=== PATIENT | female | born 2000 | race Caucasian/White ===

== ENCOUNTER → 2022-05-22 | Outpatient (CLI) | payer BC, SELFPAY ==
[2022-05-25 08:09] LABS: Chlamydia By Nucleic Acid AMP Negative (Negative)
[2022-05-27 15:56] LABS: Gonococcus By Nucleic Acid AMP Negative (Negative)
[2022-06-18 18:57] LABS: HPV Reflexed? NOT INDICATED
== END | disposition home or self-care (01) ==
LOC: LABSPEC 16:43
PROVIDERS: Referring Provider Obstetrics & Gynecology; Visit Provider Obstetrics & Gynecology
DX: Z34.00 Encounter for supervision of normal first pregnancy, unspecified trimester (principal)
CPT/HCPCS: 87491; 87591; 88175; G0145

== ENCOUNTER → 2022-06-20 | Outpatient (CLI) | payer BC, SELFPAY ==
[2022-06-20 14:40] LABS: Absolute Lymphocyte Count 1.44 X10^3/uL (0.83-4.51); Absolute Neutrophil Count 9.2 X10^3/uL (2.0-7.7); Basophil# 0.04 X10^3/uL; Basophil% 0.3 % (0-1); Eosinophil# 0.16 X10^3/uL; Eosinophils% 1.4 % (0-5); Hemoglobin 13.5 g/dL (12.0-15.0); Lymphocyte # 1.44 X10^3/ul (0.83-4.51); Lymphocyte % 12.6 % (19-41); Mean Corp Hgb Conc 34.6 g/dL (32-36); Mean Corpuscular Hgb 31.3 pg (27.0-32.0); Mean Corpuscular Volume 90.5 fL (81-99); Mean Platelet Vol. 8.7 fl (6.2-12.0); Monocyte# 0.61 X10^3/uL; Monocyte% 5.3 % (0-10); NRBC Flagged by Analyzer 0 % (0-5); Neutrophil # 9.16 X10^3/uL (2.7-7.7); Platelet Count 235 K/mm3 (150-450); RBC Distribution Width CV 12.9 % (11.6-14.6); RBC Distribution Width SD 42.5 fl (35.1-43.9); Red Blood Count 4.31 M/mm3 (4.2-5.4); White Blood Count 11.5 K/mm3 (4.4-11.0)
[2022-06-20 16:11] LABS: HIV - WCH Non-Reactive (Nonreactive); Hepatitis B Surface Antigen Non-Reactive (Nonreactive); Hepatitis C Antibody Non-Reactive (Nonreactive); Rubella IgG Reactive (Nonreactive); Syphilis Antibodies Non-reactive
== END | disposition home or self-care (01) ==
LOC: PAVLAB 14:21
PROVIDERS: Referring Provider Obstetrics & Gynecology; Visit Provider Obstetrics & Gynecology
DX: Z34.00 Encounter for supervision of normal first pregnancy, unspecified trimester (principal)
CPT/HCPCS: 36415; 85025; 86703; 86762; 86780; 86803; 86850; 86900; 86901; 87340

== ENCOUNTER → 2022-07-23 | Outpatient (CLI) | payer BC, SELFPAY | END | disposition home or self-care (01) | LOC: LABSPEC 16:09 | PROVIDERS: Referring Provider Obstetrics & Gynecology; Visit Provider Obstetrics & Gynecology | DX: Z34.00 Encounter for supervision of normal first pregnancy, unspecified trimester (principal) | CPT/HCPCS: 87086; 87088 ==

== ENCOUNTER → 2022-10-08 | Outpatient (CLI) | payer BC, SELFPAY ==
[2022-10-08 15:37] LABS: Absolute Lymphocyte Count 1.54 X10^3/uL (0.83-4.51); Absolute Neutrophil Count 9.1 X10^3/uL (2.0-7.7); Basophil# 0.04 X10^3/uL; Basophil% 0.3 % (0-1); Eosinophil# 0.09 X10^3/uL; Eosinophils% 0.8 % (0-5); Hematocrit 35.6 % (37-47); Hemoglobin 12.5 g/dL (12.0-15.0); Lymphocyte # 1.54 X10^3/ul (0.83-4.51); Lymphocyte % 13.3 % (19-41); Mean Corp Hgb Conc 35.1 g/dL (32-36); Mean Corpuscular Hgb 33.4 pg (27.0-32.0); Mean Corpuscular Volume 95.2 fL (81-99); Mean Platelet Vol. 8.7 fl (6.2-12.0); Monocyte# 0.74 X10^3/uL; Monocyte% 6.4 % (0-10); NRBC Flagged by Analyzer 0 % (0-5); Neutrophil # 9.11 X10^3/uL (2.7-7.7); Neutrophil % 78.4 % (47-70); Platelet Count 198 K/mm3 (150-450); RBC Distribution Width CV 12.7 % (11.6-14.6); RBC Distribution Width SD 43.8 fl (35.1-43.9); Red Blood Count 3.74 M/mm3 (4.2-5.4); White Blood Count 11.6 K/mm3 (4.4-11.0)
[2022-10-08 15:46] LABS: Glucose Challenge Gest 1H 50g 116 mg/dL (70-140)
[2022-10-08 16:31] LABS: HIV - WCH Non-Reactive (Nonreactive); Syphilis Antibodies Non-reactive
== END | disposition home or self-care (01) ==
LOC: PAVLAB 15:07
PROVIDERS: Referring Provider Obstetrics & Gynecology; Visit Provider Obstetrics & Gynecology
DX: Z34.00 Encounter for supervision of normal first pregnancy, unspecified trimester (principal); Z13.1 Encounter for screening for diabetes mellitus
CPT/HCPCS: 36415; 82950; 85025; 86703; 86780; 86850; 86900; 86901

== ENCOUNTER → 2022-12-07 | Outpatient (CLI) | payer BC, SELFPAY | END | disposition home or self-care (01) | LOC: LABSPEC 16:43 | PROVIDERS: Referring Provider Advanced Practice Midwife; Visit Provider Advanced Practice Midwife | DX: Z34.00 Encounter for supervision of normal first pregnancy, unspecified trimester (principal) | CPT/HCPCS: 87081 ==

== ENCOUNTER 2022-12-10 20:35 | Outpatient (CLI) | payer BC, SELFPAY ==
[2022-12-10 20:51] VITALS: BMI 30.1
[2022-12-10 20:55] VITALS: BP 119/66; PULSE 72; TEMP 36.4
[2022-12-10 21:00] VITALS: PULSE 68; O2SAT 98
--- NOTE | 2022-12-10 23:20 | OB.TRI.HP_ITS ---
HPI - General HPI Narrative CLAUS MANUEL, is a 22 F who presents at 37 weeks s/p fall on her driveway after her dog ran in front of her. she fell onto her buttock. positive movement, no ctx, lof or vb. had initial lower abdominal discomfort and soreness. Maternal Data Information CHAPARRO Calculator Estimated Delivery Date Method Current WG Current Estimate 12/27/22 LMP (Certain) 37w 5d PFSH PFSH Home Medications twawkuzh-dzt-Ql-FA 1 mg tablet 1 tab PO DAILY 12/11/22 [History Last Taken Unknown] Allergy/AdvReac Type Severity Reaction Status Date / Time No Known Allergies Allergy Verified 12/10/22 21:25 Family History Brother Cancer older brother- Brain tumor- did chemo and radiation Father S/P triple vessel bypass Surgical History Broken fibula Broken tibia History of dental surgery Social History adopted: No household members: significant other housing: house current occupational status: employed 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 pets and animals: Yes pets and animals: dog(s) sexually active: Yes Smoking Status: Never smoker second hand exposure: No alcohol intake: current details: Not while substance use type: does not use seatbelt use: always do you feel safe at home: Yes additional social history: - Oscar works for [employer] business History 1 Elective abortions Hx Para 0 Spontaneous abortions Hx # Term Pregnancies Ectopic pregnancies Hx # Pregnancies Multiple births # of living children Visit Details Expected Delivery Route/Plan Labor Preferences- CB/BF classes: encouraged labor support person: Oscar labor intervention preferences: [] pain management options preferred: Epidural. cut cord/dad catch: no : probably not, enc class PP control planned: discussed discussed possible routes of delivery and associated risks: [] special requests: [] Plans Covid status:unvaccinated, not interested in vaccinating. Flu vaccine: declines Tdap vaccine: done Rhogam: given LARC form signed: yes Problem list reviewed and updated with the most current plan of care details and appropriate orders placed. Relevant counseling for the gestational age provided. Continue routine care and follow up unless otherwise noted in visit notes/problem list details OB Flowsheet Initial Weight: Not Recorded Date -?-?-?-?-?-?-?-?-?-?-?-?- EGA Weight BP Urine Prot -?-?-?-?-?-?-?-?-?-?-?-?- Glucose FHR FuHt Pres Dilation -?-?-?-?-?-?-?-?-?-?-?-?- Effaced St Visit Note 05/22/22 -?-?-?-?-?-?-?-?-?-?-?-?- 8w 5d 156 lb 123/75 -?-?-?-?-?-?-?-?-?-?-?-?- 185 -?-?-?-?-?-?-?-?-?-?-?-?- JV- CRL consiste nt with LMP. decinding on NIPT and carrier testing. box kits given. will decide and go to lab in 2 weeks if wants them 06/20/22 -?-?-?-?-?-?-?-?-?-?-?-?- 12w 6d 160 lb 123/75 Negative -?-?-?-?-?-?-?-?-?-?-?-?- Negative 170 -?-?-?-?-?-?-?-?-?-?-?-?- JV- no lof, or s potting. some cramping. needs new ob labs today and anatomy scan ordered. 07/23/22 -?-?-?-?-?-?-?-?-?-?-?-?- 17w 4d 165 lb 8 oz 130/77 Nega tive -?-?-?-?-?-?-?-?-?-?-?-?- Negative 155 -?-?-?-?-?-?-?-?-?-?-?-?- MH-No VB, LOF. N o movement yet. Reviewed PN labs. MFM US 08/07/22 08/23/22 -?-?-?-?-?-?-?-?-?-?-?-?- 22w 0d 174 lb 6 oz 110/74 Nega tive -?-?-?-?-?-?-?-?-?-?-?-?- Negative 139 -?-?-?-?-?-?-?-?-?-?-?-?- JV- normal anato my scan. no complaints today. 09/17/22 -?-?-?-?-?-?-?-?-?-?-?-?- 25w 4d 184 lb 114/73 Negative -?-?-?-?-?-?-?-?-?-?-?-?- Negative 145 25 -?-?-?-?-?-?-?-?-?-?-?-?- SM- no vb lof go od fm no regular ctx 10/08/22 -?-?-?--?-?-?-?-?-?-?-?-?- 28w 4d 190 lb 4 oz 120/78 Nega tive -?-?-?-?-?-?-?-?-?-?-?-?- Negative 149 28 -?-?-?-?-?-?-?-?-?-?-?-?- MH-No Vb, LOF. G odrake FM. Larc, rhogam, 28 wk labs 10/22/22 -?-?-?-?-?-?-?-?-?-?-?-?- 30w 4d 30 lb 4 oz 115/71 Negat marge -?-?-?-?-?-?-?-?-?-?-?-?- Negative 142 30 -?-?-?-?-?-?-?-?-?-?-?-?- MH-No VB, LOF. G ood FM. tdap 11/09/22 -?-?-?-?-?-?-?-?-?-?-?-?- 33w 1d 193 lb 8 oz 115/74 Nega tive -?-?-?-?-?-?-?-?-?-?-?-?- Negative 135 33 -?-?-?-?-?-?-?-?-?-?-?-?- SM- no vb lof go od fm no regular ctx 11/21/22 -?-?-?-?-?-?-?-?-?-?-?-?- 34w 6d 197 lb 116/72 Negative -?-?-?-?-?-?-?-?-?-?-?-?- Negative 147 34 -?-?-?-?-?-?-?-?-?-?-?-?- JV- no lof, vagi nal bleeding, or dec fm. gbs next visit. 12/07/22 -?-?-?-?-?-?-?-?-?-?-?-?- 37w 1d 200 lb 2 oz 128/80 Nega tive -?-?-?-?-?-?-?-?-?-?-?-?- Negative 130 37 Cephalic 0 .5 -?-?-?-?-?-?-?-?-?-?-?-?- 50 -2 KW- +fm, n o lof/ctx/vb. GBS done today. labor precautions. Physical Exam Const alert and oriented x3 Resp normal respiratory effort, normal air movement, no retractions and no use of accessory muscles Cardio regular rate and regular rhythm GI soft to palpation and non-tender Inspection: Palpation: soft Rectal Exam: deferred external exam normal Bimanual Exam - Vag & Uterus: uterus non-tender and other gravid uterus, normal for gestational age OB / External & Speculum: Negative for herpetic lesions Manual OB Exam: estimated gestational size appropriate, presentation cephalic, dilated 0.5, effaced 20 and station -4 Amniotic Fluid: no amniotic fluid noted Extremity normal to inspection and full ROM NST FHR Rate Baby A Baseline: 125 Variability:: Moderate Accelerations:: 15 x 15 Decelerations:: None NST Reactive:: Yes FHR Category:: Category I Uterine Activity:: q2-3 minutes, mild to palpation Assessment & Plan (1) Status post fall: COMMENT: 37 weeks fall onto buttock on driveway. stable 4 hour monitoring. RhoGAM. unchanged cervical exam. PLAN: Plan Patient presents for triage evaluation secondary to fall at term FHT: Moderate variability reactive no decelerations category I tracing [place]: irregular Contractions Assessment and plan: Reactive NST, reassuring maternal and status patient discharged to home to follow-up in office. See problem list details for additional plan information. Discussed above with who agrees with above plan. ok for d/c home with labor precautions and bleeding precautions with kick counts. Charges/Coding Visit Charges Office Visits / Consults: 00684 OV L3 Est Procedures Urinary/Genital 52xxx-59xxx: 29318-10 non-stress test Interp Multi Select Codes Urinary/Genital Urinary/Genital CPT Codes: 72389-35 non-stress test Interp
[2022-12-11 01:46] VITALS: BP 112/73; PULSE 62; PULSE 65; TEMP 36.1; O2SAT 98
== END 2022-12-11 02:05 | disposition home or self-care (01) ==
LOC: WPPAT 20:41 → WP 20:41
PROVIDERS: Visit Provider Registered Nurse
DX: O99.891 Other specified diseases and conditions complicating pregnancy (principal); Z3A.37 37 weeks gestation of pregnancy; R10.30 Lower abdominal pain, unspecified; W19.XXXA Unspecified fall, initial encounter
CPT/HCPCS: 36415; 59025; 59050; 85461; 96372; 99221; G0378; J2790

== ENCOUNTER 2023-01-01 08:45 | Inpatient (IN) | payer BC, SELFPAY ==
[2023-01-01] VITALS (36 sets, daily range): BP systolic 100–129; BP diastolic 52–75; PULSE 54–81; TEMP 36.2–37.1; O2SAT 97–99; BMI 30.6
[2023-01-01 08:40] LABS: ROM Internal Control Test YES-OK TO RESULT pt. (Internal QC)
[2023-01-01 08:42] LABS: ROM Patient Test POSITIVE (Negative); Record Kit Lot#, ROM+ K1374
[2023-01-01] MEDS: Lactated Ringers 1,000 ML 50 ML IV (09:25)
[2023-01-01 09:36] LABS: Absolute Lymphocyte Count 1.38 X10^3/uL (0.83-4.51); Absolute Neutrophil Count 8.4 X10^3/uL (2.0-7.7); Basophil# 0.04 X10^3/uL; Basophil% 0.4 % (0-1); Eosinophil# 0.07 X10^3/uL; Eosinophils% 0.7 % (0-5); Hematocrit 38.8 % (37-47); Hemoglobin 13.5 g/dL (12.0-15.0); Lymphocyte # 1.38 X10^3/ul (0.83-4.51); Lymphocyte % 13.1 % (19-41); Mean Corp Hgb Conc 34.8 g/dL (32-36); Mean Corpuscular Volume 91.9 fL (81-99); Mean Platelet Vol. 9.4 fl (6.2-12.0); Monocyte# 0.61 X10^3/uL; Monocyte% 5.8 % (0-10); NRBC Flagged by Analyzer 0 % (0-5); Neutrophil # 8.39 X10^3/uL (2.7-7.7); Neutrophil % 79.5 % (47-70); Platelet Count 213 K/mm3 (150-450); RBC Distribution Width CV 12.8 % (11.6-14.6); RBC Distribution Width SD 41.9 fl (35.1-43.9); Red Blood Count 4.22 M/mm3 (4.2-5.4); White Blood Count 10.5 K/mm3 (4.4-11.0)
[2023-01-01] MEDS: Oxytocin 15 Units/NS 250ml 15 UNITS/250 ML IV.SOLN 2 UNITS IV (09:40)
[2023-01-01 10:10] LABS: Syphilis Antibodies Non-reactive
[2023-01-01] MEDS: LACTATED RINGERS 500 ML 999 ML IV ×2 (11:52→12:45)
--- NOTE | 2023-01-01 13:22 | HP.PCM.OB_ITS ---
HPI - General General Date of Admission: 01/01/23 Date of Service: 01/01/23 HPI Narrative CLAUS MANUEL, is a 22 F at 40.5 weeks who presents for SROM at 0530 this am. Maternal Data Information CHAP[facility]O Calculator Estimated Delivery Date Method Current WG Current Estimate 12/27/22 LMP (Certain) 40w 5d Final CHAPARRO: 12/27/22 Final CHAPARRO Source: US >20 weeks Gestational age: 40.5 weeks PFSH PFSH Home Medications krppptey-waa-Se-FA 1 mg tablet 1 tab PO DAILY 12/11/22 [History Last Taken 12/31/22] Allergy/AdvReac Type Severity Reaction Status Date / Time No Known Allergies Allergy Verified 01/01/23 09:04 Family History Brother Cancer older brother- Brain tumor- did chemo and radiation Father S/P triple vessel bypass Surgical History Broken fibula Broken tibia History of dental surgery Social History adopted: No household members: significant other housing: house 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 occupational status: employed 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 pets and animals: Yes pets and animals: dog(s) sexually active: Yes Smoking Status: Never smoker second hand exposure: No alcohol intake: current details: Not while substance use type: does not use seatbelt use: always do you feel safe at home: Yes additional social history: - 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 cut cord/dad catch: no : probably not, enc class PP control planned: discussed discussed possible routes of delivery and associated risks: [] special requests: [] Plans Covid status:unvaccinated, not interested in vaccinating. Flu vaccine: declines Tdap vaccine: done Rhogam: given LARC form signed: yes Problem list reviewed and updated with the most current plan of care details and appropriate orders placed. Relevant counseling for the gestational age provided. Continue routine care and follow up unless otherwise noted in visit notes/problem list details OB Flowsheet Initial Weight: Not Recorded Date -?-?-?-?-?-?-?-?-?-?-?-?- EGA Weight BP Urine Prot -?-?-?-?-?--?-?-?-?-?-?-?- Glucose FHR FuHt Pres Dilation -?-?-?-?-?-?-?-?-?-?-?--?- Effaced St Visit Note 05/22/22 -?-?-?-?-?-?-?-?-?-?-?-?- 8w 5d 156 lb 123/75 -?-?-?-?-?-?-?-?-?-?-?-?- 185 -?-?-?-?-?-?-?-?-?-?-?-?- JV- CRL consiste nt with LMP. decinding on NIPT and carrier testing. box kits given. will decide and go to lab in 2 weeks if wants them 06/20/22 -?-?-?-?-?-?-?-?-?-?-?-?- 12w 6d 160 lb 123/75 Negative -?-?-?-?-?-?-?-?-?-?-?-?- Negative 170 -?-?-?-?-?-?-?-?-?-?-?-?- JV- no lof, or s potting. some cramping. needs new ob labs today and anatomy scan ordered. 07/23/22 -?-?-?-?-?-?-?-?-?-?-?-?- 17w 4d 165 lb 8 oz 130/77 Nega tive -?-?-?-?-?-?-?-?-?-?-?-?- Negative 155 -?-?-?-?-?-?-?-?-?-?-?-?- MH-No VB, LOF. N o movement yet. Reviewed PN labs. MFM 08/07/22 08/23/22 -?-?-?-?-?-?-?-?-?-?-?-?- 22w 0d 174 lb 6 oz 110/74 Nega tive -?-?-?-?-?-?-?-?-?-?-?-?- Negative 139 -?-?-?-?-?-?-?-?-?-?-?-?- JV- normal anato my scan. no complaints today. 09/17/22 -?-?-?-?-?-?-?-?-?-?-?-?- 25w 4d 184 lb 114/73 Negative -?-?-?-?-?-?-?-?-?-?-?-?- Negative 145 25 -?-?-?-?-?-?-?-?-?-?-?-?- SM- no vb lof go od fm no regular ctx 10/08/22 -?-?-?-?-?-?-?-?-?-?-?-?- 28w 4d 190 lb 4 oz 120/78 Nega tive -?-?-?-?-?-?-?-?-?-?-?-?- Negative 149 28 -?-?-?-?-?-?-?-?-?-?-?-?- MH-No Vb, LOF. G ood FM. Larc, rhogam, 28 wk labs 10/22/22 -?-?-?-?-?-?-?-?-?-?-?-?- 30w 4d 30 lb 4 oz 115/71 Negat marge -?-?-?-?-?-?-?-?-?-?-?-?- Negative 142 30 -?-?-?-?-?-?-?-?-?-?-?-?- MH-No VB, LOF. G ood FM. tdap 11/09/22 -?-?-?-?-?-?-?-?-?-?-?-?- 33w 1d 193 lb 8 oz 115/74 Nega tive -?-?-?-?-?-?-?-?-?-?-?-?- Negative 135 33 -?-?-?-?-?-?-?--?-?-?-?-?- SM- no vb lof go od fm no regular ctx 11/21/22 -?-?-?-?-?-?-?-?-?-?-?-?- 34w 6d 197 lb 116/72 Negative -?-?-?-?-?-?-?-?-?-?-?-?- Negative 147 34 -?-?-?-?-?-?-?-?-?-?-?-?- JV- no lof, vagi nal bleeding, or dec fm. gbs next visit. 12/07/22 -?-?-?-?-?-?-?-?-?-?-?-?- 37w 1d 200 lb 2 oz 128/80 Nega tive -?-?-?-?-?-?-?-?-?-?-?-?- Negative 130 37 Cephalic 0 .5 -?-?-?-?-?-?-?-?-?-?-?-?- 50 -2 KW- +fm, n o lof/ctx/vb. GBS done today. labor precautions. 12/14/22 -?-?-?-?-?-?-?-?-?-?-?-?- 38w 1d 198 lb 2 oz 122/76 Nega tive -?-?-?-?-?-?-?-?-?-?-?-?- Negative 159 38 Cephalic -?-?-?-?-?-?-?-?-?-?-?-?- JV- declines exa m today. no complaints other than feeling sore from her fall this weekend. was monitored on L&D. no lof, vaginal bleeding, or dec fm. 12/21/22 -?-?-?-?-?-?-?-?-?-?-?-?- 39w 1d 203 lb 108/72 Negative -?-?-?-?-?-?-?-?-?-?-?-?- Negative 140 38 1.5 -?-?-?-?-?-?-?-?-?-?-?-?- 60 -2 kw- + fm, no lof/vb/ctx. labor precaution. no concerns 12/28/22 -?-?-?-?-?-?-?-?-?-?-?-?- 40w 1d 202 lb 4 oz 127/79 Trac e -?-?-?-?-?-?-?-?-?-?-?-?- Negative 138 39 Cephalic 0 .5 -?-?-?-?-?-?-?-?-?-?-?-?- 50 -3 LC- r/b/a of IOL at 41 weeks reviewed. pt would like 41 week IOL. scheduled for 01/03/2023 LC- +fm, denies lof/vb/ctx. r/b/a of IOL at 41 weeks reviewed. pt would like 41 week IOL. scheduled for 01/03/2023 01/01/23 -?-?-?-?-?-?-?-?-?-?-?-?- 40w 5d 201 lb 6.4 oz 126/67 125/75 124/74 123/70 121/66 129/72 123/72 -?-?-?-?-?-?-?-?-?-?-?-?- -?-?-?-?-?-?-?-?-?-?-?-?- NST FHR Rate Baby A Baseline: 130 Variability:: Moderate Accelerations:: 15 x 15 Decelerations:: None NST Reactive:: Yes FHR Category:: Category I Uterine Activity:: 2-4 minutes ROS Constitutional Constitutional: Denies change in weight, fatigue, fever(s), headache(s), poor appetite or weakness Eyes Eyes: Denies blurry vision, change in vision, floaters, seeing flashes or spots in vision ENT HEENT: Denies dizziness, headache(s), loss taste/smell or sore throat Cardiovascular Cardiovascular: Denies chest pain, dizziness, dyspnea, irregular heart rhythm, lightheadedness, palpitations or rapid heart rate Respiratory/Chest Respiratory/Chest: Denies change in mental status, chest tightness, cough, dyspnea or breast pain Gastrointestinal Gastrointestinal: Denies anorexia, chewing difficulty, constipation, diarrhea or weight changes Genitourinary Genitourinary: Denies difficulty urinating, dysuria, flank pain, genital pain, urinary frequency or urinary urgency Musculoskeletal Musculoskeletal: Denies back pain, difficulty walking, extremity pain, joint pain, muscle cramps or muscle weakness Integumentary Integumentary: Denies lesions or unusual bruising Neurologic Neurologic: Denies abnormal movements, abnormal speech, dizziness, numbness, seizure-like activity, syncope or weakness Psychiatric Psychiatric: Denies behavioral changes, change in appetite, confusion, depression, homicidal ideation, suicidal ideation or suicidal thoughts Endocrine Endocrinology: Denies excessive sweating, polydipsia or polyuria Hematologic/Lymphatic Hematologic/Lymphatic: Denies anemia Allergic/Immunologic Allergic/Immunologic: Denies itchy eyes, lip swelling, throat swelling, tongue swelling or wheezing Vital Signs Vital Signs Vital Signs: 01/01/23 08:01 01/01/23 08:01 01/01/23 08:04 Temperature 98.6 F Temperature Source Pulse Rate 68 Blood Pressure 126/67 H BP Systolic 126 BP Diastolic 67 Pulse Ox 01/01/23 10:03 01/01/23 10:03 01/01/23 10:03 Temperature 98.6 F Temperature Source Pulse Rate 73 Blood Pressure 125/75 H BP Systolic 125 BP Diastolic 75 Pulse Ox 01/01/23 10:06 01/01/23 10:06 01/01/23 10:01 Temperature Temperature Source Temporal Pulse Rate 81 Blood Pressure BP Systolic BP Diastolic Pulse Ox 98 01/01/23 10:01 01/01/23 11:04 01/01/23 11:04 Temperature 98.6 F Temperature Source Pulse Rate 73 Blood Pressure 124/74 H BP Systolic 124 BP Diastolic 74 Pulse Ox 01/01/23 11:05 01/01/23 11:04 01/01/23 11:51 Temperature 98.1 F Temperature Source Temporal Pulse Rate Blood Pressure 123/70 H BP Systolic 123 BP Diastolic 70 Pulse Ox 01/01/23 11:51 01/01/23 11:51 01/01/23 13:10 Temperature 98.8 F Temperature Source Pulse Rate 70 Blood Pressure BP Systolic BP Diastolic Pulse Ox 99 01/01/23 13:10 01/01/23 13:10 01/01/23 13:15 Temperature Temperature Source Pulse Rate 54 L 56 L Blood Pressure 121/66 H BP Systolic 121 BP Diastolic 66 Pulse Ox 01/01/23 13:15 01/01/23 13:17 01/01/23 13:17 Temperature Temperature Source Pulse Rate 58 L Blood Pressure 129/72 H BP Systolic 129 BP Diastolic 72 Pulse Ox 99 01/01/23 13:20 01/01/23 13:20 Temperature Temperature Source Pulse Rate 58 L Blood Pressure BP Systolic BP Diastolic Pulse Ox 98 Weight Weight: 201 lb 6.4 oz Body Mass Index (BMI) 30.6 Physical Exam Const alert, oriented x3 and no apparent distress General Appearance: cooperative Orientation / Consciousness: awake HEENT normocephalic Neck full ROM Lymph Lymphatic: no lymphadenopathy noted Chest inspection of chest normal Resp normal respiratory effort and normal air movement Effort and Inspection: able to speak in complete sentences and symmetric chest movement GI soft to palpation and non-tender Inspection: gravid Palpation: soft; Negative for tender external exam normal Back/Spine normal to inspection Extremity normal to inspection and full ROM Skin no rashes or lesions noted Psych mental status grossly normal Appearance: grossly normal Speech: normal speech Labs Labs Labs: Blood Type A NEGATIVE Antibody Screen POSITIVE Hct 38.8 % (37-47) Hgb 13.5 g/dL (12.0-15.0) Syphilis Total Ab Non-reactive Rubella IgG Antibody Reactive (Nonreactive) Hep Bs Antigen Non-Reactive (Nonreactive) Chlamydia DNA ([facility]) Negative (Negative) Neisseria gonorrhoeae DNA ([facility]) Negative (Negative) HIV 1&2 Antibody Non-Reactive (Nonreactive) Glucose 1 Hr 50 gm 116 mg/dL (70-140) Assessment & Plan (1) SROM (spontaneous rupture of membranes): PLAN: Patient presents IAL, plan expectant management for , pitocin/AROM PRN if needed. Pain management: plans epidural. GBS negative. Management of any complications: none I have reviewed the [facility] and made any clinically relevant updates. Reviewed with Dr Herr and agrees with POC (2) Rh negative state in antepartum period: COMMENT: rhogam 28 wk, pp and prn bleeding (3) Supervision of normal first : COMMENT: [id number] CHAPARRO [birth year] boy : Oscar (4) : QUALIFIERS: Weeks of gestation: 40 weeks Qualified Code(s): Z3A.40 - 40 weeks gestation of COMMENT: GBS neg, declines genetic ntd and carrier testing normal anatomy scan 08/07/22 Charges/Coding Multi Select Codes Urinary/Genital Urinary/Genital CPT Codes: No Charge
[2023-01-01] MEDS: fentaNYL-bupivacaine (epidural) 100 ML BAG EPIDURAL ×3 (13:28→22:36)
[2023-01-01] MEDS: Lactated Ringers 1,000 ML 200 ML IV ×2 (18:00→22:41)
[2023-01-01] MEDS: Ondansetron 4 MG/2 ML Vial IV (20:45)
--- NOTE | 2023-01-01 21:16 | PN_ITS ---
Progress Note comfortable with epidural current tracing: FHT: 130 Moderate variability reactive early decelerations category I tracing- reassuring [place]: strong Contractions every 2-3 minutes SVE 6.5/100/-1 per nursing exam pitocin 8mu reviewed tracing abnormalities since last note: internal monitors placed due to difficulty tracing A/P: continue with position changes continue titration of pitocin according to policy. GBS neg anticipate Assessment & Plan Assessment/Plan (1) Rh negative state in antepartum period: (2) Supervision of normal first : (3) : QUALIFIERS: Weeks of gestation: 40 weeks Qualified Code(s): Z3A.40 - 40 weeks gestation of (4) SROM (spontaneous rupture of membranes): Multi Select Codes Urinary/Genital Urinary/Genital CPT Codes: No Charge
[2023-01-02] VITALS (23 sets, daily range): BP systolic 107–142; BP diastolic 53–73; PULSE 69–91; RESP 16–17; TEMP 36.5–37.2; O2SAT 98
--- NOTE | 2023-01-02 02:17 | EX.PCM.OBRPT ---
Assessment & Plan (1) SROM (spontaneous rupture of membranes): (2) Rh negative state in antepartum period: COMMENT: rhogam 28 wk, pp and prn bleeding (3) Supervision of normal first : COMMENT: [id number] CHAPARRO 12/27/22 boy : Oscar (4) : QUALIFIERS: Weeks of gestation: 40 weeks Qualified Code(s): Z3A.40 - 40 weeks gestation of COMMENT: GBS neg, declines genetic ntd and carrier testing normal anatomy scan 08/07/22 Maternal Data Information CHAPARRO Calculator Estimated Delivery Date Method Current WG Current Estimate 12/27/22 LMP (Certain) 40w 6d Final CHAPARRO: 12/27/22 Final CHAPARRO Source: US >20 weeks Gestational age: 40.6 weeks Vaginal Delivery Maternal Presentation Maternal Presentation: Spontaneous Rupture of Membranes Maternal Presentation: Patient began pushing and delivered the head in the SAHARA presentation. The head was delivered atraumatically and a tight nuchal cord ?1 was identified and 's somersaulted through. The anterior and posterior shoulders delivered without complication followed by the rest of the and the was placed on the maternal abdomen. Delayed cord clamping was employed for approximately 60 seconds. Cord was clamped and cut and gentle traction was applied to the cord and the placenta delivered spontaneously immediately following it was noted to be intact with three-vessel cord. The perineum and vagina were inspected and first degree lacerationwhich was repaired in the usual fashion using 3-0 Rapide. EBL was 100 cc. Patient and infant tolerated delivery well. Apgars 9/9. Type of Induction: - Operative Information Date of Procedure: 01/02/23 Pre-Operative Diagnosis: See AP comments Post-Operative Diagnosis: Same Surgery / Procedure Performed: Spontaneous Vaginal Delivery supervisor of officials #1: Dolores Forbes Type of Anesthesia: Epidural Estimated Blood Loss: 100 Time of Delivery: 01:50 Findings Presentation: Vertex Amniotic Membrane Rupture Type: Spontaneous Time of Membrane Rupture: 01/01/23-529 Amniotic Fluid Description: Clear Placental Delivery Description: Spontaneous Placenta Disposition: [facility] Cord Vessel Description: 3 Vessels Cord Entanglement: Around neck x 1, tight Nuchal Cord Compression: With compression A Gender: Male (1 minute): 9 (5 minute): 9 Delayed Cord Clamping: Yes Post Vaginal Delivery Medications Given After Delivery: IV Pitocin Episiotomy Description: None Laceration: 1st degree Complication Complications: None Multi Select Codes Urinary/Genital Urinary/Genital CPT Codes: 32300 Vaginal Delivery [facility]
--- NOTE | 2023-01-02 02:24 | DCINST_ITS ---
Discharge Instructions Diet Discharge Diet: No restrictions Activity Discharge Activity: Return to Normal Activity May resume sexual activity in: 6-8 weeks Dressing / Incision Call your doctor if you observe: Fever of 101 or Higher, Coldness, Increased Pain, Numbness or Tingling, Change in Color, Inability to urinate, Inability to have a bowel movement, Using more than 1 pad per hour, Shortness of breath, Dizziness, Fainting spells, Swelling in the ankles, Chest pain, Increased palpitations (irregular heartbeat), Calf discomfort and Uncontrolled pain Follow Up Care Please Follow Up With: Dolores Forbes CNM When: Please call the office to schedule your follow up appointment in 6 weeks. If you had high blood pressure please call to schedule an appointment in 2 weeks. Test Results: Test results from this visit will be discussed in further detail at your follow- up appointment, if applicable. Discharge Plan Admission Admit Date/Time: 01/01/23 08:45 Attending Provider: Dolores Forbes Primary Care Provider: Care Physician,Sherri Primary Discharge Orders/Prescriptions Prescriptions: No Action 1 mg Tablet 1 tab PO DAILY Referrals / Follow Up: Care Physician,No Primary [Primary Care Provider] - Disposition Disposition (needs filled in before D/C Order can be placed): Home, Self Care
[2023-01-02] MEDS: Oxytocin 15 Units/NS 250ml 15 UNITS/250 ML IV.SOLN 83 UNITS IV (02:30)
[2023-01-02] MEDS: Ibuprofen 600 MG Tablet PO ×2 (16:53→23:59)
[2023-01-02] MEDS: Acetaminophen 500 MG Tablet 1000 MG PO (20:49)
[2023-01-03] VITALS (9 sets, daily range): BP systolic 111–139; BP diastolic 56–62; PULSE 64–90; RESP 14–18; TEMP 36.6–37.1; O2SAT 94–95
--- NOTE | 2023-01-03 07:27 | PCM.PN.OB ---
Documented by User: Dr. Cherise Snow DO 01/03/23 08:15 Subjective Subjective Patient doing well without complaints. Tolerating PO. Ambulating and voiding without difficulty. Feeding well. Denies chest pain, shortness of breath, calf pain/swelling, fevers, chills, lightheadedness. Objective Data Lab / Micro Data Result Diagrams: 01/01/23 09:25 ROS Constitutional Constitutional: Denies chills, fatigue, fever(s), poor appetite or weakness Eyes Eyes: Denies blurry vision, change in vision, seeing flashes or spots in vision ENT HEENT: Denies dizziness, headache(s), loss taste/smell or sore throat Cardiovascular Cardiovascular: Denies chest pain, dizziness, dyspnea, irregular heart rhythm, palpitations or rapid heart rate Respiratory/Chest Respiratory/Chest: Denies chest tightness, cough, dyspnea or breast pain Gastrointestinal Gastrointestinal: Denies abdominal pain, constipation or vomiting Genitourinary Genitourinary: Denies dysuria or flank pain Musculoskeletal Musculoskeletal: Denies difficulty walking, joint pain, limited range of motion or numbness Neurologic Neurologic: Denies abnormal movements, abnormal speech, dizziness, numbness, seizure-like activity or syncope Psychiatric Psychiatric: Denies anxiety, behavioral changes, change in appetite, confusion, depression or suicidal thoughts Physical Exam Const alert, oriented x3 and no apparent distress General Appearance: cooperative and comfortable Resp normal respiratory effort Cardio regular rate GI normal to inspection, nondistended, normoactive bowel sounds GI Narrative: uterus is firm below umbilicus Palpation: soft Back/Spine no CVA tenderness and thoraco-lumbar ROM normal Extremity normal to inspection, no clubbing, cyanosis or edema, no calf tenderness and no pedal edema Psych mental status grossly normal, thought process normal, cooperative, affect normal, speech normal, activity/motor behavior normal, denies homicidal ideation and denies suicidal ideation Assessment & Plan (1) SROM (spontaneous rupture of membranes): (2) Rh negative state in antepartum period: COMMENT: rhogam 28 wk, pp and prn bleeding (3) Supervision of normal first : COMMENT: KW 40.6 boy Ant bottle (4) : QUALIFIERS: Weeks of gestation: 40 weeks Qualified Code(s): Z3A.40 - 40 weeks gestation of COMMENT: GBS neg, declines genetic ntd and carrier testing normal anatomy scan 08/07/22 PLAN: Plan s/p PPD # 1 1. routine post delivery care 2. breast feeding- support given 3. rh positive 4. rubella immune 5. wants to go home today Documented by User: Dr. Rosalinda Herr MD Objective Data Objective Data Vital Signs: Vital Signs Temp Pulse Resp BP Pulse Ox O2 Del Method 98.8 F 66 14 111/56 L 95 Room Air 01/03/23 02:28 01/03/23 02:29 01/03/23 02:28 01/03/23 02:29 01/03/23 02:01/03/23 02:28 Oxygen Delivery Method Room Air Weight: 201 lb 6.4 oz Body Mass Index (BMI) 30.6 Intake & Output: Intake and Output for Last 24 Hours 01/01/23 01/02/23 01/03/23 23:59 23:59 23:59 Intake Total 3053.53 / 3053.53 821.38 / 821.38 Output Total 600 / 600 2500 / 2500 Balance 2453.53 / 2453.53 -1678.62 / -1678.62 Lab / Micro Data Result Diagrams: 01/01/23 09:25 Assessment & Plan (1) SROM (spontaneous rupture of membranes): (2) Rh negative state in antepartum period: COMMENT: rhogam 28 wk, pp and prn bleeding (3) Supervision of normal first : COMMENT: KW 40.6 boy Ant bottle (4) : QUALIFIERS: Weeks of gestation: 40 weeks Qualified Code(s): Z3A.40 - 40 weeks gestation of COMMENT: GBS neg, declines genetic ntd and carrier testing normal anatomy scan 08/07/22
[2023-01-03] MEDS: Acetaminophen 500 MG Tablet 1000 MG PO ×2 (08:06→14:20)
[2023-01-03] MEDS: Ibuprofen 600 MG Tablet PO ×2 (10:04→16:25)
== END 2023-01-03 17:50 | disposition home or self-care (01) | DRG 807 ==
LOC: WPOUT 08:53 → WP 08:53
PROVIDERS: Admitting Provider Advanced Practice Midwife; Visit Provider Advanced Practice Midwife
DX: O76 Abnormality in fetal heart rate and rhythm complicating labor and delivery (principal); Z37.0 Single live birth; O26.893 Other specified pregnancy related conditions, third trimester; Z67.11 Type A blood, Rh negative; O42.92 Full-term premature rupture of membranes, unspecified as to length of time between rupture and onset of labor; O69.1XX0 Labor and delivery complicated by cord around neck, with compression, not applicable or unspecified; O70.0 First degree perineal laceration during delivery; Z28.21 Immunization not carried out because of patient refusal; Z28.310 Unvaccinated for COVID-19; Z3A.40 40 weeks gestation of pregnancy
CPT/HCPCS: 59025; 59050; 84112; 85025; 86780; 86850; 86870; 86900; 86901; 99221; J7120; G0378; J2405

== ENCOUNTER → 2024-07-01 | Outpatient (CLI) | payer OTHER, SELFPAY ==
[2024-07-01 11:10] LABS: Absolute Lymphocyte Count 1.16 X10^3/uL (0.83-4.51); Absolute Neutrophil Count 9.4 X10^3/uL (2.0-7.7); Basophil# 0.03 X10^3/uL; Basophil% 0.3 % (0-1); Eosinophil# 0.06 X10^3/uL; Eosinophils% 0.5 % (0-5); Hematocrit 36.7 % (37-47); Hemoglobin 12.5 g/dL (12.0-15.0); Lymphocyte # 1.16 X10^3/ul (0.83-4.51); Lymphocyte % 10.2 % (19-41); Mean Corp Hgb Conc 34.1 g/dL (32-36); Mean Corpuscular Hgb 30.3 pg (27.0-32.0); Mean Corpuscular Volume 88.9 fL (81-99); Mean Platelet Vol. 8.9 fl (6.2-12.0); Monocyte# 0.75 X10^3/uL; Monocyte% 6.6 % (0-10); NRBC Flagged by Analyzer 0 % (0-5); Neutrophil # 9.37 X10^3/uL (2.7-7.7); Platelet Count 240 K/mm3 (150-450); RBC Distribution Width CV 12.5 % (11.6-14.6); RBC Distribution Width SD 40.3 fl (35.1-43.9); Red Blood Count 4.13 M/mm3 (4.2-5.4); White Blood Count 11.4 K/mm3 (4.4-11.0)
[2024-07-01 12:06] LABS: HIV - WCH Non-Reactive (Nonreactive); Hepatitis B Surface Antigen Non-Reactive (Nonreactive); Hepatitis C Antibody Non-Reactive (Nonreactive); Rubella IgG Reactive (Nonreactive); Syphilis Antibodies Non-reactive
[2024-07-03 20:07] LABS: Chlamydia By Nucleic Acid AMP Negative (Negative); Gonococcus By Nucleic Acid AMP Negative (Negative)
== END | disposition home or self-care (01) ==
LOC: BWCLAB 10:41
PROVIDERS: Referring Provider Advanced Practice Midwife; Visit Provider Advanced Practice Midwife
DX: Z34.90 Encounter for supervision of normal pregnancy, unspecified, unspecified trimester (principal)
CPT/HCPCS: 36415; 85025; 86703; 86762; 86780; 86803; 86850; 86900; 86901; 87086; 87340; 87491; 87591

== ENCOUNTER → 2024-11-10 | Outpatient (CLI) | payer OTHER, SELFPAY ==
[2024-11-10 13:38] LABS: Absolute Neutrophil Count 9.6 X10^3/uL (2.0-7.7); Basophil# 0.03 X10^3/uL; Basophil% 0.2 % (0-1); Eosinophil# 0.07 X10^3/uL; Eosinophils% 0.6 % (0-5); Hematocrit 34.9 % (37-47); Hemoglobin 12.1 g/dL (12.0-15.0); Lymphocyte % 14.1 % (19-41); Mean Corp Hgb Conc 34.7 g/dL (32-36); Mean Corpuscular Hgb 32.3 pg (27.0-32.0); Mean Corpuscular Volume 93.1 fL (81-99); Mean Platelet Vol. 8.8 fl (6.2-12.0); Monocyte# 0.62 X10^3/uL; Monocyte% 5.1 % (0-10); NRBC Flagged by Analyzer 0 % (0-5); Neutrophil # 9.56 X10^3/uL (2.7-7.7); Neutrophil % 79.5 % (47-70); Platelet Count 214 K/mm3 (150-450); RBC Distribution Width CV 13.2 % (11.6-14.6); RBC Distribution Width SD 45.1 fl (35.1-43.9); Red Blood Count 3.75 M/mm3 (4.2-5.4)
[2024-11-10 14:07] LABS: Glucose Challenge Gest 1H 50g 102 mg/dL (70-140)
[2024-11-10 14:18] LABS: HIV Nonreactive (Nonreactive); Syphilis Antibodies Nonreactive (Nonreactive)
== END | disposition home or self-care (01) ==
LOC: LAB 12:47
PROVIDERS: Nurse Practitioner Women's Health; Referring Provider Advanced Practice Midwife; Visit Provider Advanced Practice Midwife
DX: Z34.90 Encounter for supervision of normal pregnancy, unspecified, unspecified trimester (principal)
CPT/HCPCS: 36415; 82950; 85025; 86703; 86780; 86850; 86900; 86901

== ENCOUNTER → 2025-01-05 | Outpatient (CLI) | payer OTHER, SELFPAY | END | disposition home or self-care (01) | LOC: LABSPEC 14:50 | PROVIDERS: Referring Provider Nurse Practitioner Women's Health; Visit Provider Nurse Practitioner Women's Health | DX: Z34.83 Encounter for supervision of other normal pregnancy, third trimester (principal) | CPT/HCPCS: 87081 ==

== ENCOUNTER → 2025-01-28 | Outpatient (CLI) | payer OTHER, SELFPAY ==
--- NOTE | 2025-01-28 10:10 | US_ITS ---
PROCEDURE: OB LIMITED WITH BIOMETRICS 01/28/2025 REASON FOR EXAM: UTERINE SIZE DATE DICREPANCY TECHNIQUE: OB LIMITED WITH BIOMETRICS COMPARISON: None FINDINGS LMP: April 28, 2024 Number: 1 Position: Vertex Placental Position: Posterior and not low-lying. Placental Abnormalities: No evidence of previa. DIMENSIONS: Biparietal Diameter: 9.5 cm: 38 weeks and 5 days: 69 percentile/ Head Circumference: 33.4 cm: 38 weeks and 1 day: 17 percentile/ Abdominal Circumference: 35.2 cm: 39 weeks and 1 day: 68 percentile/ Femur Length: 7.7 cm: 39 weeks and 1 day: 57 percentile/ ESTIMATED WEIGHT: 3711 g plus/-557 g ESTIMATED WEIGHT PERCENTILE (24+ weeks): 69 ESTIMATED GESTATIONAL AGE: Baseline: 39 weeks and 2 days By Ultrasound: 38 weeks and 6 days ESTIMATED DATE OF DELIVERY: Baseline: February 02, 2025 By Ultrasound: February 05, 2025 BIOPHYSICAL ASSESSMENT: Amniotic Fluid Volume: 3.9 cm Amniotic Fluid Index: 12.1 (8-24 cm normal range) Cardiac Motion: 147 beats per minute (average) Trunk and Limb Motion: Present. MATERNAL ANATOMY: Adnexa: Neither maternal ovary is successfully identified. Cervical Length (if measured): US/OB Limited With Biometrics IMPRESSION: Single live intrauterine gestation with mean gestational age of 38 weeks and 6 days. Reading Location: [id number]
== END | disposition home or self-care (01) ==
LOC: US 10:08
PROVIDERS: Referring Provider Obstetrics & Gynecology; Visit Provider Obstetrics & Gynecology
DX: O26.849 Uterine size-date discrepancy, unspecified trimester (principal); Z3A.00 Weeks of gestation of pregnancy not specified
CPT/HCPCS: 76816

== ENCOUNTER 2025-02-06 17:38 | Inpatient (IN) | payer OTHER, SELFPAY ==
[2025-02-06] VITALS (35 sets, daily range): BP systolic 99–149; BP diastolic 51–86; PULSE 53–93; RESP 14–18; TEMP 36.4–36.7; O2SAT 92–99; BMI 29.3
[2025-02-06 18:08] LABS: ROM Internal Control Test YES-OK TO RESULT pt. (Internal QC); Record Kit Lot#, ROM+ K3358
[2025-02-06 18:26] LABS: ROM Patient Test Negative (Negative)
[2025-02-06 18:30] LABS: Hematocrit 35.7 % (37-47); Hemoglobin 12.6 g/dL (12.0-15.0); Immature Granulocytes Count 0.050 X10^3/uL (0.0-0.0); Mean Corp Hgb Conc 35.3 g/dL (32-36); Mean Corpuscular Volume 91.1 fL (81-99); Mean Platelet Vol. 9.2 fl (6.2-12.0); NRBC Flagged by Analyzer 0 % (0-5); Platelet Count 199 K/mm3 (150-450); RBC Distribution Width CV 13.1 % (11.6-14.6); RBC Distribution Width SD 42.8 fl (35.1-43.9); Red Blood Count 3.92 M/mm3 (4.2-5.4); White Blood Count 8.8 K/mm3 (4.4-11.0)
[2025-02-06] MEDS: Lactated Ringers 1,000 ML 50 ML IV (18:30)
[2025-02-06 19:02] LABS: Syphilis Antibodies Nonreactive (Nonreactive)
[2025-02-06] MEDS: Oxytocin 15 Units/NS 250ml 15 UNITS/250 ML IV.SOLN 2 UNITS IV (19:27)
[2025-02-06] MEDS: Lactated Ringers 1,000 ML 999 ML IV (21:40)
[2025-02-06] MEDS: fentaNYL-bupivacaine (epidural) 100 ML BAG EPIDURAL (22:19)
[2025-02-07] VITALS (44 sets, daily range): BP systolic 94–122; BP diastolic 46–69; PULSE 58–150; RESP 16–18; TEMP 36.2–36.8; O2SAT 92–100
[2025-02-07] MEDS: Lactated Ringers 1,000 ML 200 ML IV (01:04)
[2025-02-07] MEDS: LACTATED RINGERS 500 ML 999 ML IV (01:33)
[2025-02-07] MEDS: fentaNYL-bupivacaine (epidural) 100 ML BAG EPIDURAL (02:27)
[2025-02-07] MEDS: Oxytocin 15 Units/NS 250ml 15 UNITS/250 ML IV.SOLN 83 UNITS IV (04:20)
[2025-02-08 00:15] VITALS: BP 98/51; PULSE 71; PULSE 73; RESP 12; TEMP 36.4; O2SAT 97
[2025-02-08] MEDS: Rho(D) Immune Globulin 300 MCG (1500 Unit) Syringe IV (03:43)
[2025-02-08 04:58] VITALS: BP 91/46; PULSE 64; RESP 16; TEMP 36.4; O2SAT 97
[2025-02-08 04:59] VITALS: BP 91/46; PULSE 61
[2025-02-08 10:37] VITALS: BP 105/71; PULSE 80
[2025-02-08 10:40] VITALS: BP 105/71; PULSE 80; RESP 16; TEMP 36.6; O2SAT 98
== END 2025-02-08 11:20 | disposition home or self-care (01) | DRG 807 ==
PROVIDERS: Admitting Provider Registered Nurse; Visit Provider Registered Nurse
DX: O48.0 Post-term pregnancy (principal); Z37.0 Single live birth; O26.893 Other specified pregnancy related conditions, third trimester; Z3A.40 40 weeks gestation of pregnancy; Z67.91 Unspecified blood type, Rh negative
CPT/HCPCS: 59025; 59050; 84112; 85025; 85461; 86780; 86850; 86900; 86901; 90384; 99221; G0378; J2790; J2791

== ENCOUNTER → 2025-03-23 | Outpatient (CLI) | payer OTHER, SELFPAY ==
--- OUTSIDE RECORDS SUMMARY | 2025-03-23 22:27 | XMS RPT_ITS | CCD ---
Author Organization [facility] CliniSyky Care Team Providers Care Electronic Engraver Name Role Phone DeepikarameshOsman Malcolm Unavailable [phone] Amaury Urbina Unavailable Unavailable Amaury Urbina Unavailable Unavailable Tr Bruno Unavailable Unavailable Gadiel Eddy Unavailable Unavailable Kolmary ellen, Gadiel Pruett Unavailable Unavailable MARY KAY PETERSON Admitting Unavailable MARY KAY PETERSON Referring Unavailable VORRameshOSMAN MALCOLM Primary Care Unavailable JAYLA CHRISTIANSON Attending Unavailable CAM, OSMANSIMONE FOWLER Primary Care Unavailable JAYLA CHRISTIANSON Admitting Unavailable JAYLA CHRISTIANSON Referring Unavailable VORRameshDELFINAOSMANSIMONE FOWLER Primary Care Unavailable JAYLA CHRISTIANSON Attending Unavailable VORRamesh, OSMAN MALCOLM Primary Care Unavailable JAYLA CHRISTIANSON Admitting Unavailable JAYLA CHRISTIANSON Referring Unavailable VORE, OSMAN FOWLER Primary Care Unavailable Vore, Osman Fowler Primary Care Provider [phone] Dr. Cherise Snow Attending Provider [phone] Dr. Cherise Snow Attending Provider [phone] Dr. Cherise Snow Attending Provider [phone] [place] ATHLETE MANAGER, CELENA-Seble Buchanan Attending Provider [phone] Care Physician, No Primary Primary Care Provider Unavailable Care Physician, No Primary Referring Provider Un available Dr. Rosalinda Herr Attending Provider [phone] Care Physician, No Primary Primary Care Provider Unavailable Care Physician, No Primary Referring Provider Un available Dr. Cherise Snow Attending Provider [phone] Dr. Rosalinda Herr Attending Provider [phone] Shelby ATHLETE MANAGER, FRAN Buchanan Attending Provider [phone] CARMELITA Nielson Attending Provider [phone] CARMELITA Mcgee Attending Provider CARMELITA Mcgee Other Provider Care Physician, No Primary Primary Care Provider Unavailable Care Physician, No Primary Referring Provider Un available Dr. Cherise Snow Attending Provider [phone] CARMELITA Nielson Admit Provider [phone] CARMELITA Nielson Other Provider [phone] Cam RAMIREZ Osmansimone Fowler Primary Care Provider NO PRIMARY CARE, MD Primary Care Unavailable RIOS CADET Attending Unavailable RAGINI NIELSON Referring Unavailable Care Physician, No Primary Primary Care Provider Unavailable Care Physician, No Primary Referring Provider Un available Carmenza GRACE, Dr. Tellez Attending Provider [phone] Dr. Cherise Snow DO Attending Provider Ragini Nielson CNM Attending Provider [phone] Ragini Nielson CNM Referring Provider [phone] [place] ATHLETE MANAGER-CChanel Attending Provider Care Physician, No Primary Primary Care Provider Unavailable Care Physician, No Primary Referring Provider Un available Care Physician, No Primary Primary Care Provider Unavailable Care Physician, No Primary Referring Provider Un available Dr. Cherise Snow DO Attending Provider Shelby ATHLETE MANAGER-CChanel Referring Provider [phone] Dr. Rosalinda Herr MD Attending Provider Dr. Rosalinda Herr MD Referring Provider Care Physician, No Primary Primary Care Provider Unavailable Ragini Nielson CNM Attending Provider [phone] Care Physician, No Primary Referring Provider Un available Ching Mcgee CNM Admit Provider [phone] Ching Mcgee CNM Attending Provider Ching Mcgee CNM Other Provider Cherise Snow Attending Unavailabl e Care Physician, No Primary Primary Care Unava ilable Care Physician, No Primary Referring Unava ilable Care Physician, No Primary Primary Care Unava ilable Care Physician, No Primary Referring Unava ilable Ragini Nielson Attending Unavailable Care Physician, No Primary Primary Care Unava ilable Care Physician, No Primary Referring Unava ilable [place] ATHLETE MANAGER, Chanel Attending Unavailable Cherise Snow Attending Unavailabl e Care Physician, No Primary Primary Care Unava ilable Care Physician, No Primary Referring Unava ilable Ching Mcgee Admitting Unavailable Mcgee, Ching Attending Unavailable Everardo, Ching Consulting Unavailable Care Physician, No Primary Primary Care Unava ilable Care Physician, No Primary Referring Unava ilable [place] ATHLETE MANAGER, Chanel Attending Unavailable Care Physician, No Primary Primary Care Unava ilable Care Physician, No Primary Primary Care Unava ilable Care Physician, No Primary Referring Unava ilable [place] ATHLETE MANAGER, Chanel Attending Unavailable Mcgee, Ching Attending Unavailable Everardo, Ching Admitting Unavailable Care Physician, No Primary Primary Care Unava ilable Care Physician, No Primary Primary Care Unava ilable Ragini Nielson Attending Unavailable Ragini Nielson Referring Unavailable Care Physician, No Primary Primary Care Unava ilable Care Physician, No Primary Referring Unava ilable Cherise Snow Attending Unavailabl e Care Physician, No Primary Primary Care Unava ilable Care Physician, No Primary Referring Unava ilable Ragini Nielson Attending Unavailable Care Physician, No Primary Primary Care Unava ilable Rosalinda Herr Referring Unavailable Rosalinda Herr Attending Unavailable Care Physician, No Primary Primary Care Unava ilable Ragini Nielson Attending Unavailable Ragini Nielson Referring Unavailable Care Physician, No Primary Primary Care Unava ilable [place] ATHLETE MANAGER, Chanel Referring Unavailable [place] ATHLETE MANAGER, Chanel Attending Unavailable Care Physician, No Primary Primary Care Unava ilable Care Physician, No Primary Referring Unava ilable Rosalinda Herr Attending Unavailable Care Physician, No Primary Primary Care Unava ilable Care Physician, No Primary Referring Unava ilable Cherise Snow Attending Unavailabl e Cherise Snow Attending Unavailabl e Care Physician, No Primary Primary Care Unava ilable Care Physician, No Primary Referring Unava ilable Care Physician, No Primary Primary Care Unava ilable Care Physician, No Primary Referring Unava ilable Rosalinda Herr Attending Unavailable Care Physician, No Primary Primary Care Unava ilable Care Physician, No Primary Referring Unava ilable Rgaini Nielson Attending Unavailable Care Physician, No Primary Primary Care Unava ilable Care Physician, No Primary Referring Unava ilable Chanel Ryan NP Attending Unavailable Ragini Nielson Attending Unavailable Care Physician, No Primary Primary Care Provider Unavailable Care Physician, No Primary Referring Provider Un available Chanel Urena Attending Provider Ragini Nielson CNM Attending Provider Medications Current Medications Medication Drug Class(es) Dates Sig (Normalized) Sig (Original) meloxicam 15 mg oral tablet (1 source) Nonsteroidal Anti-inflammatory Drug Start: 07-27-2019 End: 10-25-2019 take 1 tablet by mouth once daily meloxicam (MOBIC) 15 MG tablet Take 15 mg by mouth daily . 0 07/27/2019 10/25/2019 Active [place] (Nk) (2 sources) Start: 03-23-2025 [place] (Nk) Active March 23, 2025 12:00am Start: 05-12-2022 [place] (Nk) A ctive May 11, 2022 11:00pm Completed/Discontinued Medications Medication Drug Class(es) Dates Sig (Normalized) Sig (Original) Iron (11 sources) Start: 06-18-2024 End: 03-23-2025 Pnv No.720-Hndk-[place] No.10 (Pnv Tabs 20-1) 20 mg iron- 1 mg tablet Discontinued {tbl} PO DAILY June 18, 2024 1:00am March 23, 2025 2:19pm Start: 06-18-2024 Pnv No.163-Iro n-Folate No.10 (Pnv Tabs 20-1) 20 mg iron- 1 mg tablet Active {tbl} PO DAILY June 18, 2024 1:00am Start: 06-18-2024 Pnv No.163-Iro n-Folate No.10 (Pnv Tabs 20-1) 20 mg iron- 1 mg tablet Active {tbl} PO June 18, 2024 1:00am Misdhobi-Ebc-Fe-Fa () 1 mg Tablet (14 sources) Start: 12-11-2022 End: 02-15-2023 take 1 tablet by mouth once daily Eochsxha-Sms-Jk-Fa () 1 mg Tablet Discontinued 1 {tbl} PO DAILY December 11, 2022 12:00am February 15, 2023 3:12pm Start: 12-11-2022 End: 02-15-2023 take 1 tablet by mouth once daily Vldktbue-Jch-Dl-Fa () 1 mg Tablet Discontinued 1 {tbl} PO DAILY December 11, 2022 12:00am February 15, 2023 3:12pm Start: 12-11-2022 take 1 tablet by brielle th once daily Fkpbysxu-Lgd-Ia-Fa () 1 mg Tablet Active 1 TABLET PO DAILY December 11, 2022 12:00am Problems Active Problems Problem Classification Problem Date Documented Date Episodic/Chronic Other complications of ; puerperium affecting management of mother (11 sources) hemorrhage; Translations: [Other immediate hemorrhage] 02-18-2024 Episodic Comment on above: TVUS, scant vaginal bleeding on exam. rest encouraged.bleeding precautions provided. Other complications of (20 sources) RhD negative; Translations: [Other specified related conditions, unspecified trimester] 07-23-2022 Episodic Comment on above: rhogam 28 wk, pp and prn bleeding, Given 11/10/24 Other complications of (20 sources) Other specified related conditions, unspecified trimester; Translations: [Other specified complications of , antepartum condition or complication] Onset: 01-21-2025 07-23-2022 Episodic Other complications of (15 sources) Uterine size for dates discrepancy; Translations: [Uterine size-date discrepancy, third trimester] 01-26-2025 Episodic Comment on above: 38 wk: EFW 68%, AC 6 9% Other complications of (1 source) Uterine size-date discrepancy, third trimester; Translations: [Uterine size-date discrepancy, third trimester] Onset: 03-02-2025 Episodic Other complications of (1 source) Uterine size-date discrepancy, unspecified trimester; Translations: [Uterine size-date discrepancy, unspecified trimester] Onset: 02-01-2025 Episodic Other connective tissue disease (1 source) Pain in lower limb Episodic Other injuries and conditions due to external causes (14 sources) History of fall; Translations: [History of falling] 12-11-2022 Episodic Comment on above: 37 weeks fall onto b uttock on driveway. stable 4 hour monitoring. RhoGAM. unchanged cervical exam. Other injuries and conditions due to external causes (5 sources) History of falling; Translations: [History of fall] 12-11-2022 Episodic Other non-traumatic joint disorders (1 source) Knee pain Episodic Other and delivery including normal (20 sources) Normal ; Translations: [Encounter for supervision of normal first , unspecified trimester] Onset: 11-16-2024 Episodic Comment on above: KW 40.6 boy Hen ry bottle PRR,, CHAPARRO 02/02/25 , PC Ant, Spouse Oscar declines genetic and carrier screening, wants to know gender at anatomy scan, nl anatomy GBS neg, declines ge netic ntd and carrier testing normal anatomy scan 08/07/22 Neg GBS. declines ge netic and carrier screening, wants to know gender at anatomy scan, nl anatomy PRR,, CHAPARRO 02/02/25 , girl PC Ant, Spouse Oscar pitocin/arom LC IOL- elective inge-girl Polyhydramnios and other problems of amniotic cavity (11 sources) Spontaneous rupture of membranes 01-05-2023 Episodic Residual codes; unclassified (1 source) Pain; Translations: [Pain, unspecified] 01-23-2021 Episodic Residual codes; unclassified (2 sources) Unspecified blood type, Rh negative; Translations: [Unspecified blood type, Rh negative] Onset: 01-21-2025 Episodic Residual codes; unclassified (1 source) 40 weeks gestation of ; Translations: [40 weeks gestation of ] Onset: 03-02-2025 Episodic Residual codes; unclassified (1 source) 38 weeks gestation of ; Translations: [38 weeks gestation of ] Onset: 01-21-2025 Episodic Residual codes; unclassified (1 source) 36 weeks gestation of ; Translations: [36 weeks gestation of ] Onset: 01-11-2025 Episodic Unclassified (2 sources) Spontaneous rupture of membranes; Translations: [Spontaneous rupture of amniotic membranes] 01-01-2023 Past or Other Problems Problem Classification Problem Date Documented Da te Episodic/Chronic Fracture of lower limb (2 sources) Closed fracture of patella; Translations: [Unspecified fracture of right patella, subsequent encounter for closed fracture with routine healing] Onset: 03-19-2018 03-19-2018 Episodic Fracture of upper limb (2 sources) Closed fracture of fourth metacarpal; Translations: [Closed nondisplaced fracture of fourth metacarpal bone of right hand, unspecified portion of metacarpal, initial encounter] Episodic Immunizations and screening for infectious disease (1 source) Encounter for immunization; Translations: [Encounter for immunization] Onset: 11-10-2024 Episodic Residual codes; unclassified (1 source) 22 weeks gestation of ; Translations: [22 weeks gestation of ] Onset: 10-05-2024 Episodic Residual codes; unclassified (1 source) 15 weeks gestation of ; Translations: [15 weeks gestation of ] Onset: 08-12-2024 Episodic Residual codes; unclassified (1 source) 9 weeks gestation of ; Translations: [9 weeks gestation of ] Onset: 07-01-2024 Episodic Results Test Name Value Interpretation Reference Range Facility Discharge Instructionon Discharge Instruction [facility] Medical Records Department [address] [place] [id number] Instructions for Home/Discharge Instructions 02/08/25 0837 MR#: [id number] Acct: [id number] Name: CARLOTA MANUEL Rep #: [id number] : 2000 24 From: Ragini Nielson CNM PCP: Care Physician,No Primary Status:ADM IN Discharge Instructions Diet Discharge Diet: No restrictions DC O2, CPAP, BIPAP needs Home O2 Discharge instructions: No Dressing / Incision Discharge Activity: Return to Normal Activity May resume sexual activity in: 6-8 weeks Dressing / Incision Call your doctor if you observe: Fever of 101 or Higher, Coldness, Increased Pain, Numbness or Tingling, Change in Color, Inability to urinate, Inability to have a bowel movement, Using more than 1 pad per hour, Shortness of breath, Dizziness, Fainting spells, Swelling in the ankles, Chest pain, Increased palpitations (irregular heartbeat), Calf discomfort and Uncontrolled pain Follow Up Care Please Follow Up With: Ragini Nielson CNM When: Please call the office to schedule your follow up appointment in 6 weeks. If you had high blood pressure please call to schedule an appointment in 2 weeks. Test Results: Test results from this visit will be discussed in further detail at your follow-up appointment, if applicable. Discharge Plan Admission Admit Date/Time: 02/06/25 17:38 Attending Provider: Ching Mcgee Primary Care Provider: Care Physician,No Primary Discharge Orders/Prescriptions Prescriptions: No Action PNV Tabs 20-1 20 mg iron- 1 mg tablet PO DAILY Referrals / Follow Up: Care Physician,No Primary [Primary Care Provider] - Disposition Disposition (needs filled in before D/C Order can be placed): Home, Self Care 02/08/25 0837 Ragini Nielson CNM CC: No Primary Care Physician Signed Normal [facility] BRho(D) IGon 02-07-2025 Rho(D) IG Normal [facility] Comment on above: Result Comment: [id number] Rho(D) IG PRSMD TRFSD 02/08/25 0330 Performed By: #### B Rho(D) IG, BRHNM ####[facility] [address] [facility] [place], [place], [address] MR/OB.VAGDELIon 02-07-2025 [facility] Medical Records Department [address] [place] [address] OB Vaginal Delivery 02/07/25 0412 MR#: [id number] Acct: [id number] Name: CARLOTA MANUEL Rep #: [id number] : 2000 24 From: Ching Mcgee CNM PCP: Care Physician,No Primary Status:ADM IN Location: [place] [id number] Assessment Plan (1) (spontaneous vaginal delivery): COMMENT: LC IOL- elective inge-girl Maternal Data Information CHAPARRO Calculator Estimated Delivery Date Method Current WG Current Estimate 02/02/25 LMP (Uncertain) 40w 5d Other Estimates 02/03/25 Ultrasound #1 40w 4d Final CHAPARRO: 02/02/25 Final CHAPARRO Source: LMP Gestational age: 40.5 Vaginal Delivery Maternal Presentation Maternal Presentation: Elective Induction Maternal Presentation: at 40.4 for IOL. pitocin started, augmented with AROM and progressed to full dilation Type of Induction: Pitocin Vaginal Delivery Information Procedure Performed: Spontaneous Vaginal Delivery Surgeon/Practitioner: Mcgee,Ching Date of Procedure: 02/07/25 Pre-Procedure Diagnosis: see problem list Post-Procedure Diagnosis: Type of anesthesia: Epidural Estimated Blood Loss: 400 Time of Delivery: 03:42 Findings Description of procedure: Patient began pushing and delivered the head in the SAHARA presentation. The head was delivered atraumatically. The anterior and posterior shoulders delivered without complication followed by the rest of the and the infant was placed on the maternal abdomen. Delayed cord clamping was employed for approximately 60 seconds. Cord was clamped and cut and gentle traction was applied to the cord and the placenta delivered spontaneously immediately following it was noted to be intact with three-vessel cord. The perineum and vagina were inspected and noted to have no laceration. EBL was 400, increased brisk bleeding, controlled with methergine and pitocin. Patient and infant tolerated delivery well. Amniotic Membrane Rupture Type: Artificial Amniotic Fluid Description: Clear Placental Delivery Description: Spontaneous Placenta Disposition: [facility] Cord Vessel Description: 3 Vessels Cord Entanglement: None A Gender: Female (1 minute): 8 (5 minute): 9 Delayed Cord Clamping: Yes Post Vaginal Deli Medications given after delivery: IV Pitocin and IM Methergin Episiotomy Description: None Laceration: None Complication Complications: No Procedures Urinary/Genital [id number]: [id number] Vaginal Delivery [facility] 02/07/25 0418 Cosigner Signature (if applicable): CC: CARMELITA Mcgee; No Primary Care Physician Signed [facility] Rh Negative Mom Workupon ABO and Rh group Nom (Bld) Blood group A Rh(D) negative [facility] Comment on above: Order Comment: Comme nts: Age > 13 WeeksBaby girl [id number] Performed By: #### B Rho(D) IG, BRHNM ####[facility] [address] [place], [address] ABO and Rh group Nom (Bld) Blood group A Rh(D) positive [facility] Comment on above: Order Comment: Comme nts: Age > 13 WeeksBaby girl [id number] Performed By: #### B Rho(D) IG, BRHNM ####[facility] [address] [place], [address] DIRECT ANTIGLOB Negative Normal NEGATIVE [facility] Comment on above: Order Comment: Comme nts: Age > 13 WeeksBaby girl [id number] Performed By: #### B Rho(D) IG, BRHNM ####[facility] [address] [place], [address] SCREEN Negative Normal NEGATIVE [facility] Comment on above: Order Comment: Comme nts: Age > 13 WeeksBaby girl [id number] Performed By: #### B Rho(D) IG, BRHNM ####[facility] [address] [place], [address] MOM'S ABS Negative Normal [facility] Comment on above: Order Comment: Comme nts: Age > 13 WeeksBaby girl [id number] Performed By: #### B Rho(D) IG, BRHNM ####[facility] [address] [place], [address] (ROM) Rupture Of Membraneson 02-06-2025 ROM Negative Normal Negative [facility] Comment on above: Result Comment: Amni otic fluid not present indicates No Rupture of Membranes at time of specimen collection. Performed By: #### L 205.1000 ####[facility] [address] [place], [address] Absolute lymphocyte countOrd ered By: Ching Mcgee on 02-06-2025 Lymphocytes Auto (Unsp spec) [#/Vol] 1.59 10*3/uL 0.83-4.51 [facility] Absolute neutrophil countOrd ered By: Ching Mcgee on 02-06-2025 Neutrophils (Bld) [#/Vol] 6.5 10*3/uL 2.0-7.7 [facility] Automated lymphocyte count a s percentage of total leukocytesOrdered By: Ching Mcgee on 02-06-2025 Lymphocytes/100 WBC Auto (Unsp spec) 18.1 % Low 19-41 [facility] Basophil percentageOrdered B y: Ching Mcgee on 02-06-2024 Basophils/100 WBC (Bld) 0.2 % 0-1 [facility] CBC W/Diff, Automatedon -2024 Absolute Lymph 1.59 X10 3/uL Normal 0.83-4.51 [facility] Comment on above: Performed By: #### L 100.0100, BTS ####[facility] [address] [place], [address] Absolute Neut 6.5 X10 3/uL Normal 2.0-7.7 [facility] Comment on above: Performed By: #### L 100.0100, BTS ####[facility] [address] [place], [address] Basophils/100 WBC (Bld) 0.2 % Normal 0-1 [facility] Comment on above: Performed By: #### L 100.0100, BTS ####[facility] [address] [place], [address] Eosinophils/100 WBC (Bld) 0.8 % Normal 0-5 [facility] Comment on above: Performed By: #### L 100.0100, BTS ####[facility] [address] [place], [address] Erythrocyte distribution width (RBC) [Ratio] 13.1 % Normal 11.6-14.6 [facility] Comment on above: Performed By: #### L 100.0100, BTS ####[facility] [address] [place], [address] Hematocrit (Bld) [Volume fraction] 35.7 % Low 37-47 [facility] Comment on above: Performed By: #### L 100.0100, BTS ####[facility] [address] [place], [address] Hemoglobin (Bld) [Mass/Vol] 12.6 g/dL Normal 12.0-15.0 [facility] Comment on above: Performed By: #### L 100.0100, BTS ####[facility] [address] [place], [address] IG% 0.600 Normal 0.0-0.9 [facility] Comment on above: Result Comment: IG% - Immature Granulocytes (promyelocytes, myelocytes and metamyelocytes) > 1% indicates that a LEFT SHIFT is Present. Performed By: #### L 100.0100, BTS ####[facility] [address] [place], [address] Lymphocytes/100 WBC (Bld) 18.1 % Low 19-41 [facility] Comment on above: Performed By: #### L 100.0100, BTS ####[facility] [address] [place], [address] MCH (RBC) [Entitic mass] 32.1 pg High 27.0-32.0 [facility] Comment on above: Performed By: #### L 100.0100, BTS ####[facility] [address] [place], [address] MCHC (RBC) [Mass/Vol] 35.3 g/dL Normal 32-36 [facility] Comment on above: Performed By: #### L 100.0100, BTS ####[facility] [address] [place], [address] MCV (RBC) [Entitic vol] 91.1 fL Normal 81-99 [facility] Comment on above: Performed By: #### L 100.0100, BTS ####[facility] [address] [place], [address] Monocytes/100 WBC (Bld) 6.4 % Normal 0-10 [facility] Comment on above: Performed By: #### L 100.0100, BTS ####[facility] [address] [place], [address] Neutrophils/100 WBC (Bld) 73.9 % High 47-70 [facility] Comment on above: Performed By: #### L 100.0100, BTS ####[facility] [address] [place], [address] Nucleated RBC (Bld) [#/Vol] 0 10*3/uL Normal 0-5 [facility] Comment on above: Performed By: #### L 100.0100, BTS ####[facility] [address] [place], [address] Platelet mean volume (Bld) [Entitic vol] 9.2 fL Normal 6.2-12.0 [facility] Comment on above: Performed By: #### L 100.0100, BTS ####[facility] [address] [place], [address] Platelets (Bld) [#/Vol] 199 10*3/uL Normal 150-450 [facility] Comment on above: Performed By: #### L 100.0100, BTS ####[facility] [address] [place], [address] RBC (Bld) [#/Vol] 3.92 10*6/uL Low 4.2-5.4 [facility] Comment on above: Performed By: #### L 100.0100, BTS ####[facility] [address] [place], [address] RDW SD 42.8 fl Normal 35.1-43.9 [facility] Comment on above: Performed By: #### L 100.0100, BTS ####[facility] [address] [place], [address] WBC (Bld) [#/Vol] 8.8 10*3/uL Normal 4.4-11.0 [facility] Comment on above: Performed By: #### L 100.0100, BTS ####[facility] [address] [place], [place], [id number] Eosinophil percentageOrdered By: Ching Mcgee on 02-06-2025 Eosinophils/100 WBC (Bld) 0.8 % 0-5 [facility] Erythrocyte distribution wid th ratioOrdered By: Ching Mcgee on 02-06-2025 Erythrocyte distribution width (RBC) [Ratio] 13.1 % 11.6-14.6 [facility] Erythrocyte distribution wid th standard deviationOrdered By: Ching Mcgee on 02-06-2025 Erythrocyte distribution width (RBC) [Ratio] 42.8 fl 35.1-43.9 [facility] H AND P Exam - OB/GYNon 07- H&P Exam - CLINICAL BIOCHEMICAL GENETICIST [facility] Medical Records Department [address] [place] [address] H P Exam - CLINICAL BIOCHEMICAL GENETICIST 02/06/25 192 MR#: [id number] Acct: [id number] Name: CARLOTA MANUEL Rep #: [id number] : 2000 24 From: Ching Mcgee CNM PCP: Care Physician,No Primary Status:ADM IN Location: [id number] HPI - General General Date of Admission: 02/06/25 HPI Narrative CARLOTA MANUEL, is a 24 F who presents at 40.4 for IOL for postdates. bishops 6. was having spontaneous ctx prior to admission but lessening in intensity. Maternal Data Information [facility] Calculator Estimated Delivery Date Method Current WG Current Estimate 02/02/25 LMP (Uncertain) 40w 4d Other Estimates 02/03/25 Ultrasound #1 40w 3d PFSH PFSH Medical History bleeding Home Medications ???Medication ???Instructions ???Recorded ???Last Taken ???Type vitamins no.163-iron tab PO DAILY 06/18/24 Un known History bis-gly 20 mg-folate no.10 1 mg tablet (PNV Tabs 20-1) Allergy/AdvReac Type Severity Reaction Status Date / Time No Known Allergies Allergy Verified 02/06/25 18:36 Family History Brother Cancer older brother- Brain tumor- did chemo and radiation Father S/P triple vessel bypass Surgical History History of dental surgery Broken tibia Broken fibula Social History adopted: No household members: spouse housing: house number of children: 1 current occupational status: employed 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 current occupational exposures/hazards: No pets and animals: Yes pets and animals: dog(s) history of recent travel: No sexually active: Yes Smoking Status: Never smoker second hand exposure: No alcohol intake: current details: Not while substance use type: does not use caffeine: No during the past year weight has: remained stable what type of physical activity do you participate in: walking frequency: 1-2 times per week jayleen/yarsanism: Shinto seatbelt use: always do you feel safe at home: Yes additional social history: - Oscar works for [employer] History 2 Elective abortions Hx Para 1 Spontaneous abortions Hx # Term Pregnancies Ectopic pregnancies Hx # Pregnancies Multiple births # of living children 1 Past Pregnancies Del. Date Name GA/Weeks Outcome Route Bth Weight Infant Gen Labor Lgth Anesthesia Del Locatn Provider FOB 01/02/23 Ant 40 live - full term 7lbs 4oz Male epidural [facility] Delivery Date: 01/02/23 Last Updated by: Talia Reid Tight nuchal cord x1, 1st degree tear Visit Details Expected Delivery Route/Plan Labor Preferences- CB/BF classes: no labor support person: Oscar labor intervention preferences: [] pain management options preferred: epidural cut cord/dad catch: cord : no PP control planned: discussed discussed possible routes of delivery and associated risks: [] special requests: [] Plans Covid status: [] Flu vaccine: [] Tdap vaccine: given Rhogam: given LARC form signed: yes Problem list reviewed and updated with the most current plan of care details and appropriate orders placed. Relevant counseling for the gestational age provided. Continue routine care and follow up unless otherwise noted in visit notes/problem list details OB Flowsheet Initial Weight: 150 lb Date -???-???-???-???-???- ???-???-???-???-???-? ??-???- EGA Weight BP Urine Prot -???-???-???-???-???- ???-???-???-???-???-? ??-???- Glucose FHR FuHt Pres Dilation -???-???-???-???-???- ???-???-???-???-???-? ??-???- Effaced St Visit Note 07/01/24 -???-???-???-???-???- ???-???-???-???-???-? ??-???- 9w 1d 154 lb 8 oz (+4 lb 8 oz) 131/71 -???-???-???-???-???- ???-???-???-???-???-? ??-???- 175 -???-???-???-???-???- ???-???-???-???-???-? ??-???- KW- CRL cons with dates. declines NIPT. 08/12/24 -???-???-???-???-???- ???-???-???-???-???-? ??-???- 15w 1d 160 lb (+10 lb) 117/73 Trace -???-???-???-???-???- ???-???-???-???-???-? ??-???- Negative 170 145 -???-???-???-???-???- ???-???-???-???-???-? ??-???- SM- no vb cr amping 09/08/24 -???-???-???-???-???- ???-???-???-???-???-? ??-???- 19w 0d 166 lb 8 oz (+16 lb 8 oz) 124/64 Negative -???-???-???-???-???- ???-???-???-???-???-? ??-???- Negative 135 -???-???-???-???-???- ???-???-???-???-???-? ??-???- JV- no lof, vaginal bleeding, or cramping. has anatomy scan scheduled for tomorrow in [place]. 10/05/24 -???-???-???-???-???- ???-???-???-???-???-? ??-???- 22w 6d 173 lb 8 oz (+23 lb 8 oz) 10 (more content not included)... Normal [facility] Hematocrit Auto (Bld) [Volum e fraction]Ordered By: Ching Mcgee on 02-06-2025 Hematocrit (Bld) [Volume fraction] 35.7 % Low 37-47 [facility] Hemoglobin measurementOrdere d By: Ching Mcgee on 02-06-2025 Hemoglobin (Bld) [Mass/Vol] 12.6 g/dL 12.0-15.0 [facility] Immature granulocytes/100 WB C Auto (Bld)Ordered By: Ching Mcgee on 02-06-2025 Immature granulocytes/100 WBC (Bld) 0.600 % 0.0-0.9 [facility] Comment on above: IG% - Immature Granu locytes (promyelocytes, myelocytes and metamyelocytes) > 1% indicates that a LEFT SHIFT is Present. MCV (mean corpuscular volume ) determinationOrdered By: Ching Mcgee on 02-06-2025 MCV (RBC) [Entitic vol] 91.1 fL 81-99 [facility] Mean corpuscular hemoglobin (MCH) determinationOrdered By: Ching Mcgee on 02-06-2025 MCH (RBC) [Entitic mass] 32.1 pg High 27.0-32.0 [facility] Mean corpuscular hemoglobin concentration (MCHC) determinationOrdered By: Ching Mcgee on 02-06-2025 MCHC (RBC) [Mass/Vol] 35.3 g/dL 32-36 [facility] Mean platelet volume determi nationOrdered By: Ching Mcgee on 02-06-2025 Platelet mean volume (Bld) [Entitic vol] 9.2 fL 6.2-12.0 [facility] Monocyte percentageOrdered B y: Ching Mcgee on 02-06-2025 Monocytes/100 WBC (Bld) 6.4 % 0-10 [facility] Neutrophil percentageOrdered By: Ching Mcgee on 02-06-2025 Neutrophils/100 WBC (Bld) 73.9 % High 47-70 [facility] Nucleated red blood cell per centageOrdered By: Ching Mcgee on 02-06-2025 Nucleated RBC/100 WBC (Bld) [Ratio] 0 % 0-5 [facility] Platelet countOrdered By: Rianna Mcgee on 02-06-2025 Platelets (Bld) [#/Vol] 199 10*3/uL 150-450 [facility] RBC Auto (Bld) [#/Vol]Ordere d By: Ching Mcgee on 02-06-2025 RBC (Bld) [#/Vol] 3.92 10*6/uL Low 4.2-5.4 [facility] Syphilis Antibodieson 2024 Syphilis Abs Non-Reactive Normal Nonreactive [facility] Comment on above: Performed By: #### L 509.8002 ####[facility] [id number] [place], [address] Type AND Screenon 02-06-2025 Ab SCREEN GEL Negative Normal [facility] Comment on above: Order Comment: Labor Performed By: #### L 100.0100, BTS ####[facility] [id number] [place], [address] White blood cell (WBC) count Ordered By: Ching Mcgee on 02-06-2025 WBC (Bld) [#/Vol] 8.8 10*3/uL 4.4-11.0 [facility] Laboratory - Chemistry and C hemistry - challengeOrdered By: Cherise Acevedo on 02-03-2025 Glucose Ql (U) Negative [facility] Laboratory - UrinalysisOrder ed By: Cherise Acevedo on 02-03-2025 Protein Ql (U) Negative [facility] Churn Operator Office Visit Reporton 02-03-2025 Churn Operator Office Visit Report [facility] [address], [address] [place] [address] OFFICE VISIT Date of Service: 02/03/25 MR#: [id number] Acct: [id number] Name: CARLOTA MANUEL Rep #: [id number] : 2000 Provider: Dr. Cherise Guzman DO Age/Sex: 24/F Location: [facility] [place] Status: Signed Intake Vital Signs 12/22/24 15:18 01/26/25 10:57 02/03/25 14:42 Height 5 ft 8 in 5 ft 8 in 5 ft 8 in Weight: 193 lb 6 oz BMI 29.4 BP 116/73 Intake Visit Reasons: 40 wk ob *Happy due date* Transition Program Manager Required: No Is patient in pain?: No Allergies No Known Allergies Allergy (Verified 02/03/25 14:45) Medications ???Medication ???Instructions ???Recorded ???Confirmed ???Type vitamins no.163-iron tab PO 06/18/24 02/03/25 History bis-gly 20 mg-folate no.10 1 mg tablet (PNV Tabs 20-1) Last Menstrual Period: 04/28/24 Zika: Zika virus screening: Negative : No PFSH PFSH Medical History bleeding Surgical History History of dental surgery Broken tibia Broken fibula Family History Brother Cancer older brother- Brain tumor- did chemo and radiation Father S/P triple vessel bypass Social History adopted: No household members: spouse housing: house number of children: 1 current occupational status: employed 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 occupational exposures/hazards: No pets and animals: Yes pets and animals: dog(s) history of recent travel: No sexually active: Yes Smoking Status: Never smoker second hand exposure: No alcohol intake: current details: Not while substance use type: does not use caffeine: No during the past year weight has: remained stable what type of physical activity do you participate in: walking frequency: 1-2 times per week jayleen/yarsanism: Shinto seatbelt use: always do you feel safe at home: Yes additional social history: - Oscar works for [employer] History 2 Elective abortions Hx Para 1 Spontaneous abortions Hx # Term Pregnancies Ectopic pregnancies Hx # Pregnancies Multiple births # of living children 1 Past Pregnancies Del. Date Name GA/Weeks Outcome Route Bth Weight Infant Gen Labor Lgth Anesthesia Del Locatn Provider FOB 01/02/23 Ant 40 live - full term 7lbs 4oz Male epidural [facility] [place] Delivery Date: 01/02/23 Last Updated by: Talia Reid Tight nuchal cord x1, 1st degree tear HPI 40 wk ob *Happy due date* Details: CARLOTA MANUEL is a 24 year old who presents for routine OB visit. OB Visit [facility] Calculator Estimated Delivery Date Method Current WG Current Estimate 02/02/25 LMP (Uncertain) 40w 1d Other Estimates 02/03/25 Ultrasound #1 40w 0d Expected Delivery Route/Plan Labor Preferences- CB/BF classes: no labor support person: Oscar labor intervention preferences: [] pain management options preferred: epidural cut cord/dad catch: cord : no PP control planned: discussed discussed possible routes of delivery and associated risks: [] special requests: [] Specific Issue/Plans Covid status: [] Flu vaccine: [] Tdap vaccine: given Rhogam: given LARC form signed: yes Problem list reviewed and updated with the most current plan of care details and appropriate orders placed. Relevant counseling for the gestational age provided. Continue routine care and follow up unless otherwise noted in visit notes/problem list details Initial Weight: 150 lb Date -???-???-???-???-???- ???-???-???-???-???-? ??-???- EGA Weight BP Urine Prot -???-???-???-???-???- ???-???-???-???-???-? ??-???- Glucose FHR FuHt Pres Dilation -???-???-???-???-???- ???-???-???-???-???-? ??-???- Effaced St Visit Note 07/01/24 -???-???-???-???-???- ???-???-???-???-???-? ??-???- 9w 1d 154 lb 8 oz (+4 lb 8 oz) 131/71 -???-???-???-???-???- ???-???-???-???-???-? ??-???- 175 -???-???-???-???-???- ???-???-???-???-???-? ??-???- KW- CRL cons with dates. declines NIPT. 08/12/24 -???-???-???-???-???- ???-???-???-???-???-? ??-???- 15w 1d 160 lb (+10 lb) 117/73 Trace -???-???-???-???-???- ???-???-???-???-???-? ??-???- Negative 170 145 -???-???-???-???-???- ???-???-???-???-???-? ??-???- SM- no vb cr amping 09/08/24 -???-???-???-???-???- ???-???-???-???-???-? ??-???- 19w 0d 166 lb 8 oz (+16 lb 8 oz) 124/64 Negative -???-???-???-???-???- ???-???-???-???-???-? ??-???- Negative 135 -???-???-???-???-???- ???-???-???-???-???-? ??-???- JV- no lof, vaginal bleeding, or c (more content not included)... Normal [facility] OB Limited With Biometricson 01-28-2025 OB Limited With Biometrics [facility] [address] [place] [address] OB Limited With Biometrics MR#: [id number] Acct: [id number] Name: CARLOTA MANUEL Rep #: [id number] : 2000 F 24 From: Amaury crawford MD PCP: Care Physician,No Primary Status: REG CLI Study: OB Limited With Biometrics Date of Exam: 01/28 Exam# [id number] Ordering Dr: Rosalinda Herr PROCEDURE: OB LIMITED WITH BIOMETRICS 01/28/2025 REASON FOR EXAM: UTERINE SIZE DATE DICREPANCY TECHNIQUE: OB LIMITED WITH BIOMETRICS COMPARISON: None FINDINGS LMP: April 28, 2024 Number: 1 Position: Vertex Placental Position: Posterior and not low-lying. Placental Abnormalities: No evidence of previa. DIMENSIONS: Biparietal Diameter: 9.5 cm: 38 weeks and 5 days: 69 percentile/ Head Circumference: 33.4 cm: 38 weeks and 1 day: 17 percentile/ Abdominal Circumference: 35.2 cm: 39 weeks and 1 day: 68 percentile/ Femur Length: 7.7 cm: 39 weeks and 1 day: 57 percentile/ ESTIMATED WEIGHT: 3711 g plus/-557 g ESTIMATED WEIGHT PERCENTILE (24+ weeks): 69 ESTIMATED GESTATIONAL AGE: Baseline: 39 weeks and 2 days By Ultrasound: 38 weeks and 6 days ESTIMATED DATE OF DELIVERY: Baseline: February 02, 2025 By Ultrasound: February 05, 2025 BIOPHYSICAL ASSESSMENT: Amniotic Fluid Volume: 3.9 cm Amniotic Fluid Index: 12.1 (8-24 cm normal range) Cardiac Motion: 147 beats per minute (average) Trunk and Limb Motion: Present. MATERNAL ANATOMY: Adnexa: Neither maternal ovary is successfully identified. Cervical Length (if measured): US/OB Limited With Biometrics IMPRESSION: Single live intrauterine gestation with mean gestational age of 38 weeks and 6 days. Reading Location: [id number] CC: Dr. Rosalinda Herr MD; No Primary Care Physician 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: Signed Normal [facility] Laboratory - Chemistry and C hemistry - challengeOrdered By: Rosalinda Herr on 01-26-2025 Glucose Ql (U) Negative [facility] Laboratory - UrinalysisOrder ed By: Rosalinda Herr on 01-26-2025 Protein Ql (U) Negative [facility] Churn Operator Office Visit Reporton 01-26-2025 Churn Operator Office Visit Report [facility] [address], [address] [place] [address] OFFICE VISIT Date of Service: 01/26/25 MR#: [id number] Acct: [id number] Name: CARLOTA MANUEL Rep #: [id number] : 2000 Provider: Dr. Rosalinda madera MD Age/Sex: 24/F Location: [facility] [place] Status: Signed Intake Vital Signs 12/22/24 15:18 01/21/25 14:59 01/26/25 10:52 01/26/25 10:57 Height 5 ft 8 in 5 ft 8 in 5 ft 8 in 5 ft 8 in Weight: 194 lb 8 oz BMI 29.5 BP 120/62 Intake Visit Reasons: 39 wk ob Transition Program Manager Required: No Is patient in pain?: No Allergies No Known Allergies Allergy (Verified 01/26/25 10:50) Medications ???Medication ???Instructions ???Recorded ???Confirmed ???Type vitamins no.163-iron tab PO 06/18/24 01/26/25 History bis-gly 20 mg-folate no.10 1 mg tablet (PNV Tabs 20-1) Last Menstrual Period: 04/28/24 Zika: Zika virus screening: Negative : No PFSH PFSH Medical History bleeding Surgical History History of dental surgery Broken tibia Broken fibula Family History Brother Cancer older brother- Brain tumor- did chemo and radiation Father S/P triple vessel bypass Social History adopted: No household members: spouse housing: house number of children: 1 current occupational status: employed 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 occupational exposures/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: No pets and animals: Yes pets and animals: dog(s) history of recent travel: No sexually active: Yes Smoking Status: Never smoker second hand exposure: No alcohol intake: current details: Not while substance use type: does not use caffeine: No during the past year weight has: remained stable what type of physical activity do you participate in: walking frequency: 1-2 times per week jayleen/yarsanism: Shinto seatbelt use: always do you feel safe at home: Yes additional social history: - Oscar works for [employer] History 2 Elective abortions Hx Para 1 Spontaneous abortions Hx # Term Pregnancies Ectopic pregnancies Hx # Pregnancies Multiple births # of living children 1 Past Pregnancies Del. Date Name GA/Weeks Outcome Route Bth Weight Infant Gen Labor Lgth Anesthesia Del Locatn Provider FOB 01/02/23 Ant 40 live - full term 7lbs 4oz Male epidural [facility] Delivery Date: 01/02/23 Last Updated by: Talia Reid Tight nuchal cord x1, 1st degree tear HPI 39 wk ob Details: CARLOTA MANUEL is a 24 year old who presents for routine OB visit. OB Visit [facility] Calculator Estimated Delivery Date Method Current WG Current Estimate 02/02/25 LMP (Uncertain) 39w 0d Other Estimates 02/03/25 Ultrasound #1 38w 6d Expected Delivery Route/Plan Labor Preferences- CB/BF classes: no labor support person: Oscar labor intervention preferences: [] pain management options preferred: epidural cut cord/dad catch: cord : no PP control planned: discussed discussed possible routes of delivery and associated risks: [] special requests: [] Specific Issue/Plans Covid status: [] Flu vaccine: [] Tdap vaccine: given Rhogam: given LARC form signed: yes Problem list reviewed and updated with the most current plan of care details and appropriate orders placed. Relevant counseling for the gestational age provided. Continue routine care and follow up unless otherwise noted in visit notes/problem list details Initial Weight: 150 lb Date -???-???-???-???-???- ???-???-???-???-???-? ??-???- EGA Weight BP Urine Prot -???-???-???-???-???- ???-???-???-???-???-? ??-???- Glucose FHR FuHt Pres Dilation -???-???-???-???-???- ???-???-???-???-???-? ??-???- Effaced St Visit Note 07/01/24 -???-???-???-???-???- ???-???-???-???-???-? ??-???- 9w 1d 154 lb 8 oz (+4 lb 8 oz) 131/71 -???-???-???-???-???- ???-???-???-???-???-? ??-???- 175 -???-???-???-???-???- ???-???-???-???-???-? ??-???- KW- CRL cons with dates. declines NIPT. 08/12/24 -???-???-???-???-???- ???-???-???-???-???-? ??-???- 15w 1d 160 lb (+10 lb) 117/73 Trace -???-???-???-???-???- ???-???-???-???-???-? ??-???- Negative 170 145 -???-???-???-???-???- ???-???-???-???-???-? ??-???- SM- no vb cr amping 09/08/24 -???-???-???-???-???- ???-???-???-???-???-? ??-???- 19w 0d 166 lb 8 oz (+16 lb 8 oz) 124/64 Negative -???-???-???-???-???- ???-???-???-???-???-? ??-???- Negative 135 -???-???-???-???-???- ???-???-???-???-???-? ??-???- JV- no lof, vaginal bleeding, or cramping. has morena (more content not included)... Normal [facility] Laboratory - Chemistry and C hemistry - challengeOrdered By: Cherise Acevedo on 01-21-2025 Glucose Ql (U) Negative [facility] Laboratory - UrinalysisOrder ed By: Cherise Acevedo on 01-21-2025 Protein Ql (U) Negative [facility] Churn Operator Office Visit Reporton 01-21-2025 Churn Operator Office Visit Report [facility] [address], [address] [place] [address] OFFICE VISIT Date of Service: 01/21/25 MR#: [id number] Acct: [id number] Name: CARLOTA MANUEL Rep #: [id number] : 2000 Provider: Dr. Cherise Guzman DO Age/Sex: 24/F Location: [facility] [place] Status: Signed Intake Vital Signs 12/22/24 15:18 01/11/25 14:41 01/21/25 14:59 01/21/25 14:59 Height 5 ft 8 in 5 ft 8 in 5 ft 8 in 5 ft 8 in Weight: 194 lb 6 oz BMI 29.5 BP 105/68 Intake Visit Reasons: 38 wk ob Transition Program Manager Required: No Is patient in pain?: No Allergies No Known Allergies Allergy (Verified 01/21/25 14:58) Medications ???Medication ???Instructions ???Recorded ???Confirmed ???Type vitamins no.163-iron tab PO 06/18/24 01/21/25 History bis-gly 20 mg-folate no.10 1 mg tablet (PNV Tabs 20-1) Last Menstrual Period: 04/28/24 Zika: Zika virus screening: Negative : No PFSH PFSH Medical History bleeding Surgical History History of dental surgery Broken tibia Broken fibula Family History Brother Cancer older brother- Brain tumor- did chemo and radiation Father S/P triple vessel bypass Social History adopted: No household members: spouse housing: house number of children: 1 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 occupational status: employed 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 occupational exposures/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: No pets and animals: Yes pets and animals: dog(s) history of recent travel: No sexually active: Yes Smoking Status: Never smoker second hand exposure: No alcohol intake: current details: Not while substance use type: does not use caffeine: No during the past year weight has: remained stable what type of physical activity do you participate in: walking frequency: 1-2 times per week jayleen/yarsanism: Shinto seatbelt use: always do you feel safe at home: Yes additional social history: - Oscar works for [employer] History 2 Elective abortions Hx Para 1 Spontaneous abortions Hx # Term Pregnancies Ectopic pregnancies Hx # Pregnancies Multiple births # of living children 1 Past Pregnancies Del. Date Name GA/Weeks Outcome Route Bth Weight Infant Gen Labor Lgth Anesthesia Del Locatn Provider FOB 01/02/23 Ant 40 live - full term 7lbs 4oz Male epidural [facility] Delivery Date: 01/02/23 Last Updated by: Talia Reid Tight nuchal cord x1, 1st degree tear HPI 38 wk ob Details: CARLOTA MANUEL is a 24 year old who presents for routine OB visit. OB Visit [facility] Calculator Estimated Delivery Date Method Current WG Current Estimate 02/02/25 LMP (Uncertain) 38w 2d Other Estimates 02/03/25 Ultrasound #1 38w 1d Expected Delivery Route/Plan Labor Preferences- CB/BF classes: no labor support person: Oscar labor intervention preferences: [] pain management options preferred: epidural cut cord/dad catch: cord : no PP control planned: discussed discussed possible routes of delivery and associated risks: [] special requests: [] Specific Issue/Plans Covid status: [] Flu vaccine: [] Tdap vaccine: given Rhogam: given LARC form signed: yes Problem list reviewed and updated with the most current plan of care details and appropriate orders placed. Relevant counseling for the gestational age provided. Continue routine care and follow up unless otherwise noted in visit notes/problem list details Initial Weight: 150 lb Date -???-???-???-???-???- ???-???-???-???-???-? ??-???- EGA Weight BP Urine Prot -???-???-???-???-???- ???-???-???-???-???-? ??-???- Glucose FHR FuHt Pres Dilation -???-???-???-???-???- ???-???-???-???-???-? ??-???- Effaced St Visit Note 07/01/24 -???-???-???-???-???- ???-???-???-???-???-? ??-???- 9w 1d 154 lb 8 oz (+4 lb 8 oz) 131/71 -???-???-???-???-???- ???-???-???-???-???-? ??-???- 175 -???-???-???-???-???- ???-???-???-???-???-? ??-???- KW- CRL cons with dates. declines NIPT. 08/12/24 -???-???-???-???-???- ???-???-???-???-???-? ??-???- 15w 1d 160 lb (+10 lb) 117/73 Trace -???-???-???-???-???- ???-???-???-???-???-? ??-???- Negative 170 145 -???-???-???-???-???- ???-???-???-???-???-? ??-???- SM- no vb cr amping 09/08/24 -???-???-???-???-???- ???-???-???-???-???-? ??-???- 19w 0d 166 lb 8 oz (+16 lb 8 oz) 124/64 Negative -???-???-???-???-???- ???-???-???-???-???-? ??-???- Negative 135 -???-???-???-???-???- ???-???-???-???-???-? ??-???- JV- no lof, vaginal bleeding, or cramping (more content not included)... Normal [facility] Laboratory - Chemistry and C hemistry - challengeOrdered By: Cherise Acevedo on 01-11-2025 Glucose Ql (U) Negative [facility] Laboratory - UrinalysisOrder ed By: Cherise Acevedo on 01-11-2025 Protein Ql (U) Negative [facility] Churn Operator Office Visit Reporton 01-11-2025 Churn Operator Office Visit Report [facility] [address], [address] [place] [address] OFFICE VISIT Date of Service: 01/11/25 MR#: [id number] Acct: [id number] Name: CARLOTA MANUEL Rep #: [id number] : 2000 Provider: Dr. Cherise Guzman, Age/Sex: 24/F Location: [facility] [place] Status: Signed Intake Vital Signs 12/22/24 15:18 01/05/25 10:09 01/11/25 14:41 01/11/25 14:41 Height 5 ft 8 in 5 ft 8 in 5 ft 8 in 5 ft 8 in Weight: 194 lb 2 oz BMI 29.5 BP 114/74 Intake Visit Reasons: 37 wk ob Transition Program Manager Required: No Is patient in pain?: No Allergies No Known Allergies Allergy (Verified 01/11/25 14:41) Medications ???Medication ???Instructions ???Recorded ???Confirmed ???Type vitamins no.163-iron tab PO 06/18/24 01/11/25 History bis-gly 20 mg-folate no.10 1 mg tablet (PNV Tabs 20-1) Last Menstrual Period: 04/28/24 : No PFSH PFSH Medical History bleeding Surgical History History of dental surgery Broken tibia Broken fibula Family History Brother Cancer older brother- Brain tumor- did chemo and radiation Father S/P triple vessel bypass Social History adopted: No household members: spouse housing: house number of children: 1 current occupational status: employed 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 occupational exposures/hazards: No pets and animals: Yes pets and animals: dog(s) history of recent travel: No sexually active: Yes Smoking Status: Never smoker second hand exposure: No alcohol intake: current details: Not while substance use type: does not use caffeine: No during the past year weight has: remained stable what type of physical activity do you participate in: walking frequency: 1-2 times per week jayleen/yarsanism: Shinto seatbelt use: always do you feel safe at home: Yes additional social history: - Oscar works for [employer] History 2 Elective abortions Hx Para 1 Spontaneous abortions Hx # Term Pregnancies Ectopic pregnancies Hx # Pregnancies Multiple births # of living children 1 Past Pregnancies Del. Date Name GA/Weeks Outcome Route Bth Weight Gen Labor Lgth Anesthesia Del Locatn Provider FOB 01/02/23 Ant 40 live - full term 7lbs 4oz Male epidural [facility] Oscar Delivery Date: 01/02/23 Last Updated by: Talia Reid Tight nuchal cord x1, 1st degree tear HPI 37 wk ob Details: CARLOTA MANUEL is a 24 year old who presents for routine OB visit. OB Visit [facility] Calculator Estimated Delivery Date Method Current WG Current Estimate 02/02/25 LMP (Uncertain) 36w 6d Other Estimates 02/03/25 Ultrasound #1 36w 5d Expected Delivery Route/Plan Labor Preferences- CB/BF classes: no labor support person: Oscar labor intervention preferences: [] pain management options preferred: epidural cut cord/dad catch: cord : no PP control planned: discussed discussed possible routes of delivery and associated risks: [] special requests: [] Specific Issue/Plans Covid status: [] Flu vaccine: [] Tdap vaccine: given Rhogam: given LARC form signed: yes Problem list reviewed and updated with the most current plan of care details and appropriate orders placed. Relevant counseling for the gestational age provided. Continue routine care and follow up unless otherwise noted in visit notes/problem list details Initial Weight: 150 lb Date -???-???-???-???-???- ???-???-???-???-???-? ??-???- EGA Weight BP Urine Prot -???-???-???-???-???- ???-???-???-???-???-? ??-???- Glucose FHR FuHt Pres Dilation -???-???-???-???-???- ???-???-???-???-???-? ??-???- Effaced St Visit Note 07/01/24 -???-???-???-???-???- ???-???-???-???-???-? ??-???- 9w 1d 154 lb 8 oz (+4 lb 8 oz) 131/71 -???-???-???-???-???- ???-???-???-???-???-? ??-???- 175 -???-???-???-???-???- ???-???-???-???-???-? ??-???- KW- CRL cons with dates. declines NIPT. 08/12/24 -???-???-???-???-???- ???-???-???-???-???-? ??-???- 15w 1d 160 lb (+10 lb) 117/73 Trace -???-???-???-???-???- ???-???-???-???-???-? ??-???- Negative 170 145 -???-???-???-???-???- ???-???-???-???-???-? ??-???- SM- no vb cr amping 09/08/24 -???-???-???-???-???- ???-???-???-???-???-? ??-???- 19w 0d 166 lb 8 oz (+16 lb 8 oz) 124/64 Negative -???-???-???-???-???- ???-???-???-???-???-? ??-???- Negative 135 -???-???-???-???-???- ???-???-???-???-???-? ??-???- JV- no lof, vaginal bleeding, or cramping. has anatomy scan scheduled for tomorr (more content not included)... Normal [facility] Rule out Beta Strep (Grp. B) on 01-08-2025 SHANNEN Group B Beta Streptococcus is not isolated. Normal [facility] Comment on above: Performed By: #### M [id number] ####[facility] [id number] [place], [place], [id number] Laboratory - Chemistry and C hemistry - challengeOrdered By: Chanel Ryan on 01-05-2025 Glucose Ql (U) Negative [facility] Laboratory - UrinalysisOrder ed By: Chanel Ryan on 01-05-2025 Protein Ql (U) Negative [facility] Churn Operator Office Visit Reporton 01-05-2025 Churn Operator Office Visit Report [facility] [address] [place] [address], [address] [place] [address] OFFICE VISIT Date of Service: 01/05/25 MR#: [id number] Acct: [id number] Name: CARLOTA MANUEL Rep #: [id number] : 2000 Provider: FRAN weinberg Age/Sex: 24/F Location: [facility] [place] Status: Signed Intake Vital Signs 12/07/24 15:27 12/22/24 15:18 01/05/25 10:09 Height 5 ft 8 in 5 ft 8 in 5 ft 8 in Weight: 190 lb 4 oz BMI 28.9 BP 116/72 Intake Visit Reasons: 36 wk ob Chief Complaint: 36 Week OB Transition Program Manager Required: No Is patient in pain?: No Allergies No Known Allergies Allergy (Verified 01/05/25 10:07) Medications ???Medication ???Instructions ???Recorded ???Confirmed ???Type vitamins no.163-iron tab PO 06/18/24 01/05/25 History bis-gly 20 mg-folate no.10 1 mg tablet (PNV Tabs 20-1) Last Menstrual Period: 04/28/24 Zika: Zika virus screening: Negative : No PFSH PFSH Medical History bleeding Surgical History History of dental surgery Broken tibia Broken fibula Family History Brother Cancer older brother- Brain tumor- did chemo and radiation Father S/P triple vessel bypass Social History adopted: No household members: spouse housing: house number of children: 1 current occupational status: employed 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 current occupational exposures/hazards: No pets and animals: Yes pets and animals: dog(s) history of recent travel: No sexually active: Yes Smoking Status: Never smoker second hand exposure: No alcohol intake: current details: Not while substance use type: does not use caffeine: No during the past year weight has: remained stable what type of physical activity do you participate in: walking frequency: 1-2 times per week jayleen/yarsanism: Shinto seatbelt use: always do you feel safe at home: Yes additional social history: - 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 Date Name GA/Weeks Outcome Route Bth Weight Infant Gen Labor Lgth Anesthesia Del Locatn Provider FOB 01/02/23 Ant 40 live - full term 7lbs 4oz Male epidural [facility] [place] Delivery Date: 01/02/23 Last Updated by: Talia Reid Tight nuchal cord x1, 1st degree tear HPI 36 wk ob Details: CARLOTA MANUEL is a 24 year old who presents for routine OB visit. OB Visit [facility] Calculator Estimated Delivery Date Method Current WG Current Estimate 02/02/25 LMP (Uncertain) 36w 0d Other Estimates 02/03/25 Ultrasound #1 35w 6d Expected Delivery Route/Plan Labor Preferences- CB/BF classes: no labor support person: Oscar labor intervention preferences: [] pain management options preferred: epidural cut cord/dad catch: cord : no PP control planned: discussed discussed possible routes of delivery and associated risks: [] special requests: [] Specific Issue/Plans Covid status: [] Flu vaccine: [] Tdap vaccine: given Rhogam: given LARC form signed: yes Problem list reviewed and updated with the most current plan of care details and appropriate orders placed. Relevant counseling for the gestational age provided. Continue routine care and follow up unless otherwise noted in visit notes/problem list details Initial Weight: 150 lb Date -???-???-???-???-???- ???-???-???-???-???-? ??-???- EGA Weight BP Urine Prot -???-???-???-???-???- ???-???-???-???-???-? ??-???- Glucose FHR FuHt Pres Dilation -???-???-???-???-???- ???-???-???-???-???-? ??-???- Effaced St Visit Note 07/01/24 -???-???-???-???-???- ???-???-???-???-???-? ??-???- 9w 1d 154 lb 8 oz (+4 lb 8 oz) 131/71 -???-???-???-???-???- ???-???-???-???-???-? ??-???- 175 -???-???-???-???-???- ???-???-???-???-???-? ??-???- KW- CRL cons with dates. declines NIPT. 08/12/24 -???-???-???-???-???- ???-???-???-???-???-? ??-???- 15w 1d 160 lb (+10 lb) 117/73 Trace -???-???-???-???-???- ???-???-???-???-???-? ??-???- Negative 170 145 -???-???-???-???-???- ???-???-???-???-???-? ??-???- SM- no vb cr amping 09/08/24 -???-???-???-???-???- ???-???-???-???-???-? ??-???- 19w 0d 166 lb 8 oz (+16 lb 8 oz) 124/64 Negative -???-???-???-???-???- ???-???-???-???-???-? ??-???- Negative 135 -???-???-???-???-???- ???-???-???-???-???-? ??-???- JV- no lof, vaginal bleeding, or cramping. (more content not included)... Normal [facility] Screening beta-hemolytic Str eptococcus cultureOrdered By: Chanel Ryan on 01-05-2025 Beta-hemolytic Streptococcus culture Group B Beta Streptococcus is not isolated. [facility] Laboratory - Chemistry and C hemistry - challengeOrdered By: Ragini Nielson on 12-22-2024 Glucose Ql (U) Negative [facility] Laboratory - UrinalysisOrder ed By: Ragini Nielson on 12-22-2024 Protein Ql (U) Negative [facility] Churn Operator Office Visit Reporton 12-22-2024 Churn Operator Office Visit Report [facility] [address], [address] [place] [address] OFFICE VISIT Date of Service: 12/22/24 MR#: [id number] Acct: [id number] Name: CARLOTA MANUEL Rep #: [id number] : 2000 Provider: CARMELITA Moore ams Age/Sex: 24/F Location: [facility] [place] Status: Signed Intake Vital Signs 11/10/24 13:02 12/07/24 15:27 12/22/24 15:18 Height 5 ft 8 in 5 ft 8 in 5 ft 8 in Weight: 193 lb BMI 29.3 BP 123/76 H Intake Visit Reasons: 34 wk ob Chief Complaint: 34wk ob Transition Program Manager Required: No Is patient in pain?: No Allergies No Known Allergies Allergy (Verified 12/22/24 15:16) Medications ???Medication ???Instructions ???Recorded ???Confirmed ???Type vitamins no.163-iron tab PO 06/18/24 12/22/24 History bis-gly 20 mg-folate no.10 1 mg tablet (PNV Tabs 20-1) Last Menstrual Period: 04/28/24 : No PFSH PFSH Medical History bleeding Surgical History History of dental surgery Broken tibia Broken fibula Family History Brother Cancer older brother- Brain tumor- did chemo and radiation Father S/P triple vessel bypass Social History adopted: No household members: spouse housing: house number of children: 1 current occupational status: employed 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 current occupational exposures/hazards: No pets and animals: Yes pets and animals: dog(s) history of recent travel: No sexually active: Yes Smoking Status: Never smoker second hand exposure: No alcohol intake: current details: Not while substance use type: does not use caffeine: No during the past year weight has: remained stable what type of physical activity do you participate in: walking frequency: 1-2 times per week jayleen/yarsanism: Shinto seatbelt use: always do you feel safe at home: Yes additional social history: - Oscar works for [employer] History 2 Elective abortions Hx Para 1 Spontaneous abortions Hx # Term Pregnancies Ectopic pregnancies Hx # Pregnancies Multiple births # of living children 1 Past Pregnancies Del. Date Name GA/Weeks Outcome Route Bth Weight Gen Labor Lgth Anesthesia Del Locatn Provider FOB 01/02/23 Ant 40 live - full term 7lbs 4oz Male epidural [facility] Oscar Delivery Date: 01/02/23 Last Updated by: Talia Reid Tight nuchal cord x1, 1st degree tear HPI 34 wk ob Details: CARLOTA MANUEL is a 24 year old who presents for routine OB visit. OB Visit [facility] Calculator Estimated Delivery Date Method Current WG Current Estimate 02/02/25 LMP (Uncertain) 34w 0d Other Estimates 02/03/25 Ultrasound #1 33w 6d Expected Delivery Route/Plan Labor Preferences- CB/BF classes: no labor support person: Oscar labor intervention preferences: [] pain management options preferred: epidural cut cord/dad catch: cord : no PP control planned: discussed discussed possible routes of delivery and associated risks: [] special requests: [] Specific Issue/Plans Covid status: [] Flu vaccine: [] Tdap vaccine: given Rhogam: given LARC form signed: yes Problem list reviewed and updated with the most current plan of care details and appropriate orders placed. Relevant counseling for the gestational age provided. Continue routine care and follow up unless otherwise noted in visit notes/problem list details Initial Weight: 150 lb Date -???-???-???-???-???- ???-???-???-???-???-? ??-???- EGA Weight BP Urine Prot -???-???-???-???-???- ???-???-???-???-???-? ??-???- Glucose FHR FuHt Pres Dilation -???-???-???-???-???- ???-???-???-???-???-? ??-???- Effaced St Visit Note 07/01/24 -???-???-???-???-???- ???-???-???-???-???-? ??-???- 9w 1d 154 lb 8 oz (+4 lb 8 oz) 131/71 -???-???-???-???-???- ???-???-???-???-???-? ??-???- 175 -???-???-???-???-???- ???-???-???-???-???-? ??-???- KW- CRL cons with dates. declines NIPT. 08/12/24 -???-???-???-???-???- ???-???-???-???-???-? ??-???- 15w 1d 160 lb (+10 lb) 117/73 Trace -???-???-???-???-???- ???-???-???-???-???-? ??-???- Negative 170 145 -???-???-???-???-???- ???-???-???-???-???-? ??-???- SM- no vb cr amping 09/08/24 -???-???-???-???-???- ???-???-???-???-???-? ??-???- 19w 0d 166 lb 8 oz (+16 lb 8 oz) 124/64 Negative -???-???-???-???-???- ???-???-???-???-???-? ??-???- Negative 135 -???-???-???-???-???- ???-???-???-???-???-? ??-???- JV- no lof, vaginal bleeding, or cramping. has anatomy scan scheduled for tomorrow in [place]. 10/05/24 -???- (more content not included)... Normal [facility] Laboratory - Chemistry and C hemistry - challengeOrdered By: Cherise Acevedo on 12-07-2024 Glucose Ql (U) Negative [facility] Laboratory - UrinalysisOrder ed By: Cherise Acevedo on 12-07-2024 Protein Ql (U) Negative [facility] Churn Operator Office Visit Reporton 12-07-2024 Churn Operator Office Visit Report [facility] [address], [address] [place] [address] OFFICE VISIT Date of Service: 12/07/24 MR#: [id number] Acct: [id number] Name: CARLOTA MANUEL Rep #: [id number] : 2000 Provider: Dr. Cherise Guzman, Age/Sex: 24/F Location: [facility] [place] Status: Signed Intake Vital Signs 10/05/24 15:10 11/23/24 15:29 12/07/24 15:26 12/07/24 15:27 Height 5 ft 8 in 5 ft 8 in 5 ft 8 in 5 ft 8 in Weight: 189 lb 8 oz BMI 28.8 BP 124/70 H Intake Visit Reasons: 32wk ob Transition Program Manager Required: No Is patient in pain?: No Allergies No Known Allergies Allergy (Verified 12/07/24 15:25) Medications ???Medication ???Instructions ???Recorded ???Confirmed ???Type vitamins no.163-iron tab PO 06/18/24 12/07/24 History bis-gly 20 mg-folate no.10 1 mg tablet (PNV Tabs 20-1) Last Menstrual Period: 04/28/24 Zika: Zika virus screening: Negative : No PFSH PFSH Medical History bleeding Surgical History History of dental surgery Broken tibia Broken fibula Family History Brother Cancer older brother- Brain tumor- did chemo and radiation Father S/P triple vessel bypass Social History adopted: No household members: spouse housing: house number of children: 1 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 occupational status: employed 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 occupational exposures/hazards: No pets and animals: Yes pets and animals: dog(s) history of recent travel: No sexually active: Yes Smoking Status: Never smoker second hand exposure: No alcohol intake: current details: Not while substance use type: does not use caffeine: No during the past year weight has: remained stable what type of physical activity do you participate in: walking frequency: 1-2 times per week jayleen/yarsanism: Shinto seatbelt use: always do you feel safe at home: Yes additional social history: - 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 Date Name GA/Weeks Outcome Route Bth Weight Infant Gen Labor Lgth Anesthesia Del Cameronatn Provider FOB 01/02/23 Ant 40 live - full term 7lbs 4oz Male epidural [facility] Delivery Date: 01/02/23 Last Updated by: Talia Reid Tight nuchal cord x1, 1st degree tear HPI 32wk ob Details: CARLOTA MANUEL is a 24 year old who presents for routine OB visit. OB Visit [facility] Calculator Estimated Delivery Date Method Current WG Current Estimate 02/02/25 LMP (Uncertain) 31w 6d Other Estimates 02/03/25 Ultrasound #1 31w 5d Expected Delivery Route/Plan Labor Preferences- CB/BF classes: no labor support person: Oscar labor intervention preferences: [] pain management options preferred: epidural cut cord/dad catch: cord : no PP control planned: discussed discussed possible routes of delivery and associated risks: [] special requests: [] Specific Issue/Plans Covid status: [] Flu vaccine: [] Tdap vaccine: given Rhogam: given LARC form signed: yes Problem list reviewed and updated with the most current plan of care details and appropriate orders placed. Relevant counseling for the gestational age provided. Continue routine care and follow up unless otherwise noted in visit notes/problem list details Initial Weight: 150 lb Date -???-???-???-???-???- ???-???-???-???-???-? ??-???- EGA Weight BP Urine Prot -???-???-???-???-???- ???-???-???-???-???-? ??-???- Glucose FHR FuHt Pres Dilation -???-???-???-???-???- ???-???-???-???-???-? ??-???- Effaced St Visit Note 07/01/24 -???-???-???-???-???- ???-???-???-???-???-? ??-???- 9w 1d 154 lb 8 oz (+4 lb 8 oz) 131/71 -???-???-???-???-???- ???-???-???-???-???-? ??-???- 175 -???-???-???-???-???- ???-???-???-???-???-? ??-???- KW- CRL cons with dates. declines NIPT. 08/12/24 -???-???-???-???-???- ???-???-???-???-???-? ??-???- 15w 1d 160 lb (+10 lb) 117/73 Trace -???-???-???-???-???- ???-???-???-???-???-? ??-???- Negative 170 145 -???-???-???-???-???- ???-???-???-???-???-? ??-???- SM- no vb cr amping 09/08/24 -???-???-???-???-???- ???-???-???-???-???-? ??-???- 19w 0d 166 lb 8 oz (+16 lb 8 oz) 124/64 Negative -???-???-???-???-???- ???-???-???-???-???-? ??-???- Negative 135 -???-???-???-???-???- ???-???-???-???-???-? ??-???- JV- no lof, vaginal bleeding, or cramping (more content not included)... Normal [facility] Laboratory - Chemistry and C hemistry - challengeOrdered By: Chanel [place] on 11-23-2024 Glucose Ql (U) Negative [facility] Laboratory - UrinalysisOrder ed By: Chanel Shelby on 11-23-2024 Protein Ql (U) Negative [facility] Churn Operator Office Visit Reporton 11-23-2024 Churn Operator Office Visit Report [facility] [address], [address] [place] [address] OFFICE VISIT Date of Service: 11/23/24 MR#: [id number] Acct: [id number] Name: CARLOTA MANUEL Rep #: [id number] : 2000 Provider: FRAN weinberg Age/Sex: 24/F Location: [facility] [place] Status: Signed Intake Vital Signs 10/05/24 15:10 11/10/24 13:02 11/23/24 15:29 Height 5 ft 8 in 5 ft 8 in 5 ft 8 in Weight: 185 lb BMI 28.1 BP 122/70 H Intake Visit Reasons: 30wk ob Chief Complaint: 30 Week OB Transition Program Manager Required: No Is patient in pain?: No Allergies No Known Allergies Allergy (Verified 11/23/24 15:31) Medications ???Medication ???Instructions ???Recorded ???Confirmed ???Type vitamins no.163-iron tab PO 06/18/24 11/23/24 History bis-gly 20 mg-folate no.10 1 mg tablet (PNV Tabs 20-1) Last Menstrual Period: 04/28/24 Zika: Zika virus screening: Negative : No PFSH PFSH Medical History bleeding Surgical History History of dental surgery Broken tibia Broken fibula Family History Brother Cancer older brother- Brain tumor- did chemo and radiation Father S/P triple vessel bypass Social History adopted: No household members: spouse housing: house number of children: 1 current occupational status: employed 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 occupational exposures/hazards: No pets and animals: Yes pets and animals: dog(s) history of recent travel: No sexually active: Yes Smoking Status: Never smoker second hand exposure: No alcohol intake: current details: Not while substance use type: does not use caffeine: No during the past year weight has: remained stable what type of physical activity do you participate in: walking frequency: 1-2 times per week jayleen/yarsanism: Shinto seatbelt use: always do you feel safe at home: Yes additional social history: - Oscar works for [employer] History 2 Elective abortions Hx Para 1 Spontaneous abortions Hx # Term Pregnancies Ectopic pregnancies Hx # Pregnancies Multiple births # of living children 1 Past Pregnancies Del. Date Name GA/Weeks Outcome Route Bth Weight Infant Gen Labor Lgth Anesthesia Del Locatn Provider FOB 01/02/23 Ant 40 live - full term 7lbs 4oz Male epidural [facility] Ann W Oscar Delivery Date: 01/02/23 Last Updated by: Talia Reid Tight nuchal cord x1, 1st degree tear HPI 30wk ob Details: CARLOTA MANUEL is a 24 year old who presents for routine OB visit. OB Visit [facility] Calculator Estimated Delivery Date Method Current WG Current Estimate 02/02/25 LMP (Uncertain) 29w 6d Other Estimates 02/03/25 Ultrasound #1 29w 5d Expected Delivery Route/Plan Labor Preferences- CB/BF classes: no labor support person: Oscar labor intervention preferences: [] pain management options preferred: epidural cut cord/dad catch: cord : no PP control planned: discussed discussed possible routes of delivery and associated risks: [] special requests: [] Specific Issue/Plans Covid status: [] Flu vaccine: [] Tdap vaccine: given Rhogam: given LARC form signed: yes Problem list reviewed and updated with the most current plan of care details and appropriate orders placed. Relevant counseling for the gestational age provided. Continue routine care and follow up unless otherwise noted in visit notes/problem list details Initial Weight: Not Recorded Date -???-???-???-???-???- ???-???-???-???-???-? ??-???- EGA Weight BP Urine Prot -???-???-???-???-???- ???-???-???-???-???-? ??-???- Glucose FHR FuHt Pres Dilation -???-???-???-???-???- ???-???-???-???-???-? ??-???- Effaced St Visit Note 07/01/24 -???-???-???-???-???- ???-???-???-???-???-? ??-???- 9w 1d 154 lb 8 oz 131/71 -???-???-???-???-???- ???-???-???-???-???-? ??-???- 175 -???-???-???-???-???- ???-???-???-???-???-? ??-???- KW- CRL cons with dates. declines NIPT. 08/12/24 -???-???-???-???-???- ???-???-???-???-???-? ??-???- 15w 1d 160 lb 117/73 Trace -???-???-???-???-???- ???-???-???-???-???-? ??-???- Negative 170 145 -???-???-???-???-???- ???-???-???-???-???-? ??-???- SM- no vb cr amping 09/08/24 -???-???-???-???-???- ???-???-???-???-???-? ??-???- 19w 0d 166 lb 8 oz 124/64 Negative -???-???-???-???-???- ???-???-???-???-???-? ??-???- Negative 135 -???-???-???-???-???- ???-???-???-???-???-? ??-???- JV- no lof, vaginal bleeding, or cramping. has anatomy scan scheduled for tomorrow (more content not included)... Normal [facility] Absolute lymphocyte countOrd ered By: Ragini Nielson on 11-10-2024 Lymphocytes Auto (Unsp spec) [#/Vol] 1.70 10*3/uL 0.83-4.51 [facility] Absolute neutrophil countOrd ered By: Ragini Nielson on 11-10-2024 Neutrophils (Bld) [#/Vol] 9.6 10*3/uL High 2.0-7.7 [facility] Automated lymphocyte count a s percentage of total leukocytesOrdered By: Ragini Nielson on 11-10-2024 Lymphocytes/100 WBC Auto (Unsp spec) 14.1 % Low 19-41 [facility] Basophil percentageOrdered B y: Ragini Nielson on 11-10-2024 Basophils/100 WBC (Bld) 0.2 % 0-1 [facility] CBC W/Diff, Automatedon Absolute Lymph 1.70 X10 3/uL Normal 0.83-4.51 [facility] Comment on above: Performed By: #### B TS, L501.0250, L100.0100 #### [facility] [address] [place], [address] Absolute Neut 9.6 X10 3/uL High 2.0-7.7 [facility] Comment on above: Performed By: #### B TS, L501.0250, L100.0100 #### [facility] [address] [place], [address] Basophils/100 WBC (Bld) 0.2 % Normal 0-1 [facility] Comment on above: Performed By: #### B TS, L501.0250, L100.0100 #### [facility] [address] [place], [address] Eosinophils/100 WBC (Bld) 0.6 % Normal 0-5 [facility] Comment on above: Performed By: #### B TS, L501.0250, L100.0100 #### [facility] [address] [place], [address] Erythrocyte distribution width (RBC) [Ratio] 13.2 % Normal 11.6-14.6 [facility] Comment on above: Performed By: #### B TS, L501.0250, L100.0100 #### [facility] [address] [place], [address] Hematocrit (Bld) [Volume fraction] 34.9 % Low 37-47 [facility] Comment on above: Performed By: #### B TS, L501.0250, L100.0100 #### [facility] [address] [place], [address] Hemoglobin (Bld) [Mass/Vol] 12.1 g/dL Normal 12.0-15.0 [facility] Comment on above: Performed By: #### B TS, L501.0250, L100.0100 #### [facility] [address] [place], [address] IG% 0.500 Normal 0.0-0.9 [facility] Comment on above: Result Comment: IG% - Immature Granulocytes (promyelocytes, myelocytes and metamyelocytes) > 1% indicates that a LEFT SHIFT is Present. Performed By: #### B TS, L501.0250, L100.0100 #### [facility] [address] [place], [address] Lymphocytes/100 WBC (Bld) 14.1 % Low 19-41 [facility] Comment on above: Performed By: #### B TS, L501.0250, L100.0100 #### [facility] [address] [place], [address] MCH (RBC) [Entitic mass] 32.3 pg High 27.0-32.0 [facility] Comment on above: Performed By: #### Aviva TS, L501.0250, L100.0100 #### [facility] [address] [place], [address] MCHC (RBC) [Mass/Vol] 34.7 g/dL Normal 32-36 [facility] Comment on above: Performed By: #### Aviva ROSENTHAL, L501.0250, L100.0100 #### [facility] [address] [place], [address] MCV (RBC) [Entitic vol] 93.1 fL Normal 81-99 [facility] Comment on above: Performed By: #### Aviva ROSENTHAL, L501.0250, L100.0100 #### [facility] [address] [place], [address] Monocytes/100 WBC (Bld) 5.1 % Normal 0-10 [facility] Comment on above: Performed By: #### Aviva ROSENTHAL, L501.0250, L100.0100 #### [facility] [address] [place], [address] Neutrophils/100 WBC (Bld) 79.5 % High 47-70 [facility] Comment on above: Performed By: #### Aviva ROSENTHAL, L501.0250, L100.0100 #### [facility] [address] [place], [address] Nucleated RBC (Bld) [#/Vol] 0 10*3/uL Normal 0-5 [facility] Comment on above: Performed By: #### B TS, L501.0250, L100.0100 #### [facility] [address] [place], [address] Platelet mean volume (Bld) [Entitic vol] 8.8 fL Normal 6.2-12.0 [facility] Comment on above: Performed By: #### B TS, L501.0250, L100.0100 #### [facility] [address] [place], [address] Platelets (Bld) [#/Vol] 214 10*3/uL Normal 150-450 [facility] Comment on above: Performed By: #### B TS, L501.0250, L100.0100 #### [facility] [address] [place], [address] RBC (Bld) [#/Vol] 3.75 10*6/uL Low 4.2-5.4 [facility] Comment on above: Performed By: #### B TS, L501.0250, L100.0100 #### [facility] [address] [place], [address] RDW SD 45.1 fl High 35.1-43.9 [facility] Comment on above: Performed By: #### B TS, L501.0250, L100.0100 #### [facility] [address] [place], [address] WBC (Bld) [#/Vol] 12.0 10*3/uL High 4.4-11.0 [facility] Comment on above: Performed By: #### B TS, L501.0250, L100.0100 #### [facility] [address] [place], [address] Eosinophil percentageOrdered By: Ragini Nielson on 11-10-2024 Eosinophils/100 WBC (Bld) 0.6 % 0-5 [facility] Erythrocyte distribution wid th (RBC) [Ratio]Ordered By: Ragini Nielson on 11-10-2024 Erythrocyte distribution width (RBC) [Entitic vol] 45.1 fL High 35.1-43.9 [facility] Erythrocyte distribution wid th ratioOrdered By: Ragini Nielson on 11-10-2024 Erythrocyte distribution width (RBC) [Ratio] 13.2 % 11.6-14.6 [facility] Erythrocyte distribution wid th standard deviationOrdered By: Ragini Nielson on 11-10-2024 Erythrocyte distribution width (RBC) [Ratio] 45.1 fl High 35.1-43.9 [facility] Glucose Challenge Gest 1H 50 shereen 11-10-2024 GLU GEST 50g 1H 102 mg/dL Normal 70-140 [facility] Comment on above: Performed By: #### B TS, L501.0250, L100.0100 #### [facility] [address] [place], [address] Glucose measurement at 2 leobardo rs post-dose gestational glucose tolerance testOrdered By: Ragini Nielson on 11-10-2024 Glucose [Mass/Vol] 102 mg/dL 70-140 [facility] HIVon 11-10-2024 HIV Non-Reactive Normal Nonreactive [facility] Comment on above: Order Comment: ADD O N Result Comment: Non- Reactive Reactive Repeatedly reactive samples must be confirmed according to CDC recommended confirmatory algorithms. The subresults for either HIVAG or AHIV can be used as an aid in the selection of the confirmation algorithm for reactive samples. Send out specimens with Reactive results to [facility] for confirmation. Order the HIV antibody detection and differentiation: lc#[id number] Performed By: #### L 3890.6006, L509.8002 #### [facility] [address] [place], [address] Hematocrit Auto (Bld) [Volum e fraction]Ordered By: Ragini Nielson on 11-10-2024 Hematocrit (Bld) [Volume fraction] 34.9 % Low 37-47 [facility] Hemoglobin measurementOrdere d By: Ragini Nielson on 11-10-2024 Hemoglobin (Bld) [Mass/Vol] 12.1 g/dL 12.0-15.0 [facility] Immature granulocytes/100 WB C Auto (Bld)Ordered By: Ragini Nielson on 11-10-2024 Immature granulocytes/100 WBC (Bld) 0.500 % 0.0-0.9 [facility] Comment on above: IG% - Immature Granu locytes (promyelocytes, myelocytes and metamyelocytes) > 1% indicates that a LEFT SHIFT is Present. Laboratory - Chemistry and C hemistry - challengeOrdered By: Chanel Ryan on 11-10-2024 Glucose Ql (U) Negative [facility] - UrinalysisOrder ed By: Chanel Ryan on 11-10-2024 Protein Ql (U) Negative [facility] Lymphocytes Auto (Unsp spec) [#/Vol]Ordered By: Ragini iNelson on 11-10-2024 Lymphocytes (Bld) [#/Vol] 1.70 10*3/uL 0.83-4.51 [facility] Lymphocytes/100 WBC Auto (Un sp spec)Ordered By: Ragini Nielson on 11-10-2024 Lymphocytes/100 WBC (Bld) 14.1 % Low 19-41 [facility] MCV (mean corpuscular volume ) determinationOrdered By: Ragini Nielson on 11-10-2024 MCV (RBC) [Entitic vol] 93.1 fL 81-99 [facility] Mean corpuscular hemoglobin (MCH) determinationOrdered By: Ragini Nielson on 11-10-2024 MCH (RBC) [Entitic mass] 32.3 pg High 27.0-32.0 [facility] Mean corpuscular hemoglobin concentration (MCHC) determinationOrdered By: Ragini Nielson on 11-10-2024 MCHC (RBC) [Mass/Vol] 34.7 g/dL 32-36 [facility] Mean platelet volume determi nationOrdered By: Ragini Nielson on 11-10-2024 Platelet mean volume (Bld) [Entitic vol] 8.8 fL 6.2-12.0 [facility] Monocyte percentageOrdered B y: Ragini Nielson on 11-10-2024 Monocytes/100 WBC (Bld) 5.1 % 0-10 [facility] Neutrophil percentageOrdered By: Ragini Nielson on 11-10-2024 Neutrophils/100 WBC (Bld) 79.5 % High 47-70 [facility] No Panel InformationOrdered By: Chanel Ryan on 11-10-2024 HIV (1&2) Antibody Non-Reactive Nonreactive [facility] Comment on above: Non-ReactiveReactive Repeatedly reactive samples must be confirmed according to CDC recommended confirmatory algorithms. The subresults for either HIVAG or AHIV can be used as an aid in the selection of the confirmation algorithm for reactive samples.Send out specimens with Reactive results to [facility] for confirmation.Order the HIV antibody detection and differentiation: #[id number] Nucleated red blood cell per centageOrdered By: Ragini Nielson on 11-10-2024 Nucleated RBC/100 WBC (Bld) [Ratio] 0 % 0-5 [facility] Churn Operator Office Visit Reporton 11-10-2024 Churn Operator Office Visit Report [facility] [address], [address] [place] [address] OFFICE VISIT Date of Service: 11/10/24 MR#: [id number] Acct: [id number] Name: CARLOTA MANUEL Rep #: [id number] : 2000 Provider: FRAN weinberg Age/Sex: 24/F Location: [facility] [place] Status: Signed Intake Vital Signs 09/08/24 14:46 10/05/24 15:10 11/10/24 13:02 Height 5 ft 8 in 5 ft 8 in 5 ft 8 in Weight: 181 lb 8 oz BMI 27.6 BP 108/62 Intake Visit Reasons: 28wk ob/glucose Chief Complaint: 28 Week OB/Glucose Transition Program Manager Required: No Is patient in pain?: No Allergies No Known Allergies Allergy (Verified 11/10/24 13:06) Medications ???Medication ???Instructions ???Recorded ???Confirmed ???Type vitamins no.163-iron tab PO 06/18/24 11/10/24 History bis-gly 20 mg-folate no.10 1 mg tablet (PNV Tabs 20-1) Last Menstrual Period: 04/28/24 : No PFSH PFSH Medical History bleeding Surgical History History of dental surgery Broken tibia Broken fibula Family History Brother Cancer older brother- Brain tumor- did chemo and radiation Father S/P triple vessel bypass Social History adopted: No household members: spouse housing: house number of children: 1 current occupational status: employed 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 current occupational exposures/hazards: No pets and animals: Yes pets and animals: dog(s) history of recent travel: No sexually active: Yes Smoking Status: Never smoker second hand exposure: No alcohol intake: current details: Not while substance use type: does not use caffeine: No during the past year weight has: remained stable what type of physical activity do you participate in: walking frequency: 1-2 times per week jayleen/yarsanism: Shinto seatbelt use: always do you feel safe at home: Yes additional social history: - Oscar works for [employer] History 2 Elective abortions Hx Para 1 Spontaneous abortions Hx # Term Pregnancies Ectopic pregnancies Hx # Pregnancies Multiple births # of living children 1 Past Pregnancies Del. Date Name GA/Weeks Outcome Route Bth Weight Gen Labor Lgth Anesthesia Del Locatn Provider FOB 01/02/23 Ant 40 live - full term 7lbs 4oz Male epidural [facility] Oscar Delivery Date: 01/02/23 Last Updated by: Talia Reid Tight nuchal cord x1, 1st degree tear HPI 28wk ob/glucose Details: CARLOTA MANUEL is a 24 year old who presents for routine OB visit. OB Visit [facility] Calculator Estimated Delivery Date Method Current WG Current Estimate 02/02/25 LMP (Uncertain) 28w 0d Other Estimates 02/03/25 Ultrasound #1 27w 6d Expected Delivery Route/Plan Labor Preferences- CB/BF classes: no labor support person: Oscar labor intervention preferences: [] pain management options preferred: epidural cut cord/dad catch: cord : no PP control planned: discussed discussed possible routes of delivery and associated risks: [] special requests: [] Specific Issue/Plans Covid status: [] Flu vaccine: [] Tdap vaccine: given Rhogam: given LARC form signed: yes Problem list reviewed and updated with the most current plan of care details and appropriate orders placed. Relevant counseling for the gestational age provided. Continue routine care and follow up unless otherwise noted in visit notes/problem list details Initial Weight: Not Recorded Date -???-???-???-???-???- ???-???-???-???-???-? ??-???- EGA Weight BP Urine Prot -???-???-???-???-???- ???-???-???-???-???-? ??-???- Glucose FHR FuHt Pres Dilation -???-???-???-???-???- ???-???-???-???-???-? ??-???- Effaced St Visit Note 07/01/24 -???-???-???-???-???- ???-???-???-???-???-? ??-???- 9w 1d 154 lb 8 oz 131/71 -???-???-???-???-???- ???-???-???-???-???-? ??-???- 175 -???-???-???-???-???- ???-???-???-???-???-? ??-???- KW- CRL cons with dates. declines NIPT. 08/12/24 -???-???-???-???-???- ???-???-???-???-???-? ??-???- 15w 1d 160 lb 117/73 Trace -???-???-???-???-???- ???-???-???-???-???-? ??-???- Negative 170 145 -???-???-???-???-???- ???-???-???-???-???-? ??-???- SM- no vb cr amping 09/08/24 -???-???-???-???-???- ???-???-???-???-???-? ??-???- 19w 0d 166 lb 8 oz 124/64 Negative -???-???-???-???-???- ???-???-???-???-???-? ??-???- Negative 135 -???-???-???-???-???- ???-???-???-???-???-? ??-???- JV- no lof, vaginal bleeding, or cramping. has anatomy scan scheduled for tomorrow in [place]. 10/05/24 -???-???-? (more content not included)... Normal [facility] Platelet countOrdered By: Sánchez Nielson on 11-10-2024 Platelets (Bld) [#/Vol] 214 10*3/uL 150-450 [facility] RBC Auto (Bld) [#/Vol]Ordere d By: Ragini Nielson on 11-10-2024 RBC (Bld) [#/Vol] 3.75 10*6/uL Low 4.2-5.4 [facility] Syphilis Antibodieson 2024 Syphilis Abs Non-Reactive Normal Nonreactive [facility] Comment on above: Order Comment: ADD O N Performed By: #### L 3890.6006, L509.8002 #### [facility] [address] [place], [address] T. pallidum abOrdered By: Toni Ryan on 11-10-2024 Syphilis Total Antibody Non-Reactive Nonreactiv e [facility] Type AND Screenon 11-10-2024 ABO and Rh group Nom (Bld) Blood group A Rh(D) negative Normal [facility] Comment on above: Order Comment: HILLARY CRUMP,SST,LAV,BB-SWRIGHT PN Performed By: #### B TS, L501.0250, L100.0100 #### [facility] [address] [place], [address] White blood cell (WBC) count Ordered By: Ragini Nielson on 11-10-2024 WBC (Bld) [#/Vol] 12.0 10*3/uL High 4.4-11.0 [facility] - Chemistry and C hemistry - challengeOrdered By: Ragini Nielson on 10-05-2024 Glucose Ql (U) Negative [facility] - UrinalysisOrder ed By: Ragini Nielson on 10-05-2024 Protein Ql (U) Negative [facility] Churn Operator Office Visit Reporton 10-05-2024 Churn Operator Office Visit Report [facility] [address], [address] [place] [address] OFFICE VISIT Date of Service: 10/05/24 MR#: [id number] Acct: [id number] Name: CARLOTA MANUEL Rep #: [id number] : 2000 Provider: CARMELITA Moore ams Age/Sex: 24/F Location: [facility] [place] Status: Signed Intake Vital Signs 09/08/24 14:46 10/05/24 15:10 Height 5 ft 8 in 5 ft 8 in Weight: 173 lb 8 oz BMI 26.4 BP 106/68 Intake Visit Reasons: 23 wk ob Chief Complaint: 23 wk ob Is patient in pain?: No Allergies No Known Allergies Allergy (Verified 10/05/24 15:09) Medications ???Medication ???Instructions ???Recorded ???Confirmed ???Type vitamins no.163-iron tab PO 06/18/24 10/05/24 History bis-gly 20 mg-folate no.10 1 mg tablet (PNV Tabs 20-1) Last Menstrual Period: 04/28/24 : No PFSH PFSH Medical History bleeding Surgical History History of dental surgery Broken tibia Broken fibula Family History Brother Cancer older brother- Brain tumor- did chemo and radiation Father S/P triple vessel bypass Social History adopted: No household members: spouse housing: house number of children: 1 current occupational status: employed 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 occupational exposures/hazards: No pets and animals: Yes pets and animals: dog(s) history of recent travel: No sexually active: Yes Smoking Status: Never smoker second hand exposure: No alcohol intake: current details: Not while substance use type: does not use caffeine: No during the past year weight has: remained stable what type of physical activity do you participate in: walking frequency: 1-2 times per week jayleen/yarsanism: Shinto seatbelt use: always do you feel safe at home: Yes additional social history: - Oscar works for [employer] History 2 Elective abortions Hx Para 1 Spontaneous abortions Hx # Term Pregnancies Ectopic pregnancies Hx # Pregnancies Multiple births # of living children 1 Past Pregnancies Del. Date Name GA/Weeks Outcome Route Bth Weight Gen Labor Lgth Anesthesia Del Locatn Provider FOB 01/02/23 Ant 40 live - full term 7lbs 4oz Male epidural [facility] Oscar Delivery Date: 01/02/23 Last Updated by: Talia Reid Tight nuchal cord x1, 1st degree tear HPI 23 wk ob Details: CARLOTA MANUEL is a 24 year old who presents for routine OB visit. OB Visit [facility] Calculator Estimated Delivery Date Method Current WG Current Estimate 02/02/25 LMP (Uncertain) 22w 6d Other Estimates 02/03/25 Ultrasound #1 22w 5d Expected Delivery Route/Plan Labor Preferences- CB/BF classes: [] labor support person: [] labor intervention preferences: [] pain management options preferred: [] cut cord/dad catch: [] : [] PP control planned: [] discussed possible routes of delivery and associated risks: [] special requests: [] Specific Issue/Plans Covid status: [] Flu vaccine: [] Tdap vaccine: [] Rhogam: [] LARC form signed: [] Problem list reviewed and updated with the most current plan of care details and appropriate orders placed. Relevant counseling for the gestational age provided. Continue routine care and follow up unless otherwise noted in visit notes/problem list details Initial Weight: Not Recorded Date -???-???-???-???-???- ???-???-???-???-???-? ??-???- EGA Weight BP Urine Prot -???-???-???-???-???- ???-???-???-???-???-? ??-???- Glucose FHR FuHt Pres Dilation -???-???-???-???-???- ???-???-???-???-???-? ??-???- Effaced St Visit Note 07/01/24 -???-???-???-???-???- ???-???-???-???-???-? ??-???- 9w 1d 154 lb 8 oz 131/71 -???-???-???-???-???- ???-???-???-???-???-? ??-???- 175 -???-???-???-???-???- ???-???-???-???-???-? ??-???- KW- CRL cons with dates. declines NIPT. 08/12/24 -???-???-???-???-???- ???-???-???-???-???-? ??-???- 15w 1d 160 lb 117/73 Trace -???-???-???-???-???- ???-???-???-???-???-? ??-???- Negative 170 145 -???-???-???-???-???- ???-???-???-???-???-? ??-???- SM- no vb cr amping 09/08/24 -???-???-???-???-???- ???-???-???-???-???-? ??-???- 19w 0d 166 lb 8 oz 124/64 Negative -???-???-???-???-???- ???-???-???-???-???-? ??-???- Negative 135 -???-???-???-???-???- ???-???-???-???-???-? ??-???- JV- no lof, vaginal bleeding, or cramping. has anatomy scan scheduled for tomorrow in [place]. 10/05/24 -???-???-???-???-???- ???-???-???-???-???-? ??-???- 22w 6d 173 lb 8 oz 106/68 Negative -???-???-???-???-???- ?? (more content not included)... Normal [facility] - Chemistry and C hemistry - challengeOrdered By: Cherise Acevedo on 09-08-2024 Glucose Ql (U) Negative [facility] - UrinalysisOrder ed By: Cherise Acevedo on 09-08-2024 Protein Ql (U) Negative [facility] Churn Operator Office Visit Reporton 09-08-2024 Churn Operator Office Visit Report [facility] [address], [address] [place] [address] OFFICE VISIT Date of Service: 09/08/24 MR#: [id number] Acct: [id number] Name: CARLOTA MANUEL Rep #: [id number] : 2000 Provider: Dr. Cherise Guzman DO Age/Sex: 24/F Location: [facility] [place] Status: Signed Intake Vital Signs 08/12/24 14:44 09/08/24 14:46 09/08/24 14:46 Height 5 ft 8 in 5 ft 8 in 5 ft 8 in Weight: 166 lb 8 oz BMI 25.3 BP 124/64 H Intake Visit Reasons: 19 wk ob Transition Program Manager Required: No Is patient in pain?: No Allergies No Known Allergies Allergy (Verified 09/08/24 14:45) Medications ???Medication ???Instructions ???Recorded ???Confirmed ???Type vitamins no.163-iron tab PO 06/18/24 09/08/24 History bis-gly 20 mg-folate no.10 1 mg tablet (PNV Tabs 20-1) Last Menstrual Period: 04/28/24 Zika: Zika virus screening: Negative : No PFSH PFSH Medical History bleeding Surgical History History of dental surgery Broken tibia Broken fibula Family History Brother Cancer older brother- Brain tumor- did chemo and radiation Father S/P triple vessel bypass Social History adopted: No household members: spouse housing: house number of children: 1 current occupational status: employed 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 occupational exposures/hazards: No pets and animals: Yes pets and animals: dog(s) history of recent travel: No sexually active: Yes Smoking Status: Never smoker second hand exposure: No alcohol intake: current details: Not while substance use type: does not use caffeine: No during the past year weight has: remained stable what type of physical activity do you participate in: walking frequency: 1-2 times per week jayleen/yarsanism: Shinto seatbelt use: always do you feel safe at home: Yes additional social history: - Oscar works for [employer] History 2 Elective abortions Hx Para 1 Spontaneous abortions Hx # Term Pregnancies Ectopic pregnancies Hx # Pregnancies Multiple births # of living children 1 Past Pregnancies Del. Date Name GA/Weeks Outcome Route Bth Weight Gen Labor Lgth Anesthesia Del Locatn Provider FOB 01/02/23 Ant 40 live - full term 7lbs 4oz Male epidural [facility] Delivery Date: 01/02/23 Last Updated by: Talia Godinez Franklin Tight nuchal cord x1, 1st degree tear HPI 19 wk ob Details: CARLOTA MANUEL is a 24 year old who presents for routine OB visit. OB Visit [facility] Calculator Estimated Delivery Date Method Current WG Current Estimate 02/02/25 LMP (Uncertain) 19w 0d Other Estimates 02/03/25 Ultrasound #1 18w 6d Expected Delivery Route/Plan Labor Preferences- CB/BF classes: [] labor support person: [] labor intervention preferences: [] pain management options preferred: [] cut cord/dad catch: [] : [] PP control planned: [] discussed possible routes of delivery and associated risks: [] special requests: [] Specific Issue/Plans Covid status: [] Flu vaccine: [] Tdap vaccine: [] Rhogam: [] LARC form signed: [] Problem list reviewed and updated with the most current plan of care details and appropriate orders placed. Relevant counseling for the gestational age provided. Continue routine care and follow up unless otherwise noted in visit notes/problem list details Initial Weight: Not Recorded Date -???-???-???-???-???- ???-???-???-???-???-? ??-???- EGA Weight BP Urine Prot -???-???-???-???-???- ???-???-???-???-???-? ??-???- Glucose FHR FuHt Pres Dilation -???-???-???-???-???- ???-???-???-???-???-? ??-???- Effaced St Visit Note 07/01/24 -???-???-???-???-???- ???-???-???-???-???-? ??-???- 9w 1d 154 lb 8 oz 131/71 -???-???-???-???-???- ???-???-???-???-???-? ??-???- 175 -???-???-???-???-???- ???-???-???-???-???-? ??-???- KW- CRL cons with dates. declines NIPT. 08/12/24 -???-???-???-???-???- ???-???-???-???-???-? ??-???- 15w 1d 160 lb 117/73 Trace -???-???-???-???-???- ???-???-???-???-???-? ??-???- Negative 170 145 -???-???-???-???-???- ???-???-???-???-???-? ??-???- SM- no vb cr amping 09/08/24 -???-???-???-???-???- ???-???-???-???-???-? ??-???- 19w 0d 166 lb 8 oz 124/64 Negative -???-???-???-???-???- ???-???-???-???-???-? ??-???- Negative 135 -???-???-???-???-???- ???-???-???-???-???-? ??-???- JV- no lof, vaginal bleeding, or cramping. has anatomy scan scheduled for tomorrow in [place]. ACOG First Trimester (more content not included)... Normal [facility] - Chemistry and C hemistry - challengeon 08-12-2024 Glucose Ql (U) Negative [facility] - Urinalysison Protein Ql (U) Trace [facility] Churn Operator Office Visit Reporton 08-12-2024 Churn Operator Office Visit Report [facility] [address], [address] [place] [address] OFFICE VISIT Date of Service: 08/12/24 MR#: [id number] Acct: [id number] Name: CARLOTA MANUEL Rep #: [id number] : 2000 Provider: Dr. Rosalinda madera MD Age/Sex: 24/F Location: [facility] [place] Status: Signed Intake Vital Signs 06/04/24 10:06 07/01/24 09:59 08/12/24 14:44 Height 5 ft 8 in 5 ft 8 in 5 ft 8 in Weight: 160 lb BMI 24.3 BP 117/73 Intake Visit Reasons: 14 WK OB Chief Complaint: 15 wk ob Is patient in pain?: No Allergies No Known Allergies Allergy (Verified 08/12/24 14:51) Medications ???Medication ???Instructions ???Recorded ???Confirmed ???Type vitamins no.163-iron tab PO 06/18/24 08/12/24 History bis-gly 20 mg-folate no.10 1 mg tablet (PNV Tabs 20-1) Last Menstrual Period: 04/28/24 : No Nurse's Note: 15 wk ob PFSH PFSH Medical History bleeding Surgical History History of dental surgery Broken tibia Broken fibula Family History Brother Cancer older brother- Brain tumor- did chemo and radiation Father S/P triple vessel bypass Social History adopted: No household members: spouse housing: house number of children: 1 current occupational status: employed 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 occupational exposures/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: No pets and animals: Yes pets and animals: dog(s) history of recent travel: No sexually active: Yes Smoking Status: Never smoker second hand exposure: No alcohol intake: current details: Not while substance use type: does not use caffeine: No during the past year weight has: remained stable what type of physical activity do you participate in: walking frequency: 1-2 times per week jayleen/yarsanism: Shinto seatbelt use: always do you feel safe at home: Yes additional social history: - 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 Date Name GA/Weeks Outcome Route Bth Weight Infant Gen Labor Lgth Anesthesia Del Locatn Provider FOB 01/02/23 Ant 40 live - full term 7lbs 4oz Male epidural [facility] Ann W Oscar Delivery Date: 01/02/23 Last Updated by: Talia Reid Tight nuchal cord x1, 1st degree tear HPI 14 WK OB Details: CARLOTA MANUEL is a 24 year old who presents for routine OB visit. OB Visit [facility]O Calculator Estimated Delivery Date Method Current WG Current Estimate 02/02/25 LMP (Uncertain) 15w 1d Other Estimates 02/03/25 Ultrasound #1 15w 0d Expected Delivery Route/Plan Labor Preferences- CB/BF classes: [] labor support person: [] labor intervention preferences: [] pain management options preferred: [] cut cord/dad catch: [] : [] PP control planned: [] discussed possible routes of delivery and associated risks: [] special requests: [] Specific Issue/Plans Covid status: [] Flu vaccine: [] Tdap vaccine: [] Rhogam: [] LARC form signed: [] Problem list reviewed and updated with the most current plan of care details and appropriate orders placed. Relevant counseling for the gestational age provided. Continue routine care and follow up unless otherwise noted in visit notes/problem list details Initial Weight: Not Recorded Date -???-???-???-???-???- ???-???-???-???-???-? ??-???- EGA Weight BP Urine Prot -???-???-???-???-???- ???-???-???-???-???-? ??-???- Glucose FHR FuHt Pres Dilation -???-???-???-???-???- ???-???-???-???-???-? ??-???- Effaced St Visit Note 07/01/24 -???-???-???-???-???- ???-???-???-???-???-? ??-???- 9w 1d 154 lb 8 oz 131/71 -???-???-???-???-???- ???-???-???-???-???-? ??-???- 175 -???-???-???-???-???- ???-???-???-???-???-? ??-???- KW- CRL cons with dates. declines NIPT. 08/12/24 -???-???-???-???-???- ???-???-???-???-???-? ??-???- 15w 1d 160 lb 117/73 Trace -???-???-???-???-???- ???-???-???-???-???-? ??-???- Negative 170 145 -???-???-???-???-???- ???-???-???-???-???-? ??-???- SM- no vb cr amping ACOG First Trimester First Trimester: Desire for , Alcohol, Tobacco Cessation, Illicit/Recreational Drug/Substance Use, Intimate Partner Violence, Barriers to care, Unstable Housing, Communication Barriers, Environmental/Work Hazards, Anticipated Course of Care, Toxoplasmosis Precations, Use of Any medications, Sexual activity, Exercise, Dental Care, (more content not included)... Normal [facility] Chlamydia/GC RIVERA aptimaon CHLAMY,NUC ACID Negative Normal Negative [facility] Comment on above: Performed By: #### L 7000.1800, M1.0 #### [facility] [address] [place], [address] GC BY NUC ACID Negative Normal Negative [facility] Comment on above: Result Comment: Perf ormed at: =G - [facility] [address] [id number] Human Resource Statistician: Jina Stubbs MD, Phone: [phone] Performed By: #### L 7000.1800, #### [facility] [address] [place], [address] Urine Cultureon 07-02-2024 [facility] Culture exhibits no growth. Normal [facility] Comment on above: Performed By: #### L 7000.1800, M1.0 #### [facility] [address] [place], [address] CBC W/Diff, Automatedon 06-06 Absolute Lymph 1.16 X10 3/uL Normal 0.83-4.51 [facility] Comment on above: Performed By: #### L 3890.6005, L3890.6300, L3890.6100, BTS, L100.0100, L509.4005, L509.8000 ####[facility] [address] [place], [address] Absolute Neut 9.4 X10 3/uL High 2.0-7.7 [facility] Comment on above: Performed By: #### L 3890.6005, L3890.6300, L3890.6100, BTS, L100.0100, L509.4005, L509.8000 ####[facility] [address] [place], [address] Basophils/100 WBC (Bld) 0.3 % Normal 0-1 [facility] Comment on above: Performed By: #### L 3890.6005, L3890.6300, L3890.6100, BTS, L100.0100, L509.4005, L509.8000 ####[facility] [address] [place], [address] Eosinophils/100 WBC (Bld) 0.5 % Normal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 strength bilaterally without signs of atrophy Patellar examination Normal patellar mobility Negative patellar apprehension Negative patellar grind testing Normal patellar mobility Negative patellar apprehension Negative patellar grind testing Tenderness inferior patellar pole and medial patellar facet, proximal patellar tendon no tenderness to palpation Meniscus Negative medial and lateral Beverley's/Thessaly's testing Negative medial and lateral Beverley's/Thessaly's testing Stability Collateral and cruciate knee ligaments (ACL/PCL/LCL/MCL) are all intact with no significant laxity noted bilaterally Collateral and cruciate knee ligaments (ACL/PCL/LCL/MCL) are all intact with no significant laxity noted bilaterally Additional Testing bilateral pes planus with possible contribution to the knee complaints today Pes planus IMAGING: Final results and radiologist's interpretation, available in the [facility] health record. Images were reviewed with the patient/family members in the office today. My personal interpretation of the performed imaging is mature ossicle along lateral margin of patella with no clear union CLINICAL IMPRESSION / ASSESSMENT: (M25.561) Right knee pain, unspecified chronicity (primary encounter diagnosis) (Z87.81) History of patellar fracture (M22.2X1) Patellofemoral pain syndrome of right knee RECOMMENDATION / PLAN: At this point she is still having lateral knee pain in the area of non-union but also concurrently patellafemoral symptoms, we discussed options of excision vs continued conservative treatment, will place order for PT referral and discussed with her that she can utilize her DJ reaction brace while playing or consider a trizone brace. Discussed appropriate shoewear and consider powerstep inserts. Also discussed potential referral in future to surgery if no improvement after PT program Procedures Verbal health education was given to patient. Patient verbalizes understanding and agrees with the treatment plan as detailed above. Gadiel Hammond DO Primary Care Sports Medicine Fellow, PGY-4 I personally saw in evaluating the patient today. I personally obtain the busby and critical portions of the history and physical exam. I reviewed the resident/fellow's documentation and discuss the patient with the resident/fellow. I agree with the resident/fellow's medical decision making as documented. Nicanor Pelayo DO Referring Provider: SELF [[id number]] Allergies As of Date: 01/23/2021 (No Known Allergies) Date Reviewed: 01/23/2021 Reviewed by: Nicanor Pelayo DO - Fully Assessed Reason for Visit: New [[id number]] Primary Visit Diagnosis:Chronic pain of rig (more content not included)... Normal [facility] XR KNEE 4V AP/PA BOTH+LAT/ME R RTon 01-23-2021 XR KNEE 4V AP/PA BOTH+LAT/ALEX RT * * *Final Report* * * DATE OF EXAM: Jan 23 2021 11:05AM AFR 5203 - XR KNEE 4V AP/PA BOTH+LAT/ALEX RT / PROCEDURE REASON: Pain * * * * Physician Interpretation * * * * Examination: Right knee History: RIGHT ANTERIOR KNEE PAIN AROUND THE KNEECAP, HX OF FRACTURE ABOUT 2 YEARS AGO TO KNEECAP Pain Technique: XR KNEE 4V AP/PA BOTH+LAT/ALEX RT --KNEES: 7 views. Standing AP, semiflexed and Merchant views of both knees (3 views each knee) and an additional single lateral view of the right knee. Comparison: 07/27/2019 FINDING/ RESULT: On the RIGHT, the ossicle at the lateral margin of the right patella appears unchanged when compared to prior. Either bipartite patella or chronic stigmata of prior fracture. Remainder of the bones, joint spaces and alignment are within normal limits. No right knee effusion. Images left knee show no abnormality. IMPRESSION: Right lateral patellar ossicle, unchanged. 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: SHELLEY Transcribe Date/Time: Jan 23 2021 12:48P Dictated by : SAE CARDENAS MD This examination was interpreted and the report reviewed and electronically signed by: SAE CARDENAS MD on Jan 23 2021 12:50PM EST [id number] Normal [facility] XR KNEE GENERAL 4V AP BOTH/P A BOTH/LAT/MERC RTon 01-23-2021 [facility] XR HAND RIGHT 2 VIEWSon 08-06 XR HAND RIGHT 2 VIEWS EXAMINATION: XR HAND RIGHT 2 VIEWS 08/31/2019 7:48 am HISTORY: ORDERING SYSTEM PROVIDED HISTORY: Fracture, TECHNOLOGIST PROVIDED HISTORY: Injury/Trauma Reason for exam: right hand fx f/u Cancer History: u Surgery, RadiationHistory: u Encounter Type: Subsequent/Follow-up Mechanism of injury: jammed hand while playing basketball around [employer] ORDERING SYSTEM PROVIDED DIAGNOSIS CODES: T14.8XXA Fracture COMPARISON: June 29, 2019. FINDINGS: AP and lateral views of the right hand were obtained demonstrating stable slight contour irregularity involving the 4th metacarpal head where there is mild sclerosis in this region that is new. The rest of the osseous structures appear to be intact with normal alignment. IMPRESSION: 1. Evidence for healing of a minimally displaced intraarticular comminuted fracture involving the 4th metacarpal head. Stable alignment. DPR/klb Workstation ID: [id number] Dictated by: LITTLE KOWALSKI on SatAug 31, 2019 9:22:14 AM EST Transcribed by: TAYLOR ARMIJO on SatAug 31, 2019 9:54:36 AM EST Finalized by: LITTLE KOWALSKI on SatAug 31, 2019 9:56:57 AM EST Normal [facility] Comment on above: Order Comment: Injur y/Trauma or Illness?:Injury/Trauma How long have you had these symptoms (acute/chronic)?:Acute Reason for exam?:right hand fx f/u History of cancer?:u Surgeries, chemotherapy, or radiation?:u Type of Exam?:Subsequent/Follow-up Mechanism of injury?:jammed hand while playing basketball around [employer] XR HAND RIGHT 2 VIEWSon 06-06 XR HAND RIGHT 2 VIEWS EXAMINATION: XR HAND RIGHT 2 VIEWS 06/29/2019 3:12 pm HISTORY: ORDERING SYSTEM PROVIDED HISTORY: Fracture, TECHNOLOGIST PROVIDED HISTORY: Injury/Trauma Reason for exam: rght ring finger fx f/u Cancer History: u Surgery, RadiationHistory: u Encounter Type: Subsequent/Follow-up Mechanism of injury: stubbed finger playing basketball ORDERING SYSTEM PROVIDED DIAGNOSIS CODES: T14.8XXA Fracture COMPARISON: 06/23/2019. FINDINGS: Two views. Intraarticular fracture of the 4th metacarpal head with 2 mm of fracture fragment displacement unchanged. There is no bridging callus. The remainder of the hand is normally aligned and intact. IMPRESSION: Unchanged radiographic alignment of the intraarticular fracture of the 4th metacarpal head. No bridging callus has yet developed. PRL/jcw Workstation ID: [id number] Dictated by: AMADO ESPARZA on SatJun 29, 2019 4:48:06 PM EST Transcribed by: ADRIAN OLIVEROS IN [employer] on SatJun 29, 2019 5:35:25 PM EST Finalized by: AMADO ESPARZA on SatJun 29, 2019 7:41:18 PM EST Normal [facility] Comment on above: Order Comment: Injur y/Trauma or Illness?:Injury/Trauma How long have you had these symptoms (acute/chronic)?:Acute Reason for exam?:rght ring finger fx f/u History of cancer?:u Surgeries, chemotherapy, or radiation?:u Type of Exam?:Subsequent/Follow-up Mechanism of injury?:stubbed finger playing basketball XR HAND RIGHT 3+ VIEWS (EARLINE ROMERO)on 06-23-2019 XR HAND RIGHT 3+ VIEWS (STANDARD) EXAMINATION: XR HAND RIGHT 3+ VIEWS (STANDARD) CLINICAL STATEMENT: Pain COMPARISON: None available. TECHNIQUE: Frontal, lateral and oblique views of the right hand. FINDINGS: The distal radioulnar joint is intact. Physeal scar is suspected along the distal radius. Carpal alignment is anatomic. There is an acute comminuted fracture involving the 4th metacarpal head with extension into the metacarpophalangeal joint. There is slight radial displacement by less than 1 mm. Soft tissue swelling along dorsal aspect of the hand. Angulation is difficult to assess on the lateral projection. IMPRESSION: Acute comminuted fracture of the 4th metacarpal head with extension into the metacarpophalangeal joint. I Workstation ID: [id number] Dictated by: AMADO KIRKPATRICK on SatJun 23, 2019 6:54:32 PM EST Transcribed by: AMADO KIRKPATRICK on SatJun 23, 2019 6:54:32 PM EST Finalized by: AMADO KIRKPATRICK on SatJun 23, 2019 6:54:32 PM EST Normal [facility] Comment on above: Order Comment: Injur y/Trauma or Illness?:Injury/Trauma How long have you had these symptoms (acute/chronic)?:Acute Reason for exam?:pain AND swelling after basketball injury yesterday History of cancer?:u Surgeries, chemotherapy, or radiation?:u Type of Exam?:Unknown Mechanism of injury?:pain AND swelling after basketball injury yesterday XR Knee Right 3 Views (Speci fy Views in Comments)on 02-04-2018 XR Knee Right 3 Views (Specify Views in Comments) X-rays 3 views of the right knee due to trauma reveals a superior lateral pole acute patella fracture no dislocation otherwise no abnormalities this fragment does appear to be acute based on margins Invalid Interpretation Code [employer] [facility] XR Tibia Fibula Right 2 View son 02-04-2018 XR Tibia Fibula Right 2 Views X-ray of the right tibia and fibula 2 views reveals a normal-appearing right tibia and fibula no fracture no dislocation Invalid Interpretation Code [employer] [facility] Vital Signs Date Time Vital Sign Value Performing Clinician Facility 03-23-2025 14:20-0400 Body height 172.72 cm No Primary Care Physician [facility] 03-23-2025 14:16-0400 Body mass index (BMI) [Ratio] 25.4 kg/m2 No Primary Care Physician [facility] 03-23-2025 14:16-0400 Body weight 75.92 kg No Primary Care Physician [facility] 03-23-2025 14:16-0400 Diastolic blood pressure 62 mm[Hg] No Primary Care Physician [facility] 03-23-2025 14:16-0400 Systolic blood pressure 100 mm[Hg] No Primary Care Physician [facility] 02-08-2025 10:40-0400 Body temperature 97.8 [degF] No Primary Care Physician [facility] 02-08-2025 10:40-0400 Diastolic blood pressure 71 mm[Hg] No Primary Care Physician [facility] 02-08-2025 10:40-0400 Heart rate 80 /min No Primary Care Physician [facility] 02-08-2025 10:40-0400 Respiratory rate 16 /min No Primary Care Physician [facility] 02-08-2025 10:40-0400 SaO2% (BldA) [Mass fraction] 98 % No Primary Care Physician [facility] 02-08-2025 10:40-0400 Systolic blood pressure 105 mm[Hg] No Primary Care Physician [facility] 02-06-2025 18:37-0400 Body height 172.72 cm No Primary Care Physician [facility] 02-06-2025 18:37-0400 Body mass index (BMI) [Ratio] 29.3 kg/m2 No Primary Care Physician [facility] 02-06-2025 18:37-0400 Body weight 87.54 kg No Primary Care Physician [facility] 02-03-2025 14:42-0400 Body height 172.72 cm No Primary Care Physician [facility] 02-03-2025 14:42-0400 Body mass index (BMI) [Ratio] 29.4 kg/m2 No Primary Care Physician [facility] 02-03-2025 14:42-0400 Body weight 87.71 kg No Primary Care Physician [facility] 02-03-2025 14:42-0400 Diastolic blood pressure 73 mm[Hg] No Primary Care Physician [facility] 02-03-2025 14:42-0400 Systolic blood pressure 116 mm[Hg] No Primary Care Physician [facility] 01-26-2025 10:57-0400 Body height 172.72 cm No Primary Care Physician [facility] 01-26-2025 10:52-0400 Body mass index (BMI) [Ratio] 29.5 kg/m2 No Primary Care Physician [facility] 01-26-2025 10:52-0400 Body weight 88.22 kg No Primary Care Physician [facility] 01-26-2025 10:52-0400 Diastolic blood pressure 62 mm[Hg] No Primary Care Physician [facility] 01-26-2025 10:52-0400 Systolic blood pressure 120 mm[Hg] No Primary Care Physician [facility] 01-21-2025 14:59-0400 Body height 172.72 cm No Primary Care Physician [facility] 01-21-2025 14:59-0400 Body mass index (BMI) [Ratio] 29.5 kg/m2 No Primary Care Physician [facility] 01-21-2025 14:59-0400 Body weight 88.16 kg No Primary Care Physician [facility] 01-21-2025 14:59-0400 Diastolic blood pressure 68 mm[Hg] No Primary Care Physician [facility] 01-21-2025 14:59-0400 Systolic blood pressure 105 mm[Hg] No Primary Care Physician [facility] 01-11-2025 14:41-0400 Body height 172.72 cm No Primary Care Physician [facility] 01-11-2025 14:41-0400 Body mass index (BMI) [Ratio] 29.5 kg/m2 No Primary Care Physician [facility] 01-11-2025 14:41-0400 Body weight 88.05 kg No Primary Care Physician [facility] 01-11-2025 14:41-0400 Diastolic blood pressure 74 mm[Hg] No Primary Care Physician [facility] 01-11-2025 14:41-0400 Systolic blood pressure 114 mm[Hg] No Primary Care Physician [facility] 01-05-2025 10:09-0400 Body height 172.72 cm No Primary Care Physician [facility] 01-05-2025 10:09-0400 Body mass index (BMI) [Ratio] 28.9 kg/m2 No Primary Care Physician [facility] 01-05-2025 10:09-0400 Body weight 86.29 kg No Primary Care Physician [facility] 01-05-2025 10:09-0400 Diastolic blood pressure 72 mm[Hg] No Primary Care Physician [facility] 01-05-2025 10:09-0400 Systolic blood pressure 116 mm[Hg] No Primary Care Physician [facility] 12-22-2024 15:18-0400 Body height 172.72 cm No Primary Care Physician [facility] 12-22-2024 15:18-0400 Body mass index (BMI) [Ratio] 29.3 kg/m2 No Primary Care Physician [facility] 12-22-2024 15:18-0400 Body weight 87.54 kg No Primary Care Physician [facility] 12-22-2024 15:18-0400 Diastolic blood pressure 76 mm[Hg] No Primary Care Physician [facility] 12-22-2024 15:18-0400 Systolic blood pressure 123 mm[Hg] No Primary Care Physician [facility] 12-07-2024 15:26-0400 Body mass index (BMI) [Ratio] 28.8 kg/m2 No Primary Care Physician [facility] 12-07-2024 15:26-0400 Body weight 85.95 kg No Primary Care Physician [facility] 12-07-2024 15:26-0400 Diastolic blood pressure 70 mm[Hg] No Primary Care Physician [facility] 12-07-2024 15:26-0400 Systolic blood pressure 124 mm[Hg] No Primary Care Physician [facility] 11-23-2024 15:29-0400 Body mass index (BMI) [Ratio] 28.1 kg/m2 No Primary Care Physician [facility] 11-23-2024 15:290400 Body weight 83.91 kg No Primary Care Physician [facility] 11-23-2024 15:29-0400 Diastolic blood pressure 70 mm[Hg] No Primary Care Physician [facility] 11-23-2024 15:29-0400 Systolic blood pressure 122 mm[Hg] No Primary Care Physician [facility] 11-10-2024 13:02-0400 Body height 172.72 cm No Primary Care Physician [facility] 11-10-2024 13:02-0400 Body mass index (BMI) [Ratio] 27.6 kg/m2 No Primary Care Physician [facility] 11-10-2024 13:02-0400 Body weight 82.32 kg No Primary Care Physician [facility] 11-10-2024 13:02-0400 Diastolic blood pressure 62 mm[Hg] No Primary Care Physician [facility] 11-10-2024 13:02-0400 Systolic blood pressure 108 mm[Hg] No Primary Care Physician [facility] 10-05-2024 15:10-0500 Body mass index (BMI) [Ratio] 26.4 kg/m2 No Primary Care Physician [facility] 10-05-2024 15:10-0500 Body weight 78.69 kg No Primary Care Physician [facility] 10-05-2024 15:10-0500 Diastolic blood pressure 68 mm[Hg] No Primary Care Physician [facility] 10-05-2024 15:10-0500 Systolic blood pressure 106 mm[Hg] No Primary Care Physician [facility] 09-08-2024 14:46-0500 Body mass index (BMI) [Ratio] 25.3 kg/m2 No Primary Care Physician [facility] 09-08-2024 14:46-0500 Body weight 75.52 kg No Primary Care Physician [facility] 09-08-2024 14:46-0500 Diastolic blood pressure 64 mm[Hg] No Primary Care Physician [facility] 09-08-2024 14:46-0500 Systolic blood pressure 124 mm[Hg] No Primary Care Physician [facility] 08-12-2024 14:44-0500 Body mass index (BMI) [Ratio] 24.3 kg/m2 No Primary Care Physician [facility] 08-12-2024 14:44-0500 Body weight 72.57 kg No Primary Care Physician [facility] 08-12-2024 14:44-0500 Diastolic blood pressure 73 mm[Hg] No Primary Care Physician [facility] 08-12-2024 14:44-0500 Systolic blood pressure 117 mm[Hg] No Primary Care Physician [facility] 01-03-2023 17:50-0400 Body temperature 97.8 [degF] No Primary Care Physician [facility] 01-03-2023 17:50-0400 Diastolic blood pressure 62 mm[Hg] No Primary Care Physician [facility] 01-03-2023 17:50-0400 Heart rate 90 /min No Primary Care Physician [facility] 01-03-2023 17:50-0400 Respiratory rate 16 /min No Primary Care Physician [facility] 01-03-2023 17:50-0400 Systolic blood pressure 139 mm[Hg] No Primary Care Physician [facility] 01-03-2023 02:28-0400 SaO2% (BldA) [Mass fraction] 95 % No Primary Care Physician [facility] 01-01-2023 08:06-0400 Body height 172.72 cm No Primary Care Physician [facility] 01-01-2023 08:06-0400 Body mass index (BMI) [Ratio] 30.6 kg/m2 No Primary Care Physician [facility] 01-01-2023 08:06-0400 Body weight 91.35 kg No Primary Care Physician [facility] 12-28-2022 08:52-0400 Body mass index (BMI) [Ratio] 30.7 kg/m2 No Primary Care Physician [facility] 12-28-2022 08:52-0400 Body weight 91.73 kg No Primary Care Physician [facility] 12-28-2022 08:52-0400 Diastolic blood pressure 79 mm[Hg] No Primary Care Physician [facility] 12-28-2022 08:52-0400 Systolic blood pressure 127 mm[Hg] No Primary Care Physician [facility] 12-21-2022 14:43-0400 Body mass index (BMI) [Ratio] 30.9 kg/m2 No Primary Care Physician [facility] 12-21-2022 14:43-0400 Body weight 92.07 kg No Primary Care Physician [facility] 12-21-2022 14:43-0400 Diastolic blood pressure 72 mm[Hg] No Primary Care Physician [facility] 12-21-2022 14:43-0400 Systolic blood pressure 108 mm[Hg] No Primary Care Physician [facility] 12-14-2022 11:59-0400 Body mass index (BMI) [Ratio] 30.1 kg/m2 No Primary Care Physician [facility] 12-14-2022 11:59-0400 Body weight 89.86 kg No Primary Care Physician [facility] 12-14-2022 11:59-0400 Diastolic blood pressure 76 mm[Hg] No Primary Care Physician [facility] 12-14-2022 11:59-0400 Systolic blood pressure 122 mm[Hg] No Primary Care Physician [facility] 12-11-2022 01:46-0400 Body temperature 97 [degF] No Primary Care Physician [facility] 12-11-2022 01:46-0400 Diastolic blood pressure 73 mm[Hg] No Primary Care Physician [facility] 12-11-2022 01:46-0400 Heart rate 65 /min No Primary Care Physician [facility] 12-11-2022 01:46-0400 SaO2% (BldA) [Mass fraction] 98 % No Primary Care Physician [facility] 12-11-2022 01:46-0400 Systolic blood pressure 112 mm[Hg] No Primary Care Physician [facility] 12-10-2022 20:55-0400 Body temperature 97.6 [degF] No Primary Care Physician [facility] 12-10-2022 20:51-0400 Body height 172.72 cm No Primary Care Physician [facility] 12-10-2022 20:51-0400 Body mass index (BMI) [Ratio] 30.1 kg/m2 No Primary Care Physician [facility] 12-10-2022 20:51-0400 Body weight 89.9 kg No Primary Care Physician [facility] 12-07-2022 15:42-0400 Body mass index (BMI) [Ratio] 30.4 kg/m2 No Primary Care Physician [facility] 12-07-2022 15:42-0400 Body weight 90.77 kg No Primary Care Physician [facility] 12-07-2022 15:42-0400 Diastolic blood pressure 80 mm[Hg] No Primary Care Physician [facility] 12-07-2022 15:42-0400 Systolic blood pressure 128 mm[Hg] No Primary Care Physician [facility] 11-21-2022 15:29-0400 Body mass index (BMI) [Ratio] 29.9 kg/m2 No Primary Care Physician [facility] 11-21-2022 15:29-0400 Body weight 89.35 kg No Primary Care Physician [facility] 11-21-2022 15:29-0400 Diastolic blood pressure 72 mm[Hg] No Primary Care Physician [facility] 11-21-2022 15:29-0400 Systolic blood pressure 116 mm[Hg] No Primary Care Physician [facility] 11-09-2022 14:22-0400 Body mass index (BMI) [Ratio] 29.4 kg/m2 No Primary Care Physician [facility] 11-09-2022 14:22-0400 Body weight 87.77 kg No Primary Care Physician [facility] 11-09-2022 14:22-0400 Diastolic blood pressure 74 mm[Hg] No Primary Care Physician [facility] 11-09-2022 14:22-0400 Systolic blood pressure 115 mm[Hg] No Primary Care Physician [facility] 10-22-2022 14:53-0400 Body mass index (BMI) [Ratio] 4.6 kg/m2 No Primary Care Physician [facility] 10-22-2022 14:53-0400 Body weight 13.72 kg No Primary Care Physician [facility] 10-22-2022 14:53-0400 Diastolic blood pressure 71 mm[Hg] No Primary Care Physician [facility] 10-22-2022 14:53-0400 Systolic blood pressure 115 mm[Hg] No Primary Care Physician [facility] 10-08-2022 15:28-0500 Body height 172.72 cm No Primary Care Physician [facility] 10-08-2022 15:28-0500 Body mass index (BMI) [Ratio] 28.9 kg/m2 No Primary Care Physician [facility] 10-08-2022 15:28-0500 Body weight 86.29 kg No Primary Care Physician [facility] 10-08-2022 15:28-0500 Diastolic blood pressure 78 mm[Hg] No Primary Care Physician [facility] 10-08-2022 15:28-0500 Systolic blood pressure 120 mm[Hg] No Primary Care Physician [facility] 09-17-2022 14:53-0500 Body mass index (BMI) [Ratio] 27.9 kg/m2 No Primary Care Physician [facility] 09-17-2022 14:53-0500 Body weight 83.46 kg No Primary Care Physician [facility] 09-17-2022 14:53-0500 Diastolic blood pressure 73 mm[Hg] No Primary Care Physician [facility] 09-17-2022 14:53-0500 Systolic blood pressure 114 mm[Hg] No Primary Care Physician [facility] 08-23-2022 14:16-0500 Body mass index (BMI) [Ratio] 26.5 kg/m2 No Primary Care Physician [facility] 08-23-2022 14:16-0500 Body weight 79.09 kg No Primary Care Physician [facility] 08-23-2022 14:16-0500 Diastolic blood pressure 74 mm[Hg] No Primary Care Physician [facility] 08-23-2022 14:16-0500 Systolic blood pressure 110 mm[Hg] No Primary Care Physician [facility] 07-23-2022 14:11-0500 Body mass index (BMI) [Ratio] 25.1 kg/m2 No Primary Care Physician [facility] 07-23-2022 14:11-0500 Body weight 75.06 kg No Primary Care Physician [facility] 07-23-2022 14:11-0500 Diastolic blood pressure 77 mm[Hg] No Primary Care Physician [facility] 07-23-2022 14:11-0500 Systolic blood pressure 130 mm[Hg] No Primary Care Physician [facility] 06-20-2022 13:56-0500 Body height 172.[address] Cherise Snow Work Phone: [facility] Work Phone: 06-20-2022 13:56-0500 Body mass index (BMI) [Ratio] 24.3 kg/m2 Dr. Cherise Snow Work Phone: [facility] 06-20-2022 13:56-0500 Body weight 72.[address] Cherise Snow Work Phone: [facility] 06-20-2022 13:56-0500 Diastolic blood pressure 75 mm[Hg] Dr. Cherise Snow Work Phone: [facility] 06-20-2022 13:56-0500 Systolic blood pressure 123 mm[Hg] Dr. Cherise Snow Work Phone: [facility] 05-22-2022 14:29-0400 Body height 172.[address] Cherise Snow Work Phone: [facility] Work Phone: 05-22-2022 14:29-0400 Body mass index (BMI) [Ratio] 23.7 kg/m2 Dr. Cherise Snow Work Phone: [facility] Work Phone: 05-22-2022 14:29-0400 Body weight 70.[address] Cherise Snow Work Phone: [facility] Work Phone: 05-22-2022 14:29-0400 Diastolic blood pressure 75 mm[Hg] Dr. Cherise Snow Work Phone: [facility] Work Phone: 05-22-2022 14:29-0400 Systolic blood pressure 123 mm[Hg] Dr. Cherise Snow Work Phone: [facility] Work Phone: 02-04-2018 12:58-0400 BMI (Body Mass Index) 22.81 kg/m2 Christoph Haywood [facility] 02-04-2018 12:58-0400 Height 172.7 cm Christoph Haywood [facility] 02-04-2018 12:58-0400 Weight 68.04 kg Christoph Haywood [facility] Encounters Encounter Date Encounter Type Care Provider Facility Start: 03-23-2025 End: 03-23-2025 ambulatory No Primary Care Physician Facility:[facility] Start: 03-23-2025 End: 03-23-2025 Patient encounter procedure Chanel PETERS -[facility] Work Phone: Start: 02-08-2025 Non-patient / Non-visit Ragini Oscartaco ms [facility] Start: 02-07-2025 Non-patient / Non-visit Ching Guerin ins [facility] Start: 02-06-2025 Non-patient / Non-visit Ching Apoorva ins [facility] Start: 02-06-2025 ambulatory Ching Mcgee Facilit y:[facility] Start: 02-06-2025 End: 02-08-2025 Evaluation and management of inpatient Ching Mcgee [facility] Work Phone: Start: 02-03-2025 End: 02-03-[address] Cherise Snow DO -[facility] Work Phone: Start: 02-03-2025 End: 02-03-2025 ambulatory No Primary Care Physician -[facility] Start: 01-28-2025 End: 01-28-2025 ambulatory No Primary Care Physician -Ultrasound [facility] Start: 01-28-2025 End: 01-28-[address] Rosalinda Herr MD -Ultrasound [facility] Work Phone: Start: 01-28-2025 End: 01-28-2025 ambulatory No Primary Care Physician Facility:[facility] Start: 01-26-2025 End: 01-26-[address] Rosalinda Herr MD -[facility] Work Phone: Start: 01-26-2025 End: 01-26-2025 ambulatory No Primary Care Physician [facility] Work Phone: Start: 01-21-2025 End: 01-21-[address] Cherise Snow DO -[facility] Work Phone: Start: 01-21-2025 End: 01-21-2025 ambulatory No Primary Care Physician [facility] Work Phone: Start: 01-11-2025 End: 01-11-[address] Cherise Snow DO -[facility] Work Phone: Start: 01-11-2025 End: 01-11-2025 ambulatory No Primary Care Physician [facility] Work Phone: Start: 01-05-2025 End: 01-05-2025 ambulatory No Primary Care Physician [facility] Work Phone: Start: 01-05-2025 End: 01-05-2025 Patient encounter procedure Chanel Ryan ATHLETE MANAGER-C -[facility]atory Specimen Work Phone: Start: 01-05-2025 End: 01-05-2025 Patient encounter procedure Chanel Ryan ATHLETE MANAGER-C -[facility] Work Phone: Start: 01-05-2025 End: 01-05-2025 ambulatory No Primary Care Physician [facility] Work Phone: Start: 01-05-2025 End: 01-05-2025 ambulatory No Primary Care Physician Facility:[facility] Start: 12-22-2024 End: 12-22-2024 Patient encounter procedure Ragini Nielson CNM -[facility] Work Phone: Start: 12-22-2024 End: 12-22-2024 ambulatory No Primary Care Physician [facility] Work Phone: Start: 12-07-2024 End: 12-07-[address] Cherise Snow DO -[facility] Work Phone: Start: 12-07-2024 End: 12-07-2024 ambulatory Cherise Snow Facility:[facility] Start: 11-23-2024 End: 11-23-2024 Patient encounter procedure Chanel PETERS -[facility] Work Phone: Start: 11-23-2024 End: 11-23-2024 ambulatory No Primary Care Physician Facility:[facility] Start: 11-10-2024 End: 11-10-2024 ambulatory No Primary Care Physician [facility] Work Phone: Start: 11-10-2024 End: 11-10-2024 Patient encounter procedure Chanel PETERS -[facility] Work Phone: Start: 11-10-2024 End: 11-10-2024 ambulatory No Primary Care Physician Facility:[facility] Start: 10-05-2024 End: 10-05-2024 Patient encounter procedure Ragini Nielson CNM -[facility] Work Phone: Start: 10-05-2024 End: 10-05-2024 ambulatory No Primary Care Physician Facility:[facility] Start: 09-09-2024 End: 09-09-2024 ambulatory MD NO PRIMARY CARE [facility] Start: 09-08-2024 End: 09-08-[address] Cherise Snow DO -[facility] Work Phone: Start: 09-08-2024 End: 09-08-2024 ambulatory No Primary Care Physician Facility:[facility] Start: 08-12-2024 End: 08-12-[address] Rosalinda Herr MD -[facility] Work Phone: Start: 08-12-2024 End: 08-12-2024 ambulatory No Primary Care Physician Facility:[facility] Start: 07-01-2024 End: 07-01-2024 ambulatory No Primary Care Physician Facility:[facility] Start: 07-01-2024 End: 07-01-2024 ambulatory No Primary Care Physician Facility:[facility] Start: 01-02-2023 Non-patient / Non-visit No Aleisha celis Care Physician [facility] Start: 01-01-2023 Non-patient / Non-visit No Aleisha celis Care Physician [facility] Start: 01-01-2023 End: 01-03-2023 Evaluation and management of inpatient No Primary Care Physician [facility] Start: 12-28-2022 End: 12-28-2022 Patient encounter procedure No Primary Care Physician [facility] Start: 12-21-2022 End: 12-21-2022 Patient encounter procedure No Primary Care Physician [facility] Start: 12-14-2022 End: 12-14-2022 Patient encounter procedure No Primary Care Physician [facility] Start: 12-10-2022 Non-patient / Non-visit No Aleisha celis Care Physician [facility] Start: 12-10-2022 End: 12-11-2022 ambulatory No Primary Care Physician [facility] Work Phone: Start: 12-10-2022 End: 12-11-2022 Patient encounter procedure No Primary Care Physician [facility] Start: 12-07-2022 End: 12-07-2022 ambulatory No Primary Care Physician [facility] Work Phone: Start: 12-07-2022 End: 12-07-2022 Patient encounter procedure No Primary Care Physician [facility]-Laboratory, Specimen Start: 12-07-2022 End: 12-07-2022 Patient encounter procedure No Primary Care Physician [facility] Start: 11-21-2022 End: 11-21-2022 Patient encounter procedure No Primary Care Physician [facility] Start: 11-09-2022 End: 11-09-2022 Patient encounter procedure No Primary Care Physician [facility] Start: 10-22-2022 End: 10-22-2022 Patient encounter procedure No Primary Care Physician [facility] Start: 10-08-2022 End: 10-08-2022 ambulatory No Primary Care Physician [facility] Work Phone: Start: 10-08-2022 End: 10-08-2022 Patient encounter procedure No Primary Care Physician [facility] Start: 09-17-2022 End: 09-17-2022 Patient encounter procedure No Primary Care Physician [facility] Start: 08-23-2022 End: 08-23-2022 Patient encounter procedure No Primary Care Physician [facility] Start: 07-23-2022 End: 07-23-2022 Patient encounter procedure No Primary Care Physician [facility] Specimen Start: 07-23-2022 End: 07-23-2022 Patient encounter procedure No Primary Care Physician [facility] Start: 06-20-2022 End: 06-20-[address] Cherise Snow Work Phone: [facility] Work Phone: Start: 06-20-2022 End: 06-20-[address] Cherise Snow Work Phone: [facility] Start: 05-22-2022 End: 05-22-[address] Cherise Snow Work Phone: [facility] Work Phone: Start: 05-22-2022 End: 05-22-[address] Cherise Snow Work Phone: [facility]Laboratory, Specimen Start: 05-22-2022 End: 05-22-[address] Cherise Snow Work Phone: [facility] Start: 01-23-2021 End: 01-23-2021 Subsequent hospital visit by physician Clark Herbert [facility] Aileen Work Phone: Radiology Comment on above: Pain [R52] Start: 08-31-2019 End: 09-04-2019 Patient encounter procedure JAYLA MARIA VICTORIA CHRISTIANSON [facility] Start: 08-31-2019 End: 08-31-2019 Office outpatient visit 10 minutes Jayla Maria Victoria Christianson Work Phone: [facility] Comment on above: Closed nondisplaced fracture of fourth metacarpal bone of right hand, unspecified portion of metacarpal, initial encounter (Primary Dx) Start: 06-29-2019 End: 06-29-2019 Patient encounter procedure JAYLA CHRISTIANSON [facility] Start: 06-29-2019 End: 06-29-2019 Office outpatient visit 15 minutes Jayla Maria Victoria Christianson Work Phone: [facility] Comment on above: Closed nondisplaced fracture of other part of fourth metacarpal bone of right hand, initial encounter (Primary Dx) Start: 06-23-2019 End: 06-27-2019 Patient encounter procedure MARY KAY Ball NICHOLAS [facility] Start: 05-14-2018 Patient encounter Gadiel Eddy Facility:[place] Start: 03-25-2018 End: 03-25-2018 Patient encounter Gadiel Eddy [facility] Start: 02-04-2018 End: 02-04-2018 Office outpatient new 20 minutes Christoph Haywood Work Phone: [facility] Start: 01-28-2018 End: 01-28-2018 Emergency department patient visit Amaury Urbina Facility:[facility] Start: 01-28-2018 Patient encounter Facil [id number] Procedures Date Procedure Procedure Detail Performing Clinician Start: 02-06-2025 Serologic test for syphilis No Primary Care Physician Start: 02-06-2025 Measurement of pH in vaginal fluid specimen using nitrazine yellow for detection of rupture of amniotic membrane No Primary Care Physician Comment on above: Amniotic fluid not p resent indicates No Rupture of FetalMembranes at time of specimen collection. Start: 01-28-2025 Ultrasound scan for growth No Primary Care Physician Start: 01-05-2025 Beta-hemolytic Streptococcus culture No Primary Care Physician Start: 11-10-2024 Serologic test for syphilis No Primary Care Physician Start: 01-23-2021 Radiologic exam knee complete 4/more views Nicanor Pelayo DO Work Phone: Group B Streptococcu s Culture No Primary Care Physician Urine culture No Primary Car e Physician Plan of Treatment Date Care Activity Detail Author Start: 02-08-2025 Patient discharge [facility] Start: 02-07-2025 [facility] Start: 02-07-2025 End: 02-07-2025 Administration of blood product [facility] Start: 02-07-2025 Administration of medication [facility] Start: 02-07-2025 Application of ice collar, cap or bag [facility] Start: 02-07-2025 Catheterization of vein [facility] Start: 02-07-2025 Introduction of urinary catheter [facility] Start: 02-07-2025 Measuring intake and output [facility] Start: 02-07-2025 Notification of physician [facility] Start: 02-07-2025 Procedure discontinued [facility] Start: 02-07-2025 Provision of activity privileges [facility] Start: 02-07-2025 Vital signs measurements [facility] Start: 02-07-2025 End: 02-07-2025 [facility] Start: 02-07-2025 Documentation procedure [facility] Start: 02-06-2025 Admission procedure [facility] Start: 01-05-2025 Group B Streptococcus Culture Group B Streptococcus Culture [facility] Start: 01-05-2025 Streptococcus agalactiae [Presence] in Unspecified specimen by Organism specific culture [facility] Start: 04-05-2023 Influenza vaccination Influenza Vaccine (#1) [facility] Start: 01-03-2023 Patient discharge [facility] Start: 01-02-2023 Administration of medication [facility] Start: 01-02-2023 Application of ice collar, cap or bag [facility] Start: 01-02-2023 Catheterization of vein [facility] Start: 01-02-2023 Introduction of urinary catheter [facility] Start: 01-02-2023 Measuring intake and output [facility] Start: 01-02-2023 Notification of physician [facility] Start: 01-02-2023 Procedure discontinued [facility] Start: 01-02-2023 Provision of activity privileges [facility] Start: 01-02-2023 Vital signs measurements [facility] Start: 01-02-2023 [facility] Start: 01-01-2023 Admission procedure [facility] Start: 12-10-2022 Administration of blood product [facility] Start: 12-10-2022 Nonstress test [facility] Start: 12-10-2022 Obstetric monitoring [facility] Start: 12-10-2022 Vital signs measurements [facility] Start: 12-10-2022 [facility] Start: 12-10-2022 Anti-D (Rh) immunoglobulin [facility] Start: 08-05-2022 Depression Assessment Depression Assessment [facility] Start: 05-22-2022 Liquid based cervical cytology screening [facility] Work Phone: Start: 03-01-2020 Tetanus vaccination TETANUS EVERY 10 YR [facility] Start: 04-05-2019 Influenza vaccination given SEQUENTIAL INFLUENZA VACCINE (#1) [facility] Start: 2019 Pap Testing Pap Testing [facility] Start: 04-05-2018 Influenza vaccination SEQUENTIAL INFLUENZA VACCINE (#1) [facility] Start: 02-24-2018 End: 02-24-2018 Ambulatory [facility] Start: 2017 Urine microalbumin profile DTaP,Tdap,Td Vaccine (1 - Tdap) [facility] Start: 2016 Hepatitis C Screening Hepatitis C Screening [facility] Start: 2016 HIV Screening HIV Screening [facility] Start: 2014 Meningococcal B Vaccine: Consider Based On Risk (1 of 2 - Patient Seeks Protection) Meningococcal B Vaccine: Consider Based On Risk (1 of 2 - Patient Seeks Protection) [facility] Start: 2012 Peds To Adult Transition Annual Assessment Peds To Adult Transition Annual Assessment [facility] Start: 2010 Peds To Adult Transition Initial Discussion Peds To Adult Transition Initial Discussion [facility] Start: 2009 Vaccination for human papillomavirus [facility] Start: 2007 HPV Vaccine (1 - 2-dose series) HPV Vaccine (1 - 2-dose series) [facility] Start: 2001 History and physical examination, annual for health maintenance Wellness Visit [facility] Start: 1998 Covid-19 Vaccine (#1) Covid-19 Vaccine (#1) [facility] Start: 1998 Depression screening using PHQ-9 (Patient Health Questionnaire 9) score DEPRESSION SCREENING (PHQ9) [facility] Start: 1998 Hepatitis B Vaccine (1 of 3 - 3-dose series) Hepatitis B Vaccine (1 of 3 - 3-dose series) [facility] Start: 1998 Screening for Chlamydia trachomatis Chlamydia Screening [facility] Start: 1998 Screening for malignant neoplasm of cervix PAP SMEAR [facility] Start: 1998 Tetanus vaccination TETANUS EVERY 10 YR [facility] Beta-hemolytic Streptococcus culture [facility] CBC W Auto Different ial panel - Blood [facility] Work Phone: Drugs identified in Urine by Screen method [facility] Work Phone: Hepatitis B surface antigen measurement [facility] Work Phone: Hepatitis C antibody measurement [facility] Work Phone: HIV 1+2 Ab+HIV1 p24 Ag [Presence] in Serum or Plasma by Immunoassay [facility] Work Phone: Liquid based cervica l cytology screening [facility] Path report.final Dx Spec [facility] Work Phone: Patient Education [facility] Work Phone: Patient referral [facility] Work Phone: Rubella IgG measurement [facility] Work Phone: Streptococcus agalac tiae [Presence] in Unspecified specimen by Organism specific culture [facility] Treponema sp Ab [Pre sence] in Serum [facility] Work Phone: Ultrasound scan for growth [facility] Immunizations Immunization Date Immunization Notes Care Provider Fa [facility] 11-10-2024 tetanus toxoid, redu elkin diphtheria toxoid, and acellular pertussis vaccine, adsorbed No Primary Care Physician [facility] 10-22-2022 tetanus toxoid, redu elkin diphtheria toxoid, and acellular pertussis vaccine, adsorbed No Primary Care Physician [facility] Payers Date Payer Category Payer Self-pay 2024 Unknown [id number] 2018 Unknown 1998 Unknown [id number] 1998 Unknown [id number] 1998 Unknown [id number] 2.840.1.968668.3.579.2.903 1998 Unknown [id number] [id number] 1998 Unknown [id number] 2.840.1.660998.3.579.2.903 1998 Unknown [id number] 2.840.1.260892.3.579.2.479 Unknown [id number] Unknown [id number] Unknown [employer] SPECIAL RISK CLAIM xxxxxxx Effective for all dates xxxxxxx [id number] Unknown [id number] Unknown [id number] [id number] Unknown [id number] 2.16840.1.126467.3.579.2.462 Unknown [id number] 2.840.1.404648.3.579.2.462 Unknown [id number] 2.840.1.864388.3.579.2.462 Unknown [id number] 2.16.840.1.542607.3.579.2.462 Unknown [id number] 2.16.840.1.825017.3.579.2.462 Unknown [id number] 2.16.840.1.884466.3.579.2.462 Unknown [id number] 2.16.840.1.391531.3.579.2.462 Unknown [id number] 2.16.840.1.833968.3.579.2.462 Unknown [id number] 2.16.840.1.520922.3.579.2.462 Unknown [id number] 2..840.1.106453.3.579.2.462 Unknown [id number] 2.16.840.1.743272.3.579.2.462 Unknown [id number] 2.840.1.228239.3.579.2.462 Unknown [id number] 2.840.1.564168.3.579.2.462 Unknown [id number] 2.840.1.539662.3.579.2.462 Unknown [id number] 2.16.840.1.495249.3.579.2.462 Unknown [id number] 2.16.840.1.213284.3.579.2.462 Unknown [id number] 2.840.1.182922.3.579.2.462 Unknown [id number] 2.840.1.978206.3.579.2.462 Unknown [id number] 2.840.1.467151.3.579.2.462 Unknown [id number] 2.840.1.444811.3.579.2.462 Unknown [id number] 2.840.1.591488.3.579.2.462 Social History Date Type Detail Facility Start: 02-04-2018 End: 02-06-2025 Tobacco smoking status NHIS Never smoker [facility] Start: 2000 Sex Assigned At Not on file [facility] Start: 06-29-2019 End: 08-31-2019 Alcohol intake Current non-drinker of alcohol (finding) [facility] Start: 05-22-2022 End: 01-01-2023 Tobacco smoking status NHIS Unknown if ever smoked [facility] Start: 2000 Sex Assigned At Female W [facility] Start: 07-14-2020 History of Social function [facility] Start: 07-14-2020 Area Deprivation Index [facility] National Score (1-10 0), lower number is lower risk Not on file [facility] Start: 11-16-2024 Sex Female (finding) [facility] Goals Date Patient Goal Desired Activity /State Functional Status Date Assessment Result Facility 01-02-2023 Functional status Activity Abili ty With Assist of 1 [facility] Work Phone: Mental Status Date Assessment Result Facility 01-03-2023 Cognitive function Level Of Cons ciousness Awake;Alert;Appropriate [facility] Work Phone: Clinical Notes 01-23-2021 to 02-08-2025 Note Date & Type Note Facility 02-08-2025 Discharge summary [facility] 02-08-2025 Discharge summary Note Date/Time February 08, 2025 11:20am [facility] Medical Records Department [address] [place] [address] Instructions for Home/Discharge Instructions 02/08/25 0837 MR#: [id number] Acct: [id number] Name: CARLOTA MANUEL Rep #:[id number] : 2000 24 From: Ragini Nielson CNM PCP: Care Physician,No Primary Status :ADM IN Discharge Instructions Diet Discharge Diet: No restrictions DC O2, CPAP, BIPAP needs Home O2 Discharge instructions: No Dressing / Incision Discharge Activity: Return to Normal Activity May resume sexual activity in: 6-8 weeks Dressing / Incision Call your doctor if you observe: Fever of 101 or Higher, Coldness, Increased Pain, Numbness or Tingling, Change in Color, Inability to urinate, Inability to have a bowel movement, Using more than 1 pad per hour, Shortness of breath, Dizziness, Fainting spells, Swelling in the ankles, Chest pain, Increased palpitations (irregular heartbeat), Calf discomfort and Uncontrolled pain Follow Up Care Please Follow Up With: Ragini Nielson CNM When: Please call the office to schedule your follow up appointment in 6 weeks. If you had high blood pressure please call to schedule an appointment in 2 weeks. Test Results: Test results from this visit will be discussed in further detail at your follow-up appointment, if applicable. Discharge Plan Admission Admit Date/Time: 02/06/25 17:38 Attending Provider: Ching Mcgee Primary Care Provider: Care Physician,Sherri Primary Discharge Orders/Prescriptions Prescriptions: No Action PNV Tabs 20-1 20 mg iron- 1 mg tablet PO DAILY Referrals / Follow Up: Care Physician,No Primary [Primary Care Provider] - Disposition Disposition (needs filled in before D/C Order can be placed): Home, Self Care 02/08/25 0837<Electronically signed by Ragini Nielson CNM>Ragini Nielson CNM CC: No Primary Care Physician ~ Signed [facility] Work Phone: 1(369) 515-827007-07-2025 Progress note Author Ragini Nielson [facility] Note Date/Time February 08, 2025 8:36a m [facility] Medical Records Department [facility] [place] [address] Progress Note - OBGYN 02/08/25 0835 MR#: [id number] Acct: [id number] Name: CARLOTA MANUEL Rep #:[id number] : 2000 24 From: Ragini Nielson CNM PCP: Care Physician,No Primary Status :ADM IN Location: AH532-2 Subjective Subjective Patient doing well without complaints. Tolerating PO. Ambulating and voiding without difficulty. Feeding well. Denies chest pain, shortness of breath, calf pain/swelling, fevers, chills, lightheadedness. Objective Data Objective Data Vital Signs: Vital Signs Temp Pulse Resp BP Pulse Ox O2 Del Method 97.6 F L 61 16 91/46 L 97 Room Air 02/08/25 04:58 02/08/25 04:59 02/08/25 04:58 02/08/25 04:59 02/08/25 04:58 02/08/25 04:58 Oxygen Delivery Method Room Air Weight: 193 lb Body Mass Index (BMI) 29.3 Intake & Output: Intake and Output for Last 24 Hours 02/06/25 02/07/25 02/08/25 23:59 23:59 23:59 Intake Total 1276.56 / 1276.56 2073.86 / 2073.86 Output Total 700 / 700 1700 / 1700 Balance 576.56 / 576.56 373.86 / 373.86 Lab / Micro Data 02/06/25 18:15 Labs: Laboratory Results - last 24 hr 02/07/25 06:40: Screen NEGATIVE, Baby's Blood Type A POSITIVE, Baby's SPENCER NEGATIVE ROS Constitutional Constitutional: Reports systems reviewed and no addt'l complaints, except as documented; Denies anorexia or headache(s) Cardiovascular Cardiovascular: Reports systems reviewed and no addt'l complaints, except as documented; Denies dizziness, dyspnea, nausea or tachypnea Respiratory/Chest Respiratory/Chest: Reports systems reviewed and no addt'l complaints, except as documented; Denies cough, dyspnea, shortness of breath at rest or tachypnea Gastrointestinal Gastrointestinal: Reports systems reviewed and no addt'l complaints, except as documented; Denies abdominal pain, constipation or nausea Genitourinary Genitourinary: Reports systems reviewed and no addt'l complaints, except as documented; Denies burning urination, difficulty urinating, dysuria, urinary frequency or urinary incontinence Musculoskeletal Musculoskeletal: Reports systems reviewed and no addt'l complaints, except as documented Integumentary Integumentary: Reports systems reviewed and no addt'l complaints, except as documented Neurologic Neurologic: Reports systems reviewed and no addt'l complaints, except as documented; Denies abnormal speech, dizziness or headache(s) Psychiatric Psychiatric: Reports systems reviewed and no addt'l complaints, except as documented Endocrine Endocrinology: Reports systems reviewed and no addt'l complaints, except as documented Hematologic/Lymphatic Hematologic/Lymphatic: Reports systems reviewed and no addt'l complaints, exceptas documented Physical Exam Const alert, oriented x3 and no apparent distress Neck full ROM Resp normal respiratory effort, normal air movement and no retractions Effort and Inspection: able to speak in complete sentences and symmetric chest movement GI soft to palpation Bladder / Kidney Exam: bladder normal to palpation Uterus Palpation: uterus fundus firm Extremity normal to inspection and full ROM Psych mental status grossly normal, thought process normal and cooperative Assessment & Plan (1) (spontaneous vaginal delivery): COMMENT: LC IOL- elective inge-girl PLAN: s/p PPD # 1 1. routine post delivery care 2. breast feeding- support given 3. rh positive 4. rubella immune 5. discharge home (2) Encounter for induction of labor: COMMENT: pitocin/arom (3) Uterine size-date discrepancy, third trimester: COMMENT: 38 wk: EFW 68%, AC 69% (4) Rh negative state in antepartum period: COMMENT: rhogam 28 wk, pp and prn bleeding, Given 11/10/24 (5) Supervision of normal : QUALIFIERS: Normal : other normal Trimester: third trimester Qualified Code(s): Z34.83 - Encounter for supervisionof other normal , third trimester COMMENT: PRR,, CHAPARRO 02/02/25, girl PC Ant, Spouse Oscar (6) : QUALIFIERS: Weeks of gestation: 40 weeks Qualified Code(s): Z3A.40 - 40 weeks gestation of COMMENT: Neg GBS. declines genetic and carrier screening, wants to know gender at anatomy scan, nl anatomy Charges/Coding Multi Select Codes Urinary/Genital Urinary/Genital CPT Codes: No Charge 02/08/25 0836 <Electronically signed by Ragini Nielson CNM> Cosigner Signature (if applicable): CC: ~ Signed [facility] Work Phone: 1(434) 966-219707-07-2025 Progress note [facility] Medical Records Department [address] [place] [id number] Progress Note - OBGYN 02/08/25 0835 MR#: [id number] Acct: [id number] Name: CARLOTA MANUEL Rep #:[id number] : 2000 24 From: Ragini Nielson CNM PCP: Care Physician,No Primary Status :ADM IN Location: [id number] Subjective Subjective Patient doing well without complaints. Tolerating PO. Ambulating and voiding without difficulty. Feeding well. Denies chest pain, shortness of breath, calf pain/swelling, fevers, chills, lightheadedness. Objective Data Objective Data Vital Signs: Vital Signs Temp Pulse Resp BP Pulse Ox O2 Del Method 97.6 F L 61 16 91/46 L 97 Room Air 02/08/25 04:58 02/08/25 04:59 02/08/25 04:58 02/08/25 04:59 02/08/25 04:58 02/08/25 04:58 Oxygen Delivery Method Room Air Weight: 193 lb Body Mass Index (BMI) 29.3 Intake & Output: Intake and Output for Last 24 Hours 02/06/25 02/07/25 02/08/25 23:59 23:59 23:59 Intake Total 1276.56 / 1276.56 2073.86 / 2073.86 Output Total 700 / 700 1700 / 1700 Balance 576.56 / 576.56 373.86 / 373.86 Lab / Micro Data 02/06/25 18:15 Labs: Laboratory Results - last 24 hr 02/07/25 06:40: Screen NEGATIVE, Baby's Blood Type A POSITIVE, Baby's SPENCER NEGATIVE ROS Constitutional Constitutional: Reports systems reviewed and no addt'l complaints, except as documented; Denies anorexia or headache(s) Cardiovascular Cardiovascular: Reports systems reviewed and no addt'l complaints, except as documented; Denies dizziness, dyspnea, nausea or tachypnea Respiratory/Chest Respiratory/Chest: Reports systems reviewed and no addt'l complaints, except as documented; Denies cough, dyspnea, shortness of breath at rest or tachypnea Gastrointestinal Gastrointestinal: Reports systems reviewed and no addt'l complaints, except as documented; Denies abdominal pain, constipation or nausea Genitourinary Genitourinary: Reports systems reviewed and no addt'l complaints, except as documented; Denies burning urination, difficulty urinating, dysuria, urinary frequency or urinary incontinence Musculoskeletal Musculoskeletal: Reports systems reviewed and no addt'l complaints, except as documented Integumentary Integumentary: Reports systems reviewed and no addt'l complaints, except as documented Neurologic Neurologic: Reports systems reviewed and no addt'l complaints, except as documented; Denies abnormal speech, dizziness or headache(s) Psychiatric Psychiatric: Reports systems reviewed and no addt'l complaints, except as documented Endocrine Endocrinology: Reports systems reviewed and no addt'l complaints, except as documented Hematologic/Lymphatic Hematologic/Lymphatic: Reports systems reviewed and no addt'l complaints, exceptas documented Physical Exam Const alert, oriented x3 and no apparent distress Neck full ROM Resp normal respiratory effort, normal air movement and no retractions Effort and Inspection: able to speak in complete sentences and symmetric chest movement GI soft to palpation Bladder / Kidney Exam: bladder normal to palpation Uterus Palpation: uterus fundus firm Extremity normal to inspection and full ROM Psych mental status grossly normal, thought process normal and cooperative Assessment & Plan (1) (spontaneous vaginal delivery): COMMENT: LC IOL- elective inge-girl PLAN: s/p PPD # 1 1. routine post delivery care 2. breast feeding- support given 3. rh positive 4. rubella immune 5. discharge home (2) Encounter for induction of labor: COMMENT: pitocin/arom (3) Uterine size-date discrepancy, third trimester: COMMENT: 38 wk: EFW 68%, AC 69% (4) Rh negative state in antepartum period: COMMENT: rhogam 28 wk, pp and prn bleeding, Given 11/10/24 (5) Supervision of normal : QUALIFIERS: Normal : other normal Trimester: third trimester QualifiedCode(s): Z34.83 - Encounter for supervisionof other normal , third trimester COMMENT: PRR,, CHAPARRO 02/02/25, girl PC Ant, Spouse Oscar (6) : QUALIFIERS: Weeks of gestation: 40 weeks Qualified Code(s): Z3A.40 - 40 weeks gestation of COMMENT: Neg GBS. declines genetic and carrier screening, wants to know gender at anatomy scan, nl anatomy Charges/Coding Multi Select Codes Urinary/Genital Urinary/Genital CPT Codes: No Charge 02/08/25 0836 Cosigner Signature (if applicable): CC: ~ Signed [facility]07-06-2025 Procedure note [facility] Medical Records Department [address] [place] [address] OB Vaginal Delivery 02/07/25 0412 MR#: [id number] Acct: [id number] Name: CARLOTA MANUEL Rep #:[id number] : 2000 24 From: Ching Mcgee CNM PCP: Care Physician,No Primary Status :ADM IN Location: ER232-1 Assessment & Plan (1) (spontaneous vaginal delivery): COMMENT: LC IOL- elective inge-girl Maternal Data Information CHAPARRO Calculator Estimated Delivery Date Method Current WG Current Estimate 02/02/25 LMP (Uncertain) 40w 5d Other Estimates 02/03/25 Ultrasound #1 40w 4d Final CHAPARRO: 02/02/25 Final CHAPARRO Source: LMP Gestational age: 40.5 Vaginal Delivery Maternal Presentation Maternal Presentation: Elective Induction Maternal Presentation: at 40.4 for IOL. pitocin started, augmented with AROM and progressed to full dilation Type of Induction: Pitocin Vaginal Delivery Information Procedure Performed: Spontaneous Vaginal Delivery Surgeon/Practitioner: Ching Mcgee Date of Procedure: 02/07/25 Pre-Procedure Diagnosis: see problem list Post-Procedure Diagnosis: Type of anesthesia: Epidural Estimated Blood Loss: 400 Time of Delivery: 03:42 Findings Description of procedure: Patient began pushing and delivered the head in the SAHARA presentation. The head was delivered atraumatically. The anterior and posterior shoulders delivered without complication followed by the rest of the infant and the was placed on the maternal abdomen. Delayed cord clamping was employed for approximately 60 seconds. Cord was clamped and cut and gentle traction was applied to the cord and the placenta delivered spontaneously immediately following it was noted to be intact with three-vessel cord. The perineum and vagina were inspected and noted to have no laceration. EBL was 400, increased brisk bleeding, controlled with methergine and pitocin. Patient and tolerated delivery well. Amniotic Membrane Rupture Type: Artificial Amniotic Fluid Description: Clear Placental Delivery Description: Spontaneous Placenta Disposition: [facility] Cord Vessel Description: 3 Vessels Cord Entanglement: None Infant A Gender: Female (1 minute): 8 (5 minute): 9 Delayed Cord Clamping: Yes Post Vaginal Deli Medications given after delivery: IV Pitocin and IM Methergin Episiotomy Description: None Laceration: None Complication Complications: No Procedures Urinary/Genital 52xxx-59xxx: 54018 Vaginal Delivery global pk 02/07/25 0418 Cosigner Signature (if applicable): CC: CARMELITA Mcgee; No Primary Care Physician~ Signed [facility]07-05-2025 History and physical note Author Ching Mcgee [facility] Note Date/Time February 06, 2025 7:32p m [facility] Medical Records Department [address] [place] [address] H&P Exam - CLINICAL BIOCHEMICAL GENETICIST 02/06/259 MR#: [id number] Acct: [id number] Name: CARLOTA MANUEL Rep #:[id number] : 2000 24 From: Ching Mcgee CNM PCP: Care Physician,No Primary Status :ADM IN Location: [place] [address] HPI - General General Date of Admission: 02/06/25 HPI Narrative CARLOTA MANUEL, is a 24 F who presents at 40.4 for IOL for postdates. bishops 6. was having spontaneous ctx prior to admission but lessening in intensity. Maternal Data Information CHAPARRO Calculator Estimated Delivery Date Method Current WG Current Estimate 02/02/25 LMP (Uncertain) 40w 4d Other Estimates 02/03/25 Ultrasound #1 40w 3d PFSH PFSH Medical History bleeding Home Medications ?Medication ?Instructions ?Recorded ?Last Taken ?Type vitamins no.163-iron tab PO DAILY 1 08/18/23 Unknown History bis-gly 20 mg-folate no.10 1 mg tablet (PNV Tabs 20-1) Allergy/AdvReac Type Severity Reaction Status Date / Time No Known Allergies Allergy Verified 02/06/25 18:36 Family History Brother Cancer older brother- Brain tumor- did chemo and radiation Father S/P triple vessel bypass Surgical History History of dental surgery Broken tibia Broken fibula Social History adopted: No household members: spouse housing: house number of children: 1 current occupational status: employed 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 current occupational exposures/hazards: No pets and animals: Yes pets and animals: dog(s) history of recent travel: No sexually active: Yes Smoking Status: Never smoker second hand exposure: No alcohol intake: current details: Not while substance use type: does not use caffeine: No during the past year weight has: remained stable what type of physical activity do you participate in: walking frequency: 1-2 times per week jayleen/yarsanism: Shinto seatbelt use: always do you feel safe at home: Yes additional social history: - 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 Date Name GA/Weeks Outcome Route Bth Weight Infant Gen Labor Lgth Anesthesia Del Locatn Provider FOB 01/02/23 Ant 40 live - full term 7lbs 4oz Male epi dural [facility] KW Oscar Delivery Date: 01/02/23 Last Updated by: Talia Reid Tight nuchal cord x1, 1st degree tear Visit Details Expected Delivery Route/Plan Labor Preferences- CB/BF classes: no labor support person: Oscar labor intervention preferences: [] pain management options preferred: epidural cut cord/dad catch: cord : no PP control planned: discussed discussed possible routes of delivery and associated risks: [] special requests: [] Plans Covid status: [] Flu vaccine: [] Tdap vaccine: given Rhogam: given LARC form signed: yes Problem list reviewed and updated with the most current plan of care details and appropriate orders placed. Relevant counseling for the gestational age provided. Continue routine care and follow up unless otherwise noted in visit notes/problem list details OB Flowsheet Initial Weight: 150 lb Date -?--?-?-?-?-?-?-?-?-?-?-?- EGA Weight BP Urine Prot -?-?-?-?-?-?-?-?-?-?-?-?- Glucose FHR FuHt Pres Dilation -?-?-?-?-?-?-?-?-?-?-?-?- Effaced St Visit Note 07/01/24 -?-?-?-?-?-?-?-?-?-?-?-?- 9w 1d 154 lb 8 oz (+4 lb 8 oz) 131/71 -?-?-?-?-?-?-?-?-?-?-?-?- 175 -?-?-?-?-?-?-?-?-?-?-?-?- KW- CRL cons wit h dates. declines NIPT. 08/12/24 -?-?-?-?-?-?-?-?-?-?-?-?- 15w 1d 160 lb (+10 lb) 117/73 Trace -?-?-?-?-?-?-?-?-?-?-?-?- Negative 170 145 -?-?-?-?-?-?-?-?-?-?-?-?- SM- no vb crampi ng 09/08/24 -?-?-?-?-?-?-?-?-?-?-?-?- 19w 0d 166 lb 8 oz (+16 lb 8 oz) 124/64 Negative -?-?-?-?-?-?-?-?-?-?-?-?- Negative 135 -?-?-?-?-?-?-?-?-?-?-?-?- JV- no lof, vagi nal bleeding, or cramping. has anatomy scan scheduled for tomorrow in [place]. 10/05/24 -?-?-?-?-?-?-?-?-?-?-?-?- 22w 6d 173 lb 8 oz (+23 lb 8 oz) 106/68 Negative -?-?-?-?-?-?-?-?-?-?-?-?- Negative 145 -?-?-?-?-?-?-?-?-?-?-?-?- KW- no vb/crampi ng. rich fm. 28 weeks labs discussed- needs rhogam 11/10/24 -?-?-?-?-?-?-?-?-?-?-?-?- 28w 0d 181 lb 8 oz (+31 lb 8 oz) 108/62 Negative -?-?-?-?-?-?-?-?-?-?-?-?- Negative 145 -?-?-?-?-?-?-?-?-?-?-?-?- MH-No VB, LOF. G ood Fm. 28 wk labs pending. Rhogam, tdap and larc. 11/23/24 -?-?-?-?-?-?-?-?-?-?-?-?- 29w 6d 185 lb (+35 lb) 122/70 Negative -?-?-?-?-?-?-?-?-?-?-?-?- Negative 146 30 -?-?-?--?-?-?-?-?-?-?-?-?- MH-No VB, LOF. G ood FM. 12/07/24 -?-?-?-?-?-?-?-?-?-?-?-?- 31w 6d 189 lb 8 oz (+39 lb 8 oz) 124/70 Negative -?-?-?-?-?-?-?-?-?-?-?-?- Negative 140 32 -?-?-?-?-?-?-?-?-?-?-?-?- JV- no lof, vagi nal bleeding, or dec fm. no complaints today other than getting up a lot at night. 12/22/24 -?-?-?-?-?-?-?-?-?-?-?-?- 34w 0d 193 lb (+43 lb) 123/76 Negative -?-?-?-?-?-?-?-?-?-?-?-?- Negative 138 34 -?-?-?-?-?-?-?-?-?-?-?-?- KW- no vb/lof/ct x. good fm. GBS next visit. no concerns today 01/05/25 -?-?-?-?-?-?-?-?-?-?-?-?- 36w 0d 190 lb 4 oz (+40 lb 4 oz) 116/72 Negative -?-?-?-?-?-?-?-?-?-?-?-?- Negative 142 36 Cephalic 0 .5 -?-?-?-?-?-?-?-?-?-?-?-?- 20 -4 MH-No VB, LOF. More irreg ctx. GBS collected 01/11/25 -?-?-?-?-?-?-?-?-?-?-?-?- 36w 6d 194 lb 2 oz (+44 lb 2 oz) 114/74 Negative -?-?-?-?-?-?-?-?-?-?-?-?- Negative 165 37 Cephalic 1 -?-?-?-?-?-?-?-?-?-?-?-?- 50 -3 JV- no lof , vaginal bleeding, or dec fm. gbs neg. wants 39 week IOL. will set up next visit. 01/21/25 -?-?-?-?-?-?-?-?-?-?-?-?- 38w 2d 194 lb 6 oz (+44 lb 6 oz) 105/68 Negative -?-?-?-?-?-?-?-?-?-?-?-?- Negative 155 38 Cephalic 1 -?-?-?-?-?-?-?-?-?-?-?-?- 50 -3 JV- patien t wants to talk about a possible 39-40 week IOL. her veras score is not great today but may be better by next week. we can plan to strip membranes and discuss IOL for later next week or early following week. 01/26/25 -?-?-?-?-?-?-?-?-?-?-?-?- 39w 0d 194 lb 8 oz (+44 lb 8 oz) 120/62 Negative -?-?-?-?-?-?-?-?-?-?-?-?- Negative 140 35 Cephalic 1 -?-?-?-?-?-?-?-?-?-?-?-?- SM- no vb lof go od fm no reuglar ctx SM- no vb lof good fm no reu glar ctx bedside GERRY 9cm growth US ordered 02/03/25 -?-?-?-?-?-?-?-?-?-?-?-?- 40w 1d 193 lb 6 oz (+43 lb 6 oz) 116/73 Negative -?-?-?-?-?-?-?-?-?-?-?-?- Negative 145 38 Cephalic 1 -?-?-?-?-?-?-?-?-?-?-?-?- 60 -2 JV- normal growth scan, IOL set for saturday night. NST FHR Rate Baby A Baseline: 120 Variability:: Moderate Accelerations:: 15 x 15 Decelerations:: None NST Reactive:: Yes FHR Category:: Category I Uterine Activity:: q3 Vital Signs Vital Signs Vital Signs: 02/06/25 18:33 02/06/25 18:33 02/06/25 18:33 Temperature Temperature Source Temporal Pulse Rate 72 Respiratory Rate 14 Blood Pressure BP Systolic BP Diastolic Pulse Ox 02/06/25 18:33 02/06/25 18:33 02/06/25 18:34 Temperature 97.8 F Temperature Source Pulse Rate Respiratory Rate Blood Pressure 120/63 BP Systolic 120 BP Diastolic 63 Pulse Ox 98 02/06/25 18:34 Temperature Temperature Source Pulse Rate 70 Respiratory Rate Blood Pressure BP Systolic BP Diastolic Pulse Ox Weight Weight: 193 lb Body Mass Index (BMI) 29.3 Physical Exam Const alert, oriented x3 and no apparent distress General Appearance: cooperative, comfortable and well kempt Orientation / Consciousness: awake and oriented to person Exam Limitations: no limitations HEENT normocephalic Neck full ROM Chest inspection of chest normal Resp normal respiratory effort, normal air movement and no retractions Effort and Inspection: able to speak in complete sentences and symmetric chest movement Cardio regular rate Peripheral Pulses: pulses 2+ throughout GI normal to inspection, nondistended, normoactive bowel sounds Inspection: gravid no CVA tenderness and appearance of the vagina normal External Female Exam: normal appearance of the urethra; Negative for external lesion OB / External & Speculum: external exam normal Manual OB Exam: estimated gestational size appropriate and presentation cephalic Uterus Palpation: Negative for uterus tender Extremity normal to inspection Skin no rashes or lesions noted Neuro deep tendon reflexes 2+ bilaterally and gait normal Motor Exam: strength 5/5 throughout and clonus absent Psych Activity / Motor Behavior: appropriate eye contact Speech: normal speech Labs Labs Labs: Blood Type A NEGATIVE Antibody Screen NEGATIVE Hct 35.7 % (37-47) L Hgb 12.6 g/dL (12.0-15.0) Obstetrics Ultrasound Syphilis Total Ab Nonreactive (Nonreactive) Rubella IgG Antibody Reactive (Nonreactive) Hep Bs Antigen Non-Reactive (Nonreactive) Hepatitis C Antibody Non-Reactive (Nonreactive) Chlamydia DNA (RIVERA) Negative (Negative) N.gonorrhoeae DNA ([facility]IVERA) Negative (Negative) HIV 1&2 Antibody Nonreactive (Nonreactive) Glucose 1 Hr 50 gm 102 mg/dL (70-140) Assessment & Plan (1) Encounter for induction of labor: COMMENT: pitocin/arom (2) Uterine size-date discrepancy, third trimester: COMMENT: 38 wk: EFW 68%, AC 69% (3) Rh negative state in antepartum period: COMMENT: rhogam 28 wk, pp and prn bleeding, Given 11/10/24 (4) Supervision of normal : QUALIFIERS: Normal : other normal Trimester: third trimester Qualified Code(s): Z34.83 - Encounter for supervision of other normal , third trimester COMMENT: PRR,, CHAPARRO 02/02/25, girl MICHAEL Cain, Spouse Oscar (5) : QUALIFIERS: Weeks of gestation: 40 weeks Qualified Code(s): Z3A.40 - 40 weeks gestation of COMMENT: Neg GBS. declines genetic and carrier screening, wants to know gender at anatomy scan, nl anatomy PLAN: Plan Patient presents IOL, plan management for with pitocin/AROM. Pain management: plans epidural. GBS negative. Management of any complications: none I have reviewed the REPLACED BY [facility] and made any clinically relevant updates. Dr. Dukes updated on admission, exam and poc. agrees with above 02/06/251931 <Electronically signed by Ching Mcgee CNM> Cosigner Signature (if applicable): CC: CARMELITA Mcgee; No Primary Care Physician~ Signed [facility] Work Phone: 1(768) 864-852907-05-2025 History and physical note [facility] Medical Records Department [address] [place] [address] H&P Exam - CLINICAL BIOCHEMICAL GENETICIST 02/06/251928 MR#: [id number] Acct: [id number] Name: MANUELCARLOTA De Jesus Rep #:[id number] : 2000 24 From: Ching Mcgee CNM PCP: Care Physician,No Primary Status :ADM IN Location: [id number] HPI - General General Date of Admission: 02/06/25 HPI Narrative CARLOTA MANUEL, is a 24 F who presents at 40.4 for IOL for postdates. bishops 6. was having spontaneous ctx prior to admission but lessening in intensity. Maternal Data Information CHAPARRO Calculator Estimated Delivery Date Method Current WG Current Estimate 02/02/25 LMP (Uncertain) 40w 4d Other Estimates 02/03/25 Ultrasound #1 40w 3d PFSH PFSH Medical History bleeding Home Medications ?Medication ?Instructions ?Recorded ?Last Taken ?Type vitamins no.163-iron tab PO DAILY 1 08/18/23 Unknown History bis-gly 20 mg-folate no.10 1 mg tablet (PNV Tabs 20-1) Allergy/AdvReac Type Severity Reaction Status Date / Time No Known Allergies Allergy Verified 02/06/25 18:36 Family History Brother Cancer older brother- Brain tumor- did chemo and radiation Father S/P triple vessel bypass Surgical History History of dental surgery Broken tibia Broken fibula Social History adopted: No household members: spouse housing: house number of children: 1 current occupational status: employed 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 occupational exposures/hazards: No pets and animals: Yes pets and animals: dog(s) history of recent travel: No sexually active: Yes Smoking Status: Never smoker second hand exposure: No alcohol intake: current details: Not while substance use type: does not use caffeine: No during the past year weight has: remained stable what type of physical activity do you participate in: walking frequency: 1-2 times per week jayleen/yarsanism: Shinto seatbelt use: always do you feel safe at home: Yes additional social history: - 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 Date Name GA/Weeks Outcome Route Bth Weight Infant Gen Labor Lgth Anesthesia Del Locatn Provider FOB 01/02/23 Ant 40 live - full term 7lbs 4oz Male epi dural [facility] SWETA Moore Delivery Date: 01/02/23 Last Updated by: Talia Godinez Franklin Tight nuchal cord x1, 1st degree tear Visit Details Expected Delivery Route/Plan Labor Preferences- CB/BF classes: no labor support person: Oscar labor intervention preferences: [] pain management options preferred: epidural cut cord/dad catch: cord : no PP control planned: discussed discussed possible routes of delivery and associated risks: [] special requests: [] Plans Covid status: [] Flu vaccine: [] Tdap vaccine: given Rhogam: given LARC form signed: yes Problem list reviewed and updated with the most current plan of care details and appropriate ordersplaced. Relevant counseling for the gestational age provided. Continue routine care and follow up unless otherwise noted in visit notes/problem list details OB Flowsheet Initial Weight: 150 lb Date -?--?-?-?-?-?-?-?-?-?-?-?- EGA Weight BP Urine Prot -?-?-?-?-?-?-?-?-?-?-?-?- Glucose FHR FuHt Pres Dilation -?-?-?-?-?-?-?-?-?-?-?-?- Effaced St Visit Note 07/01/24 -?-?-?-?-?-?-?-?-?-?-?-?- 9w 1d 154 lb 8 oz (+4 lb 8 oz) 131/71 -?-?-?-?-?-?-?-?-?-?-?-?- 175 -?-?-?-?-?-?-?-?-?-?-?-?- KW- CRL cons wit h dates. declines NIPT. 08/12/24 -?-?-?-?-?-?-?-?-?-?-?-?- 15w 1d 160 lb (+10 lb) 117/73 Trace -?-?-?-?-?-?-?-?-?-?-?-?- Negative 170 145 -?-?-?-?-?-?-?-?-?-?-?-?- SM- no vb crampi ng 09/08/24 -?-?-?-?-?-?-?-?-?-?-?-?- 19w 0d 166 lb 8 oz (+16 lb 8 oz) 124/64 Negative -?-?-?-?-?-?-?-?-?-?-?-?- Negative 135 -?-?-?-?-?-?-?-?-?-?-?-?- JV- no lof, vagi nal bleeding, or cramping. has anatomy scan scheduled for tomorrow in [place]. 10/05/24 -?-?-?-?-?-?-?-?-?-?-?-?- 22w 6d 173 lb 8 oz (+23 lb 8 oz) 106/68 Negative -?-?-?-?-?-?-?-?-?-?-?-?- Negative 145 -?-?-?-?-?-?-?-?-?-?-?-?- KW- no vb/crampi loren. rich fm. 28 weeks labs discussed- needs rhogam 11/10/24 -?-?-?-?-?-?-?-?-?-?-?-?- 28w 0d 181 lb 8 oz (+31 lb 8 oz) 108/62 Negative -?-?-?-?-?-?-?-?-?-?-?-?- Negative 145 -?-?-?-?-?-?-?-?-?-?-?-?- -No VBLOF. Chelsea Fm. 28 wk labs pending. Rhogam, tdap and larc. 11/23/24 -?-?-?-?-?-?-?-?-?-?-?-?- 29w 6d 185 lb (+35 lb) 122/70 Negative -?-?-?-?-?-?-?-?-?-?-?-?- Negative 146 30 -?-?-?--?-?-?-?-?-?-?-?-?- MH-No SHARRON LOFSwapna [place] FM. 12/07/24 -?-?-?-?-?-?-?-?-?-?-?-?- 31w 6d 189 lb 8 oz (+39 lb 8 oz) 124/70 Negative -?-?-?-?-?-?-?-?-?-?-?-?- Negative 140 32 -?-?-?-?-?-?-?-?-?-?-?-?- JV- no lof, vagi nal bleeding, or dec fm. no complaints today other than getting up a lot at night. 12/22/24 -?-?-?-?-?-?-?-?-?-?-?-?- 34w 0d 193 lb (+43 lb) 123/76 Negative -?-?-?-?-?-?-?-?-?-?-?-?- Negative 138 34 -?-?-?-?-?-?-?-?-?-?-?-?- KW- no vb/lof/ct x. good fm. GBS next visit. no concerns today 01/05/25 -?-?-?-?-?-?-?-?-?-?-?-?- 36w 0d 190 lb 4 oz (+40 lb 4 oz) 116/72 Negative -?-?-?-?-?-?-?-?-?-?-?-?- Negative 142 36 Cephalic 0 .5 -?-?-?-?-?-?-?-?-?-?-?-?- 20 -4 MH-No VB, LOF. More irreg ctx. GBS collected 01/11/25 -?-?-?-?-?-?-?-?-?-?-?-?- 36w 6d 194 lb 2 oz (+44 lb 2 oz) 114/74 Negative -?-?-?-?-?-?-?-?-?-?-?-?- Negative 165 37 Cephalic 1 -?-?-?-?-?-?-?-?-?-?-?-?- 50 -3 JV- no lof , vaginal bleeding, or dec fm. gbs neg. wants 39 week IOL. will set up next visit. 01/21/25 -?-?-?-?-?-?-?-?-?-?-?-?- 38w 2d 194 lb 6 oz (+44 lb 6 oz) 105/68 Negative -?-?-?-?-?-?-?-?-?-?-?-?- Negative 155 38 Cephalic 1 -?-?-?-?-?-?-?-?-?-?-?-?- 50 -3 JV- tona t wants to talk about a possible 39-40 week IOL. her veras score is not great today but may be better by next week. we can plan to strip membranes and discussIOL for later next week or early following week. 01/26/25 -?-?-?-?-?-?-?-?-?-?-?-?- 39w 0d 194 lb 8 oz (+44 lb 8 oz) 120/62 Negative -?-?-?-?-?-?-?-?-?-?-?-?- Negative 140 35 Cephalic 1 -?-?-?-?-?-?-?-?-?-?-?-?- SM- no vb lof go od fm no reuglar ctx SM- no vb lof good fm no reu glar ctx bedside GERRY 9cm growth US ordered 02/03/25 -?-?-?-?-?-?-?-?-?-?-?-?- 40w 1d 193 lb 6 oz (+43 lb 6 oz) 116/73 Negative -?-?-?-?-?-?-?-?-?-?-?-?- Negative 145 38 Cephalic 1 -?-?-?-?-?-?-?-?-?-?-?-?- 60 -2 JV- normal growth scan, IOL set for saturday. NST FHR Rate Baby A Baseline: 120 Variability:: Moderate Accelerations:: 15 x 15 Decelerations:: None NST Reactive:: Yes FHR Category:: Category I Uterine Activity:: q3 Vital Signs Vital Signs Vital Signs: 02/06/25 18:33 02/06/25 18:33 02/06/25 18:33 Temperature Temperature Source Temporal Pulse Rate 72 Respiratory Rate 14 Blood Pressure BP Systolic BP Diastolic Pulse Ox 02/06/25 18:33 02/06/25 18:33 02/06/25 18:34 Temperature 97.8 F Temperature Source Pulse Rate Respiratory Rate Blood Pressure 120/63 BP Systolic 120 BP Diastolic 63 Pulse Ox 98 02/06/25 18:34 Temperature Temperature Source Pulse Rate 70 Respiratory Rate Blood Pressure BP Systolic BP Diastolic Pulse Ox Weight Weight: 193 lb Body Mass Index (BMI) 29.3 Physical Exam Const alert, oriented x3 and no apparent distress General Appearance: cooperative, comfortable and well kempt Orientation / Consciousness: awake and oriented to person Exam Limitations: no limitations HEENT normocephalic Neck full ROM Chest inspection of chest normal Resp normal respiratory effort, normal air movement and no retractions Effort and Inspection: able to speak in complete sentences and symmetric chest movement Cardio regular rate Peripheral Pulses: pulses 2+ throughout GI normal to inspection, nondistended, normoactive bowel sounds Inspection: gravid no CVA tenderness and appearance of the vagina normal External Female Exam: normal appearance of the urethra; Negative for external lesion OB / External & Speculum: external exam normal Manual OB Exam: estimated gestational size appropriate and presentation cephalic Uterus Palpation: Negative for uterus tender Extremity normal to inspection Skin no rashes or lesions noted Neuro deep tendon reflexes 2+ bilaterally and gait normal Motor Exam: strength 5/5 throughout and clonus absent Psych Activity / Motor Behavior: appropriate eye contact Speech: normal speech Labs Labs Labs: Blood Type A NEGATIVE Antibody Screen NEGATIVE Hct 35.7 % (37-47) L Hgb 12.6 g/dL (12.0-15.0) Obstetrics Ultrasound Syphilis Total Ab Nonreactive (Nonreactive) Rubella IgG Antibody Reactive (Nonreactive) Hep Bs Antigen Non-Reactive (Nonreactive) Hepatitis C Antibody Non-Reactive (Nonreactive) Chlamydia DNA (RIVERA) Negative (Negative) N.gonorrhoeae DNA (RIVERA) Negative (Negative) HIV 1&2 Antibody Nonreactive (Nonreactive) Glucose 1 Hr 50 gm 102 mg/dL (70-140) Assessment & Plan (1) Encounter for induction of labor: COMMENT: pitocin/arom (2) Uterine size-date discrepancy, third trimester: COMMENT: 38 wk: EFW 68%, AC 69% (3) Rh negative state in antepartum period: COMMENT: rhogam 28 wk, pp and prn bleeding, Given 4/8/25 (4) Supervision of normal : QUALIFIERS: Normal : other normal Trimester: third trimester QualifiedCode(s): Z34.83 - Encounter for supervision of other normal , third trimester COMMENT: PRR,, CHAPARRO 02/02/25, girl MICHAEL Cain, Spouse Oscar (5) : QUALIFIERS: Weeks of gestation: 40 weeks Qualified Code(s): Z3A.40 - 40 weeks gestation of COMMENT: Neg GBS. declines genetic and carrier screening, wants to know gender at anatomy scan, nl anatomy PLAN: Plan Patient presents IOL, plan management for with pitocin/AROM. Pain management: plans epidural. GBS negative. Management of any complications: none I have reviewed the REPLACED BY [facility] and made any clinically relevant updates. Dr. Dukes updated on admission, exam and poc. agrees with above 02/06/251931 Cosigner Signature (if applicable): CC: CARMELITA Mcgee; No Primary Care Physician~ Signed [facility]06-26-2025 Radiology Diagnostic study note [facility] Imaging Services [address] [place], [place] [address] OB Limited With Biometrics MR#: [id number] Acct: [id number] Name: CARLOTA MANUEL Rep #: [id number] : 2000 F 24 From: Broderick Stewart MD PCP: Care Physician,No Primary Status: REG CLI Study:OB Limited With Biometrics Date of Exam : 01/28/25 Exam# [id number] Ordering Dr: Rosalinda Gardner MD PROCEDURE: OB LIMITED WITH BIOMETRICS 01/28/2025 REASON FOR EXAM: UTERINE SIZE DATE DICREPANCY TECHNIQUE: OB LIMITED WITH BIOMETRICS COMPARISON: None FINDINGS LMP: April 28, 2024 Number: 1 Position: Vertex Placental Position: Posterior and not low-lying. Placental Abnormalities: No evidence of previa. DIMENSIONS: Biparietal Diameter: 9.5 cm: 38 weeks and 5 days: 69 percentile/ Head Circumference: 33.4 cm: 38 weeks and 1 day: 17 percentile/ Abdominal Circumference: 35.2 cm: 39 weeks and 1 day: 68 percentile/ Femur Length: 7.7 cm: 39 weeks and 1 day: 57 percentile/ ESTIMATED WEIGHT: 3711 g plus/-557 g ESTIMATED WEIGHT PERCENTILE (24+ weeks): 69 ESTIMATED GESTATIONAL AGE: Baseline: 39 weeks and 2 days By Ultrasound: 38 weeks and 6 days ESTIMATED DATE OF DELIVERY: Baseline: February 02, 2025 By Ultrasound: February 05, 2025 BIOPHYSICAL ASSESSMENT: Amniotic Fluid Volume: 3.9 cm Amniotic Fluid Index: 12.1 (8-24 cm normal range) Cardiac Motion: 147 beats per minute (average) Trunk and Limb Motion: Present. MATERNAL ANATOMY: Adnexa: Neither maternal ovary is successfully identified. Cervical Length (if measured): US/OB Limited With Biometrics IMPRESSION: Single live intrauterine gestation with mean gestational age of 38 weeks and 6 days. Reading Location: [id number] CC: Dr. 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 Jeramie Herr MD Age/Sex: 24/F Location: [facility] [place] Status: Signed Intake Vital Signs 12/22/24 15:18 01/21/25 14:59 01/26/25 10:52 01/26/25 10:57 Height 5 ft 8 in 5 ft 8 in 5 ft 8 in 5 ft 8 in Weight: 194 lb 8 oz BMI 29.5 BP 120/62 Intake Visit Reasons: 39 wk ob Transition Program Manager Required: No Is patient in pain?: No Allergies No Known Allergies Allergy (Verified 01/26/25 10:50) Medications ?Medication ?Instructions ?Recorded ?Confirmed ?Type vitamins no.163-iron tab PO 06/18/24 01/26/25 History bis-gly 20 mg-folate no.10 1 mg tablet (PNV Tabs 20-1) Last Menstrual Period: 04/28/24 Zika: Zika virus screening: Negative : No PFSH PFSH Medical History bleeding Surgical History History of dental surgery Broken tibia Broken fibula Family History Brother Cancer older brother- Brain tumor- did chemo and radiation Father S/P triple vessel bypass Social History adopted: No household members: spouse housing: house number of children: 1 current occupational status: employed 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 current occupational exposures/hazards: No pets and animals: Yes pets and animals: dog(s) history of recent travel: No sexually active: Yes Smoking Status: Never smoker second hand exposure: No alcohol intake: current details: Not while substance use type: does not use caffeine: No during the past year weight has: remained stable what type of physical activity do you participate in: walking frequency: 1-2 times per week jayleen/yarsanism: Shinto seatbelt use: always do you feel safe at home: Yes additional social history: - 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 Date Name GA/Weeks Outcome Route Bth Weight Infant Gen Labor Lgth Anesthesia Del Locatn Provider FOB 01/02/23 Ant 40 live - full term 7lbs 4oz Male epi dural [facility] Oscar Delivery Date: 01/02/23 Last Updated by: Talia Reid Tight nuchal cord x1, 1st degree tear HPI 39 wk ob Details: CARLOTA MANUEL is a 24 year old who presents for routine OB visit. OB Visit CHAPARRO Calculator Estimated Delivery Date Method Current WG Current Estimate 02/02/25 LMP (Uncertain) 39w 0d Other Estimates 02/03/25 Ultrasound #1 38w 6d Expected Delivery Route/Plan Labor Preferences- CB/BF classes: no labor support person: Oscar labor intervention preferences: [] pain management options preferred: epidural cut cord/dad catch: cord : no PP control planned: discussed discussed possible routes of delivery and associated risks: [] special requests: [] Specific Issue/Plans Covid status: [] Flu vaccine: [] Tdap vaccine: given Rhogam: given LARC form signed: yes Problem list reviewed and updated with the most current plan of care details and appropriate ordersplaced. Relevant counseling for the gestational age provided. Continue routine care and follow up unless otherwise noted in visit notes/problem list details Initial Weight: 150 lb Date -?-?-?-?-?-?-?-?-?-?-?-?- EGA Weight BP Urine Prot -?-?-?-?-?-?-?-?-?-?-?-?- Glucose FHR FuHt Pres Dilation -?-?-?-?-?-?-?-?-?-?-?-?- Effaced St Visit Note 07/01/24 -?-?-?-?-?-?-?-?-?-?-?-?- 9w 1d 154 lb 8 oz (+4 lb 8 oz) 131/71 -?-?-?-?-?-?-?-?-?-?-?-?- 175 -?-?-?-?-?-?-?-?-?-?-?-?- KW- CRL cons wit h dates. declines NIPT. 08/12/24 -?-?-?-?-?-?-?-?-?-?-?-?- 15w 1d 160 lb (+10 lb) 117/73 Trace -?-?-?-?-?-?-?-?-?-?-?-?- Negative 170 145 -?-?-?-?-?-?-?-?-?-?-?-?- SM- no vb crampi ng 09/08/24 -?-?-?-?-?-?-?-?-?-?-?-?- 19w 0d 166 lb 8 oz (+16 lb 8 oz) 124/64 Negative -?-?-?-?-?-?-?-?-?-?-?-?- Negative 135 -?-?-?-?-?-?-?-?-?-?-?-?- JV- no lof, vagi nal bleeding, or cramping. has anatomy scan scheduled for tomorrow in [place]. 10/05/24 -?-?-?-?-?-?-?-?-?-?-?-?- 22w 6d 173 lb 8 oz (+23 lb 8 oz) 106/68 Negative -?-?--?-?-?-?-?-?-?-?-?-?- Negative 145 -?-?-?-?-?-?-?-?-?-?-?-?- KW- no vb/crampi ng. rich fm. 28 weeks labs discussed- needs rhogam 11/10/24 -?-?-?-?-?-?-?-?--?-?-?-?- 28w 0d 181 lb 8 oz (+31 lb 8 oz) 108/62 Negative -?-?-?-?-?-?-?-?-?-?-?-?- Negative 145 -?-?-?-?-?-?-?-?-?-?-?-?- MH-No VB, LOF. G ood Fm. 28 wk labs pending. Rhogam, tdap and larc. 11/23/24 -?-?-?-?-?-?-?-?-?-?-?-?- 29w 6d 185 lb (+35 lb) 122/70 Negative -?-?-?-?-?-?-?-?-?-?-?-?- Negative 146 30 -?-?-?-?-?-?-?-?-?-?-?-?- MH-No VB, LOF. G ood FM. 12/07/24 -?-?-?-?-?-?-?-?-?-?-?-?- 31w 6d 189 lb 8 oz (+39 lb 8 oz) 124/70 Negative -?-?-?-?-?-?-?-?-?-?-?-?- Negative 140 32 -?-?-?-?-?-?-?-?-?-?-?-?- JV- no lof, vagi nal bleeding, or dec fm. no complaints today other than getting up a lot at night. 12/22/24 -?-?-?-?-?-?-?-?-?-?-?-?- 34w 0d 193 lb (+43 lb) 123/76 Negative -?-?-?-?-?-?-?-?-?-?-?-?- Negative 138 34 -?-?-?-?-?-?-?-?-?-?-?-?- KW- no vb/lof/ct x. good fm. GBS next visit. no concerns today 01/05/25 -?-?-?-?-?-?-?-?-?-?-?-?- 36w 0d 190 lb 4 oz (+40 lb 4 oz) 116/72 Negative -?-?-?-?-?-?-?-?-?-?-?-?- Negative 142 36 Cephalic 0 .5 -?-?-?-?-?-?-?-?-?-?-?-?- 20 -4 MH-No VB, LOF. More irreg ctx. GBS collected 01/11/25 -?-?-?-?-?-?-?-?-?-?-?-?- 36w 6d 194 lb 2 oz (+44 lb 2 oz) 114/74 Negative -?-?-?-?-?-?-?-?-?-?-?-?- Negative 165 37 Cephalic 1 -?-?-?-?-?-?-?-?-?-?-?-?- 50 -3 JV- no lof , vaginal bleeding, or dec fm. gbs neg. wants 39 week IOL. will set up next visit. 01/21/25 -?-?-?-?-?-?-?-?-?-?-?-?- 38w 2d 194 lb 6 oz (+44 lb 6 oz) 105/68 Negative -?-?-?-?-?-?-?-?-?-?-?-?- Negative 155 38 Cephalic 1 -?-?-?-?-?-?-?-?-?-?-?-?- 50 -3 JMoose- tona de jesus wants to talk about a possible 39-40 week IOL. her veras score is not great today but may be better by next week. we can plan to strip membranes and discussIOL for later next week or early following week. 01/26/25 -?-?-?-?-?-?-?-?-?-?-?-?- 39w 0d 194 lb 8 oz (+44 lb 8 oz) 120/62 Negative -?-?-?-?-?-?-?-?-?-?-?-?- Negative 140 35 Cephalic 1 -?-?-?-?-?-?-?-?-?-?-?-?- SM- no vb lof go od fm no reuglar ctx SM- no vb lof good fm no reu glar ctx bedside GERRY 9cm growth US ordered ACOG First Trimester First Trimester: Desire for , Alcohol, Tobacco Cessation, Illicit/Recreational Drug/Substance Use, Intimate Partner Violence, Barriers to care, Unstable Housing, Communication Barriers, Environmental/Work Hazards, Anticipated Course of Care, Toxoplasmosis Precations, Use of Any med ications, Sexual activity, Exercise, Dental Care, Sauna/Hot tub use, Seat Belt use, Childbirth classes/Hospital facilities, Travel, Indications for Ultrasound and Screening for Aneuploidy; Discussed Second Trimester Second Trimester: Signs and Symptoms of Labor, Selecting a care provider, Reproductive Life Planning & Contreception and Care Planning; Discussed Tobacco Cessation, Discussed Depression/Anxiety and Discussed Intimate Partner Violence Third Trimester Third Trimester: Pain Management Plans, Labor support person(s), Immediate Larc, Movement Monitoring, Signs and Symptoms of Preeclampsia, Feeding No , Education and Family Medical Leave or Disability Forms; Discussed Circumcision preference Results POC Urinalysis 2 Dip (Clinic) Office Urine Glucose Negative Last Edit by Chanel Chauhan on 01/26/25 11:21 Office Urine Protein Negative Last Edit by Chanel Chauhan on 01/26/25 11:21 Coding Level of Care Code OB Routine Diagnoses Rh negative state in antepartum period O26.899; Z67.91 Encounter for supervision of other normal in third trimester Z34.83 Normal : other normal Trimester: third trimester 39 weeks gestation of Z3A.39 Weeks of gestation: 39 weeks Uterine size-date discrepancy, third trimester O26.843 Assessment and Plan Assessment and Plan (1) Rh negative state in antepartum period: Status: Acute Comment: rhogam 28 wk, pp and prn bleeding, Given 11/10/24 (2) Supervision of normal : Status: Acute Qualifiers: Normal : other normal Trimester: third trimester Qualified Code(s): Z34.83 - Encounter for supervision of other normal , third trimester Comment: PRR,, CHAPARRO 02/02/25, girl PC Ant, Spouse Oscar (3) : Status: Acute Qualifiers: Weeks of gestation: 39 weeks Qualified Code(s): Z3A.39 - 39 weeks gestation of Comment: Neg GBS. declines genetic and carrier screening, wants to know gender at anatomy scan, nl anatomy (4) Uterine size-date discrepancy, third trimester: Status: Acute Orders: Orders POC Urinalysis 2 Dip (Clinic) Today 01/26/25 1145 saud GRACE> Date _ Rosalinda Herr MD [facility] Signature: Date (if applicable) CC: ~ [facility]06-19-2025 [facility] [address] [place] [address], [address] [place] [address] OFFICE VISIT Date of Service: 01/21/25 MR#: [id number] Acct: [id number] Name: CARLOTA MANUEL Rep #: [id number] : 2000 Provider: Dr. Marii Snow DO Age/Sex: 24/F Location: [facility] [place] Status: Signed Intake Vital Signs 12/22/24 15:18 01/11/25 14:41 01/21/25 14:59 01/21/25 14:59 Height 5 ft 8 in 5 ft 8 in 5 ft 8 in 5 ft 8 in Weight: 194 lb 6 oz BMI 29.5 BP 105/68 Intake Visit Reasons: 38 wk ob Transition Program Manager Required: No Is patient in pain?: No Allergies No Known Allergies Allergy (Verified 01/21/25 14:58) Medications ?Medication ?Instructions ?Recorded ?Confirmed ?Type vitamins no.163-iron tab PO 06/18/24 01/21/25 History bis-gly 20 mg-folate no.10 1 mg tablet (PNV Tabs 20-1) Last Menstrual Period: 04/28/24 Zika: Zika virus screening: Negative : No PFSH PFSH Medical History bleeding Surgical History History of dental surgery Broken tibia Broken fibula Family History Brother Cancer older brother- Brain tumor- did chemo and radiation Father S/P triple vessel bypass Social History adopted: No household members: spouse housing: house number of children: 1 current occupational status: employed 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 current occupational exposures/hazards: No pets and animals: Yes pets and animals: dog(s) history of recent travel: No sexually active: Yes Smoking Status: Never smoker second hand exposure: No alcohol intake: current details: Not while substance use type: does not use caffeine: No during the past year weight has: remained stable what type of physical activity do you participate in: walking frequency: 1-2 times per week jayleen/yarsanism: Shinto seatbelt use: always do you feel safe at home: Yes additional social history: - 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 Date Name GA/Weeks Outcome Route Bth Weight Infant Gen Labor Lgth Anesthesia Del Locatn Provider FOB 01/02/23 Ant 40 live - full term 7lbs 4oz Male epi dural [facility] Oscar Delivery Date: 01/02/23 Last Updated by: Talia Reid Tight nuchal cord x1, 1st degree tear HPI 38 wk ob Details: CARLOTA MANUEL is a 24 year old who presents for routine OB visit. OB Visit CHAPARRO Calculator Estimated Delivery Date Method Current WG Current Estimate 02/02/25 LMP (Uncertain) 38w 2d Other Estimates 02/03/25 Ultrasound #1 38w 1d Expected Delivery Route/Plan Labor Preferences- CB/BF classes: no labor support person: Oscar labor intervention preferences: [] pain management options preferred: epidural cut cord/dad catch: cord : no PP control planned: discussed discussed possible routes of delivery and associated risks: [] special requests: [] Specific Issue/Plans Covid status: [] Flu vaccine: [] Tdap vaccine: given Rhogam: given LARC form signed: yes Problem list reviewed and updated with the most current plan of care details and appropriate ordersplaced. Relevant counseling for the gestational age provided. Continue routine care and follow up unless otherwise noted in visit notes/problem list details Initial Weight: 150 lb Date -?-?-?-?-?-?-?-?-?-?-?-?- EGA Weight BP Urine Prot -?-?-?-?-?-?-?-?-?-?-?-?- Glucose FHR FuHt Pres Dilation -?-?-?-?-?-?-?-?-?-?-?-?- Effaced St Visit Note 07/01/24 -?-?-?-?-?-?-?-?-?-?-?-?- 9w 1d 154 lb 8 oz (+4 lb 8 oz) 131/71 -?-?-?-?-?-?-?-?-?-?-?-?- 175 -?-?-?-?-?-?-?-?-?-?-?-?- KW- CRL cons wit h dates. declines [facility]. 08/12/24 -?-?-?-?-?-?-?-?-?-?-?-?- 15w 1d 160 lb (+10 lb) 117/73 Trace -?-?-?-?-?-?-?-?--?-?-?-?- Negative 170 145 -?-?-?-?-?-?-?-?-?-?-?-?- SM- no vb crampi ng 09/08/24 -?-?-?-?-?-?-?-?-?-?-?-?- 19w 0d 166 lb 8 oz (+16 lb 8 oz) 124/64 Negative -?-?-?-?-?-?-?-?-?-?-?-?- Negative 135 -?-?-?-?-?-?-?-?-?-?-?-?- JV- no lof, vagi nal bleeding, or cramping. has anatomy scan scheduled for tomorrow in [place]. 10/05/24 -?-?-?-?-?-?-?-?-?-?-?-?- 22w 6d 173 lb 8 oz (+23 lb 8 oz) 106/68 Negative -?-?-?-?-?-?-?-?-?-?-?-?- Negative 145 -?-?-?-?-?-?-?-?-?-?-?-?- KW- no vb/crampi ng. good fm. 28 weeks labs discussed- needs rhogam 11/10/24 -?-?-?-?-?-?-?-?-?-?-?-?- 28w 0d 181 lb 8 oz (+31 lb 8 oz) 108/62 Negative -?-?-?-?-?-?-?-?-?-?-?-?- Negative 145 -?-?-?-?-?-?-?-?-?-?--?-?- MH-No VB, LOF. G ood Fm. 28 wk labs pending. Rhogam, tdap and larc. 11/23/24 -?-?-?-?-?-?-?-?-?-?-?-?- 29w 6d 185 lb (+35 lb) 122/70 Negative -?-?-?-?-?-?-?-?-?-?-?-?- Negative 146 30 -?-?-?-?-?-?-?-?-?-?-?-?- MH-No VB, LOF. G ood FM. 12/07/24 -?-?-?-?-?-?-?-?-?-?-?-?- 31w 6d 189 lb 8 oz (+39 lb 8 oz) 124/70 Negative -?-?-?-?-?-?-?-?-?-?-?-?- Negative 140 32 -?-?-?-?-?-?-?-?-?-?-?-?- JV- no lof, vagi nal bleeding, or dec fm. no complaints today other than getting up a lot at night. 12/22/24 -?-?-?-?-?-?-?-?-?-?-?-?- 34w 0d 193 lb (+43 lb) 123/76 Negative -?-?-?-?-?-?-?-?-?-?-?-?- Negative 138 34 -?-?-?-?-?-?-?-?-?-?-?-?- KW- no vb/lof/ct x. good fm. GBS next visit. no concerns today 01/05/25 -?-?-?-?-?-?-?-?-?-?-?-?- 36w 0d 190 lb 4 oz (+40 lb 4 oz) 116/72 Negative -?-?-?-?-?-?-?-?-?-?-?-?- Negative 142 36 Cephalic 0 .5 -?-?-?-?-?-?-?-?-?-?-?-?- 20 -4 -No VB, LOF. More irreg ctx. GBS collected 01/11/25 -?-?-?-?-?-?-?-?-?-?-?-?- 36w 6d 194 lb 2 oz (+44 lb 2 oz) 114/74 Negative -?-?-?-?-?-?-?-?-?-?-?-?- Negative 165 37 Cephalic 1 -?-?-?-?-?-?-?-?-?-?-?-?- 50 -3 JV- no lof , vaginal bleeding, or dec fm. gbs neg. wants 39 week IOL. will set up next visit. 01/21/25 -?-?-?-?-?-?-?-?-?-?-?-?- 38w 2d 194 lb 6 oz (+44 lb 6 oz) 105/68 Negative -?-?-?-?-?-?-?-?-?-?-?-?- Negative 155 38 Cephalic 1 -?-?-?-?-?-?-?-?-?-?-?-?- 50 -3 JV- tona de jesus wants to talk about a possible 39-40 week IOL. her veras score is not great today but may be better by next week. we can plan to strip membranes and discussIOL for later next week or early following week. ACOG First Trimester First Trimester: Desire for , Alcohol, Tobacco Cessation, Illicit/Recreational Drug/Substance Use, Intimate Partner Violence, Barriers to care, Unstable Housing, Communication Barriers, Environmental/Work Hazards, Anticipated Course of Care, Toxoplasmosis Precations, Use of Any med ications, Sexual activity, Exercise, Dental Care, Sauna/Hot tub use, Seat Belt use, Childbirth classes/Hospital facilities, Travel, Indications for Ultrasound and Screening for Aneuploidy; Discussed Second Trimester Second Trimester: Signs and Symptoms of Labor, Selecting a care provider, Reproductive Life Planning & Contreception and Care Planning; Discussed Tobacco Cessation, Discussed Depression/Anxiety and Discussed Intimate Partner Violence Third Trimester Third Trimester: Pain Management Plans, Labor support person(s), Immediate Larc, Movement Monitoring, Signs and Symptoms of Preeclampsia, Infant Feeding No , Education and Family Medical Leave or Disability Forms; Discussed Circumcision preference Results POC Urinalysis 2 Dip (Clinic) Office Urine Glucose Negative Last Edit by Talia Reid on 01/21/25 15: 15 Office Urine Protein Negative Last Edit by Talia Reid on 01/21/25 15: 15 Coding Level of Care Code OB Routine Diagnoses Rh negative state in antepartum period O26.899; Z67.91 Encounter for supervision of other normal in third trimester Z34.83 Normal : other normal Trimester: third trimester 38 weeks gestation of Z3A.38 Weeks of gestation: 38 weeks Assessment and Plan Assessment and Plan (1) Rh negative state in antepartum period: Status: Acute Comment: rhogam 28 wk, pp and prn bleeding, Given 11/10/24 (2) Supervision of normal : Status: Acute Qualifiers: Normal : other normal Trimester: third trimester Qualified Code(s): Z34.83 - Encounter for supervision of other normal , third trimester Comment: PRR,, CHAPARRO 02/02/25, PC Ant, Spouse Oscar (3) : Status: Acute Qualifiers: Weeks of gestation: 38 weeks Qualified Code(s): Z3A.38 - 38 weeks gestation of Comment: Neg GBS. declines genetic and carrier screening, wants to know gender at anatomy scan, nl anatomy Orders: Orders POC Urinalysis 2 Dip (Clinic) Today 01/21/25 1545 e Curtis DO> Date _ Cherise Snow DO Cosign Signature: Date (if applicable) CC: ~ [facility] [id number] Progress note Author Cherise Acevedo [facility] Note Date/Time January 21, 2025 3:45 pm [facility] [address] [place] [address], [address] [place] [address] OFFICE VISIT Date of Service: 01/21/25 MR#: [id number] Acct: [id number] Name: CARLOTA MANUEL Rep #: [id number] : 2000 Provider: Dr. Marii Snow DO Age/Sex: 24/F Location: [facility] [place] Status: Signed Intake Vital Signs 12/22/24 15:18 01/11/25 14:41 01/21/25 14:59 01/21/25 14:59 Height 5 ft 8 in 5 ft 8 in 5 ft 8 in 5 ft 8 in Weight: 194 lb 6 oz BMI 29.5 BP 105/68 Intake Visit Reasons: 38 wk ob Transition Program Manager Required: No Is patient in pain?: No Allergies No Known Allergies Allergy (Verified 01/21/25 14:58) Medications ?Medication ?Instructions ?Recorded ?Confirmed ?Type vitamins no.163-iron tab PO 06/18/24 01/21/25 History bis-gly 20 mg-folate no.10 1 mg tablet (PNV Tabs 20-1) Last Menstrual Period: 04/28/24 Zika: Zika virus screening: Negative : No PFSH PFSH Medical History bleeding Surgical History History of dental surgery Broken tibia Broken fibula Family History Brother Cancer older brother- Brain tumor- did chemo and radiation Father S/P triple vessel bypass Social History adopted: No household members: spouse housing: house number of children: 1 current occupational status: employed 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 occupational exposures/hazards: No pets and animals: Yes pets and animals: dog(s) history of recent travel: No sexually active: Yes Smoking Status: Never smoker second hand exposure: No alcohol intake: current details: Not while substance use type: does not use caffeine: No during the past year weight has: remained stable what type of physical activity do you participate in: walking frequency: 1-2 times per week jayleen/yarsanism: Shinto seatbelt use: always do you feel safe at home: Yes additional social history: - 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 Date Name GA/Weeks Outcome Route Bth Weight Gen Labor Lgth Anesthesia Del Locatn Provider FOB 01/02/23 Ant 40 live - full term 7lbs 4oz Male epi dural [facility] KW Oscar Delivery Date: 01/02/23 Last Updated by: Talia L Franklin Tight nuchal cord x1, 1st degree tear HPI 38 wk ob Details: CARLOTA MANUEL is a 24 year old who presents for routine OB visit. OB Visit CHAPARRO Calculator Estimated Delivery Date Method Current WG Current Estimate 02/02/25 LMP (Uncertain) 38w 2d Other Estimates 02/03/25 Ultrasound #1 38w 1d Expected Delivery Route/Plan Labor Preferences- CB/BF classes: no labor support person: Oscar labor intervention preferences: [] pain management options preferred: epidural cut cord/dad catch: cord : no PP control planned: discussed discussed possible routes of delivery and associated risks: [] special requests: [] Specific Issue/Plans Covid status: [] Flu vaccine: [] Tdap vaccine: given Rhogam: given LARC form signed: yes Problem list reviewed and updated with the most current plan of care details and appropriate orders placed. Relevant counseling for the gestational age provided. Continue routine care and follow up unless otherwise noted in visit notes/problem list details Initial Weight: 150 lb Date -?-?-?-?-?-?-?-?-?-?-?-?- EGA Weight BP Urine Prot -?-?-?-?-?-?-?-?-?-?-?-?- Glucose FHR FuHt Pres Dilation -?-?-?-?-?-?-?-?-?-?-?-?- Effaced St Visit Note 07/01/24 -?-?-?-?-?-?-?-?-?-?-?-?- 9w 1d 154 lb 8 oz (+4 lb 8 oz) 131/71 -?-?-?-?-?-?-?-?-?-?-?-?- 175 -?-?-?-?-?-?-?-?-?-?-?-?- KW- CRL cons wit h dates. declines NIPT. 08/12/24 -?-?-?-?-?-?-?-?-?-?-?-?- 15w 1d 160 lb (+10 lb) 117/73 Trace -?-?-?-?-?-?-?-?--?-?-?-?- Negative 170 145 -?-?-?-?-?-?-?-?-?-?-?-?- SM- no vb crampi ng 09/08/24 -?-?-?-?-?-?-?-?-?-?-?-?- 19w 0d 166 lb 8 oz (+16 lb 8 oz) 124/64 Negative -?-?-?-?-?-?-?-?-?-?-?-?- Negative 135 -?-?-?-?-?-?-?-?-?-?-?-?- JV- no lof, vagi nal bleeding, or cramping. has anatomy scan scheduled for tomorrow in [place]. 10/05/24 -?-?-?-?-?-?-?-?-?-?-?-?- 22w 6d 173 lb 8 oz (+23 lb 8 oz) 106/68 Negative -?-?-?-?-?-?-?-?-?-?-?-?- Negative 145 -?-?-?-?-?-?-?-?-?-?-?-?- KW- no vb/crampi ng. good fm. 28 weeks labs discussed- needs rhogam 11/10/24 -?-?-?-?-?-?-?-?-?-?-?-?- 28w 0d 181 lb 8 oz (+31 lb 8 oz) 108/62 Negative -?-?-?-?-?-?-?-?-?-?-?-?- Negative 145 -?-?-?-?-?-?-?-?-?-?--?-?- -No VB, LOF. G ood Fm. 28 wk labs pending. Rhogam, tdap and larc. 11/23/24 -?-?-?-?-?-?-?-?-?-?-?-?- 29w 6d 185 lb (+35 lb) 122/70 Negative -?-?-?-?-?-?-?-?-?-?-?-?- Negative 146 30 -?-?-?-?-?-?-?-?-?-?-?-?- MH-No VB, LOF. G ood FM. 12/07/24 -?-?-?-?-?-?-?-?-?-?-?-?- 31w 6d 189 lb 8 oz (+39 lb 8 oz) 124/70 Negative -?-?-?-?-?-?-?-?-?-?-?-?- Negative 140 32 -?-?-?-?-?-?-?-?-?-?-?-?- JV- no lof, vagi nal bleeding, or dec fm. no complaints today other than getting up a lot at night. 12/22/24 -?-?-?-?-?-?-?-?-?-?-?-?- 34w 0d 193 lb (+43 lb) 123/76 Negative -?-?-?-?-?-?-?-?-?-?-?-?- Negative 138 34 -?-?-?-?-?-?-?-?-?-?-?-?- KW- no vb/lof/ct x. good fm. GBS next visit. no concerns today 01/05/25 -?-?-?-?-?-?-?-?-?-?-?-?- 36w 0d 190 lb 4 oz (+40 lb 4 oz) 116/72 Negative -?-?-?-?-?-?-?-?-?-?-?-?- Negative 142 36 Cephalic 0 .5 -?-?-?-?-?-?-?-?-?-?-?-?- 20 -4 MH-No VB, LOF. More irreg ctx. GBS collected 01/11/25 -?-?-?-?-?-?-?-?-?-?-?-?- 36w 6d 194 lb 2 oz (+44 lb 2 oz) 114/74 Negative -?-?-?-?-?-?-?-?-?-?-?-?- Negative 165 37 Cephalic 1 -?-?-?-?-?-?-?-?-?-?-?-?- 50 -3 JV- no lof , vaginal bleeding, or dec fm. gbs neg. wants 39 week IOL. will set up next visit. 01/21/25 -?-?-?-?-?-?-?-?-?-?-?-?- 38w 2d 194 lb 6 oz (+44 lb 6 oz) 105/68 Negative -?-?-?-?-?-?-?-?-?-?-?-?- Negative 155 38 Cephalic 1 -?-?-?-?-?-?-?-?-?-?-?-?- 50 -3 JV- tona de jesus wants to talk about a possible 39-40 week IOL. her veras score is not great today but may be better by next week. we can plan to strip membranes and discuss IOL for later next week or early following week. ACOG First Trimester First Trimester: Desire for , Alcohol, Tobacco Cessation, Illicit/Recreational Drug/Substance Use, Intimate Partner Violence, Barriers to care, Unstable Housing, Communication Barriers, Environmental/Work Hazards, Anticipated Course of Care, Toxoplasmosis Precations, Use of Any medications, Sexual activity, Exercise, Dental Care, Sauna/Hot tub use, Seat Belt use, Childbirth classes/Hospital facilities, Travel, Indications for Ultrasound and Screening for Aneuploidy; Discussed Second Trimester Second Trimester: Signs and Symptoms of Labor, Selecting a care provider, Reproductive Life Planning & Contreception and Care Planning; Discussed Tobacco Cessation, Discussed Depression/Anxiety and Discussed Intimate Partner Violence Third Trimester Third Trimester: Pain Management Plans, Labor support person(s), Immediate Larc, Movement Monitoring, Signs and Symptoms of Preeclampsia, Infant Feeding No , [place] Education and Family Medical Leave or Disability Forms; Discussed Circumcision preference Results POC Urinalysis 2 Dip (Clinic) Office Urine Glucose Negative Last Edit by Talia Reid on 01/21/25 15: 15 Office Urine Protein Negative Last Edit by Talia Reid on 01/21/25 15: 15 Coding Level of Care Code OB Routine Diagnoses Rh negative state in antepartum period O26.899; Z67.91 Encounter for supervision of other normal in third trimester Z34.83 Normal : other normal Trimester: third trimester 38 weeks gestation of Z3A.38 Weeks of gestation: 38 weeks Assessment and Plan Assessment and Plan (1) Rh negative state in antepartum period: Status: Acute Comment: rhogam 28 wk, pp and prn bleeding, Given 11/10/24 (2) Supervision of normal : Status: Acute Qualifiers: Normal : other normal Trimester: third trimester Qualified Code(s): Z34.83 - Encounter for supervision of other normal , third trimester Comment: PRR,, CHAPARRO 02/02/25, PC Ant, Spouse Oscar (3) : Status: Acute Qualifiers: Weeks of gestation: 38 weeks Qualified Code(s): Z3A.38 - 38 weeks gestation of Comment: Neg GBS. declines genetic and carrier screening, wants to know gender at anatomy scan, nl anatomy Orders: Orders POC Urinalysis 2 Dip (Clinic) Today 01/21/25 1248 <Electronically signed by Cherise Hair DO> Date _ Cherise Snow DO [facility] Signature: Date (if applicable) CC: ~ [facility] Work Phone: [phone] Progress [facility] [address] [place] [address], [address] [place] [address] OFFICE VISIT Date of Service: 01/11/25 MR#: [id number] Acct: [id number] Name: CARLOTA MANUEL Rep #: [id number] : 2000 Provider: Dr. Marii Snow DO Age/Sex: 24/F Location: [facility] [place] Status: Signed Intake Vital Signs 12/22/24 15:18 01/05/25 10:09 01/11/25 14:41 01/11/25 14:41 Height 5 ft 8 in 5 ft 8 in 5 ft 8 in 5 ft 8 in Weight: 194 lb 2 oz BMI 29.5 BP 114/74 Intake Visit Reasons: 37 wk ob Transition Program Manager Required: No Is patient in pain?: No Allergies No Known Allergies Allergy (Verified 01/11/25 14:41) Medications ?Medication ?Instructions ?Recorded ?Confirmed ?Type vitamins no.163-iron tab PO 06/18/24 01/11/25 History bis-gly 20 mg-folate no.10 1 mg tablet (PNV Tabs 20-1) Last Menstrual Period: 04/28/24 : No PFSH PFSH Medical History bleeding Surgical History History of dental surgery Broken tibia Broken fibula Family History Brother Cancer older brother- Brain tumor- did chemo and radiation Father S/P triple vessel bypass Social History adopted: No household members: spouse housing: house number of children: 1 current occupational status: employed 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 current occupational exposures/hazards: No pets and animals: Yes pets and animals: dog(s) history of recent travel: No sexually active: Yes Smoking Status: Never smoker second hand exposure: No alcohol intake: current details: Not while substance use type: does not use caffeine: No during the past year weight has: remained stable what type of physical activity do you participate in: walking frequency: 1-2 times per week jayleen/yarsanism: Shinto seatbelt use: always do you feel safe at home: Yes additional social history: - Oscar works for [employer] business History 2 Elective abortions Hx Para 1 Spontaneous abortions Hx # Term Pregnancies Ectopic pregnancies Hx # Pregnancies Multiple births # of living children 1 Past Pregnancies Del. Date Name GA/Weeks Outcome Route Bth Weight Gen Labor Lgth Anesthesia Del Locatn Provider FOB 01/02/23 Ant 40 live - full term 7lbs 4oz Male epi dural [facility] KW Oscar Delivery Date: 01/02/23 Last Updated by: Talia Reid Tight nuchal cord x1, 1st degree tear HPI 37 wk ob Details: CARLOTA MANUEL is a 24 year old who presents for routine OB visit. OB Visit CHAPARRO Calculator Estimated Delivery Date Method Current WG Current Estimate 02/02/25 LMP (Uncertain) 36w 6d Other Estimates 02/03/25 Ultrasound #1 36w 5d Expected Delivery Route/Plan Labor Preferences- CB/BF classes: no labor support person: Oscar labor intervention preferences: [] pain management options preferred: epidural cut cord/dad catch: cord : no PP control planned: discussed discussed possible routes of delivery and associated risks: [] special requests: [] Specific Issue/Plans Covid status: [] Flu vaccine: [] Tdap vaccine: given Rhogam: given LARC form signed: yes Problem list reviewed and updated with the most current plan of care details and appropriate ordersplaced. Relevant counseling for the gestational age provided. Continue routine care and follow up unless otherwise noted in visit notes/problem list details Initial Weight: 150 lb Date -?-?-?-?-?-?-?-?-?-?-?-?- EGA Weight BP Urine Prot -?-?-?-?-?-?-?-?-?-?-?-?- Glucose FHR FuHt Pres Dilation -?-?--?-?-?-?-?-?-?-?-?-?- Effaced St Visit Note 07/01/24 -?-?-?-?-?-?-?-?-?-?-?-?- 9w 1d 154 lb 8 oz (+4 lb 8 oz) 131/71 -?-?-?-?-?-?-?-?-?-?-?-?- 175 -?-?-?-?-?-?-?-?-?-?-?-?- KW- CRL cons wit h dates. declines NIPT. 08/12/24 -?-?-?-?-?-?-?-?-?-?-?-?- 15w 1d 160 lb (+10 lb) 117/73 Trace -?-?-?-?-?-?-?-?-?-?-?-?- Negative 170 145 -?-?-?-?-?-?-?-?-?-?-?-?- SM- no vb crampi ng 09/08/24 -?-?-?-?-?-?-?-?-?-?-?-?- 19w 0d 166 lb 8 oz (+16 lb 8 oz) 124/64 Negative -?-?-?-?-?-?-?-?-?-?-?-?- Negative 135 -?-?-?-?-?-?-?-?-?-?-?-?- JV- no lof, vagi nal bleeding, or cramping. has anatomy scan scheduled for tomorrow in [place]. 10/05/24 -?-?-?-?-?-?-?-?-?-?-?-?- 22w 6d 173 lb 8 oz (+23 lb 8 oz) 106/68 Negative -?-?-?-?-?-?-?-?-?-?-?-?- Negative 145 -?-?-?-?-?-?-?-?-?-?-?-?- KW- no vb/cralyndseyi ng. good fm. 28 weeks labs discussed- needs rhogam 11/10/24 -?-?-?-?-?-?-?-?-?-?-?-?- 28w 0d 181 lb 8 oz (+31 lb 8 oz) 108/62 Negative -?-?-?-?-?-?-?-?-?-?-?-?- Negative 145 -?-?-?-?-?-?-?-?-?-?-?-?- -No VB, LOFSwapna [place] Fm. 28 wk labs pending. Rhogam, tdap and larc. 11/23/24 -?-?-?-?-?-?-?-?-?-?-?-?- 29w 6d 185 lb (+35 lb) 122/70 Negative -?-?-?-?-?-?-?-?-?-?-?-?- Negative 146 30 -?-?-?-?-?-?-?-?-?-?-?-?- MH-No VB LOFSwapna G [place] FM. 12/07/24 -?-?-?-?-?-?-?-?-?-?-?-?- 31w 6d 189 lb 8 oz (+39 lb 8 oz) 124/70 Negative -?-?-?-?-?-?-?-?-?-?-?-?- Negative 140 32 -?-?-?-?-?-?-?-?-?-?-?-?- JV- no lof, vagi nal bleeding, or dec fm. no complaints today other than getting up a lot at night. 12/22/24 -?-?-?-?-?-?-?-?-?-?-?-?- 34w 0d 193 lb (+43 lb) 123/76 Negative -?-?-?-?-?-?-?-?-?-?-?--?- Negative 138 34 -?-?-?-?-?-?-?-?-?-?-?-?- KW- no vb/lof/ct x. good fm. GBS next visit. no concerns today 01/05/25 -?-?-?-?-?-?-?-?-?-?-?-?- 36w 0d 190 lb 4 oz (+40 lb 4 oz) 116/72 Negative -?-?-?-?-?-?-?-?-?-?-?-?- Negative 142 36 Cephalic 0 .5 -?-?-?-?-?-?-?-?-?-?-?-?- 20 -4 MH-No VB, LOF. More irreg ctx. GBS collected 01/11/25 -?-?-?-?-?-?-?-?-?-?-?-?- 36w 6d 194 lb 2 oz (+44 lb 2 oz) 114/74 Negative -?-?-?-?-?-?-?-?-?-?-?-?- Negative 165 37 Cephalic 1 -?-?-?-?-?-?-?-?-?-?-?-?- 50 -3 JV- no lof , vaginal bleeding, or dec fm. gbs neg. wants 39 week IOL. will set up next visit. ACOG First Trimester First Trimester: Desire for , Alcohol, Tobacco Cessation, Illicit/Recreational Drug/Substance Use, Intimate Partner Violence, Barriers to care, Unstable Housing, Communication Barriers, Environmental/Work Hazards, Anticipated Course of Care, Toxoplasmosis Precations, Use of Any med ications, Sexual activity, Exercise, Dental Care, Sauna/Hot tub use, Seat Belt use, Childbirth classes/Hospital facilities, Travel, Indications for Ultrasound and Screening for Aneuploidy; Discussed Second Trimester Second Trimester: Signs and Symptoms of Labor, Selecting a care provider, Reproductive Life Planning & Contreception and Care Planning; Discussed Tobacco Cessation, Discussed Depression/Anxiety and Discussed Intimate Partner Violence Third Trimester Third Trimester: Pain Management Plans, Labor support person(s), Immediate Larc, Movement Monitoring, Signs and Symptoms of Preeclampsia, Feeding No , [place] Education and Family Medical Leave or Disability Forms; Discussed Circumcision preference Results POC Urinalysis 2 Dip (Clinic) Office Urine Glucose Negative Last Edit by Talia Reid on 01/11/25 14: 56 Office Urine Protein Negative Last Edit by Talia Reid on 01/11/25 14: 56 Coding Level of Care Code OB Routine Diagnoses Rh negative state in antepartum period O26.899; Z67.91 Encounter for supervision of other normal in third trimester Z34.83 Normal : other normal Trimester: third trimester 36 weeks gestation of Z3A.36 Weeks of gestation: 36 weeks Assessment and Plan Assessment and Plan (1) Rh negative state in antepartum period: Status: Acute Comment: rhogam 28 wk, pp and prn bleeding, Given 11/10/24 (2) Supervision of normal : Status: Acute Qualifiers: Normal : other normal Trimester: third trimester Qualified Code(s): Z34.83 - Encounter for supervision of other normal , third trimester Comment: PRR,, CHAPARRO 02/02/25, MICHAEL Cain, Spouse Oscar (3) : Status: Acute Qualifiers: Weeks of gestation: 36 weeks Qualified Code(s): Z3A.36 - 36 weeks gestation of Comment: Neg GBS. declines genetic and carrier screening, wants to know gender at anatomy scan, nl anatomy Orders: Orders POC Urinalysis 2 Dip (Clinic) Today 01/11/25 1513 e Velde DO> Date _ Cherise Snow DO Cosigner Signature: Date (if applicable) CC: ~ [facility]06-09-2025 Progress note Author Cherise Acevedo [facility] Note Date/Time January 11, 2025 3:13p [facility] [address], [address] [place] [address] OFFICE VISIT Date of Service: 01/11/25 MR#: [id number] Acct: [id number] Name: CARLOTA MANUEL Rep #: [id number] : 2000 Provider: Dr. Marii Snow DO Age/Sex: 24/F Location: [facility] [place] Status: Signed Intake Vital Signs 12/22/24 15:18 01/05/25 10:09 01/11/25 14:41 01/11/25 14:41 Height 5 ft 8 in 5 ft 8 in 5 ft 8 in 5 ft 8 in Weight: 194 lb 2 oz BMI 29.5 BP 114/74 Intake Visit Reasons: 37 wk ob Transition Program Manager Required: No Is patient in pain?: No Allergies No Known Allergies Allergy (Verified 01/11/25 14:41) Medications ?Medication ?Instructions ?Recorded ?Confirmed ?Type vitamins no.163-iron tab PO 06/18/24 01/11/25 History bis-gly 20 mg-folate no.10 1 mg tablet (PNV Tabs 20-1) Last Menstrual Period: 04/28/24 : No PFSH PFSH Medical History bleeding Surgical History History of dental surgery Broken tibia Broken fibula Family History Brother Cancer older brother- Brain tumor- did chemo and radiation Father S/P triple vessel bypass Social History adopted: No household members: spouse housing: house number of children: 1 current occupational status: employed 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 occupational exposures/hazards: No pets and animals: Yes pets and animals: dog(s) history of recent travel: No sexually active: Yes Smoking Status: Never smoker second hand exposure: No alcohol intake: current details: Not while substance use type: does not use caffeine: No during the past year weight has: remained stable what type of physical activity do you participate in: walking frequency: 1-2 times per week jayleen/yarsanism: Shinto seatbelt use: always do you feel safe at home: Yes additional social history: - Oscar works for [employer] History 2 Elective abortions Hx Para 1 Spontaneous abortions Hx # Term Pregnancies Ectopic pregnancies Hx # Pregnancies Multiple births # of living children 1 Past Pregnancies Del. Date Name GA/Weeks Outcome Route Bth Weight Gen Labor Lgth Anesthesia Del Locatn Provider FOB 01/02/23 Ant 40 live - full term 7lbs 4oz Male epi dural [facility] KW Oscar Delivery Date: 01/02/23 Last Updated by: Talia Reid Tight nuchal cord x1, 1st degree tear HPI 37 wk ob Details: CARLOTA MANUEL is a 24 year old who presents for routine OB visit. OB Visit CHAPARRO Calculator Estimated Delivery Date Method Current WG Current Estimate 02/02/25 LMP (Uncertain) 36w 6d Other Estimates 02/03/25 Ultrasound #1 36w 5d Expected Delivery Route/Plan Labor Preferences- CB/BF classes: no labor support person: Oscar labor intervention preferences: [] pain management options preferred: epidural cut cord/dad catch: cord : no PP control planned: discussed discussed possible routes of delivery and associated risks: [] special requests: [] Specific Issue/Plans Covid status: [] Flu vaccine: [] Tdap vaccine: given Rhogam: given LARC form signed: yes Problem list reviewed and updated with the most current plan of care details and appropriate orders placed. Relevant counseling for the gestational age provided. Continue routine care and follow up unless otherwise noted in visit notes/problem list details Initial Weight: 150 lb Date -?-?-?-?-?-?-?-?-?-?-?-?- EGA Weight BP Urine Prot -?-?-?-?-?-?-?-?-?-?-?-?- Glucose FHR FuHt Pres Dilation -?-?--?-?-?-?-?-?-?-?-?-?- Effaced St Visit Note 07/01/24 -?-?-?-?-?-?-?-?-?-?-?-?- 9w 1d 154 lb 8 oz (+4 lb 8 oz) 131/71 -?-?-?-?-?-?-?-?-?-?-?-?- 175 -?-?-?-?-?-?-?-?-?-?-?-?- KW- CRL cons wit h dates. declines NIPT. 08/12/24 -?-?-?-?-?-?-?-?-?-?-?-?- 15w 1d 160 lb (+10 lb) 117/73 Trace -?-?-?-?-?-?-?-?-?-?-?-?- Negative 170 145 -?-?-?-?-?-?-?-?-?-?-?-?- SM- no vb crampi ng 09/08/24 -?-?-?-?-?-?-?-?-?-?-?-?- 19w 0d 166 lb 8 oz (+16 lb 8 oz) 124/64 Negative -?-?-?-?-?-?-?-?-?-?-?-?- Negative 135 -?-?-?-?-?-?-?-?-?-?-?-?- JV- no lof, vagi nal bleeding, or cramping. has anatomy scan scheduled for tomorrow in [place]. 10/05/24 -?-?-?-?-?-?-?-?-?-?-?-?- 22w 6d 173 lb 8 oz (+23 lb 8 oz) 106/68 Negative -?-?-?-?-?-?-?-?-?-?-?-?- Negative 145 -?-?-?-?-?-?-?-?-?-?-?-?- KW- no vb/yael pimentel. rich fm. 28 weeks labs discussed- needs rhogam 11/10/24 -?-?-?-?-?-?-?-?-?-?-?-?- 28w 0d 181 lb 8 oz (+31 lb 8 oz) 108/62 Negative -?-?-?-?-?-?-?-?-?-?-?-?- Negative 145 -?-?-?-?-?-?-?-?-?-?-?-?- MH-No VB, LOF. G ood Fm. 28 wk labs pending. Rhogam, tdap and larc. 11/23/24 -?-?-?-?-?-?-?-?-?-?-?-?- 29w 6d 185 lb (+35 lb) 122/70 Negative -?-?-?-?-?-?-?-?-?-?-?-?- Negative 146 30 -?-?-?-?-?-?-?-?-?-?-?-?- MH-No VB, LOF. G ood FM. 12/07/24 -?-?-?-?-?-?-?-?-?-?-?-?- 31w 6d 189 lb 8 oz (+39 lb 8 oz) 124/70 Negative -?-?-?-?-?-?-?-?-?-?-?-?- Negative 140 32 -?-?-?-?-?-?-?-?-?-?-?-?- JV- no lof, vagi nal bleeding, or dec fm. no complaints today other than getting up a lot at night. 12/22/24 -?-?-?-?-?-?-?-?-?-?-?-?- 34w 0d 193 lb (+43 lb) 123/76 Negative -?-?-?-?-?-?-?-?-?-?-?--?- Negative 138 34 -?-?-?-?-?-?-?-?-?-?-?-?- KW- no vb/lof/ct x. good fm. GBS next visit. no concerns today 01/05/25 -?-?-?-?-?-?-?-?-?-?-?-?- 36w 0d 190 lb 4 oz (+40 lb 4 oz) 116/72 Negative -?-?-?-?-?-?-?-?-?-?-?-?- Negative 142 36 Cephalic 0 .5 -?-?-?-?-?-?-?-?-?-?-?-?- 20 -4 MH-No VB, LOF. More irreg ctx. GBS collected 01/11/25 -?-?-?-?-?-?-?-?-?-?-?-?- 36w 6d 194 lb 2 oz (+44 lb 2 oz) 114/74 Negative -?-?-?-?-?-?-?-?-?-?-?-?- Negative 165 37 Cephalic 1 -?-?-?-?-?-?-?-?-?-?-?-?- 50 -3 JV- no lof , vaginal bleeding, or dec fm. gbs neg. wants 39 week IOL. will set up next visit. ACOG First Trimester First Trimester: Desire for , Alcohol, Tobacco Cessation, Illicit/Recreational Drug/Substance Use, Intimate Partner Violence, Barriers to care, Unstable Housing, Communication Barriers, Environmental/Work Hazards, Anticipated Course of Care, Toxoplasmosis Precations, Use of Any medications, Sexual activity, Exercise, Dental Care, Sauna/Hot tub use, Seat Belt use, Childbirth classes/Hospital facilities, Travel, Indications for Ultrasound and Screening for Aneuploidy; Discussed Second Trimester Second Trimester: Signs and Symptoms of Labor, Selecting a care provider, Reproductive Life Planning & Contreception and Care Planning; Discussed Tobacco Cessation, Discussed Depression/Anxiety and Discussed Intimate Partner Violence Third Trimester Third Trimester: Pain Management Plans, Labor support person(s), Immediate Larc, Movement Monitoring, Signs and Symptoms of Preeclampsia, Feeding No , Education and Family Medical Leave or Disability Forms; Discussed Circumcision preference Results POC Urinalysis 2 Dip (Clinic) Office Urine Glucose Negative Last Edit by Talia Reid on 01/11/25 14: 56 Office Urine Protein Negative Last Edit by Talia Reid on 01/11/25 14: 56 Coding Level of Care Code OB Routine Diagnoses Rh negative state in antepartum period O26.899; Z67.91 Encounter for supervision of other normal in third trimester Z34.83 Normal : other normal Trimester: third trimester 36 weeks gestation of Z3A.36 Weeks of gestation: 36 weeks Assessment and Plan Assessment and Plan (1) Rh negative state in antepartum period: Status: Acute Comment: rhogam 28 wk, pp and prn bleeding, Given 11/10/24 (2) Supervision of normal : Status: Acute Qualifiers: Normal : other normal Trimester: third trimester Qualified Code(s): Z34.83 - Encounter for supervision of other normal , third trimester Comment: PRR,, CHAPARRO 02/02/25, MICHAEL Cain, Spouse Oscar (3) : Status: Acute Qualifiers: Weeks of gestation: 36 weeks Qualified Code(s): Z3A.36 - 36 weeks gestation of Comment: Neg GBS. declines genetic and carrier screening, wants to know gender at anatomy scan, nl anatomy Orders: Orders POC Urinalysis 2 Dip (Clinic) Today 01/11/25 1513 <Electronically signed by Cherise Hair DO> Date _ Cherise Snow DO [facility] Medicine[facility] Signature: Date (if applicable) CC: ~ [facility] Work Phone: [phone] 946-219606-03-2025 [facility] [address] [place] [address], [address] [place] [address] OFFICE VISIT Date of Service: 01/05/25 MR#: [id number] Acct: [id number] Name: CARLOTA MANUEL Rep #: [id number] : 2000 Provider: FRAN Ryan Age/Sex: 24/F Location: [facility] [place] Status: Signed Intake Vital Signs 12/07/24 15:27 12/22/24 15:18 01/05/25 10:09 Height 5 ft 8 in 5 ft 8 in 5 ft 8 in Weight: 190 lb 4 oz BMI 28.9 BP 116/72 Intake Visit Reasons: 36 wk ob Chief Complaint: 36 Week OB Transition Program Manager Required: No Is patient in pain?: No Allergies No Known Allergies Allergy (Verified 01/05/25 10:07) Medications ?Medication ?Instructions ?Recorded ?Confirmed ?Type vitamins no.163-iron tab PO 06/18/24 01/05/25 History bis-gly 20 mg-folate no.10 1 mg tablet (PNV Tabs 20-1) Last Menstrual Period: 04/28/24 Zika: Zika virus screening: Negative : No PFSH PFSH Medical History bleeding Surgical History History of dental surgery Broken tibia Broken fibula Family History Brother Cancer older brother- Brain tumor- did chemo and radiation Father S/P triple vessel bypass Social History adopted: No household members: spouse housing: house number of children: 1 current occupational status: employed 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 current occupational exposures/hazards: No pets and animals: Yes pets and animals: dog(s) history of recent travel: No sexually active: Yes Smoking Status: Never smoker second hand exposure: No alcohol intake: current details: Not while substance use type: does not use caffeine: No during the past year weight has: remained stable what type of physical activity do you participate in: walking frequency: 1-2 times per week jayleen/yarsanism: Shinto seatbelt use: always do you feel safe at home: Yes additional social history: - 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 Date Name GA/Weeks Outcome Route Bth Weight Gen Labor Lgth Anesthesia Del Locatn Provider FOB 01/02/23 Ant 40 live - full term 7lbs 4oz Male epi dural [facility] KW Oscar Delivery Date: 01/02/23 Last Updated by: Talia Reid Tight nuchal cord x1, 1st degree tear HPI 36 wk ob Details: CARLOTA MANUEL is a 24 year old who presents for routine OB visit. OB Visit CHAPARRO Calculator Estimated Delivery Date Method Current WG Current Estimate 02/02/25 LMP (Uncertain) 36w 0d Other Estimates 02/03/25 Ultrasound #1 35w 6d Expected Delivery Route/Plan Labor Preferences- CB/BF classes: no labor support person: Oscar labor intervention preferences: [] pain management options preferred: epidural cut cord/dad catch: cord : no PP control planned: discussed discussed possible routes of delivery and associated risks: [] special requests: [] Specific Issue/Plans Covid status: [] Flu vaccine: [] Tdap vaccine: given Rhogam: given LARC form signed: yes Problem list reviewed and updated with the most current plan of care details and appropriate ordersplaced. Relevant counseling for the gestational age provided. Continue routine care and follow up unless otherwise noted in visit notes/problem list details Initial Weight: 150 lb Date -?-?-?-?-?-?-?-?-?-?-?-?- EGA Weight BP Urine Prot -?-?-?-?-?-?-?-?-?-?-?-?- Glucose FHR FuHt Pres Dilation -?-?-?-?-?-?-?-?-?-?-?-?- Effaced St Visit Note 07/01/24 -?-?-?-?-?-?-?-?-?-?-?-?- 9w 1d 154 lb 8 oz (+4 lb 8 oz) 131/71 -?-?-?-?-?-?-?-?-?-?-?-?- 175 -?-?-?-?-?-?-?-?-?-?-?-?- KW- CRL cons wit h dates. declines NIPT. 08/12/24 -?-?-?-?-?-?-?-?-?-?-?-?- 15w 1d 160 lb (+10 lb) 117/73 Trace -?-?-?-?--?-?-?-?-?-?-?-?- Negative 170 145 -?-?-?-?-?-?-?-?-?-?-?-?- SM- no vb crampi ng 09/08/24 -?-?-?-?-?-?-?-?-?-?-?-?- 19w 0d 166 lb 8 oz (+16 lb 8 oz) 124/64 Negative -?-?-?-?-?-?-?-?-?-?-?-?- Negative 135 -?-?-?-?-?-?-?-?-?-?-?-?- JV- no lof, vagi nal bleeding, or cramping. has anatomy scan scheduled for tomorrow in [place]. 10/05/24 -?-?-?-?-?-?-?-?-?-?-?-?- 22w 6d 173 lb 8 oz (+23 lb 8 oz) 106/68 Negative -?-?-?-?-?-?-?-?-?-?-?-?- Negative 145 -?-?-?-?-?-?-?-?-?-?-?-?- KW- no vb/crampi ng. good fm. 28 weeks labs discussed- needs rhogam 11/10/24 -?-?-?-?-?-?-?-?-?-?-?-?- 28w 0d 181 lb 8 oz (+31 lb 8 oz) 108/62 Negative -?-?-?-?-?-?-?-?-?-?-?-?- Negative 145 -?-?-?-?-?-?--?-?-?-?-?-?- MH-No VB, LOF. G ood Fm. 28 wk labs pending. Rhogam, tdap and larc. 11/23/24 -?-?-?-?-?-?-?-?-?-?-?-?- 29w 6d 185 lb (+35 lb) 122/70 Negative -?-?-?-?-?-?-?-?-?-?-?-?- Negative 146 30 -?-?-?-?-?-?-?-?-?-?-?-?- MH-No VB, LOF. G ood FM. 12/07/24 -?-?-?-?-?-?-?-?-?-?--?-?- 31w 6d 189 lb 8 oz (+39 lb 8 oz) 124/70 Negative -?-?-?-?-?-?-?-?-?-?-?-?- Negative 140 32 -?-?-?-?-?-?-?-?-?-?-?-?- JV- no lof, vagi nal bleeding, or dec fm. no complaints today other than getting up a lot at night. 12/22/24 -?-?-?-?-?-?-?-?-?-?-?-?- 34w 0d 193 lb (+43 lb) 123/76 Negative -?-?-?-?-?-?-?-?-?-?-?-?- Negative 138 34 -?-?-?-?-?-?-?-?-?-?-?-?- KW- no vb/lof/ct x. good fm. GBS next visit. no concerns today 01/05/25 -?-?-?-?-?-?-?-?-?-?-?-?- 36w 0d 190 lb 4 oz (+40 lb 4 oz) 116/72 Negative -?-?-?-?-?-?-?-?-?-?-?-?- Negative 142 36 Cephalic 0 .5 -?-?-?-?-?-?-?-?-?-?-?-?- 20 -4 MH-No VB, LOF. More irreg ctx. GBS collected ACOG First Trimester First Trimester: Desire for , Alcohol, Tobacco Cessation, Illicit/Recreational Drug/Substance Use, Intimate Partner Violence, Barriers to care, Unstable Housing, Communication Barriers, Environmental/Work Hazards, Anticipated Course of Care, Toxoplasmosis Precations, Use of Any med ications, Sexual activity, Exercise, Dental Care, Sauna/Hot tub use, Seat Belt use, Childbirth classes/Hospital facilities, Travel, Indications for Ultrasound and Screening for Aneuploidy; Discussed Second Trimester Second Trimester: Signs and Symptoms of Labor, Selecting a care provider, Reproductive Life Planning & Contreception and Care Planning; Discussed Tobacco Cessation, Discussed Depression/Anxiety and Discussed Intimate Partner Violence Third Trimester Third Trimester: Pain Management Plans, Labor support person(s), Immediate Larc, Movement Monitoring, Signs and Symptoms of Preeclampsia, Feeding No , [place] Education and Family Medical Leave or Disability Forms; Discussed Circumcision preference ROS Const Reports system reviewed and no additional complaints, except as documented GI Denies abdominal pain, Denies nausea and Denies vomiting Exam Const General: cooperative Nutritional Appearance: well nourished GI Palpation: soft, nontender and other (gravid) Results POC Urinalysis 2 Dip (Clinic) Office Urine Glucose Negative Last Edit by Pallavi Crews on 01/05/25 10 :12 Office Urine Protein Negative Last Edit by Pallavi Crews on 01/05/25 10 :12 Coding Level of Care Code OB Routine Diagnoses Encounter for supervision of other normal in third trimester Z34.83 Normal : other normal Trimester: third trimester 36 weeks gestation of Z3A.36 Weeks of gestation: 36 weeks Rh negative state in antepartum period O26.899; Z67.91 Assessment and Plan Assessment and Plan (1) Supervision of normal : Status: Acute Qualifiers: Normal : other normal Trimester: third trimester Qualified Code(s): Z34.83 - Encounter for supervision of other normal , third trimester Comment: PRR,, CHAPARRO 02/02/25, MICHAEL Cain, Spouse Oscar (2) : Status: Acute Qualifiers: Weeks of gestation: 36 weeks Qualified Code(s): Z3A.36 - 36 weeks gestation of Comment: declines genetic and carrier screening, wants to know gender at anatomy scan, nl anatomy (3) Rh negative state in antepartum period: Status: Acute Comment: rhogam 28 wk, pp and prn bleeding, Given 11/10/24 Orders: Orders POC Urinalysis 2 Dip (Clinic) Today Plan problem list reviewed and updated for most current plan of care and appropriate orders placed. Relevant counseling for the gestational age appropriate provided and ACOG education checklist updated. Continue routine care and follow up. 01/05/25 1026 s ATHLETE MANAGER ATHLETE MANAGER-C> Date _ Chanel [place] ATHLETE MANAGER ATHLETE MANAGER-C Cosigner Signature: Date (if applicable) CC: ~ [facility]05-20-2025 [facility] [address] [place] [address], [address] [place] [address] OFFICE VISIT Date of Service: 12/22/24 MR#: [id number] Acct: [id number] Name: CARLOTA MANUEL Rep #: [id number] : 2000 Provider: CARMELITA Nielson Age/Sex: 24/F Location: [facility] [place] Status: Signed Intake Vital Signs 11/10/24 13:02 12/07/24 15:27 12/22/24 15:18 Height 5 ft 8 in 5 ft 8 in 5 ft 8 in Weight: 193 lb BMI 29.3 BP 123/76 H Intake Visit Reasons: 34 wk ob Chief Complaint: 34wk ob Transition Program Manager Required: No Is patient in pain?: No Allergies No Known Allergies Allergy (Verified 12/22/24 15:16) Medications ?Medication ?Instructions ?Recorded ?Confirmed ?Type vitamins no.163-iron tab PO 06/18/24 12/22/24 History bis-gly 20 mg-folate no.10 1 mg tablet (PNV Tabs 20-1) Last Menstrual Period: 04/28/24 : No PFSH PFSH Medical History bleeding Surgical History History of dental surgery Broken tibia Broken fibula Family History Brother Cancer older brother- Brain tumor- did chemo and radiation Father S/P triple vessel bypass Social History adopted: No household members: spouse housing: house number of children: 1 current occupational status: employed 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 occupational exposures/hazards: No pets and animals: Yes pets and animals: dog(s) history of recent travel: No sexually active: Yes Smoking Status: Never smoker second hand exposure: No alcohol intake: current details: Not while substance use type: does not use caffeine: No during the past year weight has: remained stable what type of physical activity do you participate in: walking frequency: 1-2 times per week jayleen/yarsanism: Shinto seatbelt use: always do you feel safe at home: Yes additional social history: - Oscar works for [employer] business History 2 Elective abortions Hx Para 1 Spontaneous abortions Hx # Term Pregnancies Ectopic pregnancies Hx # Pregnancies Multiple births # of living children 1 Past Pregnancies Del. Date Name GA/Weeks Outcome Route Bth Weight Gen Labor Lgth Anesthesia Del Locatn Provider FOB 01/02/23 Ant 40 live - full term 7lbs 4oz Male epi dural [facility] KW Oscar Delivery Date: 01/02/23 Last Updated by: Talia Reid Tight nuchal cord x1, 1st degree tear HPI 34 wk ob Details: CARLOTA MANUEL is a 24 year old who presents for routine OB visit. OB Visit CHAPARRO Calculator Estimated Delivery Date Method Current WG Current Estimate 02/02/25 LMP (Uncertain) 34w 0d Other Estimates 02/03/25 Ultrasound #1 33w 6d Expected Delivery Route/Plan Labor Preferences- CB/BF classes: no labor support person: Oscar labor intervention preferences: [] pain management options preferred: epidural cut cord/dad catch: cord : no PP control planned: discussed discussed possible routes of delivery and associated risks: [] special requests: [] Specific Issue/Plans Covid status: [] Flu vaccine: [] Tdap vaccine: given Rhogam: given LARC form signed: yes Problem list reviewed and updated with the most current plan of care details and appropriate ordersplaced. Relevant counseling for the gestational age provided. Continue routine care and follow up unless otherwise noted in visit notes/problem list details Initial Weight: 150 lb Date -?-?-?-?-?-?-?-?-?-?-?-?- EGA Weight BP Urine Prot -?-?-?-?-?-?-?-?-?-?-?-?- Glucose FHR FuHt Pres Dilation -?-?-?-?-?-?-?-?-?-?-?-?- Effaced St Visit Note 07/01/24 -?-?-?-?-?-?-?-?-?-?-?-?- 9w 1d 154 lb 8 oz (+4 lb 8 oz) 131/71 -?-?-?-?-?-?-?-?-?-?-?-?- 175 -?-?-?-?-?-?-?-?-?-?-?-?- KW- CRL cons wit h dates. declines NIPT. 08/12/24 -?-?-?-?-?--?-?-?-?-?-?-?- 15w 1d 160 lb (+10 lb) 117/73 Trace -?-?-?-?-?-?-?-?-?-?-?-?- Negative 170 145 -?-?-?-?-?-?-?-?-?-?-?-?- SM- no vb crampi ng 09/08/24 -?-?-?-?-?-?-?-?-?-?-?-?- 19w 0d 166 lb 8 oz (+16 lb 8 oz) 124/64 Negative -?-?-?-?-?-?-?-?-?-?-?-?- Negative 135 -?-?-?-?-?-?-?-?-?-?-?-?- JV- no lof, vagi nal bleeding, or cramping. has anatomy scan scheduled for tomorrow in [place]. 10/05/24 -?-?--?-?-?-?-?-?-?-?-?-?- 22w 6d 173 lb 8 oz (+23 lb 8 oz) 106/68 Negative -?-?-?-?-?-?-?-?-?-?-?-?- Negative 145 -?-?-?-?-?-?-?-?-?-?-?-?- KW- no vb/yael pimentel. rich fm. 28 weeks labs discussed- needs rhogam 11/10/24 -?-?-?-?-?-?-?-?-?-?-?-?- 28w 0d 181 lb 8 oz (+31 lb 8 oz) 108/62 Negative -?-?-?-?-?-?-?-?-?-?-?-?- Negative 145 -?-?-?-?-?-?-?-?-?-?-?-?- MH-No VB, LOF. G ood Fm. 28 wk labs pending. Rhogam, tdap and larc. 11/23/24 -?-?-?-?-?-?-?-?-?-?-?-?- 29w 6d 185 lb (+35 lb) 122/70 Negative -?-?-?-?-?-?-?-?-?-?-?-?- Negative 146 30 -?-?-?-?-?-?-?-?-?-?-?-?- MH-No VB, LOF. G ood FM. 12/07/24 -?-?-?-?-?-?-?-?-?-?-?-?- 31w 6d 189 lb 8 oz (+39 lb 8 oz) 124/70 Negative -?-?-?-?-?-?-?-?-?-?-?-?- Negative 140 32 -?-?-?-?-?-?-?-?-?-?-?-?- JV- no lof, vagi nal bleeding, or dec fm. no complaints today other than gett ing up a lot at night. 12/22/24 -?-?-?-?-?-?-?-?-?-?-?-?- 34w 0d 193 lb (+43 lb) 123/76 Negative -?-?-?-?-?-?-?-?-?-?-?-?- Negative 138 34 -?-?-?-?-?-?-?-?-?-?-?-?- KW- no vb/lof/ct x. good fm. GBS next visit. no concerns today ACOG First Trimester First Trimester: Desire for , Alcohol, Tobacco Cessation, Illicit/Recreational Drug/Substance Use, Intimate Partner Violence, Barriers to care, Unstable Housing, Communication Barriers, Environmental/Work Hazards, Anticipated Course of Care, Toxoplasmosis Precations, Use of Any med ications, Sexual activity, Exercise, Dental Care, Sauna/Hot tub use, Seat Belt use, Childbirth classes/Hospital facilities, Travel, Indications for Ultrasound and Screening for Aneuploidy; Discussed Second Trimester Second Trimester: Signs and Symptoms of Labor, Selecting a care provider, Reproductive Life Planning & Contreception and Care Planning; Discussed Tobacco Cessation, Discussed Depression/Anxiety and Discussed Intimate Partner Violence Third Trimester Third Trimester: Pain Management Plans, Labor support person(s), Immediate Larc, Movement Monitoring, Signs and Symptoms of Preeclampsia, Infant Feeding No , [place] Education and Family Medical Leave or Disability Forms; Discussed Circumcision preference ROS Const Reports system reviewed and no additional complaints, except as documented Eyes Reports system reviewed and no additional complaints, except as documented ENT Reports system reviewed and no additional complaints, except as documented Card Reports system reviewed and no additional complaints, except as documented Resp Reports system reviewed and no additional complaints, except as documented GI Reports system reviewed and no additional complaints, except as documented, Denies nausea and Denies vomiting Reports system reviewed and no additional complaints, except as documented Musc Reports system reviewed and no additional complaints, except as documented Skin/Breast Reports system reviewed and no additional complaints, except as documented Neuro Yes system reviewed and no additional complaints, except as documented Psych Reports system reviewed and no additional complaints, except as documented Endo Reports system reviewed and no additional complaints, except as documented Brian/Lymph Reports system reviewed and no additional complaints, except as documented Aller/Immun Reports system reviewed and no additional complaints, except as documented Exam Const General: cooperative, healthy appearing and no acute distress Orientation: alert, awake and oriented x3 Neck Neck: normal visual inspection and full ROM Resp Effort & Inspection: normal respiratory effort, able to speak in complete sentences and symmetric chest movement GI Inspection: normal to inspection Palpation: soft and other Other: gravid Skin General: no rashes or lesions noted Neuro General: patient alert, patient awake and patient oriented x3 Cognition: normal cognition Speech: speech normal Gait: normal gait Motor: muscle tone normal throughout Extrem General: normal to inspection and full ROM Psych Appearance: grossly normal Mental Status: mental status grossly normal Mood: congruent mood Affect: normal affect Speech and Movement: speech and movement normal Attitude: cooperative Thought Process: normal Thought Content: normal Judgment: judgment good Results POC Urinalysis 2 Dip (Clinic) Office Urine Glucose Negative Last Edit by Marni Palafox on 12/22/24 15:24 Office Urine Protein Negative Last Edit by Marni Palafox on 12/22/24 15:24 Coding Level of Care Code OB Routine Diagnoses Rh negative state in antepartum period O26.899; Z67.91 Encounter for supervision of other normal in third trimester Z34.83 Normal : other normal Trimester: third trimester 34 weeks gestation of Z3A.34 Weeks of gestation: 34 weeks Assessment and Plan Assessment and Plan (1) Rh negative state in antepartum period: Status: Acute Comment: rhogam 28 wk, pp and prn bleeding, Given 11/10/24 (2) Supervision of normal : Status: Acute Qualifiers: Normal : other normal Trimester: third trimester Qualified Code(s): Z34.83 - Encounter for supervision of other normal , third trimester Comment: PRR,, CHAPARRO 02/02/25, MICHAEL Cain, Spouse Oscar (3) : Status: Acute Qualifiers: Weeks of gestation: 34 weeks Qualified Code(s): Z3A.34 - 34 weeks gestation of Comment: declines genetic and carrier screening, wants to know gender at anatomy scan, nl anatomy Orders: Orders POC Urinalysis 2 Dip (Clinic) Today Plan Details Additional Comments: ACOG trimester education reviewed and updated. see problem list details for updated plan management information and see below for orders placed atthis visit. GA appropriate handout given. 12/22/24 1528 s CNM> Date _ Ragini Nielson CNM Cosigner Signature: Date (if applicable) CC: ~ [facility]05-20-2025 Progress note Author Ragini Nielson [facility] Note Date/Time December 22, 2024 3:28p [facility] [address] [place] [address], [address] [place] [address] OFFICE VISIT Date of Service: 12/22/24 MR#: [id number] Acct: [id number] Name: CARLOTA MANUEL Rep #: [id number] : 2000 Provider: CARMELITA Nielson Age/Sex: 24/F Location: [facility] [place] Status: Signed Intake Vital Signs 11/10/24 13:02 12/07/24 15:27 12/22/24 15:18 Height 5 ft 8 in 5 ft 8 in 5 ft 8 in Weight: 193 lb BMI 29.3 BP 123/76 H Intake Visit Reasons: 34 wk ob Chief Complaint: 34wk ob Transition Program Manager Required: No Is patient in pain?: No Allergies No Known Allergies Allergy (Verified 12/22/24 15:16) Medications ?Medication ?Instructions ?Recorded ?Confirmed ?Type vitamins no.163-iron tab PO 06/18/24 12/22/24 History bis-gly 20 mg-folate no.10 1 mg tablet (PNV Tabs 20-1) Last Menstrual Period: 04/28/24 : No PFSH PFSH Medical History bleeding Surgical History History of dental surgery Broken tibia Broken fibula Family History Brother Cancer older brother- Brain tumor- did chemo and radiation Father S/P triple vessel bypass Social History adopted: No household members: spouse housing: house number of children: 1 current occupational status: employed 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 occupational exposures/hazards: No pets and animals: Yes pets and animals: dog(s) history of recent travel: No sexually active: Yes Smoking Status: Never smoker second hand exposure: No alcohol intake: current details: Not while substance use type: does not use caffeine: No during the past year weight has: remained stable what type of physical activity do you participate in: walking frequency: 1-2 times per week jayleen/yarsanism: Shinto seatbelt use: always do you feel safe at home: Yes additional social history: - Oscar works for [employer] History 2 Elective abortions Hx Para 1 Spontaneous abortions Hx # Term Pregnancies Ectopic pregnancies Hx # Pregnancies Multiple births # of living children 1 Past Pregnancies Del. Date Name GA/Weeks Outcome Route Bth Weight Gen Labor Lgth Anesthesia Del Locatn Provider FOB 01/02/23 Ant 40 live - full term 7lbs 4oz Male epi dural [facility] KW Oscar Delivery Date: 01/02/23 Last Updated by: Talia Reid Tight nuchal cord x1, 1st degree tear HPI 34 wk ob Details: CARLOTA MANUEL is a 24 year old who presents for routine OB visit. OB Visit [facility] Calculator Estimated Delivery Date Method Current WG Current Estimate 02/02/25 LMP (Uncertain) 34w 0d Other Estimates 02/03/25 Ultrasound #1 33w 6d Expected Delivery Route/Plan Labor Preferences- CB/BF classes: no labor support person: Oscar labor intervention preferences: [] pain management options preferred: epidural cut cord/dad catch: cord : no PP control planned: discussed discussed possible routes of delivery and associated risks: [] special requests: [] Specific Issue/Plans Covid status: [] Flu vaccine: [] Tdap vaccine: given Rhogam: given LARC form signed: yes Problem list reviewed and updated with the most current plan of care details and appropriate orders placed. Relevant counseling for the gestational age provided. Continue routine care and follow up unless otherwise noted in visit notes/problem list details Initial Weight: 150 lb Date -?-?-?-?-?-?-?-?-?-?-?-?- EGA Weight BP Urine Prot -?-?-?-?-?-?-?-?-?-?-?-?- Glucose FHR FuHt Pres Dilation -?-?-?-?-?-?-?-?-?-?-?-?- Effaced St Visit Note 07/01/24 -?-?-?-?-?-?-?-?-?-?-?-?- 9w 1d 154 lb 8 oz (+4 lb 8 oz) 131/71 -?-?-?-?-?-?-?-?-?-?-?-?- 175 -?-?-?-?-?-?-?-?-?-?-?-?- KW- CRL cons wit h dates. declines NIPT. 08/12/24 -?-?-?-?-?--?-?-?-?-?-?-?- 15w 1d 160 lb (+10 lb) 117/73 Trace -?-?-?-?-?-?-?-?-?-?-?-?- Negative 170 145 -?-?-?-?-?-?-?-?-?-?-?-?- SM- no vb crampi ng 09/08/24 -?-?-?-?-?-?-?-?-?-?-?-?- 19w 0d 166 lb 8 oz (+16 lb 8 oz) 124/64 Negative -?-?-?-?-?-?-?-?-?-?-?-?- Negative 135 -?-?-?-?-?-?-?-?-?-?-?-?- JV- no lof, vagi nal bleeding, or cramping. has anatomy scan scheduled for tomorrow in [place]. 10/05/24 -?-?--?-?-?-?-?-?-?-?-?-?- 22w 6d 173 lb 8 oz (+23 lb 8 oz) 106/68 Negative -?-?-?-?-?-?-?-?-?-?-?-?- Negative 145 -?-?-?-?-?-?-?-?-?-?-?-?- KW- no vb/crampi ng. good fm. 28 weeks labs discussed- needs rhogam 11/10/24 -?-?-?-?-?-?-?-?-?-?-?-?- 28w 0d 181 lb 8 oz (+31 lb 8 oz) 108/62 Negative -?-?-?-?-?-?-?-?-?-?-?-?- Negative 145 -?-?-?-?-?-?-?-?-?-?-?-?- MH-No VB, LOF. G ood Fm. 28 wk labs pending. Rhogam, tdap and larc. 11/23/24 -?-?-?-?-?-?-?-?-?-?-?-?- 29w 6d 185 lb (+35 lb) 122/70 Negative -?-?-?-?-?-?-?-?-?-?-?-?- Negative 146 30 -?-?-?-?-?-?-?-?-?-?-?-?- MH-No VB, LOF. G ood FM. 12/07/24 -?-?-?-?-?-?-?-?-?-?-?-?- 31w 6d 189 lb 8 oz (+39 lb 8 oz) 124/70 Negative -?-?-?-?-?-?-?-?-?-?-?-?- Negative 140 32 -?-?-?-?-?-?-?-?-?-?-?-?- JV- no lof, vagi nal bleeding, or dec fm. no complaints today other than gett ing up a lot at night. 12/22/24 -?-?-?-?-?-?-?-?-?-?-?-?- 34w 0d 193 lb (+43 lb) 123/76 Negative -?-?-?-?-?-?-?-?-?-?-?-?- Negative 138 34 -?-?-?-?-?-?-?-?-?-?-?-?- KW- no vb/lof/ct x. good fm. GBS next visit. no concerns today ACOG First Trimester First Trimester: Desire for , Alcohol, Tobacco Cessation, Illicit/Recreational Drug/Substance Use, Intimate Partner Violence, Barriers to care, Unstable Housing, Communication Barriers, Environmental/Work Hazards, Anticipated Course of Care, Toxoplasmosis Precations, Use of Any medications, Sexual activity, Exercise, Dental Care, Sauna/Hot tub use, Seat Belt use, Childbirth classes/Hospital facilities, Travel, Indications for Ultrasound and Screening for Aneuploidy; Discussed Second Trimester Second Trimester: Signs and Symptoms of Labor, Selecting a care provider, Reproductive Life Planning & Contreception and Care Planning; Discussed Tobacco Cessation, Discussed Depression/Anxiety and Discussed Intimate Partner Violence Third Trimester Third Trimester: Pain Management Plans, Labor support person(s), Immediate Larc, Movement Monitoring, Signs and Symptoms of Preeclampsia, Infant Feeding No , [place] Education and Family Medical Leave or Disability Forms; Discussed Circumcision preference ROS Const Reports system reviewed and no additional complaints, except as documented Eyes Reports system reviewed and no additional complaints, except as documented ENT Reports system reviewed and no additional complaints, except as documented Card Reports system reviewed and no additional complaints, except as documented Resp Reports system reviewed and no additional complaints, except as documented GI Reports system reviewed and no additional complaints, except as documented, Denies nausea and Denies vomiting Reports system reviewed and no additional complaints, except as documented Musc Reports system reviewed and no additional complaints, except as documented Skin/Breast Reports system reviewed and no additional complaints, except as documented Neuro Yes system reviewed and no additional complaints, except as documented Psych Reports system reviewed and no additional complaints, except as documented Endo Reports system reviewed and no additional complaints, except as documented Brian/Lymph Reports system reviewed and no additional complaints, except as documented Aller/Immun Reports system reviewed and no additional complaints, except as documented Exam Const General: cooperative, healthy appearing and no acute distress Orientation: alert, awake and oriented x3 Neck Neck: normal visual inspection and full ROM Resp Effort & Inspection: normal respiratory effort, able to speak in complete sentences and symmetric chest movement GI Inspection: normal to inspection Palpation: soft and other Other: gravid Skin General: no rashes or lesions noted Neuro General: patient alert, patient awake and patient oriented x3 Cognition: normal cognition Speech: speech normal Gait: normal gait Motor: muscle tone normal throughout Extrem General: normal to inspection and full ROM Psych Appearance: grossly normal Mental Status: mental status grossly normal Mood: congruent mood Affect: normal affect Speech and Movement: speech and movement normal Attitude: cooperative Thought Process: normal Thought Content: normal Judgment: judgment good Results POC Urinalysis 2 Dip (Clinic) Office Urine Glucose Negative Last Edit by Marni Palafox on 12/22/24 15:24 Office Urine Protein Negative Last Edit by Marni Palafox on 12/22/24 15:24 Coding Level of Care Code OB Routine Diagnoses Rh negative state in antepartum period O26.899; Z67.91 Encounter for supervision of other normal in third trimester Z34.83 Normal : other normal Trimester: third trimester 34 weeks gestation of Z3A.34 Weeks of gestation: 34 weeks Assessment and Plan Assessment and Plan (1) Rh negative state in antepartum period: Status: Acute Comment: rhogam 28 wk, pp and prn bleeding, Given 11/10/24 (2) Supervision of normal : Status: Acute Qualifiers: Normal : other normal Trimester: third trimester Qualified Code(s): Z34.83 - Encounter for supervision of other normal , third trimester Comment: PRR,, [facility]O 02/02/25, PC Ant, Spouse Oscar (3) : Status: Acute Qualifiers: Weeks of gestation: 34 weeks Qualified Code(s): Z3A.34 - 34 weeks gestation of Comment: declines genetic and carrier screening, wants to know gender at anatomy scan, nl anatomy Orders: Orders POC Urinalysis 2 Dip (Clinic) Today Plan Details Additional Comments: ACOG trimester education reviewed and updated. see problem list details for updated plan management information and see below for orders placed at this visit. GA appropriate handout given. 12/22/24 3902 <Electronically signed by Ragini newton CNM> Date _ Ragini Nielson CNM Cosigner Signature: Date (if applicable) CC: ~ [facility] Work Phone: 1(228) 826-241604-21-2025 Evaluation note* Diagnosis Onset Date Resolution Status Admit Date acute November 23 3:22pm Rh negative state in antepartum period acute November 23 3:22pm Supervision of normal acute November 23, 2024 3:22pm acute December 07, 2024 3:22pm Rh negative state in antepartum period acute December 07, 2024 3:22pm Supervision of normal acute December 07, 2024 3: 22pm acute December 22, 2024 3:12pm Rh negative state in antepartum period acute December 22, 2024 3:12pm Supervision of normal acute December 22, 2024 3 :12pm acute January 05, 2025 10:05am Rh negative state in antepartum period acute January 05, 2025 10:05am Supervision of normal acute January 05, 2025 1 0:05am acute January 11, 2025 2:38pm Rh negative state in antepartum period acute January 11, 2025 2:38pm Supervision of normal acute January 11, 2025 2 :38pm acute January 21 2:53pm Rh negative state in antepartum period acute January 21 2:53pm Supervision of normal acute January 21, 2025 2:53pm acute January 26 10:46am Rh negative state in antepartum period acute January 26 10:46am Supervision of normal acute January 26, 2025 10:46am Uterine size-date discrepancy, third trimester acute Jan 10:46am acute February 03, 2025 2:33pm Rh negative state in antepartum period acute February 03, 2025 2:33pm Supervision of normal acute February 03, 2025 2 :33pm Uterine size-date discrepancy, third trimester acute Feb 2:33pm Encounter for induction of labor acute February 06, 2025 5 :38pm acute February 06, 2025 5:38pm Rh negative state in antepartum period acute February 06, 2025 5:38pm Supervision of normal acute February 06, 2025 5 :38pm (spontaneous vaginal delivery) acute February 06, 2025 5 :38pm Uterine size-date discrepancy, third trimester acute Feb 5:38pm Routine Follow-Up noneact marge March 23, 2025 2:07pm [facility] Work Phone: [phone]) [phone] Evaluation note* Diagnosis Onset Date Resolution Status Admit Date acute November 10 12:59pm Rh negative state in antepar mateo period acute November 10, 2024 12:59pm Supervision of normal acut e November 10, 2024 12:59pm acute November 23 3:22pm Rh negative state in antepar mateo period acute November 23, 2024 3:22pm Supervision of normal acut e November 23, 2024 3:22pm acute December 07, 2024 3:22pm Rh negative state in antepar mateo period acute December 07, 2024 3: 22pm Supervision of normal acut e December 07, 2024 3:22pm acute December 22, 2024 3:12pm Rh negative state in antepar mateo period acute December 22, 2024 3 :12pm Supervision of normal acut e December 22, 2024 3:12pm acute January 05, 2025 10:05am Rh negative state in antepar mateo period acute January 05, 2025 1 0:05am Supervision of normal acut e January 05, 2025 10:05am acute January 11, 2025 2:38pm Rh negative state in antepar mateo period acute January 11, 2025 2 :38pm Supervision of normal acut e January 11, 2025 2:38pm acute January 21 2:53pm Rh negative state in antepar mateo period acute January 21, 2025 2:53pm Supervision of normal acut e January 21, 2025 2:53pm acute January 26 10:46am Rh negative state in antepar mateo period acute January 26, 2025 10:46am Supervision of normal acut e January 26, 2025 10:46am Uterine size-date discrepanc y, third trimester acute January 26, 2025 10:46am acute February 03, 2025 2:33pm Rh negative state in antepar mateo period acute February 03, 2025 2 :33pm Supervision of normal acut e February 03, 2025 2:33pm Uterine size-date discrepanc y, third trimester acute February 03, 2025 2 :33pm [facility] Work Phone: 1(575) 450-507704-08-2025 Evaluation note* Diagnosis Onset Date Resolution Status Admit Date acute November 10 12:59pm Rh negative state in antepar mateo period acute November 10, 2024 12:59pm Supervision of normal acut e November 10, 2024 12:59pm acute November 23 3:22pm Rh negative state in antepar mateo period acute November 23, 2024 3:22pm Supervision of normal acut e November 23, 2024 3:22pm acute December 07, 2024 3:22pm Rh negative state in antepar mateo period acute December 07, 2024 3: 22pm Supervision of normal acut e December 07, 2024 3:22pm acute December 22, 2024 3:12pm Rh negative state in antepar mateo period acute December 22, 2024 3 :12pm Supervision of normal acut e December 22, 2024 3:12pm acute January 05, 2025 10:05am Rh negative state in antepar mateo period acute January 05, 2025 1 0:05am Supervision of normal acut e January 05, 2025 10:05am acute January 11, 2025 2:38pm Rh negative state in antepar mateo period acute January 11, 2025 2 :38pm Supervision of normal acut e January 11, 2025 2:38pm acute January 21 2:53pm Rh negative state in antepar mateo period acute January 21, 2025 2:53pm Supervision of normal acut e January 21, 2025 2:53pm acute January 26 10:46am Rh negative state in antepar mateo period acute January 26, 2025 10:46am Supervision of normal acut e January 26, 2025 10:46am Uterine size-date discrepanc y, third trimester acute January 26, 2025 10:46am acute February 03, 2025 2:33pm Rh negative state in antepar mateo period acute February 03, 2025 2 :33pm Supervision of normal acut e February 03, 2025 2:33pm Uterine size-date discrepanc y, third trimester acute February 03, 2025 2 :33pm Encounter for induction of labor acu te February 06, 2025 5:38pm acute February 06, 2025 5:38pm Rh negative state in antepar mateo period acute February 06, 2025 5 :38pm Supervision of normal acut e February 06, 2025 5:38pm (spontaneous vaginal delivery) acute February 06, 2025 5 :38pm Uterine size-date discrepanc y, third trimester acute February 06, 2025 5 :38pm [facility] Work Phone: 1(443) 847-892903-03-2025 Evaluation note* Diagnosis Onset Date Resolution Status Admit Date acute October 05 3:08pm Rh negative state in antepar mateo period acute October 05, 2024 3:08pm Supervision of normal acut e October 05, 2024 3:08pm acute November 10 12:59pm Rh negative state in antepar mateo period acute November 10, 2024 12:59pm Supervision of normal acut e November 10, 2024 12:59pm acute November 23 3:22pm Rh negative state in antepar mateo period acute November 23, 2024 3:22pm Supervision of normal acut e November 23, 2024 3:22pm acute December 07, 2024 3:22pm Rh negative state in antepar mateo period acute December 07, 2024 3: 22pm Supervision of normal acut e December 07, 2024 3:22pm acute December 22, 2024 3:12pm Rh negative state in antepar mateo period acute December 22, 2024 3 :12pm Supervision of normal acut e December 22, 2024 3:12pm acute January 05, 2025 10:05am Rh negative state in antepar mateo period acute January 05, 2025 1 0:05am Supervision of normal acut e January 05, 2025 10:05am [facility] Work Phone: 1(744) 319-738303-03-2025 Evaluation note* Diagnosis Onset Date Resolution Status Admit Date acute October 05 3:08pm Rh negative state in antepar mateo period acute October 05, 2024 3:08pm Supervision of normal acut e October 05, 2024 3:08pm acute November 10 12:59pm Rh negative state in antepar mateo period acute November 10, 2024 12:59pm Supervision of normal acut e November 10, 2024 12:59pm acute November 23 3:22pm Rh negative state in antepar mateo period acute November 23, 2024 3:22pm Supervision of normal acut e November 23, 2024 3:22pm acute December 07, 2024 3:22pm Rh negative state in antepar mateo period acute December 07, 2024 3: 22pm Supervision of normal acut e December 07, 2024 3:22pm acute December 22, 2024 3:12pm Rh negative state in antepar mateo period acute December 22, 2024 3 :12pm Supervision of normal acut e December 22, 2024 3:12pm acute January 05, 2025 10:05am Rh negative state in antepar mateo period acute January 05, 2025 1 0:05am Supervision of normal acut e January 05, 2025 10:05am acute January 11, 2025 2:38pm Rh negative state in antepar mateo period acute January 11, 2025 2 :38pm Supervision of normal acut e January 11, 2025 2:38pm [facility] Work Phone: 1(156) 417-956703-03-2025 Evaluation note* Diagnosis Onset Date Resolution Status Admit Date acute October 05 3:08pm Rh negative state in antepar mateo period acute October 05, 2024 3:08pm Supervision of normal acut e October 05, 2024 3:08pm acute November 10 12:59pm Rh negative state in antepar mateo period acute November 10, 2024 12:59pm Supervision of normal acut e November 10, 2024 12:59pm acute November 23 3:22pm Rh negative state in antepar mateo period acute November 23, 2024 3:22pm Supervision of normal acut e November 23, 2024 3:22pm acute December 07, 2024 3:22pm Rh negative state in antepar mateo period acute December 07, 2024 3: 22pm Supervision of normal acut e December 07, 2024 3:22pm acute December 22, 2024 3:12pm Rh negative state in antepar mateo period acute December 22, 2024 3 :12pm Supervision of normal acut e December 22, 2024 3:12pm acute January 05, 2025 10:05am Rh negative state in antepar mateo period acute January 05, 2025 1 0:05am Supervision of normal acut e January 05, 2025 10:05am acute January 11, 2025 2:38pm Rh negative state in antepar mateo period acute January 11, 2025 2 :38pm Supervision of normal acut e January 11, 2025 2:38pm acute January 21 2:53pm Rh negative state in antepar mateo period acute January 21, 2025 2:53pm Supervision of normal acut e January 21, 2025 2:53pm [facility] Work Phone: 1(968) 148-838303-03-2025 Evaluation note* Diagnosis Onset Date Resolution Status Admit Date acute October 05 3:08pm Rh negative state in antepar mateo period acute October 05, 2024 3:08pm Supervision of normal acut e October 05, 2024 3:08pm acute November 10 12:59pm Rh negative state in antepar mateo period acute November 10, 2024 12:59pm Supervision of normal acut e November 10, 2024 12:59pm acute November 23 3:22pm Rh negative state in antepar mateo period acute November 23, 2024 3:22pm Supervision of normal acut e November 23, 2024 3:22pm acute December 07, 2024 3:22pm Rh negative state in antepar mateo period acute December 07, 2024 3: 22pm Supervision of normal acut e December 07, 2024 3:22pm acute December 22, 2024 3:12pm Rh negative state in antepar mateo period acute December 22, 2024 3 :12pm Supervision of normal acut e December 22, 2024 3:12pm acute January 05, 2025 10:05am Rh negative state in antepar mateo period acute January 05, 2025 1 0:05am Supervision of normal acut e January 05, 2025 10:05am acute January 11, 2025 2:38pm Rh negative state in antepar mateo period acute January 11, 2025 2 :38pm Supervision of normal acut e January 11, 2025 2:38pm acute January 21 2:53pm Rh negative state in antepar mateo period acute January 21, 2025 2:53pm Supervision of normal acut e January 21, 2025 2:53pm acute January 26 10:46am Rh negative state in antepar mateo period acute January 26, 2025 10:46am Supervision of normal acut e January 26, 2025 10:46am Uterine size-date discrepanc y, third trimester acute January 26, 2025 10:46am [facility] Work Phone: [phone] Evaluation note* Diagnosis Onset Date Resolution Status Admit Date acute September 08, 2024 2:41pm Rh negative state in antepartum period acute September 08, 2024 2:41pm Supervision of normal acute September 08 2:41pm acute October 05 3:08pm Rh negative state in antepartum period acute October 05 3:08pm Supervision of normal acute October 05, 2024 3:08pm acute November 10 12:59pm Rh negative state in antepartum period acute November 10 12:59pm Supervision of normal acute November 10, 2024 12:59pm acute November 23 3:22pm Rh negative state in antepartum period acute November 23 3:22pm Supervision of normal acute November 23, 2024 3:22pm acute December 07, 2024 3:22pm Rh negative state in antepartum period acute December 07, 2024 3:22pm Supervision of normal acute December 07, 2024 3: 22pm acute December 22, 2024 3:12pm Rh negative state in antepartum period acute December 22, 2024 3:12pm Supervision of normal acute December 22, 2024 3 :12pm [facility] Work Phone: 1([phone]) 686-350202-04-2025 Evaluation note* Diagnosis Onset Date Resolution Status Admit Date acute September 08, 2024 2:41pm Rh negative state in antepartum period acute September 08, 2024 2:41pm Supervision of normal acute September 08 2:41pm acute October 05 3:08pm Rh negative state in antepartum period acute October 05 3:08pm Supervision of normal acute October 05, 2024 3:08pm acute November 10 12:59pm Rh negative state in antepartum period acute November 10 12:59pm Supervision of normal acute November 10, 2024 12:59pm acute November 23 3:22pm Rh negative state in antepartum period acute November 23 3:22pm Supervision of normal acute November 23, 2024 3:22pm acute December 07, 2024 3:22pm Rh negative state in antepartum period acute December 07, 2024 3:22pm Supervision of normal acute December 07, 2024 3: 22pm acute December 22, 2024 3:12pm Rh negative state in antepartum period acute December 22, 2024 3:12pm Supervision of normal acute December 22, 2024 3 :12pm acute January 05, 2025 10:05am Rh negative state in antepartum period acute January 05, 2025 10:05am Supervision of normal acute January 05, 2025 1 0:05am [facility] Work Phone: [phone]) 979-310901-08-2025 Evaluation note* Diagnosis Onset Date Resolution Status Admit Date acute August 12, 2 025 2:35pm Rh negative state in antepartum period acute August 12, 025 2:35pm Supervision of normal acute August 12 2:35pm acute September 08, 2024 2:41pm Rh negative state in antepartum period acute September 08, 2024 2:41pm Supervision of normal acute September 08 2:41pm acute October 05 3:08pm Rh negative state in antepartum period acute October 05 3:08pm Supervision of normal acute October 05, 2024 3:08pm acute November 10 12:59pm Rh negative state in antepartum period acute November 10 12:59pm Supervision of normal acute November 10, 2024 12:59pm [facility] Work Phone: 1(449) 573-328105-31-2023 Discharge summary Author Ragini Nielson [facility] January 02, 2023 2:27am Note Date/Time January 02, 2023 2:27a m [facility] Medical Records Department [address] [place] [address] Instructions for Home/Discharge Instructions 01/02/23223 MR#: [id number] Acct: [id number] Name: CARLOTA MANUEL Rep #:[id number] : 2000 22 From: Ragini Nielson CNM PCP: Care Physician,Sherri Primary Status :ADM IN Discharge Instructions Diet Discharge Diet: No restrictions Activity Discharge Activity: Return to Normal Activity May resume sexual activity in: 6-8 weeks Dressing / Incision Call your doctor if you observe: Fever of 101 or Higher, Coldness, Increased Pain, Numbness or Tingling, Change in Color, Inability to urinate, Inability to have a bowel movement, Using more than 1 pad per hour, Shortness of breath, Dizziness, Fainting spells, Swelling in the ankles, Chest pain, Increased palpitations (irregular heartbeat), Calf discomfort and Uncontrolled pain Follow Up Care Please Follow Up With: Ragini Nielson CNM When: Please call the office to schedule your follow up appointment in 6 weeks. If you had high blood pressure please call to schedule an appointment in 2 weeks. Test Results: Test results from this visit will be discussed in further detail at your follow- up appointment, if applicable. Discharge Plan Admission Admit Date/Time: 01/01/23 08:45 Attending Provider: Ragini Nielson Primary Care Provider: Care Physician,Sherri Primary Discharge Orders/Prescriptions Prescriptions: No Action 1 mg Tablet 1 tab PO DAILY Referrals / Follow Up: Care Physician,No Primary [Primary Care Provider] - Disposition Disposition (needs filled in before D/C Order can be placed): Home, Self Care 01/02/23226<Electronically signed by Ragini Nielson CNM>Ragini Nielson CNM CC: No Primary Care Physician ~ Signed [facility] Work Phone: 1([phone]) 693-257805-31-2023 Procedure [facility] 01-01-2023 Progress note Author Ragini Nielson [facility] January 01, 2023 9:21pm Note Date/Time January 01, 2023 9:21p [facility] Medical Records Department [address] [place] [id number] Progress Note 01/01/232115 MR#: [id number] Acct: [id number] Name: CARLOTA MANUEL Rep #:[id number] : 2000 22 From: Ragini Nielson CNM PCP: Care Physician,No Primary Status :ADM IN Location: PK258-2 Progress Note comfortable with epidural current tracing: FHT: 130 Moderate variability reactive early decelerations category I tracing-reassuring Cookson: strong Contractions every 2-3 minutes SVE 6.5/100/-1 per nursing exam pitocin 8mu reviewed tracing abnormalities since last note: internal monitors placed due to difficulty tracing A/P: continue with position changes continue titration of pitocin according to policy. GBS neg anticipate Assessment & Plan Assessment/Plan (1) Rh negative state in antepartum period: (2) Supervision of normal first : (3) : QUALIFIERS: Weeks of gestation: 40 weeks Qualified Code(s): Z3A.40 - 40 weeks gestation of (4) SROM (spontaneous rupture of membranes): Multi Select Codes Urinary/Genital Urinary/Genital CPT Codes: No Charge 01/01/232120 <Electronically signed by Ragini Nielson CNM> Ragini Nielson CNM Cosigner Signature (if applicable): CC: ~ Signed [facility] Work Phone: 1(555) 306-393905-30-2023 History and physical note Author Ragini Nielson [facility] January 01, 2023 1:27pm Note Date/Time January 01, 2023 1:27p [facility] Medical Records Department [address] [place] [id number] H&P 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 Maternal Data Information CHAPARRO Calculator Estimated Delivery Date Method Current WG Current Estimate 12/27/22 LMP (Certain) 40w 5d Final CHAPARRO: 12/27/22 Final CHAPARRO Source: US >20 weeks Gestational age: 40.5 weeks PFSH PFSH Home Medications cjlbpyrf-gra-Tc-FA 1 mg tablet 1 tab PO DAILY 12/11/22 [History Last Taken 12/31/22] Allergy/AdvReac Type Severity Reaction Status Date / Time No Known Allergies Allergy Verified 01/01/23 09:04 Family History Brother Cancer older brother- Brain tumor- did chemo and radiation Father S/P triple vessel bypass Surgical History Broken fibula Broken tibia History of dental surgery Social History adopted: No household members: significant other housing: house current occupational status: employed 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 pets and animals: Yes pets and animals: dog(s) sexually active: Yes Smoking Status: Never smoker second hand exposure: No alcohol intake: current details: Not while substance use type: does not use seatbelt use: always do you feel safe at home: Yes additional social history: - Oscar works for [employer] History 1 Elective abortions Hx Para 0 Spontaneous abortions Hx # Term Pregnancies Ectopic pregnancies Hx # Pregnancies Multiple births # of living children Visit Details Expected Delivery Route/Plan Labor Preferences- CB/BF classes: encouraged labor support person: Oscar labor intervention preferences: [] pain management options preferred: Epidural. cut cord/dad catch: no : probably not, enc class PP control planned: discussed discussed possible routes of delivery and associated risks: [] special requests: [] Plans Covid status:unvaccinated, not interested in vaccinating. Flu vaccine: declines Tdap vaccine: done Rhogam: given LARC form signed: yes Problem list reviewed and updated with the most current plan of care details and appropriate orders placed. Relevant counseling for the gestational age provided. Continue routine care and follow up unless otherwise noted in visit notes/problem list details OB Flowsheet Initial Weight: Not Recorded Date -?-?-?-?-?-?-?-?-?-?-?-?- EGA Weight BP Urine Prot -?-?-?-?-?-?-?-?-?--?-?-?- Glucose FHR FuHt Pres Dilation -?-?-?-?-?-?-?-?-?-?-?-?- Effaced St Visit Note 05/22/22 -?-?-?-?-?-?-?-?-?-?-?-?- 8w 5d 156 lb 123/75 -?-?-?-?-?-?-?-?-?-?-?-?- 185 -?-?-?-?-?-?-?-?-?-?-?-?- JV- CRL consiste nt with LMP. decinding on NIPT and carrier testing. box kits given. will decide and go to lab in 2 weeks if wants them 06/20/22 -?-?-?-?-?-?-?-?-?-?-?-?- 12w 6d 160 lb 123/75 Negative -?-?-?-?-?-?-?-?-?-?-?-?- Negative 170 -?-?-?-?-?-?-?-?-?-?-?-?- JV- no lof, or s potting. some cramping. needs new ob labs today and anatomy scan ordered. 07/23/22 -?-?-?-?-?-?-?-?-?-?-?-?- 17w 4d 165 lb 8 oz 130/77 Nega tive -?-?-?-?-?-?-?-?-?-?-?-?- Negative 155 -?-?-?-?-?-?-?-?-?-?-?-?- MH-No VB, LOF. N o movement yet. Reviewed PN labs. MFM US 08/07/22 08/23/22 -?-?-?-?-?-?-?-?-?-?-?-?- 22w 0d 174 lb 6 oz 110/74 Nega tive -?-?-?-?-?-?-?-?-?-?-?-?- Negative 139 -?-?-?-?-?-?-?-?-?-?-?-?- JV- normal anato my scan. no complaints today. 09/17/22 -?-?-?-?-?-?-?-?-?-?-?-?- 25w 4d 184 lb 114/73 Negative -?-?-?-?-?-?-?-?-?-?-?-?- Negative 145 25 -?-?-?-?-?-?-?-?-?-?-?-?- SM- no vb lof go od fm no regular ctx 10/08/22 -?-?-?-?-?-?-?-?-?-?-?-?- 28w 4d 190 lb 4 oz 120/78 Nega tive -?-?-?-?-?-?-?-?-?-?-?-?- Negative 149 28 -?-?-?-?-?-?-?-?-?-?-?-?- MH-No Vb, LOF. G ood FM. Larc, rhogam, 28 wk labs 10/22/22 -?-?-?-?--?-?-?-?-?-?-?-?- 30w 4d 30 lb 4 oz 115/71 Negat marge -?-?-?-?-?-?-?-?-?-?-?-?- Negative 142 30 -?-?-?-?-?-?-?-?-?-?-?-?- MH-No VB, LOF. G ood FM. tdap 11/09/22 -?-?-?-?-?-?-?-?-?-?-?-?- 33w 1d 193 lb 8 oz 115/74 Nega tive -?-?-?-?-?-?-?-?-?-?-?-?- Negative 135 33 -?-?-?-?-?-?-?-?-?-?-?--?- SM- no vb lof go od fm no regular ctx 11/21/22 -?-?-?-?-?-?-?-?-?-?-?-?- 34w 6d 197 lb 116/72 Negative -?-?-?-?-?-?-?-?-?-?-?-?- Negative 147 34 -?-?-?-?-?-?-?-?-?-?-?-?- JV- no lof, vagi nal bleeding, or dec fm. gbs next visit. 12/07/22 -?-?-?-?-?-?-?-?-?-?-?-?- 37w 1d 200 lb 2 oz 128/80 Nega tive -?-?-?-?-?-?-?-?-?-?-?-?- Negative 130 37 Cephalic 0 .5 -?-?-?-?-?-?-?-?-?-?-?-?- 50 -2 KW- +fm, n o lof/ctx/vb. GBS done today. labor precautions. 12/14/22 -?-?-?-?-?-?-?-?-?-?-?-?- 38w 1d 198 lb 2 oz 122/76 Nega tive -?-?-?-?-?-?-?-?-?-?-?-?- Negative 159 38 Cephalic -?-?-?-?-?-?-?-?-?-?-?-?- JV- declines exa m today. no complaints other than feeling sore from her fall this weekend. was monitored on L&D. no lof, vaginal bleeding, or dec fm. 12/21/22 -?-?-?-?-?-?-?-?-?-?-?-?- 39w 1d 203 lb 108/72 Negative -?-?-?-?-?-?-?-?-?-?-?-?- Negative 140 38 1.5 -?-?-?-?-?-?-?-?-?-?-?-?- 60 -2 kw- + fm, no lof/vb/ctx. labor precaution. no concerns 12/28/22 -?-?-?-?-?-?-?-?-?-?-?-?- 40w 1d 202 lb 4 oz 127/79 Trac e -?-?-?-?-?-?-?-?-?-?-?-?- Negative 138 39 Cephalic 0 .5 -?-?-?-?-?-?-?-?-?-?-?-?- 50 -3 LC- r/b/a of IOL at 41 weeks reviewed. pt would like 41 week IOL. scheduled for 01/03/2023 LC- +fm, denies lof/vb/ctx. r/b/a of IOL at 41 weeks reviewed. pt would like 41 week IOL. scheduled for 01/03/2023 01/01/23 -?-?-?-?-?-?-?-?-?-?-?-?- 40w 5d 201 lb 6.4 oz 126/67 125/75 124/74 123/70 121/66 129/72 123/72 -?-?-?-?-?-?-?-?-?-?-?-?- -?-?-?-?-?-?-?-?-?-?-?-?- NST FHR Rate Baby A Baseline: 130 Variability:: Moderate Accelerations:: 15 x 15 Decelerations:: None NST Reactive:: Yes FHR Category:: Category I Uterine Activity:: 2-4 minutes ROS Constitutional Constitutional: Denies change in weight, fatigue, fever(s), headache(s), poor appetite or weakness Eyes Eyes: Denies blurry vision, change in vision, floaters, seeing flashes or spots in vision ENT HEENT: Denies dizziness, headache(s), loss taste/smell or sore throat Cardiovascular Cardiovascular: Denies chest pain, dizziness, dyspnea, irregular heart rhythm, lightheadedness, palpitations or rapid heart rate Respiratory/Chest Respiratory/Chest: Denies change in mental status, chest tightness, cough, dyspnea or breast pain Gastrointestinal Gastrointestinal: Denies anorexia, chewing difficulty, constipation, diarrhea or weight changes Genitourinary Genitourinary: Denies difficulty urinating, dysuria, flank pain, genital pain, urinary frequency or urinary urgency Musculoskeletal Musculoskeletal: Denies back pain, difficulty walking, extremity pain, joint pain, muscle cramps or muscle weakness Integumentary Integumentary: Denies lesions or unusual bruising Neurologic Neurologic: Denies abnormal movements, abnormal speech, dizziness, numbness, seizure-like activity, syncope or weakness Psychiatric Psychiatric: Denies behavioral changes, change in appetite, confusion, depression, homicidal ideation, suicidal ideation or suicidal thoughts Endocrine Endocrinology: Denies excessive sweating, polydipsia or polyuria Hematologic/Lymphatic Hematologic/Lymphatic: Denies anemia Allergic/Immunologic Allergic/Immunologic: Denies itchy eyes, lip swelling, throat swelling, tongue swelling or wheezing Vital Signs Vital Signs Vital Signs: 01/01/23 08:01 01/01/23 08:01 01/01/23 08:04 Temperature 98.6 F Temperature Source Pulse Rate 68 Blood Pressure 126/67 H BP Systolic 126 BP Diastolic 67 Pulse Ox 01/01/23 10:03 01/01/23 10:03 01/01/23 10:03 Temperature 98.6 F Temperature Source Pulse Rate 73 Blood Pressure 125/75 H BP Systolic 125 BP Diastolic 75 Pulse Ox 01/01/23 10:06 01/01/23 10:06 01/01/23 10:01 Temperature Temperature Source Temporal Pulse Rate 81 Blood Pressure BP Systolic BP Diastolic Pulse Ox 98 01/01/23 10:01 01/01/23 11:04 01/01/23 11:04 Temperature 98.6 F Temperature Source Pulse Rate 73 Blood Pressure 124/74 H BP Systolic 124 BP Diastolic 74 Pulse Ox 01/01/23 11:05 01/01/23 11:04 01/01/23 11:51 Temperature 98.1 F Temperature Source Temporal Pulse Rate Blood Pressure 123/70 H BP Systolic 123 BP Diastolic 70 Pulse Ox 01/01/23 11:51 01/01/23 11:51 01/01/23 13:10 Temperature 98.8 F Temperature Source Pulse Rate 70 Blood Pressure BP Systolic BP Diastolic Pulse Ox 99 01/01/23 13:10 01/01/23 13:10 01/01/23 13:15 Temperature Temperature Source Pulse Rate 54 L 56 L Blood Pressure 121/66 H BP Systolic 121 BP Diastolic 66 Pulse Ox 01/01/23 13:15 01/01/23 13:17 01/01/23 13:17 Temperature Temperature Source Pulse Rate 58 L Blood Pressure 129/72 H BP Systolic 129 BP Diastolic 72 Pulse Ox 99 01/01/23 13:20 01/01/23 13:20 Temperature Temperature Source Pulse Rate 58 L Blood Pressure BP Systolic BP Diastolic Pulse Ox 98 Weight Weight: 201 lb 6.4 oz Body Mass Index (BMI) 30.6 Physical Exam Const alert, oriented x3 and no apparent distress General Appearance: cooperative Orientation / Consciousness: awake HEENT normocephalic Neck full ROM Lymph Lymphatic: no lymphadenopathy noted Chest inspection of chest normal Resp normal respiratory effort and normal air movement Effort and Inspection: able to speak in complete sentences and symmetric chest movement GI soft to palpation and non-tender Inspection: gravid Palpation: soft; Negative for tender external exam normal Back/Spine normal to inspection Extremity normal to inspection and full ROM Skin no rashes or lesions noted Psych mental status grossly normal Appearance: grossly normal Speech: normal speech Labs Labs Labs: Blood Type A NEGATIVE Antibody Screen POSITIVE Hct 38.8 % (37-47) Hgb 13.5 g/dL (12.0-15.0) Syphilis Total Ab Non-reactive Rubella IgG Antibody Reactive (Nonreactive) Hep Bs Antigen Non-Reactive (Nonreactive) Chlamydia DNA (RIVERA) Negative (Negative) Neisseria gonorrhoeae DNA ([facility]IVERA) Negative (Negative) HIV 1&2 Antibody Non-Reactive (Nonreactive) Glucose 1 Hr 50 gm 116 mg/dL (70-140) Assessment & Plan (1) SROM (spontaneous rupture of membranes): PLAN: Patient presents IAL, plan expectant management for , pitocin/AROM PRN if needed. Pain management: plans epidural. GBS negative. Management of any complications: none I have reviewed the [facility] and made any clinically relevant updates. Reviewed with Dr Herr and agrees with POC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 declines genetic and carrier screening, wants to know gender at anatomy scan, nl anatomy (3) Rh negative state in antepartum period: Status: Acute Comment: rhogam 28 wk, pp and prn bleeding, Given 11/10/24 Orders: Orders POC Urinalysis 2 Dip (Clinic) Today Plan problem list reviewed and updated for most current plan of care and appropriate orders placed. Relevant counseling for the gestational age appropriate provided and ACOG education checklist updated. Continue routine care and follow up. 01/05/25 1026 <Electronically signed by Chanel newton ATHLETE MANAGER ATHLETE MANAGER-C> Date _ Chanel Ryan ATHLETE MANAGER ATHLETE MANAGER-C Cosigner Signature: Date (if applicable) CC: ~ [facility] Work Phone: Progress note Author Rosalinda Herr [facility] Note Date/Time January 26, 2025 11:4 5am [facility] [address] [place] [address], [address] [place] [address] OFFICE VISIT Date of Service: 01/26/25 MR#: [id number] Acct: [id number] Name: CARLOTA MANUEL Rep #: [id number] : 2000 Provider: Dr. Jeramie Herr MD Age/Sex: 24/F Location: [facility] [place] Status: Signed Intake Vital Signs 12/22/24 15:18 01/21/25 14:59 01/26/25 10:52 01/26/25 10:57 Height 5 ft 8 in 5 ft 8 in 5 ft 8 in 5 ft 8 in Weight: 194 lb 8 oz BMI 29.5 BP 120/62 Intake Visit Reasons: 39 wk ob Transition Program Manager Required: No Is patient in pain?: No Allergies No Known Allergies Allergy (Verified 01/26/25 10:50) Medications ?Medication ?Instructions ?Recorded ?Confirmed ?Type vitamins no.163-iron tab PO 06/18/24 01/26/25 History bis-gly 20 mg-folate no.10 1 mg tablet (PNV Tabs 20-1) Last Menstrual Period: 04/28/24 Zika: Zika virus screening: Negative : No PFSH PFSH Medical History bleeding Surgical History History of dental surgery Broken tibia Broken fibula Family History Brother Cancer older brother- Brain tumor- did chemo and radiation Father S/P triple vessel bypass Social History adopted: No household members: spouse housing: house number of children: 1 current occupational status: employed 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 occupational exposures/hazards: No pets and animals: Yes pets and animals: dog(s) history of recent travel: No sexually active: Yes Smoking Status: Never smoker second hand exposure: No alcohol intake: current details: Not while substance use type: does not use caffeine: No during the past year weight has: remained stable what type of physical activity do you participate in: walking frequency: 1-2 times per week jayleen/yarsanism: Shinto seatbelt use: always do you feel safe at home: Yes additional social history: - 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 Date Name GA/Weeks Outcome Route Bth Weight Gen Labor Lgth Anesthesia Del Locatn Provider FOB 01/02/23 Ant 40 live - full term 7lbs 4oz Male epi dural [facility] SWETA Moore Delivery Date: 01/02/23 Last Updated by: Talia Reid Tight nuchal cord x1, 1st degree tear HPI 39 wk ob Details: CARLOTA MANUEL is a 24 year old who presents for routine OB visit. OB Visit CH[facility]ARRO Calculator Estimated Delivery Date Method Current WG Current Estimate 02/02/25 LMP (Uncertain) 39w 0d Other Estimates 02/03/25 Ultrasound #1 38w 6d Expected Delivery Route/Plan Labor Preferences- CB/BF classes: no labor support person: Oscar labor intervention preferences: [] pain management options preferred: epidural cut cord/dad catch: cord : no PP control planned: discussed discussed possible routes of delivery and associated risks: [] special requests: [] Specific Issue/Plans Covid status: [] Flu vaccine: [] Tdap vaccine: given Rhogam: given LARC form signed: yes Problem list reviewed and updated with the most current plan of care details and appropriate orders placed. Relevant counseling for the gestational age provided. Continue routine care and follow up unless otherwise noted in visit notes/problem list details Initial Weight: 150 lb Date -?-?-?-?-?-?-?-?-?-?-?-?- EGA Weight BP Urine Prot -?-?-?-?-?-?-?-?-?-?-?-?- Glucose FHR FuHt Pres Dilation -?-?-?-?-?-?-?-?-?-?-?-?- Effaced St Visit Note 07/01/24 -?-?-?-?-?-?-?-?-?-?-?-?- 9w 1d 154 lb 8 oz (+4 lb 8 oz) 131/71 -?-?-?-?-?-?-?-?-?-?-?-?- 175 -?-?-?-?-?-?-?-?-?-?-?-?- KW- CRL cons wit h dates. declines NIPT. 08/12/24 -?-?-?-?-?-?-?-?-?-?-?-?- 15w 1d 160 lb (+10 lb) 117/73 Trace -?-?-?-?-?-?-?-?-?-?-?-?- Negative 170 145 -?-?-?-?-?-?-?-?-?-?-?-?- SM- no vb surii ng 09/08/24 -?-?-?-?-?-?-?-?-?-?-?-?- 19w 0d 166 lb 8 oz (+16 lb 8 oz) 124/64 Negative -?-?-?-?-?-?-?-?-?-?-?-?- Negative 135 -?-?-?-?-?-?-?-?-?-?-?-?- JV- no lof, vagi nal bleeding, or cramping. has anatomy scan scheduled for tomorrow in [place]. 10/05/24 -?-?-?-?-?-?-?-?-?-?-?-?- 22w 6d 173 lb 8 oz (+23 lb 8 oz) 106/68 Negative -?-?--?-?-?-?-?-?-?-?-?-?- Negative 145 -?-?-?-?-?-?-?-?-?-?-?-?- KW- no vb/crampi ng. rich fm. 28 weeks labs discussed- needs rhogam 11/10/24 -?-?-?-?-?-?-?-?--?-?-?-?- 28w 0d 181 lb 8 oz (+31 lb 8 oz) 108/62 Negative -?-?-?-?-?-?-?-?-?-?-?-?- Negative 145 -?-?-?-?-?-?-?-?-?-?-?-?- MH-No VB, LOF. G ood Fm. 28 wk labs pending. Rhogam, tdap and larc. 11/23/24 -?-?-?-?-?-?-?-?-?-?-?-?- 29w 6d 185 lb (+35 lb) 122/70 Negative -?-?-?-?-?-?-?-?-?-?-?-?- Negative 146 30 -?-?-?-?-?-?-?-?-?-?-?-?- MH-No VB, LOF. G ood FM. 12/07/24 -?-?-?-?-?-?-?-?-?-?-?-?- 31w 6d 189 lb 8 oz (+39 lb 8 oz) 124/70 Negative -?-?-?-?-?-?-?-?-?-?-?-?- Negative 140 32 -?-?-?-?-?-?-?-?-?-?-?-?- JV- no lof, vagi nal bleeding, or dec fm. no complaints today other than getting up a lot at night. 12/22/24 -?-?-?-?-?-?-?-?-?-?-?-?- 34w 0d 193 lb (+43 lb) 123/76 Negative -?-?-?-?-?-?-?-?-?-?-?-?- Negative 138 34 -?-?-?-?-?-?-?-?-?-?-?-?- KW- no vb/lof/ct x. good fm. GBS next visit. no concerns today 01/05/25 -?-?-?-?-?-?-?-?-?-?-?-?- 36w 0d 190 lb 4 oz (+40 lb 4 oz) 116/72 Negative -?-?-?-?-?-?-?-?-?-?-?-?- Negative 142 36 Cephalic 0 .5 -?-?-?-?-?-?-?-?-?-?-?-?- 20 -4 MH-No VB, LOF. More irreg ctx. GBS collected 01/11/25 -?-?-?-?-?-?-?-?-?-?-?-?- 36w 6d 194 lb 2 oz (+44 lb 2 oz) 114/74 Negative -?-?-?-?-?-?-?-?-?-?-?-?- Negative 165 37 Cephalic 1 -?-?-?-?-?-?-?-?-?-?-?-?- 50 -3 JV- no lof , vaginal bleeding, or dec fm. gbs neg. wants 39 week IOL. will set up next visit. 01/21/25 -?-?-?-?-?-?-?-?-?-?-?-?- 38w 2d 194 lb 6 oz (+44 lb 6 oz) 105/68 Negative -?-?-?-?-?-?-?-?-?-?-?-?- Negative 155 38 Cephalic 1 -?-?-?-?-?-?-?-?-?-?-?-?- 50 -3 JV- tona de jesus wants to talk about a possible 39-40 week IOL. her veras score is not great today but may be better by next week. we can plan to strip membranes and discuss IOL for later next week or early following week. 01/26/25 -?-?-?-?-?-?-?-?-?-?-?-?- 39w 0d 194 lb 8 oz (+44 lb 8 oz) 120/62 Negative -?-?-?-?-?-?-?-?-?-?-?-?- Negative 140 35 Cephalic 1 -?-?-?-?-?-?-?-?-?-?-?-?- SM- no vb lof go od fm no reuglar ctx SM- no vb lof good fm no reu glar ctx bedside GERRY 9cm growth US ordered ACOG First Trimester First Trimester: Desire for , Alcohol, Tobacco Cessation, Illicit/Recreational Drug/Substance Use, Intimate Partner Violence, Barriers to care, Unstable Housing, Communication Barriers, Environmental/Work Hazards, Anticipated Course of Care, Toxoplasmosis Precations, Use of Any medications, Sexual activity, Exercise, Dental Care, Sauna/Hot tub use, Seat Belt use, Childbirth classes/Hospital facilities, Travel, Indications for Ultrasound and Screening for Aneuploidy; Discussed Second Trimester Second Trimester: Signs and Symptoms of Labor, Selecting a care provider, Reproductive Life Planning & Contreception and Care Planning; Discussed Tobacco Cessation, Discussed Depression/Anxiety and Discussed Intimate Partner Violence Third Trimester Third Trimester: Pain Management Plans, Labor support person(s), Immediate Larc, Movement Monitoring, Signs and Symptoms of Preeclampsia, Infant Feeding No , [place] Education and Family Medical Leave or Disability Forms; Discussed Circumcision preference Results POC Urinalysis 2 Dip (Clinic) Office Urine Glucose Negative Last Edit by Chanel Chauhan on 01/26/25 11:21 Office Urine Protein Negative Last Edit by Chanel Chauhan on 01/26/25 11:21 Coding Level of Care Code OB Routine Diagnoses Rh negative state in antepartum period O26.899; Z67.91 Encounter for supervision of other normal in third trimester Z34.83 Normal : other normal Trimester: third trimester 39 weeks gestation of Z3A.39 Weeks of gestation: 39 weeks Uterine size-date discrepancy, third trimester O26.843 Assessment and Plan Assessment and Plan (1) Rh negative state in antepartum period: Status: Acute Comment: rhogam 28 wk, pp and prn bleeding, Given 11/10/24 (2) Supervision of normal : Status: Acute Qualifiers: Normal : other normal Trimester: third trimester Qualified Code(s): Z34.83 - Encounter for supervision of other normal , third trimester Comment: PRR,, CHAPARRO 02/02/25, girl PC Ant, Spouse Oscar (3) : Status: Acute Qualifiers: Weeks of gestation: 39 weeks Qualified Code(s): Z3A.39 - 39 weeks gestation of Comment: Neg GBS. declines genetic and carrier screening, wants to know gender at anatomy scan, nl anatomy (4) Uterine size-date discrepancy, third trimester: Status: Acute Orders: Orders POC Urinalysis 2 Dip (Clinic) Today 01/26/25 1145 <Electronically signed by Rosalinda villavicencio MD> Date _ Rosalinda Herr MD Cosigner Signature: Date (if applicable) CC: ~ [facility] Work Phone: Reason for referral (narrative)No reason for referral information availableWOhio[facility] Work Phone: Assessments Diagnosis Other closed fracture of rig ht patella, initial encounter - Primary Pain and swelling of right l ower leg Pain and swelling of right k nee Diagnosis Closed nondisplaced fracture of fourth metacarpal bone of right hand, unspecified portion of metacarpal, initial encounter Diagnosis Closed nondisplaced fracture of other part of fourth metacarpal bone of right hand, initial encounter Summary Purpose Family History Relationship Condition Age at Onset Recorded Date/T birgit brother Malignant neoplasm Unknown father Status post three ve ssel coronary artery bypass Unknown Advance Directives Documents on File Type Date Recorded 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 No February 06, 2025 6:52pm History of Present Illness * Jayla Christianson, GUS - 08/31/2019 3:34 PM EST [facility] [address] [facility] [address] [facility] [id number] Chief Complaint Patient presents with Right Knee - Follow-up Carlota Andrade returns to the office today for follow up of right hand fracture. She is doing very well. She has been able to continue playing basketball as long as she tapes it. She denies pain unless she bumps the hand in the right way. She states that it is still difficult for her to pass withboth hands but other than that she is able to play as normal. She is taking OTC relief as needed. The patient's past medical history, surgical history, social history, family history, medications and allergies were reviewed with the patient today and are available in the chart for further review. ROS: Review of Systems Constitutional: Negative for activity change and fatigue. HENT: Negative for congestion, hearing loss and trouble swallowing. Eyes: Negative for visual disturbance. Respiratory: Negative for chest tightness and shortness of breath. Cardiovascular: Negative for chest pain and palpitations. Gastrointestinal: Negative for abdominal pain, diarrhea, nausea and vomiting. Endocrine: Negative for polydipsia, polyphagia and polyuria. Genitourinary: Negative for decreased urine volume, difficulty urinating and hematuria. Musculoskeletal: Negative for joint swelling and myalgias. Skin: Negative for color change, rash and wound. Allergic/Immunologic: Negative for immunocompromised state. Neurological: Negative for dizziness, weakness, light-headedness and numbness. Hematological: Does not bruise/bleed easily. Psychiatric/Behavioral: Negative for confusion and sleep disturbance. The patient is not nervous/anxious. PE: Physical Exam Constitutional: She is oriented to person, place, and time. She appears well- developed and well-nourished. HENT: Head: Normocephalic. Eyes: Pupils are equal, round, and reactive to light. Neck: Normal range of motion. Neck supple. Cardiovascular: Normal rate and regular rhythm. Pulmonary/Chest: Effort normal and breath sounds normal. Abdominal: Soft. Bowel sounds are normal. Musculoskeletal: Normal range of motion. General: Tenderness present. Hands: Neurological: She is alert and oriented to person, place, and time. Skin: Skin is warm and dry. Imaging:R Hand 1. Evidence for healing of a minimally displaced intraarticular comminuted fracture involving the 4th metacarpal head. Stable alignment. Assessment/Plan: After examination and reviewing of patient x-ray images, the patient is doing verywell. She is to continue taping the fingers especially while practicing and playing in games. I would like to see her back in one month for another x-ray. If there is any worsening of symptoms, she is to call the office and I would be happy to see her. The patient verbalizes understanding and is inagreement with the treatment plan. documented in this encounter* Jayla Christianson CNP - 06/29/2019 4:12 PM EST [facility] [address] [facility] [address] [facility] [id number] Chief Complaint Patient presents with Right Hand - Follow-up Carlota Andrade returns to the office today for her right finger fracture. She was at basketball practice last week and sustained an injury to her right hand ring finger. The x-ray showed a comminutedfracture of the 4th metacarpal head with extension into the metacarpophalangeal joint. She was placed in a splint and is here today for another x-ray. Her mother and sister [facility]. Overall she is doing better. She states that the swelling has gone down dramatically and shehas more movement in her fingers. She states she was able to practice on Saturday which she states she did ok. She has been taking OTC pain relief as needed as well as working with her athletics teacher. She has continued to wear the wrist splint on and off but does always keep them ermelinda taped. The patient's past medical history, surgical history, social history, family history, medications and allergies were reviewed with the patient today and are available in the chart for further review. ROS: Review of Systems Constitutional: Negative for activity change and fatigue. HENT: Negative for congestion, hearing loss and trouble swallowing. Eyes: Negative for visual disturbance. Respiratory: Negative for chest tightness and shortness of breath. Cardiovascular: Negative for chest pain and palpitations. Gastrointestinal: Negative for abdominal pain, diarrhea, nausea and vomiting. Endocrine: Negative for polydipsia, polyphagia and polyuria. Genitourinary: Negative for decreased urine volume, difficulty urinating and hematuria. Musculoskeletal: Positive for arthralgias. Negative for joint swelling and myalgias. Skin: Negative for color change, rash and wound. Allergic/Immunologic: Negative for immunocompromised state. Neurological: Negative for dizziness, weakness, light-headedness and numbness. Hematological: Does not bruise/bleed easily. Psychiatric/Behavioral: Negative for confusion and sleep disturbance. The patient is not nervous/anxious. PE: Physical Exam Constitutional: She is oriented to person, place, and time. She appears well- developed and well-nourished. HENT: Head: Normocephalic. Eyes: Pupils are equal, round, and reactive to light. Neck: Normal range of motion. Neck supple. Cardiovascular: Normal rate and regular rhythm. Pulmonary/Chest: Effort normal and breath sounds normal. Abdominal: Soft. Bowel sounds are normal. Musculoskeletal: Normal range of motion. General: Tenderness and edema present. Right hand: She exhibits tenderness, bony tenderness and swelling. Neurological: She is alert and oriented to person, place, and time. Skin: Skin is warm and dry. ORTHO: Right Hand Exam Tenderness The patient is experiencing tenderness in the dorsal area. Range of Motion The patient has normal right wrist ROM. Muscle Strength The patient has normal right wrist strength. Other Erythema: absent Scars: absent Pulse: present Comments: Ecchymosis and edema noted to the right hand Imaging: R hand stable subacute comminuted fracture of the 4th metacarpal head with extension into the metacarpophalangeal joint. Assessment/Plan: After examination and reviewing of the patient x-ray images, I personally reviewedthe images with Dr. Haywood. We are in agreement that this is in fact a stable fracture with no changes from the initial x-ray. At this time she is still cleared for basketball from an orthopedic standpoint. I encouraged her to continue to wear the wrist splint for protection but she is able to utilize ermelinda taping of fingers 3 and 4 while playing basketball. She is to continue to use OTC pain relief such as Tylenol and Ibuprofen as needed as well as ice for the swelling. I will see her as needed. Both the patient and her mother verbalized understanding and are in agreement with the treatment plan. documented in this encounter Chief Complaint and Reason for Visit Chief Complaint NOB LMP 8 Reason for Visit Supervision of normal first Chief Complaint NOB LMP 03/22 13 WK OB Reason for Visit Supervision of normal first Supervision of normal first Chief Complaint 13 WK OB 17 WK OB 22 WK OB 26 WK OB 28 WK OB/GLUCOSE Reason for Visit Supervision of normal first Rh negative state in antepartum period Supervision of normal first Rh negative state in antepartum period Supervision of normal first Rh negative state in antepartum period Supervision of normal first Rh negative state in antepartum period Supervision of normal first Chief Complaint 22 WK OB 26 WK OB 28 WK OB/GLUCOSE 30 WK OB 32 WK OB 34 WK OB 36 WK OB MONITORING/FALL MONITORING/FALL Reason for Visit Rh negative state in antepartum period Supervision of normal first Rh negative state in antepartum period Supervision of normal first Rh negative state in antepartum period Supervision of normal first Rh negative state in antepartum period Supervision of normal first Rh negative state in antepartum period Supervision of normal first Rh negative state in antepartum period Supervision of normal first Rh negative state in antepartum period Supervision of normal first Status post fall Chief Complaint 26 WK OB 28 WK OB/GLUCOSE 30 WK OB 32 WK OB 34 WK OB 36 WK OB MONITORING/FALL MONITORING/FALL 38 WK OB 39 WK OB 40 WK OB VAG LABOR AND DELIVERY VAG Reason for Visit Rh negative state in antepartum period Supervision of normal first Rh negative state in antepartum period Supervision of normal first Rh negative state in antepartum period Supervision of normal first Rh negative state in antepartum period Supervision of normal first Rh negative state in antepartum period Supervision of normal first Rh negative state in antepartum period Supervision of normal first Status post fall Rh negative state in antepartum period Status post fall Supervision of normal first Rh negative state in antepartum period Status post fall Supervision of normal first Rh negative state in antepartum period SROM (spontaneous rupture of membranes) Supervision of normal first Chief Complaint Admit Date 14 WK OB August 12, 2024 2: 35pm 19 wk ob September 08, 2024 2 :41pm 23 wk ob October 05, 2024 3:08 pm INT LAB ORDER November 10, 2024 12:4 6pm 28wk ob/glucose November 10, 2024 12:5 9pm Reason for Visit Admit Date August 12, 2024 2: 35pm Rh negative state in antepartum period J anuary 2024 2:35pm Supervision of normal August 12, 2024 2:35pm September 08, 2024 2 :41pm Rh negative state in antepartum period F ebruary 2024 2:41pm Supervision of normal September 08, 2024 2:41pm October 05, 2024 3:08 pm Rh negative state in antepartum period M arch 2024 3:08pm Supervision of normal October 3:08pm November 10, 2024 12:5 9pm Rh negative state in antepartum period A pril 2024 12:59pm Supervision of normal November 12:59pm Chief Complaint Admit Date 19 wk ob September 08, 2024 2 :41pm 23 wk ob October 05, 2024 3:08 pm INT LAB ORDER November 10, 2024 12:4 6pm 28wk ob/glucose November 10, 2024 12:5 9pm 30wk ob November 23, 2024 3:2 2pm 32wk ob December 07, 2024 3:22pm 34 wk ob December 22, 2024 3:12p m Reason for Visit Admit Date September 08, 2024 2 :41pm Rh negative state in antepartum period F ebruary 2024 2:41pm Supervision of normal September 08, 2024 2:41pm October 05, 2024 3:08 pm Rh negative state in antepartum period M arch 2024 3:08pm Supervision of normal October 3:08pm November 10, 2024 12:5 9pm Rh negative state in antepartum period A pri2024 12:59pm Supervision of normal November 12:59pm November 23, 2024 3:2 2pm Rh negative state in antepartum period A 2024 3:22pm Supervision of normal November 232024 3:22pm December 07, 2024 3:22pm Rh negative state in antepartum period M ay 2024 3:22pm Supervision of normal December 07, 2024 3:22pm December 22, 2024 3:12p m Rh negative state in antepartum period M ay 2024 3:12pm Supervision of normal December 3:12pm Chief Complaint Admit Date 23 wk ob October 05, 2024 3:08 pm INT LAB ORDER November 10, 2024 12:4 6pm 28wk ob/glucose November 10, 2024 12:5 9pm 30wk ob November 23, 2024 3:2 2pm 32wk ob December 07, 2024 3:22pm 34 wk ob December 22, 2024 3:12p m 36 wk ob January 05, 2025 10:05 am Reason for Visit Admit Date October 05, 2024 3:08 pm Rh negative state in antepartum period M arch 2024 3:08pm Supervision of normal October 3:08pm November 10, 2024 12:5 9pm Rh negative state in antepartum period A pri2024 12:59pm Supervision of normal November 12:59pm November 23, 2024 3:2 2pm Rh negative state in antepartum period A 2024 3:22pm Supervision of normal November 232024 3:22pm December 07, 2024 3:22pm Rh negative state in antepartum period M ay 2024 3:22pm Supervision of normal December 07, 2024 3:22pm December 22, 2024 3:12p m Rh negative state in antepartum period M ay 2024 3:12pm Supervision of normal December 3:12pm January 05, 2025 10:05 am Rh negative state in antepartum period J une 2024 10:05am Supervision of normal January 10:05am Chief Complaint Admit Date 23 wk ob October 05, 2024 3:08 pm INT LAB ORDER November 10, 2024 12:4 6pm 28wk ob/glucose November 10, 2024 12:5 9pm 30wk ob November 23, 2024 3:2 2pm 32wk ob December 07, 2024 3:22pm 34 wk ob December 22, 2024 3:12p m 36 wk ob January 05, 2025 10:05 am 37 wk ob January 11, 2025 2:38p m Reason for Visit Admit Date October 05, 2024 3:08 pm Rh negative state in antepartum period M arch 2024 3:08pm Supervision of normal October 3:08pm November 10, 2024 12:5 9pm Rh negative state in antepartum period A 2024 12:59pm Supervision of normal November 12:59pm November 23, 2024 3:2 2pm Rh negative state in antepartum period A 2024 3:22pm Supervision of normal November 232024 3:22pm December 07, 2024 3:22pm Rh negative state in antepartum period M ay 2024 3:22pm Supervision of normal December 07, 2024 3:22pm December 22, 2024 3:12p m Rh negative state in antepartum period M ay 2024 3:12pm Supervision of normal December 3:12pm January 05, 2025 10:05 am Rh negative state in antepartum period J une 2024 10:05am Supervision of normal January 10:05am January 11, 2025 2:38p m Rh negative state in antepartum period J une 2024 2:38pm Supervision of normal January 2:38pm Chief Complaint Admit Date 19 wk ob September 08, 2024 2 :41pm 23 wk ob October 05, 2024 3:08 pm INT LAB ORDER November 10, 2024 12:4 6pm 28wk ob/glucose November 10, 2024 12:5 9pm 30wk ob November 23, 2024 3:2 2pm 32wk ob December 07, 2024 3:22pm 34 wk ob December 22, 2024 3:12p m 36 wk ob January 05, 2025 10:05 am Reason for Visit Admit Date September 08, 2024 2 :41pm Rh negative state in antepartum period F ebruary 2024 2:41pm Supervision of normal September 08, 2024 2:41pm October 05, 2024 3:08 pm Rh negative state in antepartum period M arch 2024 3:08pm Supervision of normal October 3:08pm November 10, 2024 12:5 9pm Rh negative state in antepartum period A 2024 12:59pm Supervision of normal November 12:59pm November 23, 2024 3:2 2pm Rh negative state in antepartum period A pril 2024 3:22pm Supervision of normal November 232024 3:22pm December 07, 2024 3:22pm Rh negative state in antepartum period M ay 2024 3:22pm Supervision of normal December 07, 2024 3:22pm December 22, 2024 3:12p m Rh negative state in antepartum period M ay 2024 3:12pm Supervision of normal December 3:12pm January 05, 2025 10:05 am Rh negative state in antepartum period J une 2024 10:05am Supervision of normal January 10:05am Chief Complaint Admit Date 23 wk ob October 05, 2024 3:08 pm INT LAB ORDER November 10, 2024 12:4 6pm 28wk ob/glucose November 10, 2024 12:5 9pm 30wk ob November 23, 2024 3:2 2pm 32wk ob December 07, 2024 3:22pm 34 wk ob December 22, 2024 3:12p m 36 wk ob January 05, 2025 10:05 am 37 wk ob January 11, 2025 2:38p m 38 wk ob January 21, 2025 2:53 pm Reason for Visit Admit Date October 05, 2024 3:08 pm Rh negative state in antepartum period M [facility] 2024 3:08pm Supervision of normal October 3:08pm November 10, 2024 12:5 9pm Rh negative state in antepartum period A [facility]2024 12:59pm Supervision of normal November 12:59pm November 23, 2024 3:2 2pm Rh negative state in antepartum period A [facility]2024 3:22pm Supervision of normal November 232024 3:22pm December 07, 2024 3:22pm Rh negative state in antepartum period M ay 2024 3:22pm Supervision of normal December 07, 2024 3:22pm December 22, 2024 3:12p m Rh negative state in antepartum period M ay 2024 3:12pm Supervision of normal December 3:12pm January 05, 2025 10:05 am Rh negative state in antepartum period J [facility] 2024 10:05am Supervision of normal January 10:05am January 11, 2025 2:38p m Rh negative state in antepartum period J [facility] 2024 2:38pm Supervision of normal January 2:38pm January 21, 2025 2:53 pm Rh negative state in antepartum period J [facility] 2024 2:53pm Supervision of normal January 2:53pm Chief Complaint Admit Date 23 wk ob October 05, 2024 3:08 pm INT LAB ORDER November 10, 2024 12:4 6pm 28wk ob/glucose November 10, 2024 12:5 9pm 30wk ob November 23, 2024 3:2 2pm 32wk ob December 07, 2024 3:22pm 34 wk ob December 22, 2024 3:12p m 36 wk ob January 05, 2025 10:05 am 37 wk ob January 11, 2025 2:38p m 38 wk ob January 21, 2025 2:53 pm 39 wk ob January 26, 2025 10:4 6am Reason for Visit Admit Date October 05, 2024 3:08 pm Rh negative state in antepartum period M [facility] 2024 3:08pm Supervision of normal October 3:08pm November 10, 2024 12:5 9pm Rh negative state in antepartum period A [facility]2024 12:59pm Supervision of normal November 12:59pm November 23, 2024 3:2 2pm Rh negative state in antepartum period [facility] 3:22pm Supervision of normal November 232024 3:22pm December 07, 2024 3:22pm Rh negative state in antepartum period M ay 2024 3:22pm Supervision of normal December 07, 2024 3:22pm December 22, 2024 3:12p m Rh negative state in antepartum period M ay 2024 3:12pm Supervision of normal December 3:12pm January 05, 2025 10:05 am Rh negative state in antepartum period J [facility] 2024 10:05am Supervision of normal January 10:05am January 11, 2025 2:38p m Rh negative state in antepartum period J [facility] 2024 2:38pm Supervision of normal January 2:38pm January 21, 2025 2:53 pm Rh negative state in antepartum period J [facility] 2024 2:53pm Supervision of normal January 2:53pm January 26, 2025 10:4 6am Rh negative state in antepartum period J [facility] 2024 10:46am Supervision of normal January 10:46am Uterine size-date discrepancy, third tri mester January 26, 2025 10:46am Chief Complaint Admit Date 23 wk ob October 05, 2024 3:08 pm INT LAB ORDER November 10, 2024 12:4 6pm 28wk ob/glucose November 10, 2024 12:5 9pm 30wk ob November 23, 2024 3:2 2pm 32wk ob December 07, 2024 3:22pm 34 wk ob December 22, 2024 3:12p m 36 wk ob January 05, 2025 10:05 am 37 wk ob January 11, 2025 2:38p m 38 wk ob January 21, 2025 2:53 pm 39 wk ob January 26, 2025 10:4 6am DATING January 28, 2025 10:0 8am Chief Complaint Admit Date INT LAB ORDER November 10, 2024 12:4 6pm 28wk ob/glucose November 10, 2024 12:5 9pm 30wk ob November 23, 2024 3:2 2pm 32wk ob December 07, 2024 3:22pm 34 wk ob December 22, 2024 3:12p m 36 wk ob January 05, 2025 10:05 am 37 wk ob January 11, 2025 2:38p m 38 wk ob January 21, 2025 2:53 pm 39 wk ob January 26, 2025 10:4 6am DATING January 28, 2025 10:0 8am 40 wk ob *Happy due date* February 03, 2025 2:33pm Reason for Visit Admit Date November 10, 2024 12:5 9pm Rh negative state in antepartum period A 2024 12:59pm Supervision of normal November 12:59pm November 23, 2024 3:2 2pm Rh negative state in antepartum period A pril 2024 3:22pm Supervision of normal November 232024 3:22pm December 07, 2024 3:22pm Rh negative state in antepartum period M ay 2024 3:22pm Supervision of normal December 07, 2024 3:22pm December 22, 2024 3:12p m Rh negative state in antepartum period M ay 2024 3:12pm Supervision of normal December 3:12pm January 05, 2025 10:05 am Rh negative state in antepartum period J une 2024 10:05am Supervision of normal January 10:05am January 11, 2025 2:38p m Rh negative state in antepartum period J [facility] 2024 2:38pm Supervision of normal January 2:38pm January 21, 2025 2:53 pm Rh negative state in antepartum period J [facility] 2024 2:53pm Supervision of normal January 2:53pm January 26, 2025 10:4 6am Rh negative state in antepartum period J [facility] 2024 10:46am Supervision of normal January 10:46am Uterine size-date discrepancy, third tri mester January 26, 2025 10:46am February 03, 2025 2:33p m Rh negative state in antepartum period [facility] 2024 2:33pm Supervision of normal February 2:33pm Uterine size-date discrepancy, third tri [facility] [employer] February 03, 2025 2:33pm Chief Complaint Admit Date INT LAB ORDER November 10, 2024 12:4 6pm 28wk ob/glucose November 10, 2024 12:5 9pm 30wk ob November 23, 2024 3:2 2pm 32wk ob December 07, 2024 3:22pm 34 wk ob December 22, 2024 3:12p m 36 wk ob January 05, 2025 10:05 am 37 wk ob January 11, 2025 2:38p m 38 wk ob January 21, 2025 2:53 pm 39 wk ob January 26, 2025 10:4 6am DATING January 28, 2025 10:0 8am 40 wk ob *Happy due date* February 03, 2025 2:33pm VAG February 06, 2025 5:38p m INDUCTION February 06, 2025 7:29p m VAG February 07, 2025 4:12a m VAG February 08, 2025 8:35a m Reason for Visit Admit Date November 10, 2024 12:5 9pm Rh negative state in antepartum period A pril 2024 12:59pm Supervision of normal November 12:59pm November 23, 2024 3:2 2pm Rh negative state in antepartum period A pril 2024 3:22pm Supervision of normal November 232024 3:22pm December 07, 2024 3:22pm Rh negative state in antepartum period M ay 2024 3:22pm Supervision of normal December 07, 2024 3:22pm December 22, 2024 3:12p m Rh negative state in antepartum period M ay 2024 3:12pm Supervision of normal December 3:12pm January 05, 2025 10:05 am Rh negative state in antepartum period J [facility] 2024 10:05am Supervision of normal January 10:05am January 11, 2025 2:38p m Rh negative state in antepartum period J [facility] 2024 2:38pm Supervision of normal January 2:38pm January 21, 2025 2:53 pm Rh negative state in antepartum period J [facility] 2024 2:53pm Supervision of normal January 2:53pm January 26, 2025 10:4 6am Rh negative state in antepartum period J [facility] 2024 10:46am Supervision of normal January 10:46am Uterine size-date discrepancy, third tri mester January 26, 2025 10:46am February 03, 2025 2:33p m Rh negative state in antepartum period J [facility] 2024 2:33pm Supervision of normal February 2:33pm Uterine size-date discrepancy, third tri mester February 03, 2025 2:33pm Encounter for induction of labor February 5:38pm February 06, 2025 5:38p m Rh negative state in antepartum period J [facility] 2024 5:38pm Supervision of normal February 5:38pm (spontaneous vaginal delivery) February 06, 2025 5:38pm Uterine size-date discrepancy, third tri mester February 06, 2025 5:38pm Chief Complaint Admit Date 30wk ob November 23, 2024 3:2 2pm 32wk ob December 07, 2024 3:22pm 34 wk ob December 22, 2024 3:12p m 36 wk ob January 05, 2025 10:05 am 37 wk ob January 11, 2025 2:38p m 38 wk ob January 21, 2025 2:53 pm 39 wk ob January 26, 2025 10:4 6am DATING January 28, 2025 10:0 8am 40 wk ob *Happy due date* February 03, 2025 2:33pm VAG February 06, 2025 5:38p m INDUCTION February 06, 2025 7:29p m VAG February 07, 2025 4:12a m VAG February 08, 2025 8:35a m visit (obstetrics) March 2:07pm Reason for Visit Admit Date November 23, 2024 3:2 2pm Rh negative state in antepartum period A pril 2024 3:22pm Supervision of normal November 232024 3:22pm December 07, 2024 3:22pm Rh negative state in antepartum period M ay 2024 3:22pm Supervision of normal December 07, 2024 3:22pm December 22, 2024 3:12p m Rh negative state in antepartum period M ay 2024 3:12pm Supervision of normal December 3:12pm January 05, 2025 10:05 am Rh negative state in antepartum period J [facility] 2024 10:05am Supervision of normal January 10:05am January 11, 2025 2:38p m Rh negative state in antepartum period J une 2024 2:38pm Supervision of normal January 2:38pm January 21, 2025 2:53 pm Rh negative state in antepartum period J une 2024 2:53pm Supervision of normal January 2:53pm January 26, 2025 10:4 6am Rh negative state in antepartum period J [facility] 2024 10:46am Supervision of normal January 10:46am Uterine size-date discrepancy, third tri mester January 26, 2025 10:46am February 03, 2025 2:33p m Rh negative state in antepartum period J carlos 2nd, 2025 2:33pm Supervision of normal February 2:33pm Uterine size-date discrepancy, third tri mester February 03, 2025 2:33pm Encounter for induction of labor February 5:38pm February 06, 2025 5:38p m Rh negative state in antepartum period J [facility] 2024 5:38pm Supervision of normal February 5:38pm (spontaneous vaginal delivery) February 06, 2025 5:38pm Uterine size-date discrepancy, third tri [employer] February 06, 2025 5:38pm Routine Follow-Up March 2:07pm Additional Source Comments INFORMATION SOURCE (unrecogn ized section and content) DATE CREATED AUTHOR 02/28/2018 [facility] DATE CREATED AUTHOR AUTHOR'S ORGANIZ ATION 03/28/2018 [facility] [place] DATE CREATED AUTHOR AUTHOR'S ORGANIZ ATION 06/08/2018 [facility] DATE CREATED AUTHOR AUTHOR'S ORGANIZ ATION 09/04/2019 [facility] DATE CREATED AUTHOR AUTHOR'S ORGANIZ ATION 09/09/2021 [facility] DATE CREATED AUTHOR AUTHOR'S ORGANIZ ATION 09/11/2024 [facility] DATE CREATED AUTHOR AUTHOR'S ORGANIZ ATION 03/19/2025 [facility] Reason for Visit (unrecogniz ed section and content) Reason Comments Follow-up Reason Comments [employer]MP Goals (unrecognized section and content) Goals may be documented in a n alternate sectionGoals may be documented in an alternate sectionGoals may be documented in an alternate sectionGoals may be documented in an alternate sectionGoals may be documented in an alternate sectionGoals may be documented in an alternate sectionGoals may be documented in an alternate sectionGoals may be documented in an alternate sectionGoals may be documented in an alternate sectionGoals may be documented in an alternate sectionGoals may be documented in an alternate sectionGoals may be documented in an alternate sectionGoals may be documented in an alternate sectionGoals may be documented in an alternate section Care Teams (unrecognized sec tion and content) Team Status: Active Member Role Status Dates No Primary Care Physician Primary Care Provider Active Team Status: Inactive Member Role Status Dates Dr. Cherise Snow , DO Attending Provider Activ e Team Status: Inactive Member Role Status Dates Chanel Ryan ATHLETE MANAGER, ATHLETE MANAGER-C Attending Provider Active No Primary Care Physician Primary Care Provider, Refer ring Provider Active Team Status: Inactive Member Role Status Dates No Primary Care Physician Primary Care Provider, Refer ring Provider Active Dr. Cherise Snow DO Attending Provider Activ e Team Status: Inactive Member Role Status Dates No Primary Care Physician Primary Care Provider, Refer ring Provider Active Dr. Rosalinda Herr MD Attending Provider Active Team Status: Inactive Member Role Status Dates No Primary Care Physician Primary Care Provider, Refer ring Provider Active Chanel Ryan ATHLETE MANAGER, ATHLETE MANAGER-C Attending Provider Active Team Status: Inactive Member Role Status Dates No Primary Care Physician Primary Care Provider Active Dr. Cherise Snow DO Attending Provider, Refe rring Provider Active Team Status: Inactive Member Role Status Dates No Primary Care Physician Primary Care Provider Active Dr. Rosalinda Herr MD Attending Provider, Referr ing Provider Active Team Status: Inactive Member Role Status Dates No Primary Care Physician Primary Care Provider, Refer ring Provider Active Ragini Nielson CNM Attending Provider Active Team Status: Active Member Role Status Dates No Primary Care Physician Primary Care Provider Active Ching Mcgee CNM Attending Provider, Other Provid er Active Team Status: Active Member Role Status Dates No Primary Care Physician Primary Care Provider Active Ragini Nielson CNM Attending Provider, Referring Pro vider Active Team Status: Inactive Member Role Status Dates No Primary Care Physician Primary Care Provider Active Ching Mcgee CNM Attending Provider Active Team Status: Inactive Member Role Status Dates No Primary Care Physician Primary Care Provider Active Ragini Nielson CNM Attending Provider, Referring Pro vider Active Team Status: Inactive Member Role Status Dates No Primary Care Physician Primary Care Provider, Refer ring Provider Active Ching Mcgee CNM Attending Provider Active Team Status: Active Member Role Status Dates No Primary Care Physician Primary Care Provider Active Ragini Nielson CNM Admit Provider, Att ending Provider, Other Provider Active Team Status: Inactive Member Role Status Dates No Primary Care Physician Primary Care Provider Active Ragini Nielson CNM Admit Provider, Attending Provide r Active Electronic Engraver Relationship Specialty Start Date End Date Osman Levy II [address] [place] [address] [place] [id number] PCP - General Family Medicine 02/06/18 Team Status: Inactive Member Role Status Dates No Primary Care Physician Primary Care Provider Active Start: August 12, 2024 End: August 12, 2024 No Primary Care Physician Referring Provider Active Start: August 12, 2024 End: August 12, 2024 Dr. Rosalinda Herr MD Attending Provider Active Start: August 12, 2024 End: August 12, 2024 Team Status: Inactive Member Role Status Dates No Primary Care Physician Primary Care Provider Active Start: September 08, 2024 End: September 08, 2024 No Primary Care Physician Referring Provider Active Start: September 08, 2024 End: September 08, 2024 Dr. Cherise Snow DO Attending Provider Activ e Start: September 08, 2024 End: September 08, 2024 Team Status: Inactive Member Role Status Dates No Primary Care Physician Primary Care Provider Active Start: October 05, 2024 End: October 05, 2024 No Primary Care Physician Referring Provider Active Start: October 05, 2024 End: October 05, 2024 Ragini Nielson CNM Attending Provider Active S tart: October 05, 2024 End: October 05, 2024 Team Status: Inactive Member Role Status Dates No Primary Care Physician Primary Care Provider Active Start: November 10, 2024 End: November 10, 2024 Ragini Nielson CNM Attending Provider Active S tart: November 10, 2024 End: November 10, 2024 Ragini Nielson CNM Referring Provider Active S tart: November 10, 2024 End: November 10, 2024 Team Status: Inactive Member Role Status Dates No Primary Care Physician Primary Care Provider Active Start: November 10, 2024 End: November 10, 2024 No Primary Care Physician Referring Provider Active Start: November 10, 2024 End: November 10, 2024 Chanel Ryan NP ATHLETE MANAGER-C Attending Provider Active Start: November 10, 2024 End: November 10, 2024 Team Status: Inactive Member Role Status Dates No Primary Care Physician Primary Care Provider Active Start: November 23, 2024 End: November 23, 2024 No Primary Care Physician Referring Provider Active Start: November 23, 2024 End: November 23, 2024 Chanel Ryan NP ATHLETE MANAGER-C Attending Provider Active Start: November 23, 2024 End: November 23, 2024 Team Status: Inactive Member Role Status Dates No Primary Care Physician Primary Care Provider Active Start: December 07, 2024 End: December 07, 2024 No Primary Care Physician Referring Provider Active Start: December 07, 2024 End: December 07, 2024 Dr. Cherise Snow DO Attending Provider Activ e Start: December 07, 2024 End: December 07, 2024 Team Status: Inactive Member Role Status Dates No Primary Care Physician Primary Care Provider Active Start: December 22, 2024 End: December 22, 2024 No Primary Care Physician Referring Provider Active Start: December 22, 2024 End: December 22, 2024 Ragini Nielson CNM Attending Provider Active S tart: December 22, 2024 End: December 22, 2024 Team Status: Inactive Member Role Status Dates No Primary Care Physician Primary Care Provider Active Start: January 05, 2025 End: January 05, 2025 No Primary Care Physician Referring Provider Active Start: January 05, 2025 End: January 05, 2025 Chanel Ryan ATHLETE MANAGER, ATHLETE MANAGER-C Attending Provider Active Start: January 05, 2025 End: January 05, 2025 Team Status: Inactive Member Role Status Dates No Primary Care Physician Primary Care Provider Active Start: January 05, 2025 End: January 05, 2025 Chanel Ryan ATHLETE MANAGER, ATHLETE MANAGER-C Attending Provider Active Start: January 05, 2025 End: January 05, 2025 Chanel Ryan ATHLETE MANAGER, ATHLETE MANAGER-C Referring Provider Active Start: January 05, 2025 End: January 05, 2025 Team Status: Inactive Member Role Status Dates No Primary Care Physician Primary Care Provider Active Start: January 11, 2025 End: January 11, 2025 No Primary Care Physician Referring Provider Active Start: January 11, 2025 End: January 11, 2025 Dr. Cherise Snow DO Attending Provider Activ e Start: January 11, 2025 End: January 11, 2025 Team Status: Inactive Member Role Status Dates No Primary Care Physician Primary Care Provider Active Start: January 21, 2025 End: January 21, 2025 No Primary Care Physician Referring Provider Active Start: January 21, 2025 End: January 21, 2025 Dr. Cherise Snow DO Attending Provider Activ e Start: January 21, 2025 End: January 21, 2025 Team Status: Inactive Member Role Status Dates No Primary Care Physician Primary Care Provider Active Start: January 26, 2025 End: January 26, 2025 No Primary Care Physician Referring Provider Active Start: January 26, 2025 End: January 26, 2025 Dr. Rosalinda Herr MD Attending Provider Active Start: January 26, 2025 End: January 26, 2025 Team Status: Active Member Role/Relationship Status Dates No Primary Care Physician Primary Care Provider Active Team Status: Inactive Member Role/Relationship Status Dates No Primary Care Physician Primary Care Provider Active Start: October 05, 2024 End: October 05, 2024 No Primary Care Physician Referring Provider Active Start: October 05, 2024 End: October 05, 2024 Ragini Nielson CNM Attending Provider Active S tart: October 05, 2024 End: October 05, 2024 Team Status: Inactive Member Role/Relationship Status Dates No Primary Care Physician Primary Care Provider Active Start: November 10, 2024 End: November 10, 2024 Ragini Nielson CNM Attending Provider Active S tart: November 10, 2024 End: November 10, 2024 Ragini Nielson CNM Referring Provider Active S tart: November 10, 2024 End: November 10, 2024 Team Status: Inactive Member Role/Relationship Status Dates No Primary Care Physician Primary Care Provider Active Start: November 10, 2024 End: November 10, 2024 No Primary Care Physician Referring Provider Active Start: November 10, 2024 End: November 10, 2024 Chanel Ryan NP, ATHLETE MANAGER-C Attending Provider Active Start: November 10, 2024 End: November 10, 2024 Team Status: Inactive Member Role/Relationship Status Dates No Primary Care Physician Primary Care Provider Active Start: November 23, 2024 End: November 23, 2024 No Primary Care Physician Referring Provider Active Start: November 23, 2024 End: November 23, 2024 Chanel Ryan ATHLETE MANAGER, ATHLETE MANAGER-C Attending Provider Active Start: November 23, 2024 End: November 23, 2024 Team Status: Inactive Member Role/Relationship Status Dates No Primary Care Physician Primary Care Provider Active Start: December 07, 2024 End: December 07, 2024 No Primary Care Physician Referring Provider Active Start: December 07, 2024 End: December 07, 2024 Dr. Cherise Snow DO Attending Provider Activ e Start: December 07, 2024 End: December 07, 2024 Team Status: Inactive Member Role/Relationship Status Dates No Primary Care Physician Primary Care Provider Active Start: December 22, 2024 End: December 22, 2024 No Primary Care Physician Referring Provider Active Start: December 22, 2024 End: December 22, 2024 Ragini Nielson CNM Attending Provider Active S tart: December 22, 2024 End: December 22, 2024 Team Status: Inactive Member Role/Relationship Status Dates No Primary Care Physician Primary Care Provider Active Start: January 05, 2025 End: January 05, 2025 No Primary Care Physician Referring Provider Active Start: January 05, 2025 End: January 05, 2025 Chanel Ryan ATHLETE MANAGER, ATHLETE MANAGER-C Attending Provider Active Start: January 05, 2025 End: January 05, 2025 Team Status: Inactive Member Role/Relationship Status Dates No Primary Care Physician Primary Care Provider Active Start: January 05, 2025 End: January 05, 2025 Chanel Ryan ATHLETE MANAGER, ATHLETE MANAGER-C Attending Provider Active Start: January 05, 2025 End: January 05, 2025 Chanel Ryan ATHLETE MANAGER, ATHLETE MANAGER-C Referring Provider Active Start: January 05, 2025 End: January 05, 2025 Team Status: Inactive Member Role/Relationship Status Dates No Primary Care Physician Primary Care Provider Active Start: January 11, 2025 End: January 11, 2025 No Primary Care Physician Referring Provider Active Start: January 11, 2025 End: January 11, 2025 Dr. Cherise Snow DO Attending Provider Activ e Start: January 11, 2025 End: January 11, 2025 Team Status: Inactive Member Role/Relationship Status Dates No Primary Care Physician Primary Care Provider Active Start: January 21, 2025 End: January 21, 2025 No Primary Care Physician Referring Provider Active Start: January 21, 2025 End: January 21, 2025 Dr. Cherise Snow DO Attending Provider Activ e Start: January 21, 2025 End: January 21, 2025 Team Status: Inactive Member Role/Relationship Status Dates No Primary Care Physician Primary Care Provider Active Start: January 26, 2025 End: January 26, 2025 No Primary Care Physician Referring Provider Active Start: January 26, 2025 End: January 26, 2025 Dr. Rosalinda Herr MD Attending Provider Active Start: January 26, 2025 End: January 26, 2025 Team Status: Inactive Member Role/Relationship Status Dates No Primary Care Physician Primary Care Provider Active Start: January 28, 2025 End: January 28, 2025 Dr. Rosailnda Herr MD Attending Provider Active Start: January 28, 2025 End: January 28, 2025 Dr. Rosalinda Herr MD Referring Provider Active Start: January 28, 2025 End: January 28, 2025 Team Status: Inactive Member Role/Relationship Status Dates No Primary Care Physician Primary Care Provider Active Start: November 10, 2024 End: November 10, 2024 Ragini Nielson CNM Attending Provider Active S tart: November 10, 2024 End: November 10, 2024 Ragini Nielson CNM Referring Provider Active S tart: November 10, 2024 End: November 10, 2024 Team Status: Inactive Member Role/Relationship Status Dates No Primary Care Physician Primary Care Provider Active Start: November 10, 2024 End: November 10, 2024 No Primary Care Physician Referring Provider Active Start: November 10, 2024 End: November 10, 2024 Chanel Ryan ATHLETE MANAGER, ATHLETE MANAGER-C Attending Provider Active Start: November 10, 2024 End: November 10, 2024 Team Status: Inactive Member Role/Relationship Status Dates No Primary Care Physician Primary Care Provider Active Start: November 23, 2024 End: November 23, 2024 No Primary Care Physician Referring Provider Active Start: November 23, 2024 End: November 23, 2024 Chanel Ryan ATHLETE MANAGER, ATHLETE MANAGER-C Attending Provider Active Start: November 23, 2024 End: November 23, 2024 Team Status: Inactive Member Role/Relationship Status Dates No Primary Care Physician Primary Care Provider Active Start: December 07, 2024 End: December 07, 2024 No Primary Care Physician Referring Provider Active Start: December 07, 2024 End: December 07, 2024 Dr. Cherise Snow DO Attending Provider Activ e Start: December 07, 2024 End: December 07, 2024 Team Status: Inactive Member Role/Relationship Status Dates No Primary Care Physician Primary Care Provider Active Start: December 22, 2024 End: December 22, 2024 No Primary Care Physician Referring Provider Active Start: December 22, 2024 End: December 22, 2024 Ragini Nielson CNM Attending Provider Active S tart: December 22, 2024 End: December 22, 2024 Team Status: Inactive Member Role/Relationship Status Dates No Primary Care Physician Primary Care Provider Active Start: January 05, 2025 End: January 05, 2025 No Primary Care Physician Referring Provider Active Start: January 05, 2025 End: January 05, 2025 Chanel Ryan ATHLETE MANAGER, ATHLETE MANAGER-C Attending Provider Active Start: January 05, 2025 End: January 05, 2025 Team Status: Inactive Member Role/Relationship Status Dates No Primary Care Physician Primary Care Provider Active Start: January 05, 2025 End: January 05, 2025 Chanel Ryan ATHLETE MANAGER, ATHLETE MANAGER-C Attending Provider Active Start: January 05, 2025 End: January 05, 2025 Chanel Ryan ATHLETE MANAGER, ATHLETE MANAGER-C Referring Provider Active Start: January 05, 2025 End: January 05, 2025 Team Status: Inactive Member Role/Relationship Status Dates No Primary Care Physician Primary Care Provider Active Start: January 11, 2025 End: January 11, 2025 No Primary Care Physician Referring Provider Active Start: January 11, 2025 End: January 11, 2025 Dr. Cherise Snow DO Attending Provider Activ e Start: January 11, 2025 End: January 11, 2025 Team Status: Inactive Member Role/Relationship Status Dates No Primary Care Physician Primary Care Provider Active Start: January 21, 2025 End: January 21, 2025 No Primary Care Physician Referring Provider Active Start: January 21, 2025 End: January 21, 2025 Dr. Cherise Snow DO Attending Provider Activ e Start: January 21, 2025 End: January 21, 2025 Team Status: Inactive Member Role/Relationship Status Dates No Primary Care Physician Primary Care Provider Active Start: January 26, 2025 End: January 26, 2025 No Primary Care Physician Referring Provider Active Start: January 26, 2025 End: January 26, 2025 Dr. Rosalinda Herr MD Attending Provider Active Start: January 26, 2025 End: January 26, 2025 Team Status: Inactive Member Role/Relationship Status Dates No Primary Care Physician Primary Care Provider Active Start: January 28, 2025 End: January 28, 2025 Dr. Rosalinda Herr MD Attending Provider Active Start: January 28, 2025 End: January 28, 2025 Dr. Rosalinda Herr MD Referring Provider Active Start: January 28, 2025 End: January 28, 2025 Team Status: Inactive Member Role/Relationship Status Dates No Primary Care Physician Primary Care Provider Active Start: February 03, 2025 End: February 03, 2025 No Primary Care Physician Referring Provider Active Start: February 03, 2025 End: February 03, 2025 Dr. Cherise Snow DO Attending Provider Activ e Start: February 03, 2025 End: February 03, 2025 Team Status: Inactive Member Role/Relationship Status Dates No Primary Care Physician Primary Care Provider Active Start: February 06, 2025 End: February 08, 2025 Ching Mcgee CNM Admit Provider Active Star t: February 06, 2025 End: February 08, 2025 Ching Mcgee CNM Attending Provider Active Start: February 06, 2025 End: February 08, 2025 Team Status: Active Member Role/Relationship Status Dates No Primary Care Physician Primary Care Provider Active Start: February 06, 2025 Ching Mcgee CNM Admit Provider Active Star t: February 06, 2025 Ching Mcgee CNM Attending Provider Active Start: February 06, 2025 Ching Mcgee CNM Other Provider Active Star t: February 06, 2025 Team Status: Active Member Role/Relationship Status Dates No Primary Care Physician Primary Care Provider Active Start: February 07, 2025 Ching Mcgee CNM Admit Provider Active Star t: February 07, 2025 Ching Mcgee CNM Attending Provider Active Start: February 07, 2025 Ching Mcgee CNM Other Provider Active Star t: February 07, 2025 Team Status: Active Member Role/Relationship Status Dates No Primary Care Physician Primary Care Provider Active Start: February 08, 2025 Ching Mcgee CNM Admit Provider Active Star t: February 08, 2025 Ching Mcgee CNM Other Provider Active Star t: February 08, 2025 Ragini Nielson CNM Attending Provider Active S tart: February 08, 2025 Team Status: Inactive Member Role/Relationship Status Dates No Primary Care Physician Primary Care Provider Active Start: November 23, 2024 End: November 23, 2024 No Primary Care Physician Referring Provider Active Start: November 23, 2024 End: November 23, 2024 Chanel Ryan NP, CELENA-C Attending Provider Active Start: November 23, 2024 End: November 23, 2024 Team Status: Inactive Member Role/Relationship Status Dates No Primary Care Physician Primary Care Provider Active Start: December 07, 2024 End: December 07, 2024 No Primary Care Physician Referring Provider Active Start: December 07, 2024 End: December 07, 2024 Dr. Cherise Snow DO Attending Provider Activ e Start: December 07, 2024 End: December 07, 2024 Team Status: Inactive Member Role/Relationship Status Dates No Primary Care Physician Primary Care Provider Active Start: December 22, 2024 End: December 22, 2024 No Primary Care Physician Referring Provider Active Start: December 22, 2024 End: December 22, 2024 Ragini Nielson CNM Attending Provider Active S tart: December 22, 2024 End: December 22, 2024 Team Status: Inactive Member Role/Relationship Status Dates No Primary Care Physician Primary Care Provider Active Start: January 05, 2025 End: January 05, 2025 No Primary Care Physician Referring Provider Active Start: January 05, 2025 End: January 05, 2025 Chanel Ryan ATHLETE MANAGER, ATHLETE MANAGER-C Attending Provider Active Start: January 05, 2025 End: January 05, 2025 Team Status: Inactive Member Role/Relationship Status Dates No Primary Care Physician Primary Care Provider Active Start: January 05, 2025 End: January 05, 2025 Chanel Ryan ATHLETE MANAGER, ATHLETE MANAGER-C Attending Provider Active Start: January 05, 2025 End: January 05, 2025 Chanel Ryan ATHLETE MANAGER, ATHLETE MANAGER-C Referring Provider Active Start: January 05, 2025 End: January 05, 2025 Team Status: Inactive Member Role/Relationship Status Dates No Primary Care Physician Primary Care Provider Active Start: January 11, 2025 End: January 11, 2025 No Primary Care Physician Referring Provider Active Start: January 11, 2025 End: January 11, 2025 Dr. Cherise Snow DO Attending Provider Activ e Start: January 11, 2025 End: January 11, 2025 Team Status: Inactive Member Role/Relationship Status Dates No Primary Care Physician Primary Care Provider Active Start: January 21, 2025 End: January 21, 2025 No Primary Care Physician Referring Provider Active Start: January 21, 2025 End: January 21, 2025 Dr. Cherise Snow DO Attending Provider Activ e Start: January 21, 2025 End: January 21, 2025 Team Status: Inactive Member Role/Relationship Status Dates No Primary Care Physician Primary Care Provider Active Start: January 26, 2025 End: January 26, 2025 No Primary Care Physician Referring Provider Active Start: January 26, 2025 End: January 26, 2025 Dr. Rosalinda Herr MD Attending Provider Active Start: January 26, 2025 End: January 26, 2025 Team Status: Inactive Member Role/Relationship Status Dates No Primary Care Physician Primary Care Provider Active Start: January 28, 2025 End: January 28, 2025 Dr. Rosalinda Herr MD Attending Provider Active Start: January 28, 2025 End: January 28, 2025 Dr. Rosalinda Herr MD Referring Provider Active Start: January 28, 2025 End: January 28, 2025 Team Status: Inactive Member Role/Relationship Status Dates No Primary Care Physician Primary Care Provider Active Start: February 03, 2025 End: February 03, 2025 No Primary Care Physician Referring Provider Active Start: February 03, 2025 End: February 03, 2025 Dr. Cherise Snow DO Attending Provider Activ e Start: February 03, 2025 End: February 03, 2025 Team Status: Inactive Member Role/Relationship Status Dates No Primary Care Physician Primary Care Provider Active Start: February 06, 2025 End: February 08, 2025 Ching Mcgee CNM Admit Provider Active Star t: February 06, 2025 End: February 08, 2025 Ching Mcgee CNM Attending Provider Active Start: February 06, 2025 End: February 08, 2025 Team Status: Active Member Role/Relationship Status Dates No Primary Care Physician Primary Care Provider Active Start: February 06, 2025 Ching Mcgee CNM Admit Provider Active Star t: February 06, 2025 Ching Mcgee CNM Attending Provider Active Start: February 06, 2025 Ching Mcgee CNM Other Provider Active Star t: February 06, 2025 Team Status: Active Member Role/Relationship Status Dates No Primary Care Physician Primary Care Provider Active Start: February 07, 2025 Ching Mcgee CNM Admit Provider Active Star t: February 07, 2025 Ching Mcgee CNM Attending Provider Active Start: February 07, 2025 Ching Mcgee CNM Other Provider Active Star t: February 07, 2025 Team Status: Active Member Role/Relationship Status Dates No Primary Care Physician Primary Care Provider Active Start: February 08, 2025 Ching Mcgee CNM Admit Provider Active Star t: February 08, 2025 Ching Mcgee CNM Other Provider Active Star t: February 08, 2025 Ragini Nielson CNM Attending Provider Active S tart: February 08, 2025 Team Status: Inactive Member Role/Relationship Status Dates No Primary Care Physician Primary Care Provider Active Start: March 23, 2025 End: March 23, 2025 No Primary Care Physician Referring Provider Active Start: March 23, 2025 End: March 23, 2025 Chanel Ryan NP, ATHLETE MANAGER-C Attending Provider Active Start: March 23, 2025 End: March 23, 2025 Source Comments (unrecognize d section and content) In the event this informatio n is protected by the Federal Confidentiality of Alcohol and Drug Abuse Patient Records regulations: The Federal rules restrict any use of the information to criminally investigate or prosecute any alcohol or drug abuse patient.[facility] FOR RECORDS PERTAINING TO PATIENTS WHO ARE OR HAVE BEEN ENROLLED IN A CHEMICAL DEPENDENCY/SUBSTANCEABUSE PROGRAM, SOME INFORMATION MAY BE OMITTED. This clinical summary was aggregated from multiple sources. Caution should be exercised in using it in the provision of clinical care. This summary normalizes information from multiple sources, and as a consequence, information in this document may materially change the coding, format and clinical context of patient data. In addition, data may be omitted in some cases. CLINICAL DECISIONS SHOULD BE BASED ON THE PRIMARY CLINICAL RECORDS. [facility]. provides no warranty or guarantee of the accuracy or completeness of information in this document.
== END | disposition home or self-care (01) ==
LOC: LABSPEC 15:22
PROVIDERS: Referring Provider Nurse Practitioner Women's Health; Visit Provider Nurse Practitioner Women's Health
DX: Z12.4 Encounter for screening for malignant neoplasm of cervix (principal)
CPT/HCPCS: 88175; G0145